=== PATIENT | male | born 1940 | race Caucasian/White ===

== ENCOUNTER → 2016-08-20 | Outpatient (CLI) | payer MEDICARE, OTHER ==
[2016-08-20 09:32] LABS: Chloride 104 mmol/L (98-107); Cholesterol 104 mg/dL (<200); Glucose 127 mg/dL (74-99); Total Protein 6.9 g/dL (6.3-8.2); Triglycerides 54 mg/dL (<150)
[2016-08-20 09:33] LABS: ALT 39 U/L (21-72); AST 25 U/L (17-59); Alkaline Phosphatase 50 U/L (38-126); Anion Gap 12 mmol/L; Blood Urea Nitrogen 18 mg/dL (9-20); Calcium 9.7 mg/dL (8.4-10.2); Carbon Dioxide 28 mmol/L (22-30); HDL Cholesterol 43 mg/dL (40-60); Non-African American GFR(MDRD) >60 (>60 ml/min/1.73 sqM); Potassium 5.1 mmol/L (3.5-5.1); Sodium 144 mmol/L (137-145); Total Bilirubin 0.9 mg/dL (0.2-1.3)
== END | disposition home or self-care (01) ==
LOC: LABWHC1 08:23
PROVIDERS: ATTEND Internal Medicine Interventional Cardiology
DX: E78.2 Mixed hyperlipidemia (principal)
CPT/HCPCS: 36415; 80053; 80061

== ENCOUNTER → 2017-02-07 | Outpatient (CLI) | payer MEDICARE, OTHER ==
[2017-02-07 10:04] LABS: ALT 34 U/L (21-72); AST 20 U/L (17-59); Alkaline Phosphatase 46 U/L (38-126); Anion Gap 8 mmol/L; Blood Urea Nitrogen 18 mg/dL (9-20); Calcium 9.2 mg/dL (8.4-10.2); Carbon Dioxide 26 mmol/L (22-30); Chloride 108 mmol/L (98-107); Cholesterol 113 mg/dL (<200); Glucose 109 mg/dL (74-99); HDL Cholesterol 45 mg/dL (40-60); Non-African American GFR(MDRD) >60 (>60 ml/min/1.73 sqM); Potassium 4.3 mmol/L (3.5-5.1); Sodium 142 mmol/L (137-145); Total Bilirubin 0.7 mg/dL (0.2-1.3); Total Protein 6.1 g/dL (6.3-8.2); Triglycerides 53 mg/dL (<150)
== END | disposition home or self-care (01) ==
LOC: LABWHC1 09:03
PROVIDERS: ATTEND Internal Medicine Interventional Cardiology
DX: E78.2 Mixed hyperlipidemia (principal)
CPT/HCPCS: 36415; 80053; 80061

== ENCOUNTER 2018-04-10 14:00 | Inpatient (IN) | payer MEDICARE, OTHER ==
--- NOTE | 2018-04-10 15:02 | ED ---
Neuro HPI - General Chief Complaint: Neuro Symptoms/Deficit Stated Complaint: Numbness lt side Time Seen by Provider: 04/10/18 14:40 Source: patient, family, RN notes reviewed Mode of arrival: ambulatory Limitations: no limitations - History of Present Illness Is the patient presenting with stroke symptoms?: No Initial Comments: This is a 78-year-old male who states he was carrying kitchen cabinets when his left hand surgery come weak and numb. He states. Shortly thereafter his left leg was weak and had difficulty walking. This whole episode lasted approximately 10 minutes and then totally resolved. He did have a slight headache no nausea vomiting fevers chills sweats no blurry vision or other symptoms. He is dominant right-handed. He has no prior history of strokes no palpitations to complain of no trauma. No neck pain. - Related Data Home Medications: Home Medications Medication Instructions Recorded Confirmed Aspirin EC [Ecotrin] 325 mg PO DAILY 04/16/14 04/10/18 Celecoxib [CeleBREX] 200 mg PO BID 04/16/14 04/10/18 Niacin [Niaspan] 1,000 mg PO BID 04/16/14 04/10/18 Simvastatin [Zocor] 40 mg PO HS 04/16/14 04/10/18 Tamsulosin [Flomax] 0.4 mg PO DAILY 04/16/14 04/10/18 metFORMIN HCL [Glucophage] 500 mg PO BID 04/16/14 04/10/18 Lisinopril [Zestril] 5 mg PO DAILY 04/10/18 04/10/18 Allergies/Adverse Reactions: Allergies Allergy/AdvReac Type Severity Reaction Status Date / Time walnuts Allergy Anaphylaxis Uncoded 04/10/18 14:16 Review of Systems ROS Statement: Those systems with pertinent positive or pertinent negative responses have been documented in the HPI. ROS Other: All systems not noted in ROS Statement are negative. General Exam - General Exam Comments Initial Comments: This is a well-developed well-nourished awake alert oriented 3 male Limitations: no limitations General appearance: alert, in no apparent distress Head exam: Present: atraumatic, normocephalic, normal inspection Eye exam: Present: normal appearance, PERRL, EOMI. Absent: scleral icterus, conjunctival injection, periorbital swelling ENT exam: Present: normal exam, mucous membranes moist Neck exam: Present: normal inspection. Absent: tenderness, meningismus, lymphadenopathy Respiratory exam: Present: normal lung sounds bilaterally. Absent: respiratory distress, wheezes, rales, rhonchi, stridor Cardiovascular Exam: Present: regular rate, normal rhythm, normal heart sounds. Absent: systolic murmur, diastolic murmur, rubs, gallop, clicks GI/Abdominal exam: Present: soft, normal bowel sounds. Absent: distended, tenderness, guarding, rebound, rigid Extremities exam: Present: normal inspection, full ROM, normal capillary refill. Absent: tenderness, pedal edema, joint swelling, calf tenderness Back exam: Present: normal inspection Neurological exam: Present: alert, oriented X3, CN II-XII intact Psychiatric exam: Present: normal affect, normal mood Skin exam: Present: warm, dry, intact, normal color. Absent: rash Stroke MDM - Lab Data Result diagrams: 04/10/18 14:58 04/10/18 14:58 Lab Results 04/10/18 04/10/18 04/10/18 Range/Units 14:58 14:58 14:58 WBC 8.5 (3.8-10.6) k/uL RBC 5.46 (4.30-5.90) m/uL Hgb 16.4 (13.0-17.5) gm/dL Hct 49.0 (39.0-53.0) % MCV 89.7 (80.0-100.0) fL MCH 30.1 (25.0-35.0) pg MCHC 33.5 (31.0-37.0) g/dL RDW 13.2 (11.5-15.5) % Plt Count 187 (150-450) k/uL Neutrophils % 74 % Lymphocytes % 16 % Monocytes % 7 % Eosinophils % 2 % Basophils % 0 % Neutrophils # 6.2 (1.3-7.7) k/uL Lymphocytes # 1.3 (1.0-4.8) k/uL Monocytes # 0.6 (0-1.0) k/uL Eosinophils # 0.2 (0-0.7) k/uL Basophils # 0.0 (0-0.2) k/uL PT (9.0-12.0) sec INR (<1.2) APTT (22.0-30.0) sec Sodium 139 (137-145) mmol/L Potassium 4.5 (3.5-5.1) mmol/L Chloride 105 (98-107) mmol/L Carbon Dioxide 27 (22-30) mmol/L Anion Gap 7 mmol/L BUN 19 (9-20) mg/dL Creatinine 0.99 (0.66-1.25) mg/dL Est GFR (CKD-EPI)AfAm 84 (>60 ml/min/1.73 sqM) Est GFR (CKD-EPI)NonAf 73 (>60 ml/min/1.73 sqM) Glucose 116 H (74-99) mg/dL Calcium 10.0 (8.4-10.2) mg/dL Total Bilirubin 0.9 (0.2-1.3) mg/dL AST 24 (17-59) U/L ALT 30 (21-72) U/L Alkaline Phosphatase 49 (38-126) U/L Total Creatine Kinase 139 (55-170) U/L CK-MB (CK-2) 2.2 (0.0-2.4) ng/mL CK-MB (CK-2) Rel Index 1.6 Troponin I <0.012 (0.000-0.034) ng/mL Total Protein 6.5 (6.3-8.2) g/dL Albumin 3.8 (3.5-5.0) g/dL 04/10/18 Range/Units 14:58 WBC (3.8-10.6) k/uL RBC (4.30-5.90) m/uL Hgb (13.0-17.5) gm/dL Hct (39.0-53.0) % MCV (80.0-100.0) fL MCH (25.0-35.0) pg MCHC (31.0-37.0) g/dL RDW (11.5-15.5) % Plt Count (150-450) k/uL Neutrophils % % Lymphocytes % % Monocytes % % Eosinophils % % Basophils % % Neutrophils # (1.3-7.7) k/uL Lymphocytes # (1.0-4.8) k/uL Monocytes # (0-1.0) k/uL Eosinophils # (0-0.7) k/uL Basophils # (0-0.2) k/uL PT 9.7 (9.0-12.0) sec INR 1.0 (<1.2) APTT 19.1 L (22.0-30.0) sec Sodium (137-145) mmol/L Potassium (3.5-5.1) mmol/L Chloride (98-107) mmol/L Carbon Dioxide (22-30) mmol/L Anion Gap mmol/L BUN (9-20) mg/dL Creatinine (0.66-1.25) mg/dL Est GFR (CKD-EPI)AfAm (>60 ml/min/1.73 sqM) Est GFR (CKD-EPI)NonAf (>60 ml/min/1.73 sqM) Glucose (74-99) mg/dL Calcium (8.4-10.2) mg/dL Total Bilirubin (0.2-1.3) mg/dL AST (17-59) U/L ALT (21-72) U/L Alkaline Phosphatase (38-126) U/L Total Creatine Kinase (55-170) U/L CK-MB (CK-2) (0.0-2.4) ng/mL CK-MB (CK-2) Rel Index Troponin I (0.000-0.034) ng/mL Total Protein (6.3-8.2) g/dL Albumin (3.5-5.0) g/dL - NIH Stroke Scale 1a. Level of Consciousness: (0) alert 1b. LOC Questions: (0) answers correctly 1c. LOC Commands: (0) performs tasks correctly 2. Best Gaze: (0) normal 3. Visual: (0) no visual loss 4. Facial Palsy: (0) normal symmetrical movement 5a. Motor Arm Left: (0) no drift 5b. Motor Arm Right: (0) no drift 6a. Motor Leg Left: (0) no drift 6b. Motor Leg Right: (0) no drift 7. Limb Ataxia: (0) absent 8. Sensory: (0) normal 9. Best Language: (0) no aphasia 10. Dysarthria: (0) normal 11. Extinction/Inattention: (0) no abnormality - Thrombolytic Inclusion/Exclusion Thrombolytic Contraindications: Rapidly Improving s/s - Medical Decision Making CT initially shows no acute findings. CTA was pending. Patient will be admitted at [facility] discuss case with Dr. Blanc. Neurology will be consulted - EKG Data -: EKG Interpreted by Me (Sinus rhythm rate is 74 RI interval 184 QRS duration 156 DT says QTC 460/46) Past Medical History Past Medical History: Diabetes Mellitus, Eye Disorder, GERD/Reflux, Hyperlipidemia, Hypertension, Myocardial Infarction (LA), Osteoarthritis (OA), Prostate Disorder Additional Past Medical History / Comment(s): HX DIVERTICULITIS, BOWEL OBSTRUCTION Last Myocardial Infarction Date:: 1999 History of Any Multi-Drug Resistant Organisms: None Reported Past Surgical History: Heart Catheterization With Stent, Orthopedic Surgery Additional Past Surgical History / Comment(s): HEART STENTS X 3, ORIF LT ANKLE- HARDWARE LATER REMOVED Past Anesthesia/Blood Transfusion Reactions: No Reported Reaction Date of Last Stent Placement:: 1999 Past Psychological History: No Psychological Hx Reported Smoking Status: Former smoker Past Alcohol Use History: Occasional - Past Family History Father Family Medical History: Cancer Mother Family Medical History: Deep Vein Thrombosis (DVT) Course Vital Signs 04/10/18 04/10/18 04/10/18 14:12 15:00 15:30 Temperature 98.1 F 98.1 F 98.0 F Pulse Rate 89 75 78 Respiratory 18 16 18 Rate Blood Pressure 154/84 124/78 125/78 O2 Sat by Pulse 100 98 98 Oximetry 04/10/18 04/10/18 04/10/18 16:00 16:30 17:00 Temperature 98.0 F 98.0 F Pulse Rate 80 72 75 Respiratory 16 16 16 Rate Blood Pressure 130/78 126/73 115/70 O2 Sat by Pulse 98 98 99 Oximetry - Reevaluation(s) Reevaluation #1: 04/10/18 15:28 I did discuss the initial CAT scan with radiologist who did call me. Is some evidence of abnormality in the MCA distribution. CTA is recommended. This is ordered Reevaluation #2: 04/10/18 17:38 No further symptoms the patient has returned to his normal self he states Disposition Clinical Impression: Transient cerebral ischemia Disposition: ADMITTED IP TO THIS HOSP Condition: Stable Referrals: Reinaldo Garcia MD [Primary Care Provider] - 1-2 days
[2018-04-10 15:24] LABS: Basophils % (A) 0 %; Eosinophils # (A) 0.2 k/uL (0-0.7); Eosinophils % (A) 2 %; HGB 16.4 gm/dL (13.0-17.5); Lymphocytes # (A) 1.3 k/uL (1.0-4.8); Lymphocytes % (A) 16 %; MCH 30.1 pg (25.0-35.0); MCHC 33.5 g/dL (31.0-37.0); MCV 89.7 fL (80.0-100.0); Mean Platelet Volume 7.3; Monocytes # (A) 0.6 k/uL (0-1.0); Monocytes % (A) 7 %; Neutrophils # (A) 6.2 k/uL (1.3-7.7); Neutrophils % (A) 74 %; Platelet Count 187 k/uL (150-450); RBC 5.46 m/uL (4.30-5.90); RDW 13.2 % (11.5-15.5); WBC 8.5 k/uL (3.8-10.6)
--- NOTE | 2018-04-10 15:25 | CT ---
EXAMINATION TYPE: CT brain wo con for TPA DATE OF EXAM: 04/10/2018 COMPARISON: None HISTORY: numbness on left side CT DLP: 1186 mGycm Automated exposure control for dose reduction was used. FINDINGS: Intracranial atherosclerotic changes are seen. Calcification is seen within the sulcus the right vu etal lobe. This likely is vascular. Intracranial atherosclerotic changes noted. No midline shift or mass effect. Mild to moderate generalized degenerative change. Question a small a akhil of hyperdensity involving the distal branch of the right MCA. Could not exclude an acute thrombus . IMPRESSION: 1. No definite acute hemorrhage or mass effect. Is a tiny hyperdensity in the distribution of the dis helen branch of the right MCA. Although, this is too small to characterize and could represent a calcif ication a small acute thrombus could not BE excluded.
--- NOTE | 2018-04-10 15:33 | XR ---
EXAMINATION TYPE: XR chest 2V DATE OF EXAM: 04/10/2018 COMPARISON: NONE HISTORY: Numbness in left hand with chest pain. TECHNIQUE: Frontal and lateral views of the chest are obtained. FINDINGS: There is chronic parenchymal change without suspicious focal air space opacity, pleural ef fusion, or pneumothorax seen. The cardiac silhouette size is upper limits of normal normal limits. T here is levoconvex scoliosis centered in the upper thoracic spine with multilevel moderate to severe anterior and lateral spurring. IMPRESSION: Chronic changes without acute cardiopulmonary process.
[2018-04-10 15:36] LABS: Albumin 3.8 g/dL (3.5-5.0); Potassium 4.5 mmol/L (3.5-5.1); Total Bilirubin 0.9 mg/dL (0.2-1.3); Total Protein 6.5 g/dL (6.3-8.2)
[2018-04-10 15:43] LABS: Creatine Kinase 139 U/L (55-170)
[2018-04-10 15:44] LABS: Prothrombin Time 9.7 sec (9.0-12.0)
[2018-04-10 15:48] LABS: Partial Thromboplastin Time 19.1 sec (22.0-30.0)
[2018-04-10 15:57] LABS: Creatine Kinase MB 2.2 ng/mL (0.0-2.4); Troponin I <0.012 ng/mL (0.000-0.034)
--- NOTE | 2018-04-10 17:24 | CT ---
EXAMINATION TYPE: CT angio head neck DATE OF EXAM: 04/10/2018 HISTORY: Numbness to left side hand COMPARISON: None CT DLP: 279.6 mGycm. Automated Exposure Control for Dose Reduction was Utilized. TECHNIQUE: CTA scan of the neck is performed with IV Contrast, patient injected with 65 mL of Isovue 370, axial images are obtained, coronal and sagittal reformatted images are reviewed. Three-D recons tructed images are created on an independent workstation and reviewed. FINDINGS: Thoracic aorta is atheromatous. There is normal branching pattern of the great vessels on t he aortic arch. There is bilateral arterial flow in the vertebral arteries which are fairly symmetric . There is arterial flow in the common internal and external carotid arteries bilaterally. There is s ignificant plaque at the origin of the right internal carotid artery and lumen narrowing probably mor e than 75%. There is significant plaque formation at the origin also left internal carotid artery and lumen narrowing more than 50%. There is no evidence of carotid or vertebral artery dissection. There is arterial flow in the vertebrobasilar artery system. There is arterial flow in the anterior m iddle and posterior cerebral arteries. I see no evidence of intracranial aneurysm or neovascularity. There is no mass effect. I see no evidence of intracranial arterial stenosis. There is normal contras t opacification of the venous sinuses. IMPRESSION: Atherosclerotic vascular disease. There is more than 75% stenosis of the right internal carotid arter y and more than 50% stenosis left internal carotid artery.
[2018-04-10] MEDS ORDERED: ASPIRIN 325 MG TAB PO STA (17:41)
[2018-04-10] MEDS: SODIUM CHLORIDE 0.9% 1,000 ML IV SCH (18:25)
[2018-04-10] MEDS ORDERED: NALOXONE 0.4 MG/ML 1 ML VIAL IV PRN (19:32)
[2018-04-10] MEDS: FAMOTIDINE 20 MG TAB PO SCH (20:22)
[2018-04-10] MEDS: NIACIN TR 500 MG CAPSULE.ER PO SCH (20:22)
[2018-04-10] MEDS: ATORVASTATIN 80 MG TAB PO SCH (20:39)
--- NOTE | 2018-04-10 20:47 | P.HPIM ---
History of Present Illness H&P Date: 04/10/18 Chief Complaint: left sided weakness 78-year-old male with history of diabetes mellitus, CAD status post stents, hypertension. Patient was admitted times status of his health today he was doing a lot of work at home, he is retired. And as he was finishing his work he was attempting to pecan picker a ramp's he was able to pick the one on the right side but the one on the left side he failed to get up when his easily helped him and pick it up he walked inside the house and noticed that his left side is weak and shaky with some numbness as he was trying to feel his left upper extremity and it was completely numb. Otherwise he didn't identify any numb areas around his face. He denies any associated facial droop or slurred speech or any changes in his vision or hearing however when he attempted to go to the bathroom he noticed left lower extremity weakness in his leg gave out that's when he decided to come to the hospital for further evaluation. Reports that his symptoms improved after 10 minutes. And completely resolved after 1 hour. He has never experienced anything similar in the past. In the emergency department CAT scan of the head suggested small hyperdensity area and the branch of the right MCA however CT angiogram of the head and neck did not show any flow limitations in the anterior middle or posterior cerebral arteries. However it did identify significant stenosis of the right internal carotid artery of over 75%. Chest x-ray was unremarkable and EKG showed PVCs with right bundle branch block. Patient otherwise denies any chest pain or trouble breathing denies any fevers or chills denies any changes in his bowel habits or urinary habits denies any abdominal pain nausea or vomiting denies any palpitations dizziness or lightheadedness. Patient however admitted that since January he stopped taking his cholesterol pills. Review of Systems Pertinent positives as noted in HPI. All other systems were reviewed and are negative Past Medical History Past Medical History: Diabetes Mellitus, Eye Disorder, GERD/Reflux, Hyperlipidemia, Hypertension, Myocardial Infarction (MA), Osteoarthritis (OA), Prostate Disorder Additional Past Medical History / Comment(s): HX DIVERTICULITIS, BOWEL OBSTRUCTION Last Myocardial Infarction Date:: 1999 History of Any Multi-Drug Resistant Organisms: None Reported Past Surgical History: Heart Catheterization With Stent, Orthopedic Surgery Additional Past Surgical History / Comment(s): HEART STENTS X 3, ORIF LT ANKLE- HARDWARE LATER REMOVED Past Anesthesia/Blood Transfusion Reactions: No Reported Reaction Date of Last Stent Placement:: 1999 Past Psychological History: No Psychological Hx Reported Smoking Status: Former smoker Past Alcohol Use History: Occasional Past Drug Use History: None Reported - Past Family History Father Family Medical History: Cancer Mother Family Medical History: Deep Vein Thrombosis (DVT) Medications and Allergies Home Medications Medication Instructions Recorded Confirmed Type Aspirin EC [Ecotrin] 325 mg PO DAILY 04/16/14 04/10/18 History Celecoxib [CeleBREX] 200 mg PO BID 04/16/14 04/10/18 History Niacin [Niaspan] 1,000 mg PO BID 04/16/14 04/10/18 History Simvastatin [Zocor] 40 mg PO HS 04/16/14 04/10/18 History Tamsulosin [Flomax] 0.4 mg PO DAILY 04/16/14 04/10/18 History metFORMIN HCL [Glucophage] 500 mg PO BID 04/16/14 04/10/18 History Lisinopril [Zestril] 5 mg PO DAILY 04/10/18 04/10/18 History Allergies Allergy/AdvReac Type Severity Reaction Status Date / Time walnuts Allergy Anaphylaxis Uncoded 04/10/18 14:16 Physical Exam Vitals: Vital Signs Temp Pulse Resp BP Pulse Ox 04/10/18 18:30 98.1 F 74 16 128/80 98 04/10/18 18:00 98.1 F 78 18 122/78 98 04/10/18 17:30 98.0 F 80 16 120/72 98 04/10/18 17:00 75 16 115/70 99 04/10/18 16:30 98.0 F 72 16 126/73 98 04/10/18 16:00 98.0 F 80 16 130/78 98 04/10/18 15:30 98.0 F 78 18 125/78 98 04/10/18 15:00 98.1 F 75 16 124/78 98 04/10/18 14:12 98.1 F 89 18 154/84 100 Intake and Output 04/10/18 04/10/18 04/10/18 06:59 14:59 22:59 Other: Weight 103.328 kg 103.328 kg Constitutional: No acute distress, conversant, pleasant, well developed Eyes: Anicteric sclerae, moist conjunctiva, no lid-lag Pupils equal round reactive to light ENMT: NC/AT Oropharynx clear, no erythema, or exudates Neck: Supple, FROM, no masses, or JVD No carotid bruits No thyromegaly Lungs: Clear to auscultation Clear to percussion Normal respiratory effort, no accessory muscle use Cardiovascular: Heart regular in rate and rhythm, grade III systolic murmur, max intensity at aortic area, non radiating , no gallops, or rubs No peripheral edema Abdominal: Soft Nontender, no guarding, rebound or rigidity Abdomen moving with respiration Normoactive bowel sounds No hepatomegaly, No splenomegaly No palpable mass No abdominal wall hernia noted Skin: Normal temperature, tone, texture, turgor No induration No subcutaneous nodules No rash, lesions No ulcers Extremities: No digital cyanosis No clubbing Pedal pulses intact and symmetrical Radial pulses intact and symmetrical No calf tenderness Psychiatric: Alert and oriented to person, place and time Appropriate affect fair judgment Neuro Muscles Strength 5/5 in all 4 extremities Sensation to light touch grossly present throughout Cranial nerves II-XII grossly intact No focal sensory deficits finger nose exam intact, gait unremarkable Lymphatics: no palpable cervical or supraclavicular , or inguinal lymph nodes Results CBC & Chem 7: 04/10/18 14:58 04/10/18 14:58 Labs: Abnormal Lab Results - Last 24 Hours (Table) 04/10/18 04/10/18 Range/Units 14:58 14:58 APTT 19.1 L (22.0-30.0) sec Glucose 116 H (74-99) mg/dL Assessment and Plan Assessment: 78 year old male with history of CAD, DM , HTN, admitted under inpatient with anticipated length of stay >48 hours, due to TIA, also found to have stenosis of right internal carotid artery , patient is diabetic and hypertensive with histroy of CAD s/p stents. his symptoms has resolved completely now. patient admitted for full workup of TIA, vascular surgery consult for internal carotid stenosis , ABCD score put him at moderate risk for full blown stroke. Plan: TIA , with moderate risk factors for full blown stroke in 1 week significant stenosis of right internal carotid artery ASA statin high intensity dose neuro checks PT/OT neurology evaluation check echocardiogram B12, TSH vascular surgery consult systolic murmur , suspicious for aortic stenosis , asymptomatic check 2D echo Diabetes mellitus type II, controlled check A1c insulin sliding scale Hypertension , controlled continue lisinopril history of CAD s/p stents continue aspirin and statin continue blood pressure meds BPH resume flomax DVT PPx mechanical due to TIA avoid pharmacologic DVT PPX Surrogate decision-maker: patient CODE STATUS:full code Discussed with: Patient, ER, RN Anticipated discharge: 48-[address]: home A total of 60 minutes was spent on the care of this complex patient more than 50 % of the time was spent in counseling and care coordination.
[2018-04-10] MEDS ORDERED: metFORMIN 500 MG TAB PO SCH (21:00)
[2018-04-10] MEDS ORDERED: ATORVASTATIN 20 MG TAB PO SCH (21:00)
[2018-04-10] MEDS ORDERED: ATORVASTATIN 40 MG TAB PO SCH (21:00)
[2018-04-10 21:04] LABS: Glucose,Whole Blood 173 mg/dL (75-99)
[2018-04-10] MEDS: INSULIN ASPART 100 UNIT/ML 1 ML 10 ML VIAL SQ SCH (21:09)
[2018-04-11 05:57] LABS: Glucose,Whole Blood 113 mg/dL (75-99)
[2018-04-11] MEDS: INSULIN ASPART 100 UNIT/ML 1 ML 10 ML VIAL SQ SCH ×4 (06:15→21:19)
[2018-04-11 06:25] LABS: Basophils % (A) 1 %; Eosinophils # (A) 0.3 k/uL (0-0.7); Eosinophils % (A) 5 %; HCT 44.6 % (39.0-53.0); HGB 14.7 gm/dL (13.0-17.5); Lymphocytes # (A) 1.9 k/uL (1.0-4.8); Lymphocytes % (A) 30 %; Monocytes # (A) 0.5 k/uL (0-1.0); Monocytes % (A) 8 %; Neutrophils # (A) 3.5 k/uL (1.3-7.7); Neutrophils % (A) 54 %; Platelet Count 165 k/uL (150-450); RDW 13.3 % (11.5-15.5); WBC 6.5 k/uL (3.8-10.6)
[2018-04-11 06:33] LABS: Total Bilirubin 0.8 mg/dL (0.2-1.3); Total Protein 5.3 g/dL (6.3-8.2)
[2018-04-11 06:46] LABS: Potassium 4.5 mmol/L (3.5-5.1)
[2018-04-11] MEDS: FAMOTIDINE 20 MG TAB PO SCH ×2 (09:11→20:32)
[2018-04-11] MEDS: LISINOPRIL 5 MG TAB PO SCH (09:11)
[2018-04-11] MEDS: MELOXICAM 7.5 MG TAB PO SCH (09:11)
[2018-04-11] MEDS: TAMSULOSIN 0.4 MG CAP.ER.24H PO SCH (09:11)
[2018-04-11] MEDS: ASPIRIN 325 MG TAB PO SCH (09:12)
[2018-04-11] MEDS: NIACIN TR 500 MG CAPSULE.ER PO SCH ×2 (09:12→20:32)
--- NOTE | 2018-04-11 11:25 | ECHOF ---
Referral Reason:TIA MEASUREMENTS -------- HEIGHT: 188.0 cm WEIGHT: 100.7 kg BP: 97/58 RVIDd: 3.0 cm (< 3.3) IVSd: 1.3 cm (0.6 - 1.1) LVIDd: 3.9 cm (3.9 - 5.3) LVPWd: 1.1 cm (0.6 - 1.1) IVSs: 1.8 cm LVIDs: 2.7 cm LVPWs: 1.7 cm LA Diam: 3.3 cm (2.7 - 3.8) LAESV Index (A-L): 35.97 ml/m Ao Diam: 3.9 cm (2.0 - 3.7) AV Cusp: 1.4 cm (1.5 - 2.6) MV EXCURSION: 8.503 mm (> 18.000) MV EF SLOPE: 22 mm/s (70 - 150) EPSS: 1.4 cm MV E Ramiro: 1.02 m/s MV DecT: 285 ms MV A Ramiro: 0.97 m/s MV E/A Ratio: 1.05 AV maxP.04 mmHg AV meanP.63 mmHg AR PHT: 613 ms FINDINGS -------- Sinus rhythm with extra systolic beats. This was a technically adequate study. The left ventricular size is normal. There is mild concentric left ventricular hypertrophy. Overa ll left ventricular systolic function is normal with, an EF between 55 - 60 %. Basal inferior LV wa ll motion is hypokinetic. Basal inferoseptal LV wall motion is hypokinetic. The right ventricle is normal in size. LA is moderately dilated 34-39 ml/m2 The right atrium is normal in size. There is moderate to severe aortic valve sclerosis. There is mild aortic regurgitation. There is moderate aortic stenosis present. Peak/mean gradient across the Aortic Valve is 43.04mmHg / 25.63mm Hg. The mitral valve leaflets are mildly thickened. Mild mitral annular calcification present. Mild m itral regurgitation is present. The tricuspid valve appears structurally normal. Trace/mild (physiologic) pulmonic regurgitation. The aortic root is dilated measuring 3.9cm. Normal inferior vena cava with normal inspiratory collapse consistent with estimated right atrial pre ssure of 5 mmHg. There is no pericardial effusion. CONCLUSIONS -------- 1. Sinus rhythm with extra systolic beats. 2. This was a technically adequate study. 3. The left ventricular size is normal. 4. There is mild concentric left ventricular hypertrophy. 5. Overall left ventricular systolic function is normal with, an EF between 55 - 60 %. 6. Basal inferior LV wall motion is hypokinetic. 7. Basal inferoseptal LV wall motion is hypokinetic. 8. The right ventricle is normal in size. 9. LA is moderately dilated 34-39 ml/m2 10. The right atrium is normal in size. 11. There is moderate to severe aortic valve sclerosis. 12. There is mild aortic regurgitation. 13. There is moderate aortic stenosis present. 14. Peak/mean gradient across the Aortic Valve is 43.04mmHg / 25.63mmHg. 15. The mitral valve leaflets are mildly thickened. 16. Mild mitral annular calcification present. 17. Mild mitral regurgitation is present. 18. The tricuspid valve appears structurally normal. 19. Trace/mild (physiologic) pulmonic regurgitation. 20. The aortic root is dilated measuring 3.9cm. 21. Normal inferior vena cava with normal inspiratory collapse consistent with estimated right atrial pressure of 5 mmHg. 22. There is no pericardial effusion. [facility] JUSTICE: Rani Hale RDCS
[2018-04-11 11:29] LABS: Glucose,Whole Blood 105 mg/dL (75-99)
--- NOTE | 2018-04-11 13:37 | CONS ---
CONSULTATION This is a 78-year-old gentleman who came to [facility] with history of when he was working at home and he had weakness in the left arm and left leg with recovery in 10 minutes. No history of amaurosis fugax. No history of seizure disorder. There is no evidence of any facial droop and no evidence of any weakness on the right lower extremity. This is the first time it happened to him. The patient has a history of diabetes mellitus, coronary artery stent, history of hypertension controlled with medication. The patient had a stroke workup. He had a CT of the head without contrast, which showed possible MCA thrombosis. CT of the carotid shows middle cerebral is patent and the right side is 75% stenosis. PHYSICAL EXAMINATION: Patient was seen in his room. His vital signs are stable. Alert and oriented to time and place. Neck is supple. No bruit appreciated. Chest is clear to auscultation. First and second sounds normal. ABDOMEN: Soft, nontender. VASCULAR EXAMINATION: Brachial, radial, femoral pulses are present. NEURO SYSTEM: Patient is well oriented to time and place. Normal motor function upper and lower extremity. PLAN: The patient is on consult for neurology. I recommend to have antiplatelet therapy and we will have a cardiac clearance. Most likely this gentleman will need a right carotid endarterectomy. We will discuss with Internal Medicine and Neurology and follow with you. MMODL / IJN: [id number] /
--- NOTE | 2018-04-11 14:23 | P.PN ---
Subjective Progress Note Date: 04/11/18 The patient is a 78-year-old male with a past medical history of diabetes, CAD, and hypertension who presented to the ED with complaints of sudden onset left arm and left leg weakness and numbness. The patient noted that his symptoms started while he was trying to lift cabinets in the house for remodeling. The symptoms resolved completely within one hour. CT head in the ED showed a tiny hyperdensity in the distribution of the distal branch of the right MCA. Subsequent CTA of head and neck showed more than 75% stenosis of the right ICA and more than 50% stenosis of the left ICA. The patient was admitted to the inpatient unit for suspected TIA with vascular surgery and neurology consults. Patient was seen and examined with daughter, , and granddaughter at bedside. The patient was in good spirits and noted that all of his symptoms prior to admission have resolved. At time of examination, he denied any weakness, numbness, tingling, double vision, facial weakness, headaches, fever, chills, cough, chest pain, shortness of breath, nausea, vomiting, diarrhea, or recent travel. Objective - Vital Signs Vital signs: Vital Signs Temp 97.8 F 04/11/18 08:20 Pulse 83 04/11/18 11:35 Resp 16 04/11/18 11:35 BP 148/88 04/11/18 11:35 Pulse Ox 94 L 04/11/18 11:35 Intake & Output 04/10/18 04/11/18 04/11/18 18:59 06:59 18:59 Weight 103.328 kg 101.1 kg Other: Voiding Method Toilet Toilet # Voids 1 - Exam General: Non-toxic, in no acute distress HEENT: NC/AT, anicteric sclerae, moist conjunctiva, no lid-lag, PERRLA, oropharynx clear, no erythema, exudates Cardiovascular: S1/S2 wnl, systolic murmur appreciated, no rubs or gallops Lungs: Clear to auscultation, normal respiratory effort, no accessory muscle use Abdominal: Soft, nontender, non-distended, no guarding, rebound, or rigidity, normoactive bowel sounds Skin: Warm, dry Extremities: No edema or contractures Psychiatric: Alert and oriented to person, place and time, appropriate affect, Intact judgment Neuro: CN II-XII grossly intact, strength 5/5 throughout, finger no test within normal limits, sensation grossly intact throughout - Labs CBC & Chem 7: 04/11/18 05:22 04/11/18 05:22 Labs: Abnormal Lab Results - Last 24 Hours (Table) 04/10/18 04/10/18 04/10/18 Range/Units 14:58 14:58 21:02 APTT 19.1 L (22.0-30.0) sec Glucose 116 H (74-99) mg/dL POC Glucose (mg/dL) 173 H (75-99) mg/dL Total Protein (6.3-8.2) g/dL Albumin (3.5-5.0) g/dL LDL Cholesterol, Calc (0-99) mg/dL HDL Cholesterol (40-60) mg/dL 04/11/18 04/11/18 04/11/18 Range/Units 05:22 05:56 11:27 APTT (22.0-30.0) sec Glucose 109 H (74-99) mg/dL POC Glucose (mg/dL) 113 H 105 H (75-99) mg/dL Total Protein 5.3 L (6.3-8.2) g/dL Albumin 3.0 L (3.5-5.0) g/dL LDL Cholesterol, Calc 107 H (0-99) mg/dL HDL Cholesterol 27 L (40-60) mg/dL Assessment and Plan Plan: TIA, 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 -Neurology and vascular surgery consulted -Continue with aspirin 325 mg daily and Lipitor 80 mg qd -Echocardiogram reviewed -Continue with neuro checks, PT/OT -Follow up B12 and folate levels Systolic murmur, asymptomatic -Echocardiogram shows moderate aortic stenosis -Patient will need outpatient follow-up Type 2 diabetes mellitus -A1C 6.0 -Insulin sliding scale HTN -C/w Lisinopril 5 mg qd DVT//GI prophylaxis -IPCDs -No indication for GI prophylaxis Discussed with: Patient, family Anticipated discharge date: 04/12/[address]: Home A total of 40 minutes was spent on the care of this complex patient more than 50 % of the time was spent in counseling and care coordination.
[2018-04-11 16:38] LABS: Glucose,Whole Blood 121 mg/dL (75-99)
--- NOTE | 2018-04-11 20:14 | P.CNNES ---
History of Present Illness Consult date: 04/11/18 Requesting physician: Linda Blanc Reason for Consult: TIA History of Present Illness: Patient is a pleasant 78-year-old male who is being evaluated by the neurology service on 04/11/2018 per the request of Dr. Blanc for TIA. Patient has history of diabetes mellitus, CAD status post cardiac stents, hypertension and hyperlipidemia. Patient states he was putting up new kitchen cabinets and noticed when he went to lift up a box his left hand could not emergency medcl emt. He states he went in the house and sat down. When he went to stand up his left leg gave out and he fell to the floor. Patient states this episode lasted approximately 10 minutes. Patient denies any facial numbness, dysarthria, dysphagia, or confusion. Patient states he had return of symptoms in the emergency room. He denies any further symptoms since being admitted to his room. Computed tomography scan of the head showed no acute hemorrhage or mass effect. CT of the brain did show tiny hyperdensity in the distribution of the right MCA. CTA was done which showed more than 75% stenosis of the right internal carotid artery and more than 50% stenosis of the left internal carotid artery. Vascular surgery was consulted and a right carotid endarterectomy is planned for Saturday. Patient was on aspirin 325 mg by mouth daily in the home setting. Patient was also on Zocor 40 mg daily at bedtime. Vital signs on admission show temperature 98.1, pulse 89, respiratory rate 18, blood pressure 154/84, and oxygen saturation 100% on room air. Labs were essentially unremarkable except for elevated LDL of 107 and low HDL of 27. At the time of my evaluation , patient's resting comfortably in bed and appears to be in no acute distress. Family is at the bedside. Review of Systems REVIEW OF SYSTEMS: Otherwise unremarkable and noncontributory. Past Medical History Past Medical History: Diabetes Mellitus, Eye Disorder, GERD/Reflux, Hyperlipidemia, Hypertension, Myocardial Infarction ([place]), Osteoarthritis (OA), Prostate Disorder Additional Past Medical History / Comment(s): HX DIVERTICULITIS, BOWEL OBSTRUCTION Last Myocardial Infarction Date:: 1999 History of Any Multi-Drug Resistant Organisms: None Reported Past Surgical History: Heart Catheterization With Stent, Orthopedic Surgery Additional Past Surgical History / Comment(s): HEART STENTS X 3, ORIF LT ANKLE- HARDWARE LATER REMOVED Past Anesthesia/Blood Transfusion Reactions: No Reported Reaction Date of Last Stent Placement:: 1999 Past Psychological History: No Psychological Hx Reported Smoking Status: Former smoker Past Alcohol Use History: Occasional Past Drug Use History: None Reported - Past Family History Father Family Medical History: Cancer Mother Family Medical History: Deep Vein Thrombosis (DVT) Medications and Allergies Home Medications Medication Instructions Recorded Confirmed Type Aspirin EC [Ecotrin] 325 mg PO DAILY 04/16/14 04/10/18 History Celecoxib [CeleBREX] 200 mg PO BID 04/16/14 04/10/18 History Niacin [Niaspan] 1,000 mg PO BID 04/16/14 04/10/18 History Simvastatin [Zocor] 40 mg PO HS 04/16/14 04/10/18 History Tamsulosin [Flomax] 0.4 mg PO DAILY 04/16/14 04/10/18 History metFORMIN HCL [Glucophage] 500 mg PO BID 04/16/14 04/10/18 History Lisinopril [Zestril] 5 mg PO DAILY 04/10/18 04/10/18 History Allergies Allergy/AdvReac Type Severity Reaction Status Date / Time walnuts Allergy Anaphylaxis Uncoded 04/10/18 14:16 Physical Examination - Vital Signs Vital Signs: Vital Signs Temp Pulse Resp BP Pulse Ox 04/11/18 15:50 98.3 F 82 16 114/65 97 04/11/18 11:35 83 16 148/88 94 L 04/11/18 08:20 97.8 F 74 16 128/76 97 04/11/18 04:00 98.0 F 76 18 97/53 95 04/10/18 23:17 75 18 04/10/18 23:16 98.6 F 75 18 120/69 96 Intake and Output 04/11/18 04/11/18 04/11/18 06:59 14:59 22:59 Intake Total 180 240 Output Total 400 Balance -220 240 Intake: Oral 180 240 Output: Urine 400 Other: Voiding Method Toilet Toilet Toilet # Voids 1 2 Weight 101.1 kg PHYSICAL EXAM: GENERAL APPEARANCE: Patient is a well-developed, male who appears to be in no acute distress. HEENT: Normocephalic, atraumatic, no facial asymmetry is seen. Neck is supple with no masses felt. CARDIOVASCULAR: Regular rate and rhythm. ABDOMEN: Nontender, nondistended. EXTREMITIES: Show no edema or clubbing. NEUROLOGICAL EXAM: Patient is awake, alert, and oriented 3. Speech and language are normal. Strength is full in all 4 extremities. Sensory exam to light touch is normal in all 4 extremities. No facial asymmetry is seen on cranial nerve testing. No pronator drift noted. No tremors or seizure-like activity noted. Results - Laboratory Findings CBC and BMP: 04/11/18 05:22 04/11/18 05:22 Abnormal Lab Findings: Abnormal Labs 04/10/18 04/10/18 04/10/18 14:58 14:58 21:02 APTT 19.1 L Glucose 116 H POC Glucose (mg/dL) 173 H Total Protein Albumin LDL Cholesterol, Calc HDL Cholesterol 04/11/18 04/11/18 04/11/18 05:22 05:56 11:27 APTT Glucose 109 H POC Glucose (mg/dL) 113 H 105 H Total Protein 5.3 L Albumin 3.0 L LDL Cholesterol, Calc 107 H HDL Cholesterol 27 L 04/11/18 16:31 APTT Glucose POC Glucose (mg/dL) 121 H Total Protein Albumin LDL Cholesterol, Calc HDL Cholesterol Assessment and Plan Plan: Impression: 1. Transient ischemic attack 2. Carotid stenosis 3. Hypertension 4. Hyperlipidemia 5. CAD/history of stents 6. Diabetes mellitus Recommendation: It does appear patient suffered a transient ischemic attack with a transient episode of left sided weakness. Symptoms have since resolved. CT of the brain did not show any acute findings. CTA showed greater than 75% stenosis of the right internal carotid artery. Patient is to have carotid endarterectomy done on Saturday. Patient will have cardiac clearance prior. Patient was on aspirin in the home setting. I recommend changing this to Plavix 75 mg by mouth daily. I recommend continuing statin therapy. I recommend blood pressure control as his blood pressure can be elevated. I will order an EEG and a serum homocystine level. Continue neurological checks. I will continue to follow with you. Further recommendations to follow. Thank you for allowing me to participate in the care of your patient. Feel free to call with any questions or concerns. I performed an examination of the patient and discussed the management with the OFFICE TECHNOLOGIST. I have reviewed the OFFICE TECHNOLOGIST notes and agree with the findings and plan of care.
[2018-04-11] MEDS: ATORVASTATIN 80 MG TAB PO SCH (20:32)
[2018-04-11 21:15] LABS: Glucose,Whole Blood 96 mg/dL (75-99)
[2018-04-11] MEDS: SODIUM CHLORIDE 0.9% 1,000 ML IV SCH (21:19)
[2018-04-12 06:23] LABS: Glucose,Whole Blood 109 mg/dL (75-99)
[2018-04-12] MEDS: INSULIN ASPART 100 UNIT/ML 1 ML 10 ML VIAL SQ SCH ×4 (06:23→21:12)
--- NOTE | 2018-04-12 11:17 | PN ---
PROGRESS NOTE This is a 78-year-old gentleman who has been admitted with history of TIA affecting left side with complete recovery. The patient had a CT scan of the brain showed no infarction and CTA showed 75% on the right side. The patient also has moderate aortic stenosis. The patient has post coronary artery stent. PHYSICAL EXAMINATION: On examination, his vital signs are stable. Neck is supple. NEURO: Stable. Discussed with Cardiology. We will do MRA to see if there is any infarction and also they think it could be due to moderate aortic stenosis. If all agrees, we will proceed with surgery. The patient will be seen by Dr. Wiley who is his skills auditor. We will follow with you with antiplatelet therapy. MMODL / IJN: [id number] /
--- NOTE | 2018-04-12 11:23 | P.CRDCN ---
History of Present Illness Consult date: 04/12/18 Reason for Consult (text): Cardiac clearance Chief complaint: TIA History of present illness: This is a 78-year-old male patient who presented to the emergency department with left arm and leg weakness. The patient is very active and was doing some work putting up his kitchen cabinets when he suddenly had weakness of his left hand and dropped one of the boxes. He was able to walk at that point and he went inside and sat down for a moment. When he tried to stand his left leg was weak and he fell to the ground. He did not have any injury. No difficulty with speech. This is the first episode the patient has had like this. He has a known cardiac history including hypertension, hyperlipidemia, CAD status post PCI and stent 3 in 1999 and diabetes mellitus. The patient follows at Dr. Wiley on a regular basis and was last seen about 4 months ago. He underwent nuclear medicine stress testing in March 2017 that showed a fixed defect but no stress-induced cardiac ischemia. He has not experienced any chest discomfort recently. Has not undergone cardiac catheterization since 1999. Patient is very physically active does not describe any chest discomfort or shortness breath with exertion. EKG shows a sinus mechanism with PVCs. Slight T-wave inversion in lead 3 and V1. Recent echocardiogram showed normal LV function with mild concentric hypertrophy, EF is 55-60%. Carotid Doppler showed right internal carotid artery stenosis of 75%, left side 50%. He has been evaluated by neurology and vascular surgery and cardiology has been consultative for cardiac clearance. Patient's symptoms have completely resolved. He seen sitting up in bed in no acute distress. He is hemodynamically stable. Review of Systems All systems: negative Constitutional: Reports as per HPI Past Medical History Past Medical History: Diabetes Mellitus, Eye Disorder, GERD/Reflux, Hyperlipidemia, Hypertension, Myocardial Infarction ([place]), Osteoarthritis (OA), Prostate Disorder Additional Past Medical History / Comment(s): HX DIVERTICULITIS, BOWEL OBSTRUCTION Last Myocardial Infarction Date:: 1999 History of Any Multi-Drug Resistant Organisms: None Reported Past Surgical History: Heart Catheterization With Stent, Orthopedic Surgery Additional Past Surgical History / Comment(s): HEART STENTS X 3, ORIF LT ANKLE- HARDWARE LATER REMOVED Past Anesthesia/Blood Transfusion Reactions: No Reported Reaction Date of Last Stent Placement:: 1999 Past Psychological History: No Psychological Hx Reported Smoking Status: Former smoker Past Alcohol Use History: Occasional Past Drug Use History: None Reported - Past Family History Father Family Medical History: Cancer Mother Family Medical History: Deep Vein Thrombosis (DVT) Medications and Allergies Home Medications Medication Instructions Recorded Confirmed Type Aspirin EC [Ecotrin] 325 mg PO DAILY 04/16/14 04/10/18 History Celecoxib [CeleBREX] 200 mg PO BID 04/16/14 04/10/18 History Niacin [Niaspan] 1,000 mg PO BID 04/16/14 04/10/18 History Simvastatin [Zocor] 40 mg PO HS 04/16/14 04/10/18 History Tamsulosin [Flomax] 0.4 mg PO DAILY 04/16/14 04/10/18 History metFORMIN HCL [Glucophage] 500 mg PO BID 04/16/14 04/10/18 History Lisinopril [Zestril] 5 mg PO DAILY 04/10/18 04/10/18 History Allergies Allergy/AdvReac Type Severity Reaction Status Date / Time walnuts Allergy Anaphylaxis Uncoded 04/10/18 14:16 Physical Exam Vitals: Vital Signs Temp Pulse Resp BP Pulse Ox 04/12/18 04:00 97.9 F 76 16 90/58 95 04/11/18 23:56 75 16 04/11/18 23:55 75 16 120/69 95 04/11/18 20:00 97.0 F L 80 18 121/65 97 04/11/18 15:50 98.3 F 82 16 114/65 97 04/11/18 11:35 83 16 148/88 94 L Intake and Output 04/11/18 04/12/18 04/12/18 22:59 06:59 14:59 Intake Total 240 240 Balance 240 240 Intake: Oral 240 240 Other: Voiding Method Toilet Toilet # Voids 1 1 # Bowel Movements 1 Weight 99.9 kg - Constitutional General appearance: average body habitus - EENT Eyes: normal appearance ENT: hearing grossly normal - Neck Carotids: left: bruit present - Respiratory Respiratory: bilateral: CTA - Cardiovascular Rhythm: regular Heart sounds: normal: S1, S2 Abnormal Heart Sounds: systolic murmur systolic murmur (1) Type: holo (Holosystolic murmur heard throughout.) leg Peripheral Edema: bilateral: None dorsalis pedis Peripheral Pulses: bilateral: Normal - Gastrointestinal General gastrointestinal: normal bowel sounds - Musculoskeletal Musculoskeletal: strength equal bilaterally - Psychiatric Psychiatric: A&O x's 3 Results 04/11/18 05:22 04/11/18 05:22 Current Medications Generic Name Dose Route Start Last Admin Trade Name Freq PRN Reason Stop Dose Admin Atorvastatin Calcium 80 mg 04/10/18 21:00 04/11/18 20:32 Lipitor PO 80 mg HS CASEY Administration Clopidogrel Bisulfate 75 mg 04/12/18 09:00 Plavix PO DAILY CASEY Cyanocobalamin 1,000 mcg 04/12/18 12:00 Vitamin B-12 PO DAILY@1200 CASEY Famotidine 20 mg 04/10/18 21:00 04/11/18 20:32 Pepcid PO 20 mg BID CASEY Administration Sodium Chloride 1,000 mls @ 20 mls/hr 04/10/18 17:45 04/11/18 21:19 Saline 0.9% IV Not Given .Q24H [facility] Insulin Aspart 0 unit 04/10/18 21:00 04/12/18 06:23 Novolog SQ Not Given ACHS [facility] Protocol Lisinopril 5 mg 04/11/18 09:00 04/11/18 09:11 Zestril PO 5 mg DAILY CASEY Administration Meloxicam 15 mg 04/11/18 09:00 04/11/18 09:11 Mobic PO 15 mg DAILY CASEY Administration Naloxone HCl 0.2 mg 04/10/18 19:32 Narcan IV Q2M PRN Opioid Reversal Niacin 1,000 mg 04/10/18 21:00 04/11/18 20:32 Niacin Tr PO 1,000 mg BID CASEY Administration Tamsulosin HCl 0.4 mg 04/11/18 09:00 04/11/18 09:11 Flomax PO 0.4 mg DAILY CASEY Administration Intake and Output 04/11/18 04/12/18 04/12/18 22:59 06:59 14:59 Intake Total 240 240 Balance 240 240 Intake: Oral 240 240 Other: Voiding Method Toilet Toilet # Voids 1 1 # Bowel Movements 1 Weight 99.9 kg 04/11/18 05:22 04/11/18 05:22 Assessment and Plan Assessment: TIA with evidence of bilateral carotid stenosis Moderate to severe aortic stenosis CAD status post PCI with stent in , stress test 2016 negative for stress-induced ischemia Hypertension Hyperlipidemia Diabetes mellitus Plan: Echocardiogram shows mild concentric left ventricular hypertrophy, normal systolic function with ejection fraction of 55-60%. Moderate to severe aortic valve sclerosis, mild AR, moderate left ear peak gradient is 43 mmHg, mean gradient 25 mmHg. The case was discussed with Dr. Resendiz who is recommending MRI of the brain and this has been ordered urgently. The patient's symptoms of TIA have completely resolved. Patient may benefit from LAKESHA to further evaluate the degree of his aortic stenosis. Continue to monitor on telemetry. Neurology is following as well. We will continue to follow him closely and make further changes as necessary. Thank you very kindly for this consultation. SERVICE TECHNICIAN note has been reviewed, I agree with a documented findings and plan of care. Patient was seen and examined.
[2018-04-12 12:57] LABS: Glucose,Whole Blood 101 mg/dL (75-99)
[2018-04-12] MEDS: FAMOTIDINE 20 MG TAB PO SCH ×2 (13:04→20:07)
[2018-04-12] MEDS: ASPIRIN 325 MG TAB PO SCH (13:04)
--- NOTE | 2018-04-12 13:04 | MR ---
EXAMINATION TYPE: MR brain wo con DATE OF EXAM: 04/12/2018 12:48 PM. COMPARISON: NONE. HISTORY: TIA Technique: Multiplanar, multiecho imaging of the brain was obtained without intravenous contrast. FINDINGS: There are generalized changes of sulcal prominence and ventriculomegaly, compatible with a trophic change. Midline structures are unremarkable. There is a normal craniocervical junction. There is a 2.8 x 1.7 cm area of restricted diffusion in the posterior right parietal region. This lik ion represents a subacute infarct. There are normal vascular flow voids. The orbits are unremarkable. There is mild mucoperiosteal thickening involving the frontal and ethmoidal sinuses. There is no evidence of a CP angle mass lesion. There is abnormal FLAIR signal in the area of restric chang diffusion there is no mass effect, midline shift or intracranial blood. IMPRESSION: 1. EVIDENCE OF A SUBACUTE INFARCT IN THE POSTERIOR RIGHT PARIETAL REGION. 2. DEGENERATIVE CHANGE. 3. CHRONIC SINUS MUCOSAL DISEASE.
[2018-04-12] MEDS: MELOXICAM 7.5 MG TAB PO SCH (13:05)
[2018-04-12] MEDS: LISINOPRIL 5 MG TAB PO SCH (13:05)
[2018-04-12] MEDS: NIACIN TR 500 MG CAPSULE.ER PO SCH ×2 (13:06→20:07)
[2018-04-12] MEDS: TAMSULOSIN 0.4 MG CAP.ER.24H PO SCH (13:06)
[2018-04-12] MEDS: CLOPIDOGREL 75 MG TAB PO SCH (13:17)
[2018-04-12] MEDS: CYANOCOBALAMIN 500 MCG TAB PO SCH (13:17)
[2018-04-12 16:48] LABS: Glucose,Whole Blood 138 mg/dL (75-99)
--- NOTE | 2018-04-12 17:13 | P.PN ---
Subjective Progress Note Date: 04/12/18 Patient is a pleasant 78-year-old male who is being followed by the neurology service for CVA. Patient had episode of left-sided weakness at home and came to [facility] for further evaluation. Patient had a CT of the brain which showed no acute hemorrhage or mass effect. CT of the brain did show tiny hyperdensity in the distribution of the right MCA. MRI showed subacute infarct in the posterior right parietal region. CTA showed more than 75% stenosis in the right internal carotid artery and more than 50% stenosis in the left internal carotid artery. Vascular is been consulted and carotid endarterectomy is planned for Saturday. Cardiology was consulted for clearance. Cardiology is continuing to do testing and may plan a LAKESHA to evaluate aortic stenosis. At the time of my evaluation, patient is resting comfortably in bed and appears to be in no acute distress. Symptoms had subsided and have not returned. Family is at the bedside. Objective - Vital Signs Vital signs: Vital Signs Temp 97.4 F L 04/12/18 08:00 Pulse 81 04/12/18 16:17 Resp 17 04/12/18 16:17 BP 133/70 04/12/18 16:17 Pulse Ox 96 04/12/18 16:17 Intake & Output 04/11/18 04/12/18 04/12/18 18:59 06:59 18:59 Intake Total 420 1262 Output Total 400 Balance 20 1262 Weight 99.9 kg Intake: Oral 420 1262 Output: Urine 400 Other: Voiding Method Toilet Toilet Toilet # Voids 2 1 2 # Bowel Movements 1 - Exam PHYSICAL EXAM: GENERAL APPEARANCE: Patient is a well-developed, male who appears to be in no acute distress. HEENT: Normocephalic, atraumatic, no facial asymmetry is seen. Neck is supple with no masses felt. CARDIOVASCULAR: Regular rate and rhythm. ABDOMEN: Nontender, nondistended. EXTREMITIES: Show no edema or clubbing. NEUROLOGICAL EXAM: Patient is awake, alert, and oriented 3. Speech and language are normal. Strength is full in all 4 extremities. Sensory exam to light touch is normal in all 4 extremities. No facial asymmetry seen on cranial nerve testing. No tremors or seizure-like activity noted. - Labs CBC & Chem 7: 04/11/18 05:22 04/11/18 05:22 Labs: Abnormal Lab Results - Last 24 Hours (Table) 04/12/18 04/12/18 04/12/18 Range/Units 06:19 12:55 16:10 POC Glucose (mg/dL) 109 H 101 H 138 H (75-99) mg/dL Assessment and Plan Plan: Impression: 1. CVA 2. Carotid stenosis 3. Hypertension 4. Hyperlipidemia 5. CAD/history of stents 6. Diabetes mellitus 7. Aortic stenosis Recommendation: It does appear patient suffered a cerebrovascular accident in the posterior right parietal region with episode of left sided weakness. Symptoms have since resolved. CT of the brain did not show any acute findings. CTA showed greater than 75% stenosis of the right internal carotid artery. Patient is to have carotid endarterectomy done on Saturday. Patient currently undergoing cardiac clearance. Continue Plavix 75 mg by mouth daily. I recommend continuing statin therapy. EEG was done and results are pending. Serum homocystine level is normal. Continue neurological checks. I will continue to follow with you. Further recommendations to follow. I performed an examination of the patient and discussed the management with the PROFESSOR OF LANGUAGES. I have reviewed the PROFESSOR OF LANGUAGES notes and agree with the findings and plan of care.
--- NOTE | 2018-04-12 18:08 | P.PN ---
Subjective Progress Note Date: 04/12/18 The patient is a 78-year-old male with a past medical history of diabetes, CAD, and hypertension who presented to the ED with complaints of sudden onset left arm and left leg weakness and numbness. The patient noted that his symptoms started while he was trying to lift cabinets in the house for remodeling. The symptoms resolved completely within one hour. CT head in the ED showed a tiny hyperdensity in the distribution of the distal branch of the right MCA. Subsequent CTA of head and neck showed more than 75% stenosis of the right ICA and more than 50% stenosis of the left ICA. The patient was admitted to the inpatient unit for suspected TIA with vascular surgery and neurology consults. Patient was seen and examined with daughter, , and granddaughter at bedside. The patient is doing well and is free of active complaints. His symptoms had resolved and have not recurred. He is denying weakness, numbness, blurred vision, dizziness, fever, chills, cough, nausea, vomiting, or diarrhea. Objective - Vital Signs Vital signs: Vital Signs Temp 97.4 F L 04/12/18 08:00 Pulse 81 04/12/18 16:17 Resp 17 04/12/18 16:17 BP 133/70 04/12/18 16:17 Pulse Ox 96 04/12/18 16:17 Intake & Output 04/11/18 04/12/18 04/12/18 18:59 06:59 18:59 Intake Total 420 1262 Output Total 400 Balance 20 1262 Weight 99.9 kg Intake: Oral 420 1262 Output: Urine 400 Other: Voiding Method Toilet Toilet Toilet # Voids 2 1 2 # Bowel Movements 1 - Exam General: Non-toxic, in no acute distress HEENT: NC/AT, anicteric sclerae, moist conjunctiva, no lid-lag, PERRLA, oropharynx clear, no erythema, exudates Cardiovascular: S1/S2 wnl, systolic murmur appreciated, no rubs or gallops Lungs: Clear to auscultation, normal respiratory effort, no accessory muscle use Abdominal: Soft, nontender, non-distended, no guarding, rebound, or rigidity, normoactive bowel sounds Skin: Warm, dry Extremities: No edema or contractures Psychiatric: Alert and oriented to person, place and time, appropriate affect, Intact judgment Neuro: CN II-XII grossly intact, strength 5/5 throughout, finger no test within normal limits, sensation grossly intact throughout - Labs CBC & Chem 7: 04/11/18 05:22 04/11/18 05:22 Labs: Abnormal Lab Results - Last 24 Hours (Table) 04/12/18 04/12/18 04/12/18 Range/Units 06:19 12:55 16:10 POC Glucose (mg/dL) 109 H 101 H 138 H (75-99) mg/dL Assessment and Plan Plan: Subacute CVA, 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 -Neurology and vascular surgery consulted, recs appreciated -Aspirin switched to Plavix 75 mg and Lipitor 80 mg qd -Echocardiogram and MRI reviewed: Evidence of a subacute infarct in the posterior right parietal region -Continue with neuro checks, PT/OT -Follow up B12 and folate levels Systolic murmur, asymptomatic -Echocardiogram shows moderate aortic stenosis -Cardiology consulted, recs appreciated Type 2 diabetes mellitus -A1C 6.0 -Insulin sliding scale HTN -C/w Lisinopril 5 mg qd DVT//GI prophylaxis -IPCDs -No indication for GI prophylaxis Discussed with: Patient, family Anticipated discharge date: 04/15/[address]: Home A total of 40 minutes was spent on the care of this complex patient more than 50 % of the time was spent in counseling and care coordination.
[2018-04-12] MEDS: ATORVASTATIN 80 MG TAB PO SCH (20:07)
[2018-04-12 20:27] LABS: Glucose,Whole Blood 118 mg/dL (75-99)
[2018-04-12] MEDS: SODIUM CHLORIDE 0.9% 1,000 ML IV SCH (21:42)
[2018-04-13 06:16] LABS: Glucose,Whole Blood 137 mg/dL (75-99)
[2018-04-13] MEDS: INSULIN ASPART 100 UNIT/ML 1 ML 10 ML VIAL SQ SCH ×4 (06:21→20:51)
[2018-04-13] MEDS: CLOPIDOGREL 75 MG TAB PO SCH (09:03)
[2018-04-13] MEDS: TAMSULOSIN 0.4 MG CAP.ER.24H PO SCH (09:04)
[2018-04-13] MEDS: LISINOPRIL 5 MG TAB PO SCH (09:04)
[2018-04-13] MEDS: NIACIN TR 500 MG CAPSULE.ER PO SCH ×2 (09:04→20:29)
[2018-04-13] MEDS: CYANOCOBALAMIN 500 MCG TAB PO SCH (09:04)
[2018-04-13] MEDS: FAMOTIDINE 20 MG TAB PO SCH ×2 (09:05→20:29)
[2018-04-13 11:22] LABS: Glucose,Whole Blood 100 mg/dL (75-99)
--- NOTE | 2018-04-13 11:51 | P.PN ---
Subjective Progress Note Date: 04/13/18 This is a 78-year-old male patient who presented to the emergency department with left arm and leg weakness. The patient is very active and was doing some work putting up his kitchen cabinets when he suddenly had weakness of his left hand and dropped one of the boxes. He was able to walk at that point and he went inside and sat down for a moment. When he tried to stand his left leg was weak and he fell to the ground. He did not have any injury. No difficulty with speech. This is the first episode the patient has had like this. He has a known cardiac history including hypertension, hyperlipidemia, CAD status post PCI and stent 3 in 1999 and diabetes mellitus. The patient follows at Dr. Wiley on a regular basis and was last seen about 4 months ago. He underwent nuclear medicine stress testing in March 2017 that showed a fixed defect but no stress-induced cardiac ischemia. He has not experienced any chest discomfort recently. Has not undergone cardiac catheterization since 1999. Patient is very physically active does not describe any chest discomfort or shortness breath with exertion. EKG shows a sinus mechanism with PVCs. Slight T-wave inversion in lead 3 and V1. Recent echocardiogram showed normal LV function with mild concentric hypertrophy, EF is 55-60%. Carotid Doppler showed right internal carotid artery stenosis of 75%, left side 50%. He has been evaluated by neurology and vascular surgery and cardiology has been consultative for cardiac clearance. Patient's symptoms have completely resolved. He seen sitting up in bed in no acute distress. He is hemodynamically stable. 04/13/2018. The patient is doing well. No further episodes of TIA. MRI of the brain does show evidence of stroke. This was discussed with the patient and it is recommended that he undergo carotid endarterectomy. He is hemodynamically stable. Denies any chest discomfort, shortness of breath or palpitations. Remains in a normal sinus mechanism without arrhythmia on the monitor. Objective - Vital Signs Vital signs: Vital Signs Temp 97.5 F L 04/13/18 08:45 Pulse 93 04/13/18 08:45 Resp 17 04/13/18 08:45 BP 108/53 04/13/18 08:45 Pulse Ox 98 04/13/18 08:45 Intake & Output 04/12/18 04/13/18 04/13/18 18:59 06:59 18:59 Intake Total 1502 900 250 Balance 1502 900 250 Weight 101.6 kg Intake: IV 10 Invasive Line 1 10 Oral 1502 900 240 Other: Voiding Method Toilet Toilet # Voids 2 1 - Exam GENERAL EXAM: Patient is alert and oriented and doesn't appear to be in any acute distress. Patient is obese HEENT: Normocephalic. Normal reaction of pupils, equal size, normal range of extraocular motion. No erythema or exudates in the throat. NECK: No masses, no nuchal rigidity. CHEST: No chest wall deformity. LUNGS: Diminished air exchange HEART: S1 and S2 normal. A 3/6 murmur of aortic stenosis. ABDOMEN: No hepatosplenomegaly, normal bowel sounds, no guarding or rigidity. SKIN: No rashes CENTRAL NERVOUS SYSTEM: No focal deficits. EXTREMITIES: No cyanosis. 1-2+ edema. - Labs CBC & Chem 7: 04/11/18 05:22 04/11/18 05:22 Labs: Abnormal Lab Results - Last 24 Hours (Table) 04/12/18 04/12/18 04/12/18 Range/Units 12:55 16:10 20:24 POC Glucose (mg/dL) 101 H 138 H 118 H (75-99) mg/dL 04/13/18 04/13/18 Range/Units 06:15 11:13 POC Glucose (mg/dL) 137 H 100 H (75-99) mg/dL Assessment and Plan Assessment: TIA with evidence of bilateral carotid stenosis Moderate to severe aortic stenosis CAD status post PCI with stent in , stress test 2016 negative for stress-induced ischemia Hypertension Hyperlipidemia Diabetes mellitus Plan: MRI of the brain shows evidence of subacute infarct in the posterior right parietal region. Echocardiogram is pending. From a cardiac standpoint, the patient is moderate risk for surgery but there is no absolute contraindication and I would recommend proceeding with carotid endarterectomy. We will continue to follow him closely.
--- NOTE | 2018-04-13 14:22 | P.PN ---
Subjective Progress Note Date: 04/13/18 The patient is a 78-year-old male with a past medical history of diabetes, CAD, and hypertension who presented to the ED with complaints of sudden onset left arm and left leg weakness and numbness. The patient noted that his symptoms started while he was trying to lift cabinets in the house for remodeling. The symptoms resolved completely within one hour. CT head in the ED showed a tiny hyperdensity in the distribution of the distal branch of the right MCA. Subsequent CTA of head and neck showed more than 75% stenosis of the right ICA and more than 50% stenosis of the left ICA. The patient was admitted to the inpatient unit for suspected TIA with vascular surgery and neurology consults. The patient was scheduled for R carotid endarterectomy. Patient was seen and examined with daughter, , and granddaughter at bedside. The patient was in good spirits and denying any active complaints. He denied any episodes of numbness, weakness, tingling, dizziness, blurred vision, or facial drooping. He further denied fever, chills, cough, abd pain, nausea, or vomiting. Objective - Vital Signs Vital signs: Vital Signs Temp 97.0 F L 04/13/18 12:00 Pulse 78 04/13/18 12:00 Resp 17 04/13/18 12:00 BP 118/76 04/13/18 12:00 Pulse Ox 96 04/13/18 12:00 Intake & Output 04/12/18 04/13/18 04/13/18 18:59 06:59 18:59 Intake Total 1502 900 520 Balance 1502 900 520 Weight 101.6 kg Intake: IV 20 Invasive Line 1 20 Oral 1502 900 500 Other: Voiding Method Toilet Toilet Toilet # Voids 2 1 - Exam General: Non-toxic, in no acute distress HEENT: NC/AT, anicteric sclerae, moist conjunctiva, no lid-lag, PERRLA, oropharynx clear, no erythema, exudates Cardiovascular: S1/S2 wnl, systolic murmur appreciated, no rubs or gallops Lungs: Clear to auscultation, normal respiratory effort, no accessory muscle use Abdominal: Soft, nontender, non-distended, no guarding, rebound, or rigidity, normoactive bowel sounds Skin: Warm, dry Extremities: No edema or contractures Psychiatric: Alert and oriented to person, place and time, appropriate affect, Intact judgment Neuro: CN II-XII grossly intact, strength 5/5 throughout, finger no test within normal limits, sensation grossly intact throughout - Labs CBC & Chem 7: 04/11/18 05:22 04/11/18 05:22 Labs: Abnormal Lab Results - Last 24 Hours (Table) 04/12/18 04/12/18 04/13/18 Range/Units 16:10 20:24 06:15 POC Glucose (mg/dL) 138 H 118 H 137 H (75-99) mg/dL 04/13/18 Range/Units 11:13 POC Glucose (mg/dL) 100 H (75-99) mg/dL Assessment and Plan Plan: Subacute CVA, 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 -Neurology and vascular surgery consulted, recs appreciated -Aspirin switched to Plavix 75 mg and Lipitor 80 mg qd -Echocardiogram and MRI reviewed: Evidence of a subacute infarct in the posterior right parietal region -Continue with neuro checks, PT/OT -Follow up B12 and folate levels -Scheduled for R carotid endarterectomy for 04/15/18 Systolic murmur, asymptomatic -Echocardiogram shows moderate aortic stenosis -Cardiology consulted, recs appreciated Type 2 diabetes mellitus -A1C 6.0 -Insulin sliding scale HTN -C/w Lisinopril 5 mg qd DVT//GI prophylaxis -IPCDs -No indication for GI prophylaxis Discussed with: Patient, family Anticipated discharge date: 04/16/[address]: Home A total of 40 minutes was spent on the care of this complex patient more than 50 % of the time was spent in counseling and care coordination.
--- NOTE | 2018-04-13 16:33 | P.PN ---
Subjective Progress Note Date: 04/13/18 Patient is a pleasant 78-year-old male who is being followed by the neurology service for CVA. Patient had episode of left-sided weakness at home and came to [facility] for further evaluation. Patient had a CT of the brain which showed no acute hemorrhage or mass effect. CT of the brain did show tiny hyperdensity in the distribution of the right MCA. MRI showed subacute infarct in the posterior right parietal region. CTA showed more than 75% stenosis in the right internal carotid artery and more than 50% stenosis in the left internal carotid artery. Vascular is been consulted and carotid endarterectomy is planned for Saturday. Cardiology was consulted for clearance. Cardiology is continuing to do testing and may plan a LAKESHA to evaluate aortic stenosis. At the time of my evaluation, patient is resting comfortably in bed and appears to be in no acute distress. Symptoms had subsided and have not returned. Family is at the bedside. 04/13/2018 . Patient is a pleasant 78-year-old male who is being followed by the neurology service for CVA. Patient was found to have right internal carotid stenosis greater than 75%. Patient is scheduled to have carotid endarterectomy done on Saturday. Patient was seen today with family at the bedside. Patient has no new neurological complaints. Patient's been up walking in the halls without difficulty. Patient's been eating without difficulty swallowing. Patient denies return of left sided symptoms. At the time of my evaluation, patient is resting comfortably in bed and is visiting with family. Objective - Vital Signs Vital signs: Vital Signs Temp 97.0 F L 04/13/18 12:00 Pulse 78 04/13/18 12:00 Resp 17 04/13/18 12:00 BP 118/76 04/13/18 12:00 Pulse Ox 96 04/13/18 12:00 Intake & Output 04/12/18 04/13/18 04/13/18 18:59 06:59 18:59 Intake Total 2624 075 9077 Balance 3701 478 1091 Weight 101.6 kg Intake: IV 20 Invasive Line 1 20 Oral 9081 655 6629 Other: Voiding Method Toilet Toilet Toilet # Voids 2 1 - Exam PHYSICAL EXAM: GENERAL APPEARANCE: Patient is a well-developed, male who appears to be in no acute distress. HEENT: Normocephalic, atraumatic, no facial asymmetry is seen. Neck is supple with no masses felt. CARDIOVASCULAR: Regular rate and rhythm. ABDOMEN: Nontender, nondistended. EXTREMITIES: Show no edema or clubbing. NEUROLOGICAL EXAM: Patient is awake, alert, and oriented 3. Speech and language are normal. Strength is full in all 4 extremities. Sensory exam to light touch is normal in all 4 extremities. No facial asymmetry seen on cranial nerve testing. No tremors or seizure-like activity noted. - Labs CBC & Chem 7: 04/11/18 05:22 04/11/18 05:22 Labs: Abnormal Lab Results - Last 24 Hours (Table) 04/12/18 04/12/18 04/13/18 Range/Units 16:10 20:24 06:15 POC Glucose (mg/dL) 138 H 118 H 137 H (75-99) mg/dL 04/13/18 Range/Units 11:13 POC Glucose (mg/dL) 100 H (75-99) mg/dL Assessment and Plan Plan: Impression: 1. CVA 2. Carotid stenosis 3. Hypertension 4. Hyperlipidemia 5. CAD/history of stents 6. Diabetes mellitus 7. Aortic stenosis Recommendation: It does appear patient suffered a cerebrovascular accident in the posterior right parietal region with episode of left sided weakness. Symptoms have since resolved. CT of the brain did not show any acute findings. CTA showed greater than 75% stenosis of the right internal carotid artery. Patient is to have carotid endarterectomy done on Saturday. Cardiology is following. Continue Plavix 75 mg by mouth daily. Continue statin therapy. EEG was done and results are pending. Serum homocystine level is normal. Continue neurological checks. I will continue to follow with you on an as- needed basis. Feel free to call with any questions or concerns. I performed an examination of the patient and discussed the management with the VISITOR SERVICES TECHNICIAN. I have reviewed the VISITOR SERVICES TECHNICIAN notes and agree with the findings and plan of care.
[2018-04-13 16:39] LABS: Glucose,Whole Blood 130 mg/dL (75-99)
[2018-04-13] MEDS: ATORVASTATIN 80 MG TAB PO SCH (20:29)
[2018-04-13] MEDS: MELOXICAM 7.5 MG TAB PO SCH (20:30)
[2018-04-13 20:36] LABS: Glucose,Whole Blood 116 mg/dL (75-99)
[2018-04-14 06:03] LABS: Glucose,Whole Blood 108 mg/dL (75-99)
[2018-04-14] MEDS: INSULIN ASPART 100 UNIT/ML 1 ML 10 ML VIAL SQ SCH ×4 (06:36→21:22)
[2018-04-14] MEDS: LISINOPRIL 5 MG TAB PO SCH (08:33)
[2018-04-14] MEDS: FAMOTIDINE 20 MG TAB PO SCH ×2 (08:33→19:49)
[2018-04-14] MEDS: CYANOCOBALAMIN 500 MCG TAB PO SCH (08:33)
[2018-04-14] MEDS: CLOPIDOGREL 75 MG TAB PO SCH (08:34)
[2018-04-14] MEDS: NIACIN TR 500 MG CAPSULE.ER PO SCH ×2 (08:34→21:22)
[2018-04-14] MEDS: TAMSULOSIN 0.4 MG CAP.ER.24H PO SCH (08:34)
--- NOTE | 2018-04-14 09:28 | PN ---
PROGRESS NOTE This is a 78-year-old gentleman who came in with history of TIA affecting left arm and leg weakness with complete recovery. The patient had a stroke workup, right carotid shows 75% stenosis, left side 50% stenosis. MR showed a 2.8 x 1.7 cm subacute infarct involving the posterior right parietal lobe. Patient has history of aortic stenosis. Patient evaluated by Cardiology and hemodynamically stable and cleared for surgery. PHYSICAL EXAMINATION: On examination, his vital signs stable. No motor deficit noted. The patient has some ulnar nerve decompression done in the past. Left arm has some numbness on the 5th finger. The patient was seen by Cardiology, hemodynamically stable. PLAN: Right carotid endarterectomy. Risks and complications of bleeding, infection, stroke, nerve injury has been discussed. MMODL / IJN: [id number] /
[2018-04-14 11:59] LABS: Glucose,Whole Blood 97 mg/dL (75-99)
--- NOTE | 2018-04-14 12:12 | P.PN ---
Subjective Progress Note Date: 04/14/18 This is a 78-year-old male patient who presented to the emergency department with left arm and leg weakness. The patient is very active and was doing some work putting up his kitchen cabinets when he suddenly had weakness of his left hand and dropped one of the boxes. He was able to walk at that point and he went inside and sat down for a moment. When he tried to stand his left leg was weak and he fell to the ground. He did not have any injury. No difficulty with speech. This is the first episode the patient has had like this. He has a known cardiac history including hypertension, hyperlipidemia, CAD status post PCI and stent 3 in 1999 and diabetes mellitus. The patient follows at Dr. Wiley on a regular basis and was last seen about 4 months ago. He underwent nuclear medicine stress testing in March 2017 that showed a fixed defect but no stress-induced cardiac ischemia. He has not experienced any chest discomfort recently. Has not undergone cardiac catheterization since 1999. Patient is very physically active does not describe any chest discomfort or shortness breath with exertion. EKG shows a sinus mechanism with PVCs. Slight T-wave inversion in lead 3 and V1. Recent echocardiogram showed normal LV function with mild concentric hypertrophy, EF is 55-60%. Carotid Doppler showed right internal carotid artery stenosis of 75%, left side 50%. He has been evaluated by neurology and vascular surgery and cardiology has been consultative for cardiac clearance. Patient's symptoms have completely resolved. He seen sitting up in bed in no acute distress. He is hemodynamically stable. 04/14/2018 Patient seen and examined this morning, overall doing well. No further arm weakness. MRI did reveal evidence of a stroke. Patient is scheduled to undergo carotid endarterectomy tomorrow by Dr. Elder. Patient was seen today in rounds by Dr. Vazquez, approved to undergo surgery understanding there is a moderate risk. He is currently on Lipitor 80 which he will receive. Objective - Vital Signs Vital signs: Vital Signs Temp 97.7 F 04/14/18 08:00 Pulse 86 04/14/18 08:00 Resp 16 04/14/18 08:00 BP 122/79 04/14/18 08:00 Pulse Ox 97 04/14/18 08:00 Intake & Output 04/13/18 04/14/18 04/14/18 18:59 06:59 18:59 Intake Total 1410 10 490 Balance 1410 10 490 Weight 100.4 kg Intake: IV 30 10 10 Invasive Line 1 30 10 10 Oral 1380 480 Other: Voiding Method Toilet Toilet Toilet # Voids 1 - Exam GENERAL EXAM: Patient is alert and oriented and doesn't appear to be in any acute distress. Patient is obese HEENT: Normocephalic. Normal reaction of pupils, equal size, normal range of extraocular motion. No erythema or exudates in the throat. NECK: No masses, no nuchal rigidity. CHEST: No chest wall deformity. LUNGS: Diminished air exchange HEART: S1 and S2 normal. A 3/6 murmur of aortic stenosis. ABDOMEN: No hepatosplenomegaly, normal bowel sounds, no guarding or rigidity. SKIN: No rashes CENTRAL NERVOUS SYSTEM: No focal deficits. EXTREMITIES: No cyanosis. 1-2+ edema. - Labs CBC & Chem 7: 04/11/18 05:22 04/11/18 05:22 Labs: Abnormal Lab Results - Last 24 Hours (Table) 04/13/18 04/13/18 04/14/18 Range/Units 16:35 20:35 05:57 POC Glucose (mg/dL) 130 H 116 H 108 H (75-99) mg/dL Assessment and Plan Plan: Assessment and plan #1 TIA with evidence of bilateral carotid stenosis, scheduled for carotid endarterectomy tomorrow #2 moderate to severe aortic stenosis #3 coronary artery disease with prior PCI, most recent stress test was performed in March 2017 which was negative for any stress-induced ischemia #4 hypertension #5 hyperlipidemia #6 Diabetes Plan From cardiology's perspective, patient can undergo carotid endarterectomy understanding he has a moderate risk. He is currently on Lipitor 80 which she will receive daily and prior to his surgery. We will continue to follow DNP note has been reviewed, I agree with a documented findings and plan of care. Patient was seen and examined.
[2018-04-14 17:36] LABS: Glucose,Whole Blood 119 mg/dL (75-99)
--- NOTE | 2018-04-14 18:16 | EEG ---
ELECTROENCEPHALOGRAM REPORT DATE OF SERVICE: 04/12/2018 REASON FOR TESTING: Transient ischemic attack and altered mental status. DESCRIPTION OF THE PROCEDURE: This EEG was performed using a 21-channel digital electroencephalograph, following international 10-20 system. DESCRIPTION OF THE RECORDING: From the beginning of the tracing, and with the patient's eyes closed, the background rhythm was mostly consisting of 9 Hz alpha frequency in the posterior occipital leads. No obvious asymmetry is seen. Photic stimulation was performed with a minimal driving response seen. No pathological waves were elicited. Hyperventilation was not performed. Occasional movement and muscle artifacts are seen. The patient remains awake throughout the tracing. No epileptiform discharges were seen. His EKG lead showed a regular rate and rhythm. INTERPRETATION: This awake EEG can be considered within normal limits. There was no asymmetry seen. No epileptiform discharges were noticed. The absence of epileptiform discharges does not rule out the diagnosis of epilepsy; therefore clinical correlation is recommended. RONALDO / MACHELLEN: [id number] /
[2018-04-14] MEDS: MELOXICAM 7.5 MG TAB PO SCH (19:48)
[2018-04-14] MEDS: ATORVASTATIN 80 MG TAB PO SCH (19:48)
[2018-04-14 20:52] LABS: Glucose,Whole Blood 158 mg/dL (75-99)
[2018-04-15] MEDS: INSULIN ASPART 100 UNIT/ML 1 ML 10 ML VIAL SQ SCH ×4 (05:58→21:29)
[2018-04-15 06:16] LABS: Glucose,Whole Blood 131 mg/dL (75-99)
[2018-04-15] MEDS: CLOPIDOGREL 75 MG TAB PO SCH ×2 (06:30→18:56)
[2018-04-15] MEDS: ENOXAPARIN 40 MG/0.4 ML SYRINGE SQ SCH (06:30)
[2018-04-15] MEDS: MELOXICAM 7.5 MG TAB PO SCH (06:32)
[2018-04-15] MEDS: LISINOPRIL 5 MG TAB PO SCH (06:32)
[2018-04-15] MEDS: TAMSULOSIN 0.4 MG CAP.ER.24H PO SCH (06:32)
[2018-04-15] MEDS: FAMOTIDINE 20 MG TAB PO SCH ×2 (06:33→21:28)
--- NOTE | 2018-04-15 09:07 | PN ---
PROGRESS NOTE DATE OF SERVICE: 04/14/2018. PRESENT COMPLAINT: TIA. INTERVAL HISTORY: This patient presented with right-sided weakness, which is resolved. CTA showed more than 75% stenosis right internal carotid artery. The patient is pending endarterectomy. The patient's MRI of the brain shows this subacute infarct in the posterior right parietal region. The patient is otherwise comfortable, tolerating his diet. REVIEW OF SYSTEMS: Done for constitutional, cardiovascular, GI, pulmonary; relevant findings as above. CURRENT MEDICATIONS: Reviewed, include Lipitor, Plavix, Zestril. EXAMINATION: Temperature 98.1, pulse 87, respirations 16, blood pressure 130/79, pulse ox 98 percent room air. GENERAL: Sitting up, comfortable, having his lunch. EYES: Pupils equal. Conjunctivae normal. HEENT: External appearance of nose and ears normal. Oral cavity normal. NECK: JVD not raised. Mass not palpable. Normal respiratory effort. LUNGS: Clear. CARDIOVASCULAR: 1st and 2nd heart sounds. No edema. ABDOMEN: Soft, nontender. Liver and spleen not palpable. PSYCHIATRY: Alert, oriented x3. Mood and affect normal. INVESTIGATIONS: Potassium 4.5. BUN and creatinine normal. LDL is 107. ASSESSMENT: 1. Acute stroke in the right parietal area, likely ischemic in a right-handed patient. 2. Significant stenosis the right internal carotid artery. 3. Hyperlipidemia. 4. Diabetes mellitus type 2, on oral hypoglycemics. 5. Gastroesophageal reflux disease. 6. Essential hypertension. 7. Coronary artery disease, prior history of stent. 8. Benign prostatic hypertrophy. 9. Primary osteoarthritis. PLAN: Continue medication and treatment plan. Care was discussed with the patient and the at the bedside. Awaiting surgery. MMODL / IJN: [id number] /
[2018-04-15] MEDS: NIACIN TR 500 MG CAPSULE.ER PO SCH ×2 (09:15→21:28)
[2018-04-15 09:39] LABS: Basophils % (A) 1 %; Eosinophils # (A) 0.2 k/uL (0-0.7); Eosinophils % (A) 3 %; HCT 51.7 % (39.0-53.0); HGB 16.8 gm/dL (13.0-17.5); Lymphocytes # (A) 1.6 k/uL (1.0-4.8); Lymphocytes % (A) 22 %; MCH 29.8 pg (25.0-35.0); MCHC 32.6 g/dL (31.0-37.0); MCV 91.7 fL (80.0-100.0); Mean Platelet Volume 7.6; Monocytes # (A) 0.6 k/uL (0-1.0); Monocytes % (A) 8 %; Neutrophils # (A) 4.9 k/uL (1.3-7.7); Neutrophils % (A) 65 %; Platelet Count 184 k/uL (150-450); RBC 5.64 m/uL (4.30-5.90); RDW 13.4 % (11.5-15.5); WBC 7.6 k/uL (3.8-10.6)
[2018-04-15 09:50] LABS: Calcium 9.1 mg/dL (8.4-10.2); Potassium 4.6 mmol/L (3.5-5.1)
[2018-04-15 11:56] LABS: Glucose,Whole Blood 120 mg/dL (75-99)
[2018-04-15] MEDS ORDERED: NITROGLYCERIN-D5W PMX 50 MG in DEXTROSE/WATER 1 250ML.BAG IV SCH (12:15)
[2018-04-15] MEDS ORDERED: PHENYLEPHRINE 40 MG in SODIUM CHLORIDE 0.9% 250 ML IV SCH (12:15)
[2018-04-15] MEDS ORDERED: IV FLUID CONTINUATION 1,000 ML IV ONE (12:23)
[2018-04-15] MEDS ORDERED: ONDANSETRON 4 MG/2 ML VIAL IVP ONE (12:42)
[2018-04-15] MEDS ORDERED: SODIUM CHLORIDE 0.9% 50 ML with ceFAZolin 2,000 MG IV ONE ×2 (13:16)
[2018-04-15] MEDS ORDERED: LIDOCAINE 1% INJ 10MG/ML (20 ML MDV) SQ ONE ×2 (14:00)
[2018-04-15] MEDS ORDERED: THROMBIN (BOVINE) 5,000 UNIT VIAL MISCELLANE ONE ×2 (14:42)
[2018-04-15] MEDS ORDERED: GELATIN SPONGE,ABSORB (LARGE) 1 EACH SPONGE MISCELLANE ONE (14:43)
[2018-04-15] MEDS ORDERED: LACTATED RINGERS 1,000 ML IV ONE (14:59)
[2018-04-15 16:14] LABS: Glucose,Whole Blood 148 mg/dL (75-99)
[2018-04-15 17:09] LABS: Glucose,Whole Blood 169 mg/dL (75-99)
[2018-04-15] MEDS: CYANOCOBALAMIN 500 MCG TAB PO SCH (17:21)
[2018-04-15] MEDS: LACTATED RINGERS 1,000 ML IV SCH (18:49)
[2018-04-15] MEDS: ASPIRIN 325 MG TAB PO SCH (18:56)
--- NOTE | 2018-04-15 20:23 | PN ---
PROGRESS NOTE DATE OF SERVICE: April 15, 2018. PRESENTING COMPLAINT: Right endarterectomy. INTERVAL HISTORY: This is a patient who presented with acute stroke with resolution of symptoms. The patient is status post right carotid endarterectomy on clear liquids in the ICU. Sinus rhythm. Some discomfort in the throat, otherwise comfortable. REVIEW OF SYSTEMS: Done for constitutional, cardiovascular, GI, pulmonary and relevant findings as above. CURRENT MEDICATIONS: Reviewed. PHYSICAL EXAMINATION: VITAL SIGNS: Afebrile. Pulse 85, respirations 18, blood pressure 92/57, pulse ox 95 percent. GENERAL APPEARANCE: Sitting up. Comfortable. EYES: Pupils equal. Conjunctivae normal. HEENT external appearance of nose and ears normal. Oral cavity normal. NECK: Dressing on the right side of neck. JVD unable to assess. Mass not palpable. RESPIRATORY: Effort normal. LUNGS are clear. CARDIOVASCULAR: 1st and 2nd sounds normal. No edema. ABDOMEN: Soft, nontender. Liver and spleen not palpable. PSYCHIATRY: Alert and oriented x3. Mood and affect normal. INVESTIGATIONS: White count 7.6, hemoglobin 16.8, potassium 4.6. Accu-Cheks are noted. ASSESSMENT: 1. Acute stroke in the right parietal area likely ischemic in a right-handed patient with complete resolution of symptoms. 2. Right internal carotid artery stenosis, followed by endarterectomy, postop day 1. 3. Hyperlipidemia. 4. Diabetes mellitus type 2 on oral hypoglycemics. 5. Gastroesophageal reflux disease. 6. Essential hypertension. 7. Coronary artery disease, prior history of stent. 8. Benign prostatic hypertrophy. 9. Primary osteoarthritis. PLAN: Continue current medication and treatment plan. Diet to be advanced as per Dr. Resendiz. Care was discussed with the patient. MMODL / IJN: [id number] /
[2018-04-15] MEDS: ceFAZolin IN SWFI 2 GM/20 ML SYRINGE IVP SCH (21:28)
[2018-04-15] MEDS: ATORVASTATIN 80 MG TAB PO SCH (21:29)
[2018-04-15 21:36] LABS: Glucose,Whole Blood 189 mg/dL (75-99)
--- NOTE | 2018-04-15 23:23 | OP ---
OPERATIVE REPORT This is a 78-year-old gentleman who came with a history of TIA affecting the left side, with recovery. CTA showed right side 75% stenosis. Diagnosis is symptomatic right carotid arteries 75% stenosis. OPERATION: Under general anesthesia, right carotid endarterectomy with patch angioplasty. SURGEON: Dr. Rasheed Resendiz. STAFF NURSE MIDWIFE: Keny Hughes. DESCRIPTION OF PROCEDURE: The patient was brought to the operating room. Right side of the neck and chest was prepped and draped in sterile manner. Incision was made to the sternocleidomastoid, deepened through skin, fat and platysma. Bleeding points were electrocoagulated. Dissection was carried out along the jugular vein until we found the facial vein, which was divided and tied with 3-0 silk. After that, common carotid was dissected and vessel loop was placed around it. External and superior thyroid were dissected and vessel loop was placed around it. In the internal carotid, we dissected. Vessel loop was placed around it. Hypoglossal and vagus nerves were identified and protected. Six thousand units systemic heparin was given. Common external and internal was clamped. Arteriotomy incision common external and internal carotid artery and a shunt was placed which was secured by the clamps. After that, endarterectomy of the common external and internal carotids was performed. No plaque was noted. Distal plaque was tagged with 6-0 Prolene. Pericardial patch was used to do the patch angioplasty using 6-0 Prolene running suture. Small opening was left and shunt was removed and patch angioplasty completed and flushed in the usual manner. Hemostasis was well controlled. Platysma was closed with Vicryl and skin was closed subcuticularly. Dressing applied. Patient tolerated the procedure well. Patient was extubated. Patient was moving both his upper and lower extremities well. Patient was transferred to Intensive Care Unit in satisfactory condition. MMODL / IJN: [id number] /
[2018-04-16] MEDS: ceFAZolin IN SWFI 2 GM/20 ML SYRINGE IVP SCH ×2 (05:07→14:09)
[2018-04-16] MEDS: LACTATED RINGERS 1,000 ML IV SCH (05:08)
[2018-04-16 05:43] LABS: Basophils % (A) 0 %; Eosinophils % (A) 0 %; HCT 44.1 % (39.0-53.0); HGB 14.1 gm/dL (13.0-17.5); Lymphocytes # (A) 0.9 k/uL (1.0-4.8); Lymphocytes % (A) 5 %; MCH 29.7 pg (25.0-35.0); MCHC 31.9 g/dL (31.0-37.0); MCV 93.1 fL (80.0-100.0); Mean Platelet Volume 7.8; Monocytes # (A) 0.9 k/uL (0-1.0); Monocytes % (A) 5 %; Neutrophils # (A) 16.2 k/uL (1.3-7.7); Neutrophils % (A) 89 %; Platelet Count 176 k/uL (150-450); RBC 4.74 m/uL (4.30-5.90); RDW 13.3 % (11.5-15.5); WBC 18.2 k/uL (3.8-10.6)
[2018-04-16 05:56] LABS: Calcium 8.4 mg/dL (8.4-10.2); Magnesium 1.7 mg/dL (1.6-2.3); Potassium 4.5 mmol/L (3.5-5.1)
--- NOTE | 2018-04-16 07:28 | P.CNPUL ---
History of Present Illness Consult date: 04/16/18 Reason for consult: other Chief complaint: Status post right carotid endarterectomy History of present illness: Pulmonary consult dated 04/16/2018 This is a 78-year-old male who presented to the emergency department on April 10. He apparently was carrying some kitchen cabinets at which point his left hand became very weak and numb. Shortly thereafter his left leg was weak and had difficulty walking. Episode lasted about 10 minutes. And then it seemed to totally resolved. He did have a slight headache. No nausea vomiting. No fever chills sweats or chest pain. Apparently, the patient was ultimately found to have significant stenosis of the right carotid artery and underwent carotid endarterectomy on the right side on April 15. He was admitted to the ICU for closer monitoring. Currently, the patient is doing relatively well. He's been sleeping. Comfortable. The patient is not receiving any supplemental oxygen. He is on IV Gunner-Synephrine at 5 mics per minute. He is getting lactated Ringer's at 100 mL an hour. The surgery was done by Dr. Resendiz. He apparently has a history of hypertension, diabetes mellitus, hyperlipidemia, and BPH. His home medications included fosinopril metformin Zocor Flomax niacin Celebrex and Ecotrin. He also has a history of myocardial infarction in the past. He has had a heart catheterization with stent placement. Review of Systems A 14 point review of system is otherwise negative. The symptoms that brought him into the emergency room and subsequently resolved. He really has no complaints at this time. Mild discomfort at the surgical site. Past Medical History Past Medical History: Diabetes Mellitus, Eye Disorder, GERD/Reflux, Hyperlipidemia, Hypertension, Myocardial Infarction (RI), Osteoarthritis (OA), Prostate Disorder Additional Past Medical History / Comment(s): HX DIVERTICULITIS, BOWEL OBSTRUCTION Last Myocardial Infarction Date:: 1999 History of Any Multi-Drug Resistant Organisms: None Reported Past Surgical History: Heart Catheterization With Stent, Orthopedic Surgery Additional Past Surgical History / Comment(s): HEART STENTS X 3, ORIF LT ANKLE- HARDWARE LATER REMOVED Past Anesthesia/Blood Transfusion Reactions: No Reported Reaction Date of Last Stent Placement:: 1999 Past Psychological History: No Psychological Hx Reported Smoking Status: Former smoker Past Alcohol Use History: Occasional Past Drug Use History: None Reported - Past Family History Father Family Medical History: Cancer Mother Family Medical History: Deep Vein Thrombosis (DVT) Medications and Allergies Home Medications Medication Instructions Recorded Confirmed Type Aspirin EC [Ecotrin] 325 mg PO DAILY 04/16/14 04/10/18 History Celecoxib [CeleBREX] 200 mg PO BID 04/16/14 04/10/18 History Niacin [Niaspan] 1,000 mg PO BID 04/16/14 04/10/18 History Simvastatin [Zocor] 40 mg PO HS 04/16/14 04/10/18 History Tamsulosin [Flomax] 0.4 mg PO DAILY 04/16/14 04/10/18 History metFORMIN HCL [Glucophage] 500 mg PO BID 04/16/14 04/10/18 History Lisinopril [Zestril] 5 mg PO DAILY 04/10/18 04/10/18 History Allergies Allergy/AdvReac Type Severity Reaction Status Date / Time walnuts Allergy Anaphylaxis Uncoded 04/10/18 14:16 Physical Exam Osteopathic Statement: *. No significant issues noted on an osteopathic structural exam other than those noted in the History and Physical/Consult. Vitals: Vital Signs Temp Pulse Pulse Pulse Resp BP BP 04/16/18 06:00 76 21 101/61 04/16/18 05:00 84 18 130/72 04/16/18 04:00 97.7 F 97 55 H 101/78 04/16/18 03:00 84 14 115/64 04/16/18 02:00 79 13 119/68 04/16/18 01:00 88 13 100/62 04/16/18 00:00 97.8 F 78 6 L 103/78 04/15/18 23:16 78 9 L 106/63 04/15/18 23:00 77 15 106/63 04/15/18 22:00 76 17 122/63 04/15/18 21:00 78 17 112/61 04/15/18 20:00 97.7 F 89 18 04/15/18 19:00 85 24 92/57 04/15/18 18:50 85 13 92/57 04/15/18 18:40 86 14 92/57 04/15/18 18:30 84 11 L 92/57 04/15/18 18:20 87 20 92/57 04/15/18 18:10 77 15 92/57 09/25/18 18:00 70 9 L 92/57 04/15/18 17:50 82 18 92/57 04/15/18 17:40 76 11 L 92/57 04/15/18 17:30 78 6 L 92/57 04/15/18 17:22 76 9 L 04/15/18 17:20 93 12 92/57 04/15/18 17:10 98.1 F 82 9 L 92/57 04/15/18 17:04 83 04/15/18 16:45 76 16 101/56 04/15/18 16:30 82 16 96/53 04/15/18 16:15 91 16 98/60 04/15/18 15:59 97.1 F L 88 18 117/58 04/15/18 12:33 97.8 F 77 16 93/58 04/15/18 11:50 87 16 04/15/18 11:46 98.8 F 87 16 96/58 04/15/18 10:22 98.2 F 80 17 108/63 04/15/18 08:00 98.2 F 80 18 108/63 BP Pulse Ox 04/16/18 06:00 97 04/16/18 05:00 95 04/16/18 04:00 92 L 04/16/18 03:00 96 04/16/18 02:00 96 04/16/18 01:00 92 L 04/16/18 00:00 96 04/15/18 23:16 91 L 04/15/18 23:00 95 04/15/18 22:00 95 04/15/18 21:00 95 04/15/18 20:00 94 L 04/15/18 19:00 95 04/15/18 18:50 95 04/15/18 18:40 95 04/15/18 18:30 91 L 04/15/18 18:20 93 L 04/15/18 18:10 94 L 04/15/18 18:00 94 L 04/15/18 17:50 93 L 04/15/18 17:40 94 L 04/15/18 17:30 94 L 04/15/18 17:22 04/15/18 17:20 97 04/15/18 17:10 96 04/15/18 17:04 04/15/18 16:45 100/49 95 09/25/18 16:30 98/46 96 04/15/18 16:15 108/51 97 04/15/18 15:59 98 04/15/18 12:33 96 04/15/18 11:50 04/15/18 11:46 94 L 04/15/18 10:22 95 04/15/18 08:00 95 Intake and Output 04/15/18 04/16/18 04/16/18 22:59 06:59 14:59 Intake Total 700 800 Output Total 720 406 Balance -20 394 Intake: IV 400 800 LR 300 800 Intake, IV Titration 300 Amount Lactated Ringers 1,000 ml 200 @ 0 mls/hr IV .STK-[facility] ONE Rx#:[id number] Lactated Ringers 1,000 ml 100 @ 100 mls/hr IV .Q10H [facility] Rx#:[id number] Output: Urine 570 406 Estimated Blood Loss 150 Other: Voiding Method Indwelling Catheter Indwelling Catheter Weight 104 kg ABP, PAP, CO, CI - Last 8 Hours Arterial Blood Pressure 134/66 Arterial Blood Pressure 131/63 Arterial Blood Pressure 123/60 Arterial Blood Pressure 134/55 Arterial Blood Pressure 130/53 Arterial Blood Pressure 114/44 Arterial Blood Pressure 105/47 No acute distress, oriented 3. HEENT examination is grossly unremarkable. Mucous membranes are moist. No oral lesions. Neck supple. Full range of motion. No adenopathy thyromegaly or neck vein distention. Dressing noted on the right neck area. Cardiovascular examination reveals regular rhythm rate. S1-S2 normal. No S3 or S4. No discernible murmur noted. Heart sounds are distant. Lungs reveal clear breath sounds. Her sounds are equal bilaterally. No adventitious lung sounds including wheezes rhonchi or crackles. Abdomen soft bowel sounds are heard. No masses or tenderness. Extremities are intact. No cyanosis clubbing or edema. Skin is without rash or lesion. Neurologic examination is brief but nonfocal. Results - Laboratory Findings CBC and BMP: 04/16/18 05:30 04/16/18 05:30 PT/INR, D-dimer PT 9.7 sec (9.0-12.0) 04/10/18 14:58 INR 1.0 (<1.2) 04/10/18 14:58 Abnormal lab findings: Abnormal Labs 04/10/18 04/10/18 04/10/18 14:58 14:58 21:02 WBC Neutrophils # Lymphocytes # APTT 19.1 L Glucose 116 H POC Glucose (mg/dL) 173 H Total Protein Albumin LDL Cholesterol, Calc HDL Cholesterol 04/11/18 04/11/18 04/11/18 05:22 05:56 11:27 WBC Neutrophils # Lymphocytes # APTT Glucose 109 H POC Glucose (mg/dL) 113 H 105 H Total Protein 5.3 L Albumin 3.0 L LDL Cholesterol, Calc 107 H HDL Cholesterol 27 L 04/11/18 04/12/18 04/12/18 16:31 06:19 12:55 WBC Neutrophils # Lymphocytes # APTT Glucose POC Glucose (mg/dL) 121 H 109 H 101 H Total Protein Albumin LDL Cholesterol, Calc HDL Cholesterol 04/12/18 04/12/18 04/13/18 16:10 20:24 06:15 WBC Neutrophils # Lymphocytes # APTT Glucose POC Glucose (mg/dL) 138 H 118 H 137 H Total Protein Albumin LDL Cholesterol, Calc HDL Cholesterol 04/13/18 04/13/18 04/13/18 11:13 16:35 20:35 WBC Neutrophils # Lymphocytes # APTT Glucose POC Glucose (mg/dL) 100 H 130 H 116 H Total Protein Albumin LDL Cholesterol, Calc HDL Cholesterol 04/14/18 04/14/18 04/14/18 05:57 17:34 20:40 WBC Neutrophils # Lymphocytes # APTT Glucose POC Glucose (mg/dL) 108 H 119 H 158 H Total Protein Albumin LDL Cholesterol, Calc HDL Cholesterol 04/15/18 04/15/18 04/15/18 06:13 09:16 11:52 WBC Neutrophils # Lymphocytes # APTT Glucose 128 H POC Glucose (mg/dL) 131 H 120 H Total Protein Albumin LDL Cholesterol, Calc HDL Cholesterol 04/15/18 04/15/18 04/15/18 16:08 17:05 21:22 WBC Neutrophils # Lymphocytes # APTT Glucose POC Glucose (mg/dL) 148 H 169 H 189 H Total Protein Albumin LDL Cholesterol, Calc HDL Cholesterol 04/16/18 04/16/18 05:30 05:30 WBC 18.2 H Neutrophils # 16.2 H Lymphocytes # 0.9 L APTT Glucose 173 H POC Glucose (mg/dL) Total Protein Albumin LDL Cholesterol, Calc HDL Cholesterol - Diagnostic Findings Chest x-ray: report reviewed (Labs, x-rays and medications are reviewed), image reviewed Assessment and Plan Assessment: Assessment Postop day #1, status post right carotid endarterectomy Status post CVA, right posterior parietal region History of hypertension Verito history of myocardial infarction with previous catheterization and stent placement Diabetes mellitus by history. History of hyperlipidemia History of BPH History of diverticular disease Plan: Plan dated 04/16/2018 The patient remains on Gunner-Synephrine at 5 mcg/m. Labs x-rays and medications will be reviewed. White count 18.2 hemoglobin 14.1 hematocrit 45.1 and platelet count normal. Electrolytes are completely normal. Brain MRI shows a subacute infarct in the posterior right parietal region. There are some degenerative changes and chronic sinus mucosal disease. We will continue to follow. Prognosis is guarded. Additional recommendations and suggestions are forthcoming. Time with Patient: Greater than 30
[2018-04-16 07:30] LABS: Glucose,Whole Blood 161 mg/dL (75-99)
[2018-04-16] MEDS: INSULIN ASPART 100 UNIT/ML 1 ML 10 ML VIAL SQ SCH ×4 (07:56→21:11)
[2018-04-16] MEDS: MAGNESIUM SULFATE-D5W PMX 1 GM in DEXTROSE/WATER 1 100ML.BAG IVPB SCH ×2 (07:58→09:25)
[2018-04-16] MEDS: TAMSULOSIN 0.4 MG CAP.ER.24H PO SCH (08:01)
[2018-04-16] MEDS: ASPIRIN 325 MG TAB PO SCH (08:01)
[2018-04-16] MEDS: ENOXAPARIN 40 MG/0.4 ML SYRINGE SQ SCH (08:01)
[2018-04-16] MEDS: FAMOTIDINE 20 MG TAB PO SCH ×2 (08:01→21:11)
[2018-04-16] MEDS: LISINOPRIL 5 MG TAB PO SCH (08:02)
[2018-04-16] MEDS: NIACIN TR 500 MG CAPSULE.ER PO SCH ×2 (08:05→21:58)
[2018-04-16] MEDS: MELOXICAM 7.5 MG TAB PO SCH (08:05)
[2018-04-16] MEDS ORDERED: CLOPIDOGREL 75 MG TAB PO SCH (09:00)
[2018-04-16 09:09] VITALS: BMI 29.4
--- NOTE | 2018-04-16 09:45 | PN ---
PROGRESS NOTE Patient had a right carotid endarterectomy for symptomatic carotid stenosis. Postop day #1. Blood pressure is stable, tolerating diet well. 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 PLAN: The patient DC the [place] catheter and arterial line and patient can go [place]. MMODL / IJN: [id number] /
--- NOTE | 2018-04-16 10:13 | P.PN ---
Subjective Patient is sitting up in a chair. No chest discomfort dizziness lightheadedness alert and oriented. Has some weakness and numbness in the left side of the body. Able to squeeze my finger but definitely noticed strength is reduced Pulse rate in the 70s and 80s, normal respirations, blood pressure 113/66 milligrams of mercury Breath sounds are reduced bilaterally but there are no rhonchi no crackles Abdomen is soft Ejection systolic murmur of aortic stenosis audible over the precordium Impression Carotid atherosclerosis with significant stenosis status post carotid endarterectomy Known aortic stenosis Continue current medications including antihypertensive therapy antiplatelet therapy and statins Follow-up with primary regulator tester upon discharge Please call us when necessary as needed Objective - Vital Signs Vital signs: Vital Signs Temp 97.7 F 04/16/18 04:00 Pulse 89 04/16/18 09:00 Resp 23 04/16/18 09:00 BP 113/66 04/16/18 09:00 Pulse Ox 97 04/16/18 09:00 Intake & Output 04/15/18 04/16/18 04/16/18 18:59 06:59 18:59 Intake Total 1470 1200 540 Output Total 965 561 150 Balance 505 639 390 Weight 104 kg 104 kg Intake: IV 1270 1100 100 Invasive Line 2 20 LR 1100 100 Intake, IV Titration 200 100 200 Amount Lactated Ringers 1,000 ml 200 @ 0 mls/hr IV .[facility]K-[facility] ONE Rx#:[id number] Lactated Ringers 1,000 ml 100 @ 100 mls/hr IV .Q10H [facility] Rx#:[id number] Magnesium Sulfate-D5w Pmx 200 1 gm In Dextrose/Water 1 100ml.bag @ 100 mls/hr IVPB Q1H [facility] Rx#: [id number] Oral 240 Output: Urine 815 561 150 Estimated Blood Loss 150 Other: Voiding Method Indwelling Catheter Indwelling Catheter ABP, PAP, CO, CI - Last Documented Arterial Blood Pressure 129/52 - Labs CBC & Chem 7: 04/16/18 05:30 04/16/18 05:30 Labs: Abnormal Lab Results - Last 24 Hours (Table) 04/15/18 04/15/18 04/15/18 Range/Units 11:52 16:08 17:05 WBC (3.8-10.6) k/uL Neutrophils # (1.3-7.7) k/uL Lymphocytes # (1.0-4.8) k/uL Glucose (74-99) mg/dL POC Glucose (mg/dL) 120 H 148 H 169 H (75-99) mg/dL 04/15/18 04/16/18 04/16/18 Range/Units 21:22 05:30 05:30 WBC 18.2 H (3.8-10.6) k/uL Neutrophils # 16.2 H (1.3-7.7) k/uL Lymphocytes # 0.9 L (1.0-4.8) k/uL Glucose 173 H (74-99) mg/dL POC Glucose (mg/dL) 189 H (75-99) mg/dL 04/16/18 Range/Units 07:29 WBC (3.8-10.6) k/uL Neutrophils # (1.3-7.7) k/uL Lymphocytes # (1.0-4.8) k/uL Glucose (74-99) mg/dL POC Glucose (mg/dL) 161 H (75-99) mg/dL
[2018-04-16 12:41] LABS: Glucose,Whole Blood 160 mg/dL (75-99)
[2018-04-16] MEDS: CYANOCOBALAMIN 500 MCG TAB PO SCH (12:43)
[2018-04-16] MEDS: BENZOCAINE/MENTHOL LOZENG 1 EACH LOZENGE MUCOUS MEM PRN (12:44)
[2018-04-16 17:08] LABS: Glucose,Whole Blood 141 mg/dL (75-99)
[2018-04-16 20:44] LABS: Glucose,Whole Blood 145 mg/dL (75-99)
[2018-04-16] MEDS: ATORVASTATIN 80 MG TAB PO SCH (21:11)
--- NOTE | 2018-04-16 23:00 | PN ---
PROGRESS NOTE DATE OF SERVICE: 04/16/2018 PRESENTING COMPLAINT: Right carotid endarterectomy. INTERVAL HISTORY: Patient is status post acute stroke with near-resolution of symptoms. The patient has some mild discoordination in the left arm; otherwise doing well. Tolerated his diet. Has been out of bed. Just feels a bit tired. REVIEW OF SYSTEMS: Done for constitutional, cardiovascular, GI, pulmonary; relevant findings as above. CURRENT MEDICATIONS: Reviewed. They include aspirin, Lipitor, Plavix. PHYSICAL EXAMINATION: Temperature 98.1, pulse 84, respiration 16, blood pressure 107/60, pulse 95% on room air. GENERAL APPEARANCE: Sitting up on a chair, comfortable. EYES: Pupils equal. Conjunctivae normal. HEENT: External appearance of nose and ears normal. Oral cavity normal. NECK: Dressing over the right side of the neck. Mass not palpable. RESPIRATORY: Effort normal. Lungs are clear. CARDIOVASCULAR: First and second sounds normal. No edema. ABDOMEN: Soft, non-tender. Liver and spleen not palpable. PSYCHIATRY: Alert and oriented x3. Mood and affect normal. INVESTIGATIONS: White count 18.2, hemoglobin 14.1, potassium 4.5. Accu-Cheks are noted. ASSESSMENT: 1. Acute stroke in the right parietal area, likely ischemic in nature, in a right- handed patient with mild coordination deficit in the left arm, though the high lift driver is good. 2. Right internal carotid stenosis followed by carotid endarterectomy, postoperative day 2. 3. Hyperlipidemia. 4. Diabetes mellitus, type 2, on oral hypoglycemic. 5. Gastroesophageal reflux disease. 6. Essential hypertension. 7. Coronary artery disease with prior history of stent. 8. Benign prostatic hypertrophy. 9. Primary osteoarthritis. PLAN: At this point, we will cut back on patient's aspirin to 81 mg. Discontinue patient's Mobic, as patient is also already on Plavix. Patient is off all drips. Hopefully he can be discharged tomorrow. MMODL / IJN: [id number] /
[2018-04-17 05:05] LABS: Basophils % (A) 0 %; Eosinophils # (A) 0.1 k/uL (0-0.7); Eosinophils % (A) 0 %; HCT 43.5 % (39.0-53.0); HGB 13.6 gm/dL (13.0-17.5); Lymphocytes # (A) 1.1 k/uL (1.0-4.8); Lymphocytes % (A) 9 %; MCH 29.4 pg (25.0-35.0); MCHC 31.3 g/dL (31.0-37.0); MCV 93.9 fL (80.0-100.0); Mean Platelet Volume 7.4; Monocytes # (A) 0.9 k/uL (0-1.0); Monocytes % (A) 7 %; Neutrophils # (A) 9.8 k/uL (1.3-7.7); Neutrophils % (A) 81 %; Platelet Count 148 k/uL (150-450); RBC 4.63 m/uL (4.30-5.90); RDW 13.6 % (11.5-15.5); WBC 12.1 k/uL (3.8-10.6)
[2018-04-17 05:11] LABS: Calcium 8.9 mg/dL (8.4-10.2); Phosphorus 2.6 mg/dL (2.5-4.5); Potassium 4.4 mmol/L (3.5-5.1)
[2018-04-17 06:53] LABS: Glucose,Whole Blood 133 mg/dL (75-99)
[2018-04-17] MEDS: INSULIN ASPART 100 UNIT/ML 1 ML 10 ML VIAL SQ SCH ×2 (07:33→12:27)
--- NOTE | 2018-04-17 07:40 | P.PN ---
Subjective Progress Note Date: 04/17/18 Principal diagnosis: Status post right carotid endarterectomy Progress note dated 04/17/2018 78-year-old male, postop day #2, status post right carotid endarterectomy. The patient is also status post CVA involving the right posterior parietal region. He has a history of benign essential hypertension previous history of myocardial infarction with stent placement diabetes mellitus and hyperlipidemia. He also has a history of BPH and diverticular disease. Currently, the patient's on room air. He's not receiving any IV fluids. Yesterday, he was on Gunner-Synephrine. Currently doing well. The plan today is to possibly discharge this patient home although he has not been seen by the primary service cardiology or the surgeon as yet. The patient denies any issues currently. No known neurologic issues to speak of. He denies chest pain or chest discomfort. Denies any shortness of breath difficulty breathing coughing wheezing nausea vomiting diarrhea fever chills, etc. All in all, the patient is doing relatively well. He does have some mild tenderness and pain at the surgical site on the right side of the neck. That neck area is bandaged. Objective - Vital Signs Vital signs: Vital Signs Temp 98.8 F 04/17/18 04:00 Pulse 80 04/17/18 04:00 Resp 17 04/17/18 04:00 BP 116/67 04/17/18 04:00 Pulse Ox 98 04/16/18 16:00 Intake & Output 04/16/18 04/17/18 04/17/18 18:59 06:59 18:59 Intake Total 1105 0 Output Total 750 1000 Balance 355 -1000 Weight 104 kg 95.5 kg Intake: IV 400 0 LR 400 0 Intake, IV Titration 200 Amount Magnesium Sulfate-D5w Pmx 200 1 gm In Dextrose/Water 1 100ml.bag @ 100 mls/hr IVPB Q1H [facility] Rx#: [id number] Oral 505 Output: Drainage 50 Right Neck 50 Urine 700 1000 Other: Voiding Method Urinal Urinal # Voids 2 2 ABP, PAP, CO, CI - Last Documented Arterial Blood Pressure 129/52 - Exam No acute distress, oriented 3. Not on supplemental oxygen. Sitting at the side of the bed. HEENT examination is grossly unremarkable. Mucous membranes are moist. No oral lesions. Neck supple. Full range of motion. No adenopathy thyromegaly or neck vein distention. The right neck is covered in a bandage. Cardiovascular examination reveals regular rhythm rate. S1-S2 normal. No S3 or S4. No discernible murmur noted. Heart sounds are distant. Lungs reveal clear breath sounds. Her sounds are equal bilaterally. No adventitious lung sounds including wheezes rhonchi or crackles. Abdomen soft bowel sounds are heard. No masses or tenderness. Extremities are intact. No cyanosis clubbing or edema. Skin is without rash or lesion. Neurologic examination is brief but nonfocal. The patient moves all 4 extremities well. No sensory abnormalities. Reflexes are intact. Gait is normal. Cranial nerves are normal. - Labs CBC & Chem 7: 04/17/18 04:40 04/17/18 04:40 Labs: Abnormal Lab Results - Last 24 Hours (Table) 04/16/18 04/16/18 04/16/18 Range/Units 12:40 17:06 20:42 WBC (3.8-10.6) k/uL Plt Count (150-450) k/uL Neutrophils # (1.3-7.7) k/uL Glucose (74-99) mg/dL POC Glucose (mg/dL) 160 H 141 H 145 H (75-99) mg/dL 04/17/18 04/17/18 04/17/18 Range/Units 04:40 04:40 06:51 WBC 12.1 H (3.8-10.6) k/uL Plt Count 148 L (150-450) k/uL Neutrophils # 9.8 H (1.3-7.7) k/uL Glucose 135 H (74-99) mg/dL POC Glucose (mg/dL) 133 H (75-99) mg/dL Assessment and Plan Assessment: Assessment Postop day #2, status post right carotid endarterectomy Status post CVA, right posterior parietal region, with complete resolution of left-sided neurologic symptoms History of hypertension Verito history of myocardial infarction with previous catheterization and stent placement Diabetes mellitus by history. History of hyperlipidemia History of BPH History of diverticular disease Plan: Plan dated 04/16/2018 The patient remains on Gunner-Synephrine at 5 mcg/m. Labs x-rays and medications will be reviewed. White count 18.2 hemoglobin 14.1 hematocrit 45.1 and platelet count normal. Electrolytes are completely normal. Brain MRI shows a subacute infarct in the posterior right parietal region. There are some degenerative changes and chronic sinus mucosal disease. We will continue to follow. Prognosis is guarded. Additional recommendations and suggestions are forthcoming. Plan dated 04/17/2018 White count is 12.1 and hemoglobin 13.6 hematocrit 43.5 and platelet count 148, 000. Sodium potassium chloride CO2 all normal. BUN and creatinine are normal. Calcium phosphorus and magnesium are all normal. The patient remains is on a few medications including Flomax niacin Narcan Mobic Zestril insulin Pepcid Lovenox vitamin B12 Plavix Cepacol lozenges Lipitor and aspirin. Awaiting the primary service cardiology and vascular surgery for their input. Possible discharge home in the next 24-48 hrs. No additional recommendations are made. We'll continue to follow. Critical care time is 31 minutes Time with Patient: Greater than 30
[2018-04-17 09:29] VITALS: BP 140/72; RESP 18; TEMP 97.9
[2018-04-17] MEDS: BENZOCAINE/MENTHOL LOZENG 1 EACH LOZENGE MUCOUS MEM PRN (09:30)
[2018-04-17] MEDS: NIACIN TR 500 MG CAPSULE.ER PO SCH (09:32)
[2018-04-17] MEDS: ASPIRIN 325 MG TAB PO SCH (09:33)
[2018-04-17] MEDS: MELOXICAM 7.5 MG TAB PO SCH (09:34)
[2018-04-17] MEDS: CLOPIDOGREL 75 MG TAB PO SCH (09:36)
[2018-04-17] MEDS: LISINOPRIL 5 MG TAB PO SCH (09:36)
[2018-04-17] MEDS: TAMSULOSIN 0.4 MG CAP.ER.24H PO SCH (09:37)
[2018-04-17] MEDS: FAMOTIDINE 20 MG TAB PO SCH (09:38)
[2018-04-17 12:00] LABS: Glucose,Whole Blood 110 mg/dL (75-99)
[2018-04-17] MEDS: ENOXAPARIN 40 MG/0.4 ML SYRINGE SQ SCH (12:25)
[2018-04-17] MEDS: CYANOCOBALAMIN 500 MCG TAB PO SCH (12:26)
[2018-04-17 14:34] VITALS: PULSE 100
--- NOTE | 2018-04-17 17:03 | PN ---
PROGRESS NOTE PREOP DIAGNOSES: 1. Symptomatic high-grade stenosis of the right carotid, status post right carotid endarterectomy with patch angioplasty. 2. Aortic stenosis post coronary artery stent. This patient came with symptomatic right carotid artery a stenosis affecting left side with complete recovery. The patient went for right carotid endarterectomy with patch angioplasty. Postop uneventful. The patient neuro stable. Moving upper and lower extremities well. Incision in neck is healing good. PLAN: Patient going home and follow up in office next week. MMODL / IJN: [id number] /
== END 2018-04-17 16:17 | disposition home or self-care (01) | DRG 38 ==
LOC: EC 14:00 → 6SEL 17:43 → 6ICU 04-15 13:01
PROVIDERS: ADMIT Hospitalist; ATTEND Hospitalist
PROC: 03CM0ZZ Extirpation of Matter from Right External Carotid Artery, Open Approach (ICD-10-PCS; 2018-04-15)
PROC: 03CK0ZZ Extirpation of Matter from Right Internal Carotid Artery, Open Approach (ICD-10-PCS; 2018-04-15)
PROC: 03UH07Z Supplement Right Common Carotid Artery with Autologous Tissue Substitute, Open Approach (ICD-10-PCS; 2018-04-15)
PROC: 03UK07Z Supplement Right Internal Carotid Artery with Autologous Tissue Substitute, Open Approach (ICD-10-PCS; 2018-04-15)
PROC: 03U Upper Arteries, Supplement (ICD-10-PCS; 2018-04-15)
PROC: 03CH0ZZ Extirpation of Matter from Right Common Carotid Artery, Open Approach (ICD-10-PCS; principal; 2018-04-15 08:40)
DX: I65.23 Occlusion and stenosis of bilateral carotid arteries (principal); I69.854 Hemiplegia and hemiparesis following other cerebrovascular disease affecting left non-dominant side; E11.9 Type 2 diabetes mellitus without complications; E78.5 Hyperlipidemia, unspecified; I10 Essential (primary) hypertension; I25.10 Atherosclerotic heart disease of native coronary artery without angina pectoris; I25.2 Old myocardial infarction; I35.0 Nonrheumatic aortic (valve) stenosis; I45.10 Unspecified right bundle-branch block; K21.9 Gastro-esophageal reflux disease without esophagitis; M19.91 Primary osteoarthritis, unspecified site; N40.0 Benign prostatic hyperplasia without lower urinary tract symptoms; W18.30XA Fall on same level, unspecified, initial encounter; Z79.82 Long term (current) use of aspirin; Z79.899 Other long term (current) drug therapy; Z87.891 Personal history of nicotine dependence; Z95.5 Presence of coronary angioplasty implant and graft
CPT/HCPCS: 36415; 70450; 70496; 70498; 70551; 71046; 80048; 80053; 80061; 82550; 82553; 82607; 83036; 83090; 83735; 84100; 84443; 84484; 85025; 85610; 85730; 88304; 88311; 93005; 93306; 95819; 99285

== ENCOUNTER → 2018-05-23 | Outpatient (CLI) | payer MEDICARE, OTHER ==
--- NOTE | 2018-05-23 17:10 | US ---
EXAMINATION TYPE: US liver DATE OF EXAM: 05/23/2018 COMPARISON: NONE CLINICAL HISTORY: R74.8 ABN Levels Of Other Serum Enzymes. Elevated LFT's, nausea EXAM MEASUREMENTS: Liver Length: 14.3 cm Gallbladder Wall: 0.29 cm , normal less than 0.3 cm. CBD: 0.3 cm Right Kidney: 10.5 x 6.0 x 6.2 cm Pancreas: Obscured by bowel gas Liver: Appeared wnl Gallbladder: Non-mobile stone within neck/ GB appeared distended, wall thickness upper limits of nor mal Evidence for sonographic Richardson's sign: No CBD: wnl Right Kidney: Cyst lower pole= 1.6 x 1.5 x 1.7 cm IMPRESSION: 1. Cholelithiasis. Gallbladder grimm of the upper limits of normal. Correlate for developing acute ch olecystitis. 2. Simple right renal cyst
== END | disposition home or self-care (01) ==
LOC: RADUSWWP 06:58
PROVIDERS: ATTEND Family Medicine
DX: K80.20 Calculus of gallbladder without cholecystitis without obstruction (principal); N28.1 Cyst of kidney, acquired; R74.8 Abnormal levels of other serum enzymes
CPT/HCPCS: 76705

== ENCOUNTER 2018-06-10 08:39 | Observation (INO) | payer MEDICARE, OTHER ==
[2018-06-10] MEDS ORDERED: ONDANSETRON 4 MG/2 ML VIAL IVP STA (09:02)
[2018-06-10] MEDS ORDERED: SODIUM CHLORIDE 0.9% 500 ML 500 ML IV ONE (09:03)
--- NOTE | 2018-06-10 09:05 | ED ---
General Adult HPI - General Chief complaint: Weakness Stated complaint: low blood pressure Time Seen by Provider: 06/10/18 08:40 Source: patient, RN notes reviewed Mode of arrival: wheelchair Limitations: no limitations - History of Present Illness Initial comments: This is a 78-year-old male who presents emergency Department complaining of generalized weakness and hypotension and nausea with dry heaving. Patient states he had surgery on his carotid artery on April 15 and it was since then he's had difficulty swallowing and eating he's had the dry heaves. Patient states he is becoming weaker and weaker to the point where he is feeling unsteady on his feet. Patient was in the doctor's office this morning his blood pressure was low so they sent him to the emergency department. Patient denies any fever chills. Patient states he does occasionally feel short of breath. Patient states he feels like he needs to take a deep breath it always there. Patient denies any chest pain or palpitations. Patient denies any abdominal pain patient denies any diarrhea. Patient denies any recent injury or trauma. Patient denies any headache. Patient denies numbness or focal weakness. Patient denies dysuria hematuria urinary frequency. - Related Data Home Medications Medication Instructions Recorded Confirmed Niacin [Niaspan] 1,000 mg PO BID 04/16/14 06/10/18 Tamsulosin [Flomax] 0.4 mg PO DAILY 04/16/14 06/10/18 metFORMIN HCL [Glucophage] 500 mg PO BID 04/16/14 06/10/18 Lisinopril [Zestril] 5 mg PO DAILY 04/10/18 06/10/18 Furosemide [Lasix] 40 mg PO DAILY 06/10/18 06/10/18 Potassium Chloride [Klor-Con 20] 1 tab PO DAILY 06/10/18 06/10/18 Previous Rx's Medication Instructions Recorded Atorvastatin [Lipitor] 80 mg PO HS #30 tab 04/17/18 Celecoxib [CeleBREX] 100 mg PO BID #0 04/17/18 Famotidine [Pepcid] 20 mg PO BID #60 tab 04/17/18 Clopidogrel Bisulfate [Plavix] 75 mg PO DAILY #30 tab 04/18/18 Allergies Allergy/AdvReac Type Severity Reaction Status Date / Time walnuts Allergy Anaphylaxis Uncoded 06/10/18 08:49 Review of Systems ROS Statement: Those systems with pertinent positive or pertinent negative responses have been documented in the HPI. ROS Other: All systems not noted in ROS Statement are negative. Past Medical History Past Medical History: CVA/TIA, Diabetes Mellitus, Eye Disorder, GERD/Reflux, Hyperlipidemia, Hypertension, Myocardial Infarction (CA), Osteoarthritis (OA), Prostate Disorder Additional Past Medical History / Comment(s): HX DIVERTICULITIS, BOWEL OBSTRUCTION Last Myocardial Infarction Date:: 1999 History of Any Multi-Drug Resistant Organisms: None Reported Past Surgical History: Heart Catheterization With Stent, Orthopedic Surgery Additional Past Surgical History / Comment(s): HEART STENTS X 3, ORIF LT ANKLE- HARDWARE LATER REMOVED carotid endarectomy Past Anesthesia/Blood Transfusion Reactions: No Reported Reaction Date of Last Stent Placement:: 1999 Past Psychological History: No Psychological Hx Reported Smoking Status: Former smoker Past Alcohol Use History: Occasional Past Drug Use History: None Reported - Past Family History Father Family Medical History: Cancer Mother Family Medical History: Deep Vein Thrombosis (DVT) General Exam - General Exam Comments Initial Comments: GENERAL: Patient is well-developed and well-nourished. Patient is nontoxic and well- hydrated and is in mild distress. ENT: Neck is soft and supple. No significant lymphadenopathy is noted. Oropharynx is clear. Moist mucous membranes. Neck has full range of motion without eliciting any pain. EYES: The sclera were anicteric and conjunctiva were pink and moist. Extraocular movements were intact and pupils were equal round and reactive to light. Eyelids were unremarkable. PULMONARY: Unlabored respirations. Good breath sounds bilaterally. No audible rales rhonchi or wheezing was noted. CARDIOVASCULAR: Patient is a regular rate and rhythm no murmurs are heard ABDOMEN: Soft and nontender with normal bowel sounds. No palpable organomegaly was noted. There is no palpable pulsatile mass. SKIN: Skin is clear with no lesions or rashes and otherwise unremarkable. NEUROLOGIC: Patient is alert and oriented x3. Cranial nerves II through XII are grossly intact. Motor and sensory are also intact. Normal speech, volume and content. Symmetrical smile. MUSCULOSKELETAL: Normal extremities with adequate strength and full range of motion. 1+ edema LYMPHATICS: No significant lymphadenopathy is noted PSYCHIATRIC: Normal psychiatric evaluation. Limitations: no limitations Course Vital Signs 06/10/18 08:42 Temperature 98.5 F Pulse Rate 90 Respiratory 18 Rate Blood Pressure 112/68 O2 Sat by Pulse 98 Oximetry Medical Decision Making - Medical Decision Making EKG shows normal sinus rhythm at 82 bpm [place] interval 256 dresses 156 QT intervals 414 QTC is 483 per patient's right bundle branch block. Patient's EKG shows no ST segment elevation or depression or T wave abnormalities are noted. Patient's lab work came back with some mildly elevated liver enzymes but other than that lab work appeared to be essentially normal. CT of the neck showed no acute abnormality. I spoke with Dr. Keane agreed to admit the patient admitted the patient and consulted Dr. Resendiz. I wrote admitting orders. - Lab Data Result diagrams: 06/10/18 09:17 06/10/18 09:17 Lab Results 06/10/18 06/10/18 06/10/18 Range/Units 09:17 09:17 09:17 WBC 6.0 (3.8-10.6) k/uL RBC 4.77 (4.30-5.90) m/uL Hgb 14.2 (13.0-17.5) gm/dL Hct 42.8 (39.0-53.0) % MCV 89.6 (80.0-100.0) fL MCH 29.8 (25.0-35.0) pg MCHC 33.2 (31.0-37.0) g/dL RDW 14.1 (11.5-15.5) % Plt Count 125 L (150-450) k/uL Neutrophils % 58 % Neutrophils % (Manual) 61 % Lymphocytes % 25 % Lymphocytes % (Manual) 28 % Monocytes % 10 % Monocytes % (Manual) 9 % Eosinophils % 2 % Eosinophils % (Manual) 1 % Basophils % 0 % Myelocytes % 1 % Neutrophils # 3.5 (1.3-7.7) k/uL Neutrophils # (Manual) 3.66 (1.3-7.7) k/uL Lymphocytes # 1.5 (1.0-4.8) k/uL Lymphocytes # (Manual) 1.68 (1.0-4.8) k/uL Monocytes # 0.6 (0-1.0) k/uL Monocytes # (Manual) 0.54 (0-1.0) k/uL Eosinophils # 0.1 (0-0.7) k/uL Eosinophils # (Manual) 0.06 (0-0.7) k/uL Basophils # 0.0 (0-0.2) k/uL Myelocytes # (Manual) 0.06 H (0) k/uL Nucleated RBCs 0 (0-0) /100 WBC Manual Slide Review Performed Poikilocytosis (manual Present Crenated Cell Present PT (9.0-12.0) sec INR (<1.2) APTT (22.0-30.0) sec Sodium 135 L (137-145) mmol/L Potassium 3.9 (3.5-5.1) mmol/L Chloride 99 (98-107) mmol/L Carbon Dioxide 27 (22-30) mmol/L Anion Gap 9 mmol/L BUN 19 (9-20) mg/dL Creatinine 1.27 H (0.66-1.25) mg/dL Est GFR (CKD-EPI)AfAm 62 (>60 ml/min/1.73 sqM) Est GFR (CKD-EPI)NonAf 54 (>60 ml/min/1.73 sqM) Glucose 160 H (74-99) mg/dL Plasma Lactic Acid Otoniel (0.7-2.0) mmol/L Calcium 8.5 (8.4-10.2) mg/dL Magnesium 1.6 (1.6-2.3) mg/dL Total Bilirubin 2.2 H (0.2-1.3) mg/dL AST 128 H (17-59) U/L ALT 126 H (21-72) U/L Alkaline Phosphatase 144 H (38-126) U/L Total Creatine Kinase 360 H (55-170) U/L CK-MB (CK-2) 2.6 H (0.0-2.4) ng/mL CK-MB (CK-2) Rel Index 0.7 Troponin I <0.012 (0.000-0.034) ng/mL Total Protein 5.2 L (6.3-8.2) g/dL Albumin 2.7 L (3.5-5.0) g/dL Urine Color Urine Appearance (Clear) Urine pH (5.0-8.0) Ur Specific [place] (1.001-1.035) Urine Protein (Negative) Urine Glucose (UA) (Negative) Urine Ketones (Negative) Urine Blood (Negative) Urine Nitrite (Negative) Urine Bilirubin (Negative) Urine Urobilinogen (<2.0) mg/dL Ur Leukocyte Esterase (Negative) Urine RBC (0-5) /hpf Urine WBC (0-5) /hpf Ur Squamous Epith Cells (0-4) /hpf Urine Mucus (None) /hpf 06/10/18 06/10/18 06/10/18 Range/Units 09:17 09:17 09:22 WBC (3.8-10.6) k/uL RBC (4.30-5.90) m/uL Hgb (13.0-17.5) gm/dL Hct (39.0-53.0) % MCV (80.0-100.0) fL MCH (25.0-35.0) pg MCHC (31.0-37.0) g/dL RDW (11.5-15.5) % Plt Count (150-450) k/uL Neutrophils % % Neutrophils % (Manual) % Lymphocytes % % Lymphocytes % (Manual) % Monocytes % % Monocytes % (Manual) % Eosinophils % % Eosinophils % (Manual) % Basophils % % Myelocytes % % Neutrophils # (1.3-7.7) k/uL Neutrophils # (Manual) (1.3-7.7) k/uL Lymphocytes # (1.0-4.8) k/uL Lymphocytes # (Manual) (1.0-4.8) k/uL Monocytes # (0-1.0) k/uL Monocytes # (Manual) (0-1.0) k/uL Eosinophils # (0-0.7) k/uL Eosinophils # (Manual) (0-0.7) k/uL Basophils # (0-0.2) k/uL Myelocytes # (Manual) (0) k/uL Nucleated RBCs (0-0) /100 WBC Manual Slide Review Poikilocytosis (manual Crenated Cell PT 15.5 H (9.0-12.0) sec INR 1.7 H (<1.2) APTT 22.6 (22.0-30.0) sec Sodium (137-145) mmol/L Potassium (3.5-5.1) mmol/L Chloride (98-107) mmol/L Carbon Dioxide (22-30) mmol/L Anion Gap mmol/L BUN (9-20) mg/dL Creatinine (0.66-1.25) mg/dL Est GFR (CKD-EPI)AfAm (>60 ml/min/1.73 sqM) Est GFR (CKD-EPI)NonAf (>60 ml/min/1.73 sqM) Glucose (74-99) mg/dL Plasma Lactic Acid Otoniel 1.3 (0.7-2.0) mmol/L Calcium (8.4-10.2) mg/dL Magnesium (1.6-2.3) mg/dL Total Bilirubin (0.2-1.3) mg/dL AST (17-59) U/L ALT (21-72) U/L Alkaline Phosphatase (38-126) U/L Total Creatine Kinase (55-170) U/L CK-MB (CK-2) (0.0-2.4) ng/mL CK-MB (CK-2) Rel Index Troponin I (0.000-0.034) ng/mL Total Protein (6.3-8.2) g/dL Albumin (3.5-5.0) g/dL Urine Color Yellow Urine Appearance Cloudy (Clear) Urine pH 6.5 (5.0-8.0) Ur Specific [place] 1.019 (1.001-1.035) Urine Protein 1+ H (Negative) Urine Glucose (UA) Trace H (Negative) Urine Ketones Trace H (Negative) Urine Blood Moderate H (Negative) Urine Nitrite Negative (Negative) Urine Bilirubin Negative (Negative) Urine Urobilinogen >12.0 (<2.0) mg/dL Ur Leukocyte Esterase Negative (Negative) Urine RBC <1 (0-5) /hpf Urine WBC 4 (0-5) /hpf Ur Squamous Epith Cells 1 (0-4) /hpf Urine Mucus Occasional H (None) /hpf Disposition Clinical Impression: Generalized weakness, Elevated liver enzymes, Chronic nausea Disposition: ADMITTED IP TO THIS HOSP Referrals: Reinaldo Garcia MD [Primary Care Provider] - 1-2 days Time of Disposition: 10:44
[2018-06-10 09:41] LABS: Albumin 2.7 g/dL (3.5-5.0); Calcium 8.5 mg/dL (8.4-10.2); INR 1.7 (<1.2); Magnesium 1.6 mg/dL (1.6-2.3); Partial Thromboplastin Time 22.6 sec (22.0-30.0); Potassium 3.9 mmol/L (3.5-5.1); Prothrombin Time 15.5 sec (9.0-12.0); Total Bilirubin 2.2 mg/dL (0.2-1.3); Total Protein 5.2 g/dL (6.3-8.2)
[2018-06-10 09:48] LABS: Creatine Kinase 360 U/L (55-170)
--- NOTE | 2018-06-10 09:49 | XR ---
EXAMINATION TYPE: XR chest 2V DATE OF EXAM: 06/10/2018 COMPARISON: 04/10/2018 HISTORY: Weakness TECHNIQUE: Frontal and lateral views of the chest are obtained. FINDINGS: There is no focal air space opacity, pleural effusion, or pneumothorax seen. There is desc ending thoracic aortic tortuosity. The cardiac silhouette size is within normal limits. The osseous structures are intact. There is pulmonary hyperinflation and flattening of the diaphragms on the lat eral view suggesting underlying COPD. Mild to moderate multilevel degenerative changes of the thoraci c spine are seen. IMPRESSION: No acute cardiopulmonary process.
[2018-06-10 09:50] LABS: Appearance,Urine Cloudy (Clear); Bilirubin,Urine Negative (Negative); Blood,Urine Moderate (Negative); Color,Urine Yellow; Glucose,Urine (UA) Trace (Negative); Ketones,Urine Trace (Negative); Leukocyte Esterase,Urine Negative (Negative); Mucus,Urine Occasional /hpf; Nitrite,Urine Negative (Negative); PH, Urine 6.5 (5.0-8.0); Protein,Urine 1+ (Negative); RBC,Urine <1 /hpf (0-5); Specific Gravity,Urine 1.019 (1.001-1.035); Squamous Epithelial Cell,Urine 1 /hpf (0-4); Urobilinogen,Urine >12.0 mg/dL (<2.0); WBC,Urine 4 /hpf (0-5)
[2018-06-10 10:02] LABS: Creatine Kinase MB 2.6 ng/mL (0.0-2.4); Troponin I <0.012 ng/mL (0.000-0.034)
[2018-06-10 10:10] LABS: Myelocytes % 1 %; Neutrophils % (M) 61 %; Nucleated Red Blood Cells 0 /100 WBC (0-0); Total Cells Counted 100
[2018-06-10 10:11] LABS: Basophils % (A) 0 %; Eosinophils # (A) 0.1 k/uL (0-0.7); Eosinophils # (M) 0.06 k/uL (0-0.7); Eosinophils % (A) 2 %; HCT 42.8 % (39.0-53.0); HGB 14.2 gm/dL (13.0-17.5); Lymphocytes # (A) 1.5 k/uL (1.0-4.8); Lymphocytes # (M) 1.68 k/uL (1.0-4.8); Lymphocytes % (A) 25 %; MCH 29.8 pg (25.0-35.0); MCHC 33.2 g/dL (31.0-37.0); MCV 89.6 fL (80.0-100.0); Mean Platelet Volume 7.2; Monocytes # (A) 0.6 k/uL (0-1.0); Monocytes # (M) 0.54 k/uL (0-1.0); Monocytes % (A) 10 %; Myelocytes # (M) 0.06 k/uL (0); Neutrophils # (A) 3.5 k/uL (1.3-7.7); Neutrophils # (M) 3.66 k/uL (1.3-7.7); Neutrophils % (A) 58 %; Platelet Count 125 k/uL (150-450); RBC 4.77 m/uL (4.30-5.90); RDW 14.1 % (11.5-15.5)
[2018-06-10 10:12] LABS: Poikilocytosis (M) Present
[2018-06-10 10:13] LABS: Crenated RBC Present
--- NOTE | 2018-06-10 10:19 | CT ---
EXAMINATION TYPE: CT soft tissue neck w con DATE OF EXAM: 06/10/2018 HISTORY: Recent carotid surgery with new onset weakness, cough, and hypotension. COMPARISON: CTA neck April 10, 2018 CT DLP: 284.6 mGycm. Automated Exposure Control for Dose Reduction was Utilized. TECHNIQUE: CT scan of the neck is performed with IV Contrast, patient injected with 80 mL of Isovue 300, axial images are obtained, coronal and sagittal reformatted images are reviewed. FINDINGS: Airway: No gross abnormality seen. Parotid/submandibular glands: No gross abnormality seen. Carotid/Vascular Structures: There is marked interval improvement in calcified plaque at right carot id bulb extending into proximal internal carotid artery after surgery. There is patency without signi ficant stenosis on current exam at this level. Left side shows persistent moderate to severe mixed pl aque causing stenosis approaching but likely just under 50% in the proximal internal carotid artery w ithout significant interval change. Vertebral arteries remain codominant and patent to basilar juncti on. Moderate supraclinoid plaque bilateral distal internal carotid arteries is redemonstrated. Modera te calcified plaque of aorta extending into 3 great vessels is redemonstrated Osseous Structures: There is redemonstration of multilevel spondylolisthesis with moderate to severe spurring and disc space narrowing throughout the cervical spine. There is grade 1 anterolisthesis of C4 on C5 and C7 on T1 redemonstrated. Underlying levoconvex scoliosis centered in the upper thoracic spine is again seen. Multilevel uncovertebral facet degenerative changes are redemonstrated in the ce rvical spine. Other: No suspicious greater than 1 cm neck adenopathy. IMPRESSION: Successful interval treatment of right internal carotid artery significant stenosis just past bulb. No new suspicious fluid collection identified. No new suspicious finding seen to account f or patient's symptoms.
[2018-06-10] MEDS ORDERED: SODIUM CHLORIDE 0.9% 1,000 ML IV ONE (10:48)
[2018-06-10] MEDS ORDERED: ONDANSETRON 4 MG/2 ML VIAL IVP PRN (11:10)
[2018-06-10 15:47] VITALS: BMI 27.4
--- NOTE | 2018-06-10 16:25 | CONS ---
CONSULTATION This is a 78-year-old gentleman who came to the emergency department with a history of weakness, hypertension, nausea and dry heaves. Patient is known to me. We did a right carotid endarterectomy for critical stenosis on April 15 and the patient was sent home without any complications. No history of TIA or amaurosis fugax. The patient has no history of difficulty in swallowing. He went to his family doctor. His blood pressure was low and patient was sent to the emergency room. The patient had carotid study, including CT of the neck, and this showed marked interval improvement in calcified plaque at the right carotid bulb post carotid surgery. There is patency without significant stenosis on the current exam at this level. Left side shows about 50% stenosis. There is no fluid collection. No evidence of any mass effect. Patient did have some spondylolisthesis with moderate to severe spurring and disc space narrowing throughout the cervical spine. MEDICAL HISTORY: 1. History of diabetes mellitus. 2. Reflux. 3. Hyperlipidemia. 4. Hypertension. 5. Myocardial infarction. 6. Osteoarthritis. 7. Prostate disorder. PHYSICAL EXAMINATION: Neck is soft and supple. No bruit appreciated. Good air entry in both lungs. ABDOMEN: Soft. Brachial, radial and femoral pulses are present. CENTRAL NERVOUS SYSTEM: Oriented to time and place. Normal motor function. EKG shows normal sinus rhythm. Lab work came back normal, with some elevated liver enzymes. CT scan report noted. At this point, there is no evidence of any symptom of carotid stenosis or evidence of any TIA or carotid-related symptoms. We will have a GI consult and then he may have an ENT consult to see if there is any issue with his esophagus or vocal cords. Will follow with you. MMODL / IJN: [id number] /
[2018-06-10 17:12] LABS: Glucose,Whole Blood 181 mg/dL (75-99)
[2018-06-10] MEDS: INSULIN ASPART 100 UNIT/ML 1 ML 10 ML VIAL SQ SCH ×2 (17:58→22:42)
[2018-06-10 20:57] LABS: Glucose,Whole Blood 158 mg/dL (75-99)
[2018-06-10] MEDS ORDERED: ATORVASTATIN 80 MG TAB PO SCH (22:30)
--- NOTE | 2018-06-10 23:10 | HP ---
HISTORY AND PHYSICAL DATE OF ADMISSION AND SERVICE: 06/10/2018 PRESENTING COMPLAINT: Difficulty swallowing, weak, tired. HISTORY OF PRESENTING COMPLAINT: This is a very pleasant 78-year-old patient of Dr. Garcia. The patient was here in the end of April. The patient says at that time he had a stroke in the right parietal area and underwent right carotid endarterectomy by Dr. Resendiz. The patient has had multiple symptoms since then. The patient says oftentimes he may feel a lump in the throat and sometimes food gets stuck; he has to drink water and food goes down. Sometimes he gets bouts of coughing and something a little bit of thick phlegm comes out. He has been feeling weak and tired. All these symptoms put together have brought him to the hospital. The patient did see Dr. Resendiz in the office and also saw his family doctor, Dr. Garcia. There may be some slight weight loss; otherwise appetite is fair. The patient's chronic stable medical conditions include hyperlipidemia, diabetes, GERD, hypertension, coronary artery disease, BPH, primary osteoarthritis and aortic stenosis. REVIEW OF SYSTEMS: CONSTITUTIONAL: Tired. Decreased appetite. Some weight loss. HEENT: None. RESPIRATORY: None. CARDIOVASCULAR: None. GASTROINTESTINAL: As above. GENITOURINARY: None. MUSCULOSKELETAL: Some pain in the joints. DERMATOLOGICAL: None. HEMATOLOGICAL: None. LYMPHATICS: None. PSYCHIATRY: None. NEUROLOGICAL: None. PAST MEDICAL HISTORY: 1. Diabetes. 2. GERD. 3. Hyperlipidemia. 4. Hypertension. 5. Myocardial infarction. 6. Prostate disorder. 7. Osteoarthritis. 8. Stroke. PAST SURGICAL HISTORY: 1. Cardiac cath with stent. 2. ORIF left ankle. 3. Right carotid endarterectomy. SOCIAL HISTORY: . Did smoke in the past. Alcohol occasionally. FAMILY HISTORY: Cancer, type unknown. HOME MEDICATIONS: 1. Glucophage 500 mg b.i.d. 2. Flomax 0.4 mg a day. 3. Potassium 20 mEq a day. 4. Niacin 1000 mg b.i.d. 5. Zestril 5 mg p.o. daily. 6. Lasix 40 mg p.o. daily. 7. Pepcid 20 mg b.i.d. 8. Plavix 75 mg p.o. daily. 9. Celebrex 100 mg b.i.d. 10.Lipitor 80 mg at bedtime. ALLERGIES: WALNUTS. PHYSICAL EXAMINATION: Temperature 98.5, pulse 90, respiration 18, blood pressure 112/68, pulse ox 98% on room air. GENERAL APPEARANCE: Average build. Lying in bed, awake, a bit tired-appearing. EYES: Pupils equal. Conjunctivae normal. HEENT: External appearance of nose and ears normal. Oral cavity with dry mucous membrane. NECK: JVD not raised. Mass not palpable. RESPIRATORY: Effort normal. Lungs are clear. CARDIOVASCULAR: First and second sounds normal. No edema. ABDOMEN: Soft, non-tender. Liver and spleen not palpable. LYMPHATIC: No lymph node palpable in neck or axillae. PSYCHIATRY: Alert and oriented x3. Mood and affect normal. NEUROLOGICAL: Pupils equal. Cranial nerves grossly intact. Power and sensation grossly intact. INVESTIGATIONS: White count 6, hemoglobin 14.2, potassium 3.9, BUN 19, creatinine 1.27. Patient's creatinine was 0.96 on 04/17/2018. ASSESSMENT: 1. Acute dysphagia with sometimes food getting stuck and having bouts of coughing. This has happened following surgery. Either there could be a nerve involvement causing change in the pharyngeal phase of swallowing, or it could be that because patient is dry and gets better with drinking water, it could be from a dry esophagus in the setting of renal failure. He will need at least a barium swallow to start off with and then further investigation will be done. 2. Acute renal failure, likely prerenal, from patient being on diuretics. Last EF was normal. 3. Mild protein-calorie malnutrition. Albumin is 2.7. Patient has lost some weight. 4. Hyperlipidemia. 5. Diabetes mellitus, type 2, on oral hypoglycemic. 6. Gastroesophageal reflux disease. 7. Essential hypertension. 8. Coronary artery disease with prior history of stent. 9. Benign prostatic hypertrophy. 10.Primary osteoarthritis. 11.Moderate to severe aortic stenosis, non-rheumatic. PLAN: Patient is started on IV fluids. Stop the Lasix. Repeat electrolytes in the morning. Other home medications are resumed. Accu-Cheks will be followed. Will do a barium swallow and proceed from there. Care was discussed with the patient. Questions were answered. MMODL / IJN: [id number] /
[2018-06-10] MEDS: ENOXAPARIN 40 MG/0.4 ML SYRINGE SQ SCH (23:15)
[2018-06-10] MEDS: PANTOPRAZOLE 40 MG TABLET PO SCH (23:16)
[2018-06-10] MEDS: LACTATED RINGERS 1,000 ML IV SCH (23:50)
[2018-06-11 04:03] LABS: Hemoglobin A1C 7.5 % (4.0-6.0)
[2018-06-11 07:26] LABS: Glucose,Whole Blood 140 mg/dL (75-99)
[2018-06-11] MEDS: INSULIN ASPART 100 UNIT/ML 1 ML 10 ML VIAL SQ SCH ×2 (08:01→11:45)
[2018-06-11] MEDS: LACTATED RINGERS 1,000 ML IV SCH (08:02)
--- NOTE | 2018-06-11 08:26 | P.CONS ---
History of Present Illness - Reason for Consult Consult date: 06/11/18 Dysphagia Requesting physician: Reggie Keane - Chief Complaint Dysphagia weakness - History of Present Illness 78-year-old gentleman with a past medical history recent right carotid endarterectomy March 2018 presents with dysphagia as well as fatigue weakness. Patient states since surgery he has had difficulty swallowing solid foods intermittently. He is able to swallow liquids without difficulty. Denies odynophagia. He developed a sensation of food being stuck in the upper esophageal region globus type feeling. Denies hematemesis hematochezia melena. No significant weight loss. No history of this issue. No history of EGD. No new medications. Pills do not get stuck when swallowing. Vital signs reviewed no episodes of hypotension. Denies choking gagging or coughing. Last night he was able to eat meats and mashed potatoes without difficulty. CT neck no new suspicious finding to account for his symptoms. White count 6. Hemoglobin 14.2. Platelet 125. INR 1.7. BUN 19. Creatinine 1.2. Total bilirubin 2.2. AST 120. ALT 126. AP 144. Total creatinine kinase 360. Home medications include but not limited to Plavix, Lipitor. Liver enzymes within normal limits March 2018. INR was 1.0 in March 2018. No history of alcoholism or known liver disorders. Denies abdominal pain. No fevers. He was experiencing some abdominal pain earlier this month and had an outpatient liver ultrasound on May 23 findings were cholelithiasis correlate for developing acute cholecystitis. CBD 0.3 cm. Review of Systems Constitutional: Denies fever, chills, sweats, weight gain, or loss. Admitted with fatigue weakness HEENT: Negative for migraines, blurred vision or loss, earaches, drainage, tinnitus, oral mucosal lesions, dysphagia, or odynophagia. Cardiac: Negative for chest pain, arrhythmias, or palpitation. Respiratory: Negative for shortness of breath, hemoptysis, cough, or sputum production. Gastrointestinal: See HPI for pertinent findings. Genitourinary: Negative for hematuria, urgency, frequency, polyuria, dysuria, or penile discharge. Musculoskeletal: Negative for muscle aches, swelling, arthritis, and arthralgias. Neurologic: Negative for stroke or TIA. Endocrine: Negative for thyroid problems. Skin: Negative for rash or itching. Psychiatric: Negative history for depression and anxiety Past Medical History Past Medical History: CVA/TIA, Diabetes Mellitus, Eye Disorder, GERD/Reflux, Hyperlipidemia, Hypertension, Myocardial Infarction ([place]), Osteoarthritis (OA), Prostate Disorder Additional Past Medical History / Comment(s): HX DIVERTICULITIS, BOWEL OBSTRUCTION Last Myocardial Infarction Date:: 1999 History of Any Multi-Drug Resistant Organisms: None Reported Past Surgical History: Heart Catheterization With Stent, Orthopedic Surgery Additional Past Surgical History / Comment(s): HEART STENTS X 3, ORIF LT ANKLE- HARDWARE LATER REMOVED rt carotid endarectomy 04/08 Past Anesthesia/Blood Transfusion Reactions: No Reported Reaction Date of Last Stent Placement:: 1999 Past Psychological History: No Psychological Hx Reported Smoking Status: Former smoker Past Alcohol Use History: Occasional Past Drug Use History: None Reported - Past Family History Father Family Medical History: Cancer Mother Family Medical History: Deep Vein Thrombosis (DVT) Medications and Allergies Home Medications Medication Instructions Recorded Confirmed Type Niacin [Niaspan] 1,000 mg PO BID 04/16/14 06/10/18 History Tamsulosin [Flomax] 0.4 mg PO DAILY 04/16/14 06/10/18 History metFORMIN HCL [Glucophage] 500 mg PO BID 04/16/14 06/10/18 History Lisinopril [Zestril] 5 mg PO DAILY 04/10/18 06/10/18 History Atorvastatin [Lipitor] 80 mg PO HS #30 tab 04/17/18 06/10/18 Rx Celecoxib [CeleBREX] 100 mg PO BID #0 04/17/18 06/10/18 Rx Famotidine [Pepcid] 20 mg PO BID #60 tab 04/17/18 06/10/18 Rx Clopidogrel Bisulfate [Plavix] 75 mg PO DAILY #30 tab 04/18/18 06/10/18 Rx Furosemide [Lasix] 40 mg PO DAILY 06/10/18 06/10/18 History Potassium Chloride [Klor-Con 20] 1 tab PO DAILY 06/10/18 06/10/18 History Allergies Allergy/AdvReac Type Severity Reaction Status Date / Time walnuts Allergy Anaphylaxis Uncoded 06/10/18 08:49 Physical Exam Vitals: Vital Signs Temp Pulse Pulse Resp BP BP BP 06/11/18 05:51 97.6 F 89 20 111/52 06/11/18 00:00 93 06/10/18 23:00 99.1 F 93 14 117/65 06/10/18 14:47 97.2 F L 95 18 102/59 06/10/18 13:59 97.6 F 91 18 120/70 06/10/18 10:44 82 18 97/61 06/10/18 08:42 98.5 F 90 18 112/68 Pulse Ox 06/11/18 05:51 96 06/11/18 00:00 06/10/18 23:00 95 06/10/18 14:47 96 06/10/18 13:59 98 06/10/18 10:44 95 06/10/18 08:42 98 Intake and Output 06/10/18 06/11/18 06/11/18 22:59 06:59 14:59 Other: # Voids 2 3 # Bowel Movements 0 0 Weight 97.069 kg General appearance: The patient is alert, oriented, in no acute distress. HET: Head is normocephalic and atraumatic. Pupils are equal and reactive. Oropharynx is clear without lesions. Neck: Supple without lymphadenopathy. Trachea midline. Heart: S1 S2. Regular rate and rhythm. Lungs: No crackles or wheezes are heard. Abdomen: Soft, nontender, nondistended with bowel sounds. No peritoneal signs. No palpable organomegaly or masses. Extremities: Normal skin color and turgor. No cyanosis, rash, ulceration, clubbing, or edema. Radial and pedal pulses are 2/4 bilaterally. Neurological: No focal deficits. Strength and sensation are grossly intact. Results CBC & Chem 7: 06/10/18 09:17 06/10/18 09:17 Labs: Abnormal Lab Results - Last 24 Hours (Table) 06/10/18 06/10/18 06/10/18 Range/Units 09:17 09:17 09:17 Plt Count 125 L (150-450) k/uL Myelocytes # (Manual) 0.06 H (0) k/uL PT (9.0-12.0) sec INR (<1.2) Sodium 135 L (137-145) mmol/L Creatinine 1.27 H (0.66-1.25) mg/dL Glucose 160 H (74-99) mg/dL POC Glucose (mg/dL) (75-99) mg/dL Hemoglobin A1c (4.0-6.0) % Total Bilirubin 2.2 H (0.2-1.3) mg/dL AST 128 H (17-59) U/L ALT 126 H (21-72) U/L Alkaline Phosphatase 144 H (38-126) U/L Total Creatine Kinase 360 H (55-170) U/L CK-MB (CK-2) 2.6 H (0.0-2.4) ng/mL Total Protein 5.2 L (6.3-8.2) g/dL Albumin 2.7 L (3.5-5.0) g/dL Urine Protein (Negative) Urine Glucose (UA) (Negative) Urine Ketones (Negative) Urine Blood (Negative) Urine Mucus (None) /hpf 06/10/18 06/10/18 06/10/18 Range/Units 09:17 09:17 09:22 Plt Count (150-450) k/uL Myelocytes # (Manual) (0) k/uL PT 15.5 H (9.0-12.0) sec INR 1.7 H (<1.2) Sodium (137-145) mmol/L Creatinine (0.66-1.25) mg/dL Glucose (74-99) mg/dL POC Glucose (mg/dL) (75-99) mg/dL Hemoglobin A1c 7.5 H (4.0-6.0) % Total Bilirubin (0.2-1.3) mg/dL AST (17-59) U/L ALT (21-72) U/L Alkaline Phosphatase (38-126) U/L Total Creatine Kinase (55-170) U/L CK-MB (CK-2) (0.0-2.4) ng/mL Total Protein (6.3-8.2) g/dL Albumin (3.5-5.0) g/dL Urine Protein 1+ H (Negative) Urine Glucose (UA) Trace H (Negative) Urine Ketones Trace H (Negative) Urine Blood Moderate H (Negative) Urine Mucus Occasional H (None) /hpf 06/10/18 06/10/18 06/11/18 Range/Units 17:08 20:56 07:25 Plt Count (150-450) k/uL Myelocytes # (Manual) (0) k/uL PT (9.0-12.0) sec INR (<1.2) Sodium (137-145) mmol/L Creatinine (0.66-1.25) mg/dL Glucose (74-99) mg/dL POC Glucose (mg/dL) 181 H 158 H 140 H (75-99) mg/dL Hemoglobin A1c (4.0-6.0) % Total Bilirubin (0.2-1.3) mg/dL AST (17-59) U/L ALT (21-72) U/L Alkaline Phosphatase (38-126) U/L Total Creatine Kinase (55-170) U/L CK-MB (CK-2) (0.0-2.4) ng/mL Total Protein (6.3-8.2) g/dL Albumin (3.5-5.0) g/dL Urine Protein (Negative) Urine Glucose (UA) (Negative) Urine Ketones (Negative) Urine Blood (Negative) Urine Mucus (None) /hpf Comments: CT neck report reviewed by Dr. Sargent Assessment and Plan (1) Dysphagia Narrative/Plan: 70-year-old gentleman admitted with acute dysphagia 2 months after undergoing right carotid endarterectomy as well as elevated liver enzymes without abdominal pain fever or chills. Etiology of dysphagia possible esophageal possible presbyesophagus possible Zenker's diverticulum underlying neoplasm could not be excluded. Current Visit: Yes Status: Acute Code(s): R13.10 - DYSPHAGIA, UNSPECIFIED SNOMED Code(s): 64893297 (2) Elevated liver enzymes Narrative/Plan: Multifactorial. New onset of elevated liver enzymes cholelithiasis elevated total creatinine kinase coagulopathy and thrombocytopenia with no history of alcoholism or known hepatobiliary diseases. Possible cholecystitis possible choledocholithiasis possible mild rhabdomyolysis causing elevated liver enzymes. Current Visit: Yes Status: Acute Code(s): R74.8 - ABNORMAL LEVELS OF OTHER SERUM ENZYMES SNOMED Code(s): 506057253 (3) Coagulopathy Current Visit: Yes Status: Acute Code(s): D68.9 - COAGULATION DEFECT, UNSPECIFIED SNOMED Code(s): 96590482 (4) Thrombocytopenia Current Visit: Yes Status: Acute Code(s): D69.6 - THROMBOCYTOPENIA, UNSPECIFIED SNOMED Code(s): 229010227 (5) Elevated creatine kinase Current Visit: Yes Status: Acute Code(s): R74.8 - ABNORMAL LEVELS OF OTHER SERUM ENZYMES SNOMED Code(s): 934396876 (6) Cholelithiasis Current Visit: Yes Status: Acute Code(s): K80.20 - CALCULUS OF GALLBLADDER W /O CHOLECYSTITIS W/O OBSTRUCTION SNOMED Code(s): 553649251 Plan: 1. Esophagram. Possible EGD based on esophagram study. 2. Repeat Ultrasound abdomen evaluate CBD if unremarkable and LFTs do not improve consideration for MRCP. Recommend general surgical consult. Hepatitis screen. Daily CK, CMP CBC PT/INR. Thank you for this kind referral and the opportunity to participate in the care of your patient. This consultation was discussed with Dr. Sargent. The impression and plan of care have been directed as dictated.
[2018-06-11] MEDS ORDERED: metFORMIN 500 MG TAB PO SCH (09:00)
[2018-06-11] MEDS ORDERED: CLOPIDOGREL 75 MG TAB PO SCH (09:00)
[2018-06-11] MEDS ORDERED: NIACIN 1000 MG PO SCH (09:00)
[2018-06-11] MEDS ORDERED: MELOXICAM 7.5 MG TAB PO SCH (09:00)
[2018-06-11] MEDS ORDERED: TAMSULOSIN 0.4 MG CAP.ER.24H PO SCH (09:00)
[2018-06-11] MEDS ORDERED: POTASSIUM CHLORIDE ER 20 MEQ TAB.ER PO SCH (09:00)
[2018-06-11] MEDS ORDERED: FAMOTIDINE 20 MG TAB PO SCH (09:00)
[2018-06-11] MEDS ORDERED: LISINOPRIL 5 MG TAB PO SCH (09:00)
--- NOTE | 2018-06-11 09:04 | FL ---
EXAMINATION TYPE: FL barium swallow DATE OF EXAM: 06/11/2018 COMPARISON: NONE HISTORY: Dysphagia food getting stuck TECHNIQUE: Double air-contrast technique FINDINGS: Esophagus dilates to normal caliber has normal contour gastroesophageal junction. The crico pharyngeus muscle is noted to be persistent during swallowing. This is best visualized images 27-29 f luoroscopy. A few tertiary contractions were evident during the examination compatible some mild presbyesophagus. There is complete stripping of the esophageal bolus the horizontal drinking position. There is some hesitancy draining the entire esophagus during the exam. Fluoroscopy time 59 seconds Number of images: 32 IMPRESSION: 1. Mild presbyesophagus. 2. Persistence of the cricopharyngeus muscle during the examination which may account for the patient 's symptoms.
[2018-06-11] MEDS: PANTOPRAZOLE 40 MG TABLET PO SCH (09:39)
[2018-06-11 11:02] LABS: Albumin 2.4 g/dL (3.5-5.0); Calcium 8.2 mg/dL (8.4-10.2); Potassium 4.2 mmol/L (3.5-5.1); Total Bilirubin 1.8 mg/dL (0.2-1.3); Total Protein 4.8 g/dL (6.3-8.2)
[2018-06-11 11:35] LABS: Glucose,Whole Blood 169 mg/dL (75-99)
[2018-06-11] MEDS: ENOXAPARIN 40 MG/0.4 ML SYRINGE SQ SCH (12:47)
--- NOTE | 2018-06-11 14:29 | P.GSCN ---
History of Present Illness Consult date: 06/11/18 History of present illness: Seen and evaluated. He is currently on Plavix. Surgery contraindicated for 7- 10 days from current Plavix. Repeat ultrasound pending. Patient eager to go home. Patient is clear from a surgical standpoint pending results of ultrasound. Low-fat diet advised. Past Medical History Past Medical History: CVA/TIA, Diabetes Mellitus, Eye Disorder, GERD/Reflux, Hyperlipidemia, Hypertension, Myocardial Infarction ([place]), Osteoarthritis (OA), Prostate Disorder Additional Past Medical History / Comment(s): HX DIVERTICULITIS, BOWEL OBSTRUCTION Last Myocardial Infarction Date:: 1999 History of Any Multi-Drug Resistant Organisms: None Reported Past Surgical History: Heart Catheterization With Stent, Orthopedic Surgery Additional Past Surgical History / Comment(s): HEART STENTS X 3, ORIF LT ANKLE- HARDWARE LATER REMOVED rt carotid endarectomy 04/08 Past Anesthesia/Blood Transfusion Reactions: No Reported Reaction Date of Last Stent Placement:: 1999 Past Psychological History: No Psychological Hx Reported Smoking Status: Former smoker Past Alcohol Use History: Occasional Past Drug Use History: None Reported - Past Family History Father Family Medical History: Cancer Mother Family Medical History: Deep Vein Thrombosis (DVT) Medications and Allergies Home Medications Medication Instructions Recorded Confirmed Type Niacin [Niaspan] 1,000 mg PO BID 04/16/14 06/10/18 History Tamsulosin [Flomax] 0.4 mg PO DAILY 04/16/14 06/10/18 History metFORMIN HCL [Glucophage] 500 mg PO BID 04/16/14 06/10/18 History Lisinopril [Zestril] 5 mg PO DAILY 04/10/18 06/10/18 History Atorvastatin [Lipitor] 80 mg PO HS #30 tab 04/17/18 06/10/18 Rx Celecoxib [CeleBREX] 100 mg PO BID #0 04/17/18 06/10/18 Rx Famotidine [Pepcid] 20 mg PO BID #60 tab 04/17/18 06/10/18 Rx Clopidogrel Bisulfate [Plavix] 75 mg PO DAILY #30 tab 04/18/18 06/10/18 Rx Furosemide [Lasix] 40 mg PO DAILY 06/10/18 06/10/18 History Potassium Chloride [Klor-Con 20] 1 tab PO DAILY 06/10/18 06/10/18 History Allergies Allergy/AdvReac Type Severity Reaction Status Date / Time walnuts Allergy Anaphylaxis Uncoded 06/10/18 08:49 Surgical - Exam Vital Signs Temp Pulse Resp BP Pulse Ox 98.5 F 90 18 112/68 98 06/10/18 08:42 06/10/18 08:42 06/10/18 08:42 06/10/18 08:42 06/10/18 08:42 Results - Labs 06/10/18 09:17 06/11/18 09:36 Abnormal Lab Results - Last 24 Hours (Table) 06/10/18 06/10/18 06/10/18 Range/Units 09:17 17:08 20:56 Carbon Dioxide (22-30) mmol/L Glucose (74-99) mg/dL POC Glucose (mg/dL) 181 H 158 H (75-99) mg/dL Hemoglobin A1c 7.5 H (4.0-6.0) % Calcium (8.4-10.2) mg/dL Total Bilirubin (0.2-1.3) mg/dL AST (17-59) U/L ALT (21-72) U/L Alkaline Phosphatase (38-126) U/L Total Protein (6.3-8.2) g/dL Albumin (3.5-5.0) g/dL 06/11/18 06/11/18 06/11/18 Range/Units 07:25 09:36 11:34 Carbon Dioxide 32 H (22-30) mmol/L Glucose 152 H (74-99) mg/dL POC Glucose (mg/dL) 140 H 169 H (75-99) mg/dL Hemoglobin A1c (4.0-6.0) % Calcium 8.2 L (8.4-10.2) mg/dL Total Bilirubin 1.8 H (0.2-1.3) mg/dL AST 141 H (17-59) U/L ALT 130 H (21-72) U/L Alkaline Phosphatase 137 H (38-126) U/L Total Protein 4.8 L (6.3-8.2) g/dL Albumin 2.4 L (3.5-5.0) g/dL Diabetes panel 06/10/18 06/11/18 Range/Units 09:17 09:36 Sodium 137 (137-145) mmol/L Potassium 4.2 (3.5-5.1) mmol/L Chloride 102 (98-107) mmol/L Carbon Dioxide 32 H (22-30) mmol/L BUN 20 (9-20) mg/dL Creatinine 1.13 (0.66-1.25) mg/dL Glucose 152 H (74-99) mg/dL Hemoglobin A1c 7.5 H (4.0-6.0) % Calcium 8.2 L (8.4-10.2) mg/dL AST 141 H (17-59) U/L ALT 130 H (21-72) U/L Alkaline Phosphatase 137 H (38-126) U/L Total Protein 4.8 L (6.3-8.2) g/dL Albumin 2.4 L (3.5-5.0) g/dL Calcium panel 06/11/18 Range/Units 09:36 Calcium 8.2 L (8.4-10.2) mg/dL Albumin 2.4 L (3.5-5.0) g/dL Pituitary panel 06/11/18 Range/Units 09:36 Sodium 137 (137-145) mmol/L Potassium 4.2 (3.5-5.1) mmol/L Chloride 102 (98-107) mmol/L Carbon Dioxide 32 H (22-30) mmol/L BUN 20 (9-20) mg/dL Creatinine 1.13 (0.66-1.25) mg/dL Glucose 152 H (74-99) mg/dL Calcium 8.2 L (8.4-10.2) mg/dL Adrenal panel 06/11/18 Range/Units 09:36 Sodium 137 (137-145) mmol/L Potassium 4.2 (3.5-5.1) mmol/L Chloride 102 (98-107) mmol/L Carbon Dioxide 32 H (22-30) mmol/L BUN 20 (9-20) mg/dL Creatinine 1.13 (0.66-1.25) mg/dL Glucose 152 H (74-99) mg/dL Calcium 8.2 L (8.4-10.2) mg/dL Total Bilirubin 1.8 H (0.2-1.3) mg/dL AST 141 H (17-59) U/L ALT 130 H (21-72) U/L Alkaline Phosphatase 137 H (38-126) U/L Total Protein 4.8 L (6.3-8.2) g/dL Albumin 2.4 L (3.5-5.0) g/dL
[2018-06-11 14:49] VITALS: BP 105/62; PULSE 72; RESP 18; TEMP 98.8
--- NOTE | 2018-06-11 15:35 | US ---
EXAMINATION TYPE: US abdomen limited DATE OF EXAM: 06/11/2018 COMPARISON: US 05/23/2018 CLINICAL HISTORY: elevated liver enzymes. Elevated liver enzymes, history of cholelithiasis EXAM MEASUREMENTS: Liver Length: 16.1 cm Gallbladder Wall: 0.2 cm CBD: 0.4 cm Right Kidney: 9.9 x 5.5 x 4.7 cm There is no ascites. Pancreas: obscured by overlying midline bowel gas Liver: There is a coarse echotexture. The liver is poorly penetrated by the ultrasound being. Gallbladder: borderline hydropic, mobile 1.2cm stone noted in the dependent portion of the gallbladd er, gallstones in the neck of the gallbladder are no longer evident Evidence for sonographic Richardson's sign: no CBD: wnl Right Kidney: visualized portions wnl, inferior pole obscured by overlying bowel gas IMPRESSION: There may be underlying hepatocellular disease, hepatic steatosis. Exam is limited. Sindhu lithiasis and additional findings above.
[2018-06-12 04:15] LABS: Hepatitis A Antibody IgM Non-Reactive (Non-Reactive); Hepatitis B Core IgM Non-Reactive (Non-Reactive)
--- NOTE | 2018-06-12 07:39 | DS ---
DISCHARGE SUMMARY DATE OF ADMISSION: 06/10/2018 DATE OF DISCHARGE: 06/11/2018 FINAL DIAGNOSES: 1. Acute renal failure prerenal from being on diuretics. 2. Mild protein-calorie malnutrition from decreased oral intake. 3. Acute dysphagia, probably from dry mouth and some element of presbyesophagus. 4. Hyperlipidemia. 5. Diabetes mellitus type 2 on oral hypoglycemics. 6. Gastroesophageal reflux disease. 7. Essential hypertension. 8. Coronary artery disease with prior history of stent. 9. Benign prostatic hypertrophy. 10.Primary osteoarthritis. 11.Moderate to severe aortic stenosis, nonrheumatic. HOSPITAL COURSE: This patient presented with some trouble swallowing, found to be in acute renal failure. Creatinine was 1.27 coming down with hydration. The patient's Lasix was discontinued. Last EF was preserved and that may be contributing to some of her symptoms. Did have a barium swallow that showed some element of prominent cricopharyngeal muscle and some presbyesophagus. The patient was seen by Dr. Sargent from Gastroenterology. The patient also had gallstones on recent ultrasound that may or may not be contributing to symptoms with hydration and stopping Lasix. The patient's symptoms greatly did improve in the hospital. If gallbladder is taken outpatient, the patient's Plavix will need to be held. Will let Dr. Fierro make that final determination. PHYSICAL EXAMINATION: Temperature 98.8, pulse 72, respiratory 18, blood pressure 105/62, pulse ox 96% on room air. Lungs fair entry. Cardiovascular: 1st and 2nd sounds normal. LABS: BUN 20, creatinine 1.13, bilirubin 1.8, AST 141, ALT 132, albumin 2.4. CONSULTATIONS: Dr. Fierro from General surgery, Dr. Sargent from Gastroenterology, Dr. Resendiz from vascular surgery. Additionally, patient did have a soft tissue neck CT scan unremarkable. DISCHARGE MEDICATIONS: 1. Niaspan 1000 mg p.o. b.i.d. 2. Flomax 0.4 mg p.o. daily. 3. Glucophage 500 mg b.i.d. 4. Zestril 5 mg p.o. daily. 5. Lipitor 80 mg q.h.s. 6. Celebrex 100 mg b.i.d. 7. Pepcid 20 mg b.i.d. 8. Plavix 75 mg p.o. daily. 9. Lasix discontinued. 10.Potassium discontinued. FOLLOW UP: Dr. Fierro on 06/24/2018, follow up with Dr. Garcia in [place] in 1 week. Follow up with Dr. Sargent in [address] Garcia. MMODL / IJN: [id number] /
== END 2018-06-11 17:26 | disposition home or self-care (01) ==
LOC: EC 08:39 → 4MS4W 11:10
PROVIDERS: ADMIT Hospitalist; ATTEND Hospitalist
DX: N17.9 Acute kidney failure, unspecified (principal); E44.1 Mild protein-calorie malnutrition; R13.10 Dysphagia, unspecified; R74.8 Abnormal levels of other serum enzymes; K22.8 Other specified diseases of esophagus; K80.20 Calculus of gallbladder without cholecystitis without obstruction; E78.5 Hyperlipidemia, unspecified; E11.9 Type 2 diabetes mellitus without complications; K21.9 Gastro-esophageal reflux disease without esophagitis; I10 Essential (primary) hypertension; I25.10 Atherosclerotic heart disease of native coronary artery without angina pectoris; N40.0 Benign prostatic hyperplasia without lower urinary tract symptoms; M19.91 Primary osteoarthritis, unspecified site; I35.0 Nonrheumatic aortic (valve) stenosis; M19.90 Unspecified osteoarthritis, unspecified site; H57.9 Unspecified disorder of eye and adnexa; K57.90 Diverticulosis of intestine, part unspecified, without perforation or abscess without bleeding; M43.12 Spondylolisthesis, cervical region; R05 Cough; D69.6 Thrombocytopenia, unspecified; Z79.84 Long term (current) use of oral hypoglycemic drugs; Z79.899 Other long term (current) drug therapy; Z79.02 Long term (current) use of antithrombotics/antiplatelets; Z91.018 Allergy to other foods; Z86.73 Personal history of transient ischemic attack (TIA), and cerebral infarction without residual deficits; I25.2 Old myocardial infarction; Z95.5 Presence of coronary angioplasty implant and graft; Z98.890 Other specified postprocedural states; Z87.891 Personal history of nicotine dependence; Z83.2 Family history of diseases of the blood and blood-forming organs and certain disorders involving the immune mechanism; Z80.9 Family history of malignant neoplasm, unspecified
CPT/HCPCS: 96361 ×3; 96372 ×2; 96374; 99285; 36415; 93005; 80053 ×2; 80074; 82550 ×2; 82553; 83605; 83735; 84484; 85025; 85610; 85730; 81001; 83036; 74220; 71046; 76705; 70491; G0378 ×2; J2405; J1650 ×2; Q9967

== ENCOUNTER 2018-08-04 14:04 | Inpatient (IN) | payer MEDICARE, OTHER ==
[2018-08-04 17:19] LABS: Anisocytosis Slight; HCT 39.9 % (39.0-53.0); HGB 13.5 gm/dL (13.0-17.5); MCH 31.6 pg (25.0-35.0); MCHC 33.8 g/dL (31.0-37.0); MCV 93.4 fL (80.0-100.0); Mean Platelet Volume 8.4; Platelet Count 153 k/uL (150-450); RBC 4.27 m/uL (4.30-5.90); RDW 16.1 % (11.5-15.5); WBC 7.8 k/uL (3.8-10.6)
[2018-08-04 18:05] LABS: Albumin 2.4 g/dL (3.5-5.0); Calcium 8.6 mg/dL (8.4-10.2); Potassium 4.2 mmol/L (3.5-5.1); Total Bilirubin 3.4 mg/dL (0.2-1.3)
[2018-08-04 18:33] LABS: Crenated RBC Present; Eosinophils # (M) 0.16 k/uL (0-0.7); Lymphocytes # (M) 1.33 k/uL (1.0-4.8); Monocytes # (M) 0.47 k/uL (0-1.0); Neutrophils # (M) 5.85 k/uL (1.3-7.7); Neutrophils % (M) 75 %; Nucleated Red Blood Cells 0 /100 WBC (0-0); Total Cells Counted 100
--- NOTE | 2018-08-04 19:23 | ECHOF ---
Referral Reason:chf MEASUREMENTS -------- HEIGHT: 188.0 cm WEIGHT: 95.3 kg BP: 105/56 RVIDd: 2.0 cm (< 3.3) IVSd: 1.1 cm (0.6 - 1.1) LVIDd: 2.9 cm (3.9 - 5.3) LVPWd: 1.1 cm (0.6 - 1.1) IVSs: 1.1 cm LVIDs: 1.9 cm LVPWs: 1.1 cm FINDINGS -------- Undetermined rhythm. This was a technically difficult study with suboptimal views. Limited Study for assessment of left ventricular function. The left ventricular size is normal. There is mild concentric left ventricular hypertrophy. Overa ll left ventricular systolic function is low-normal with, an EF between 50 - 55 %. Basal lateral LV wall motion is hypokinetic. Basal inferior LV wall motion is hypokinetic. Basal inferoseptal L V wall motion is hypokinetic. CONCLUSIONS -------- 1. Undetermined rhythm. 2. This was a technically difficult study with suboptimal views. 3. Limited Study for assessment of left ventricular function. 4. The left ventricular size is normal. 5. There is mild concentric left ventricular hypertrophy. 6. Overall left ventricular systolic function is low-normal with, an EF between 50 - 55 %. 7. Basal lateral LV wall motion is hypokinetic. 8. Basal inferior LV wall motion is hypokinetic. 9. Basal inferoseptal LV wall motion is hypokinetic. PROPERTY MAINTENANCE SUPERVISOR: Bruce Broussard RDCS
[2018-08-04 20:31] LABS: Appearance,Urine Clear (Clear); Bilirubin,Urine 1+ (Negative); Blood,Urine Large (Negative); Color,Urine Yellow; Glucose,Urine (UA) 1+ (Negative); Ketones,Urine Negative (Negative); Leukocyte Esterase,Urine Negative (Negative); Mucus,Urine Rare /hpf; Nitrite,Urine Negative (Negative); Protein,Urine 1+ (Negative); RBC,Urine 1 /hpf (0-5); Specific Gravity,Urine 1.017 (1.001-1.035); Squamous Epithelial Cell,Urine <1 /hpf (0-4); Urobilinogen,Urine >12.0 mg/dL (<2.0); WBC,Urine 7 /hpf (0-5)
[2018-08-04] MEDS: metFORMIN 500 MG TAB PO SCH (20:50)
[2018-08-04] MEDS: NIACIN TR 500 MG CAPSULE.ER PO SCH (20:51)
[2018-08-04] MEDS: FUROSEMIDE 10 MG/ML 2 ML VIAL IV SCH (20:52)
[2018-08-04] MEDS ORDERED: ATORVASTATIN 80 MG TAB PO SCH (21:00)
[2018-08-05 08:48] LABS: Albumin 2.2 g/dL (3.5-5.0); Calcium 8.2 mg/dL (8.4-10.2); Potassium 4.2 mmol/L (3.5-5.1); Total Bilirubin 3.2 mg/dL (0.2-1.3); Total Protein 4.5 g/dL (6.3-8.2)
[2018-08-05 08:52] LABS: Anisocytosis Slight; HCT 38.8 % (39.0-53.0); HGB 12.8 gm/dL (13.0-17.5); MCH 31.1 pg (25.0-35.0); MCHC 33.1 g/dL (31.0-37.0); MCV 93.9 fL (80.0-100.0); Mean Platelet Volume 7.1; Platelet Count 139 k/uL (150-450); RBC 4.13 m/uL (4.30-5.90); RDW 16.4 % (11.5-15.5); WBC 6.8 k/uL (3.8-10.6)
[2018-08-05] MEDS: NIACIN TR 500 MG CAPSULE.ER PO SCH ×2 (08:54→20:43)
[2018-08-05] MEDS: CLOPIDOGREL 75 MG TAB PO SCH (08:55)
[2018-08-05] MEDS: TAMSULOSIN 0.4 MG CAP.ER.24H PO SCH (08:55)
[2018-08-05] MEDS: LISINOPRIL 5 MG TAB PO SCH (08:55)
[2018-08-05] MEDS: metFORMIN 500 MG TAB PO SCH ×2 (08:55→20:43)
[2018-08-05] MEDS: MELOXICAM 7.5 MG TAB PO SCH (08:57)
[2018-08-05] MEDS: FUROSEMIDE 10 MG/ML 2 ML VIAL IV SCH ×2 (08:57→20:43)
[2018-08-05 10:22] LABS: Eosinophils # (M) 0.14 k/uL (0-0.7); Monocytes # (M) 0.68 k/uL (0-1.0); Neutrophils # (M) 4.49 k/uL (1.3-7.7); Neutrophils % (M) 66 %; Nucleated Red Blood Cells 0 /100 WBC (0-0); Total Cells Counted 100
[2018-08-05 10:27] LABS: Poikilocytosis (M) Present; RBC Fragments Present
--- NOTE | 2018-08-05 11:02 | CT ---
EXAMINATION TYPE: CT angio chest DATE OF EXAM: 08/05/2018 COMPARISON: NONE HISTORY: Elevated D-dimer CT DLP: 417.3 mGycm. Automated Exposure Control for Dose Reduction was Utilized. CONTRAST: CTA scan of the thorax is performed with IV Contrast, patient injected with 100 mL of Isovue 370, pul monary embolism protocol. MIP Images are created on CT scanner and reviewed. FINDINGS: LUNGS: There is subpleural reticulation and dependent subsegmental atelectasis as well as trace bilat eral pleural effusions. Mild centrilobular emphysematous changes are seen. Minimal interstitial promi nence likely relates to interstitial edema as there is mild cardiomegaly. Otherwise the lungs are sidra ssly clear, there is no concerning parenchymal mass or nodule identified. There is no pleural effus ion or pneumothorax seen. The tracheobronchial tree is patent. MEDIASTINUM: There is satisfactory enhancement of the pulmonary artery and its branches, there is no CT evidence for pulmonary embolism. Severe three-vessel coronary calcifications are seen. Cardiomegal y is present. Trace pericardial effusion is noted. There are no greater than 1 cm hilar or mediastina l lymph nodes. Ascending thoracic aorta is nonenlarged measuring 3.4 cm. Main pulmonary artery is non enlarged. OTHER: Nodular contour the liver suggesting hepatocellular disease. There is also a small degree of p artially visualized abdominal ascites surrounding the liver and spleen with diffuse mesenteric conges tion. There is engorgement of the portal vein and prominent size of the spleen. Findings suggest port al venous hypertension. Angiographic phase of the abdomen limits evaluation of the solid viscera. Mod erate multilevel degenerative changes of the thoracic and lower cervical spine are seen. IMPRESSION: 1. No evidence of pulmonary embolism. 2. Mild interstitial pulmonary edema, trace pleural effusions and cardiomegaly favor underlying decom pensated congestive heart failure. Severe three-vessel coronary artery calcifications are also seen, marker of coronary artery disease. Additionally trace pericardial effusion is noted. 3. Findings suggesting hepatocellular disease with partially visualized at least small volume abdomin al ascites, mesenteric congestion, as well as findings suggesting portal venous hypertension.
[2018-08-05 11:12] VITALS: BMI 27.1
--- NOTE | 2018-08-05 11:36 | US ---
EXAMINATION TYPE: US gallbladder DATE OF EXAM: 08/05/2018 COMPARISON: CTA chest earlier today. CLINICAL HISTORY: Cholecystitis. Abdomen pain, cholecystectomy May 2018 EXAM MEASUREMENTS: Liver Length: 16.6 cm Gallbladder Wall: surgically absent CBD: 0.4 cm Right Kidney: 10.5 x 5.4 x 4.6 cm Difficult and limited study due to patient body habitus Pancreas: obscured by overlying midline bowel gas Liver: course echotexture, slightly nodular contour Gallbladder: surgically absent Evidence for sonographic Richardson's sign: no CBD: visualized portions wnl, limited by overlying bowel gas Right Kidney: visualized portions wnl, inferior pole limited by overlying bowel gas Exam noted suboptimal due to patient's large body habitus. Pancreas is suboptimally seen on images sa terrance, visualized portions appear within normal limits on same day CT. Visualized liver is heterogeneou sly hyperechoic in echotexture with some surrounding ascites. Evaluation for focal masses is suboptim al due to the heterogeneity. Gallbladder is noted surgically absent. IMPRESSION: Suspect underlying cirrhosis with heterogeneous slightly small size liver that has nodula r peripheral contour and surrounding ascites. Correlate clinically and with lab values. No suspicious intrahepatic or extrahepatic ductal dilatation is noted.
--- NOTE | 2018-08-05 11:37 | P.GSCN ---
<Samia Lee - Last Filed: 08/05/18 14:56> History of Present Illness Consult date: 08/05/18 Reason for Consult: elevated LFTs Requesting physician: Blair Stewart History of present illness: CHIEF COMPLAINT: Elevated LFTs HISTORY OF PRESENT ILLNESS: 78-year-old male who was directly admitted yesterday from Dr. Stewart's office secondary to hypotension and generalized weakness. General surgery was consulted for elevated liver function tests. Patient was seen and examined at the bedside. Patient states that since March he has noticed increased swelling to his bilateral lower extremities and weakness. The patient reports he underwent a right carotid endarterectomy and has had issues with dysphagia since that time. The patient underwent a laparoscopic cholecystectomy with Dr. Fierro in May 2018. 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 He currently denies abdominal pain. Denies nausea or vomiting. He does report decreased appetite secondary to dysphagia. Patient's white count on admission is 7.8. He has been afebrile. Total bilirubin 3.4. Repeat 3.2. AST 309. Repeat 292. ALT 181. Repeat 170. Alkaline phosphatase 376. Repeat 306. PAST MEDICAL HISTORY: See list. PAST SURGICAL HISTORY: See list. MEDICATIONS: See list. ALLERGIES: See list. SOCIAL HISTORY: No illicit drug use. REVIEW OF ORGAN SYSTEMS: CONSTITUTIONAL: Denies fever or chills. HEENT: No troubles with vision or hearing. Reports dysphagia. ENDOCRINE: No reports of thyroid disorders. Reports history of diabetes CARDIOVASCULAR: Denies chest pain or pressure. RESPIRATORY: No shortness of breath or pneumonia. GASTROINTESTINAL: No reports of recent blood in stools. NEURO: Denies seizure activity. Reports history of stroke. PSYCH: No depression or suicidal ideation HEMATOLOGIC: No easy bruising or bleeding LYMPHATIC: The patient denies any lumps and bumps around the neck. GENITOURINARY: Denies any blood in urine or increased urinary frequency. MUSCULOSKELETAL: Denies back pain, stiffness or joint arthritis. SKIN: Denies rash or cellulitis. PHYSICAL EXAM: VITAL SIGNS: Currently stable. GENERAL: Well-developed in no acute distress. HEENT: No sclera icterus. Extraocular movements grossly intact. Moist buccal mucosa. Head is atraumatic, normocephalic. Hears conversational speech. No nasal drainage. NECK: Supple without lymphadenopathy. CHEST: Non-labored respirations and equal bilateral excursions. CARDIOVASCULAR: Regular rate with regular rhythm. Palpable 2+ radial pulses. ABDOMEN: Soft. Nondistended. No peritonitis. No abdominal tenderness. MUSCULOSKELETAL: No clubbing, cyanosis or edema. NEUROLOGIC: No focal or lateralizing signs. Cranial nerves II through XII grossly intact. PSYCH: Alert and oriented x 3. SKIN: Well perfused. Good skin turgor. LABS: Reviewed ASSESSMENT: 1. Transaminitis 2. Hyperbilirubinemia 3. History of laparoscopic cholecystectomy, May 2018 4. History of dysphagia 5. 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 History of right carotid endarterectomy, 2017 7. Diabetes mellitus, type II 8. GERD 9. Coronary artery disease with previous stent placement 10. Nicotine dependence, in remission PLAN: No surgical intervention at this time. US of abdomen has been requested by Dr. Lemus. Will consult GI for further evaluation of elevated LFTs. Pureed diet due to dysphagia. Will change consult to Dr. Fierro per family request. Nurse practitioner note has been reviewed by physician. Signing provider agrees with the documented findings, assessment, and plan of care. Past Medical History Past Medical History: CVA/TIA, Diabetes Mellitus, GERD/Reflux, Hyperlipidemia, Hypertension, Myocardial Infarction ([place]), Osteoarthritis (OA), Prostate Disorder , Vascular Disorder Additional Past Medical History / Comment(s): 06/10/18 in with acute renal failure-pre renal d/t diuretic, mild protein calorie malnourished, moderate- severe aortic stenosis,gallstones,dysphagia Ba swallow showed some prominent cricopharyngeal muscle and some presbyesophagus. 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/dysphagia, NIDDM type II, neuropathy bilateral hands fingers, arthritis in multiple joints, BPH, bowel obstruction tx conservatively , lower leg edema.gastritis, hiatal hernia, murmur Last Myocardial Infarction Date:: 2000 History of Any Multi-Drug Resistant Organisms: None Reported Past Surgical History: Adenoidectomy, Cholecystectomy, Heart Catheterization With Stent, Orthopedic Surgery, Tonsillectomy Additional Past Surgical History / Comment(s): HEART STENTS X 3, ORIF LT ANKLE- HARDWARE LATER REMOVED, L foot fracture with surgery, L elbow carpal release, rt carotid endarectomy 04/08, bilateral cataract removed/lens implants, colonoscopy.egd w/ bx Past Anesthesia/Blood Transfusion Reactions: No Reported Reaction Date of Last Stent Placement:: 1999 Smoking Status: Former smoker - Past Family History Father Family Medical History: Cancer Additional Family Medical History / Comment(s): Father had bone cancer. Mother Family Medical History: Coronary Artery Disease (CAD), CVA/TIA, Deep Vein Thrombosis (DVT) Additional Family Medical History / Comment(s): Mother had a CVA. Medications and Allergies Home Medications Medication Instructions Recorded Confirmed Type Niacin [Niaspan] 1,000 mg PO BID 04/16/14 08/04/18 History Tamsulosin [Flomax] 0.4 mg PO DAILY 04/16/14 08/04/18 History metFORMIN HCL [Glucophage] 500 mg PO BID 04/16/14 08/04/18 History Lisinopril [Zestril] 5 mg PO DAILY 04/10/18 08/04/18 History Atorvastatin [Lipitor] 80 mg PO HS #30 tab 04/17/18 08/04/18 Rx Clopidogrel Bisulfate [Plavix] 75 mg PO DIRECTED 06/17/18 08/04/18 History Celecoxib [CeleBREX] 100 mg PO BID 08/04/18 08/04/18 History Allergies Allergy/AdvReac Type Severity Reaction Status Date / Time walnut Allergy Anaphylaxis Verified 08/04/18 15:11 Surgical - Exam Vital Signs Temp Pulse Resp BP Pulse Ox 98.3 F 110 H 18 105/56 98 08/04/18 15:05 08/04/18 15:05 08/04/18 15:05 08/04/18 15:05 08/04/18 15:05 Results - Labs 08/05/18 07:49 08/05/18 07:49 Abnormal Lab Results - Last 24 Hours (Table) 08/04/18 08/04/18 08/04/18 Range/Units 17:05 17:05 17:05 RBC 4.27 L (4.30-5.90) m/uL Hgb (13.0-17.5) gm/dL Hct (39.0-53.0) % RDW 16.1 H (11.5-15.5) % Plt Count (150-450) k/uL D-Dimer 0.75 H (<0.60) mg/L FEU Sodium 135 L (137-145) mmol/L Carbon Dioxide 32 H (22-30) mmol/L Glucose 145 H (74-99) mg/dL Calcium (8.4-10.2) mg/dL Total Bilirubin 3.4 H (0.2-1.3) mg/dL AST 309 H (17-59) U/L ALT 181 H (21-72) U/L Alkaline Phosphatase 376 H (38-126) U/L Troponin I (0.000-0.034) ng/mL Total Protein 5.0 L (6.3-8.2) g/dL Albumin 2.4 L (3.5-5.0) g/dL Urine Protein (Negative) Urine Glucose (UA) (Negative) Urine Blood (Negative) Urine Bilirubin (Negative) Urine WBC (0-5) /hpf Urine Mucus (None) /hpf 08/04/18 08/04/18 08/05/18 Range/Units 20:09 23:05 07:49 RBC 4.13 L (4.30-5.90) m/uL Hgb 12.8 L (13.0-17.5) gm/dL Hct 38.8 L (39.0-53.0) % RDW 16.4 H (11.5-15.5) % Plt Count 139 L (150-450) k/uL D-Dimer (<0.60) mg/L FEU Sodium (137-145) mmol/L Carbon Dioxide (22-30) mmol/L Glucose (74-99) mg/dL Calcium (8.4-10.2) mg/dL Total Bilirubin (0.2-1.3) mg/dL AST (17-59) U/L ALT (21-72) U/L Alkaline Phosphatase (38-126) U/L Troponin I 0.035 H* (0.000-0.034) ng/mL Total Protein (6.3-8.2) g/dL Albumin (3.5-5.0) g/dL Urine Protein 1+ H (Negative) Urine Glucose (UA) 1+ H (Negative) Urine Blood Large H (Negative) Urine Bilirubin 1+ H (Negative) Urine WBC 7 H (0-5) /hpf Urine Mucus Rare H (None) /hpf 08/05/18 08/05/18 Range/Units 07:49 07:49 RBC (4.30-5.90) m/uL Hgb (13.0-17.5) gm/dL Hct (39.0-53.0) % RDW (11.5-15.5) % Plt Count (150-450) k/uL D-Dimer (<0.60) mg/L FEU Sodium (137-145) mmol/L Carbon Dioxide 33 H (22-30) mmol/L Glucose 118 H (74-99) mg/dL Calcium 8.2 L (8.4-10.2) mg/dL Total Bilirubin 3.2 H (0.2-1.3) mg/dL AST 292 H (17-59) U/L ALT 170 H (21-72) U/L Alkaline Phosphatase 306 H (38-126) U/L Troponin I 0.038 H* (0.000-0.034) ng/mL Total Protein 4.5 L (6.3-8.2) g/dL Albumin 2.2 L (3.5-5.0) g/dL Urine Protein (Negative) Urine Glucose (UA) (Negative) Urine Blood (Negative) Urine Bilirubin (Negative) Urine WBC (0-5) /hpf Urine Mucus (None) /hpf Diabetes panel 08/04/18 08/05/18 Range/Units 17:05 07:49 Sodium 135 L 137 (137-145) mmol/L Potassium 4.2 4.2 (3.5-5.1) mmol/L Chloride 100 102 (98-107) mmol/L Carbon Dioxide 32 H 33 H (22-30) mmol/L BUN 19 19 (9-20) mg/dL Creatinine 1.09 1.04 (0.66-1.25) mg/dL Glucose 145 H 118 H (74-99) mg/dL Calcium 8.6 8.2 L (8.4-10.2) mg/dL AST 309 H 292 H (17-59) U/L ALT 181 H 170 H (21-72) U/L Alkaline Phosphatase 376 H 306 H (38-126) U/L Total Protein 5.0 L 4.5 L (6.3-8.2) g/dL Albumin 2.4 L 2.2 L (3.5-5.0) g/dL Calcium panel 08/04/18 08/05/18 Range/Units 17:05 07:49 Calcium 8.6 8.2 L (8.4-10.2) mg/dL Albumin 2.4 L 2.2 L (3.5-5.0) g/dL Pituitary panel 08/04/18 08/05/18 Range/Units 17:05 07:49 Sodium 135 L 137 (137-145) mmol/L Potassium 4.2 4.2 (3.5-5.1) mmol/L Chloride 100 102 (98-107) mmol/L Carbon Dioxide 32 H 33 H (22-30) mmol/L BUN 19 19 (9-20) mg/dL Creatinine 1.09 1.04 (0.66-1.25) mg/dL Glucose 145 H 118 H (74-99) mg/dL Calcium 8.6 8.2 L (8.4-10.2) mg/dL Adrenal panel 08/04/18 08/05/18 Range/Units 17:05 07:49 Sodium 135 L 137 (137-145) mmol/L Potassium 4.2 4.2 (3.5-5.1) mmol/L Chloride 100 102 (98-107) mmol/L Carbon Dioxide 32 H 33 H (22-30) mmol/L BUN 19 19 (9-20) mg/dL Creatinine 1.09 1.04 (0.66-1.25) mg/dL Glucose 145 H 118 H (74-99) mg/dL Calcium 8.6 8.2 L (8.4-10.2) mg/dL Total Bilirubin 3.4 H 3.2 H (0.2-1.3) mg/dL AST 309 H 292 H (17-59) U/L ALT 181 H 170 H (21-72) U/L Alkaline Phosphatase 376 H 306 H (38-126) U/L Total Protein 5.0 L 4.5 L (6.3-8.2) g/dL Albumin 2.4 L 2.2 L (3.5-5.0) g/dL <Miranda Fierro N - Last Filed: 08/05/18 22:25> Surgical - Exam Vital Signs Temp Pulse Resp BP Pulse Ox 98.3 F 110 H 18 105/56 98 08/04/18 15:05 08/04/18 15:05 08/04/18 15:05 08/04/18 15:05 08/04/18 15:05 Results - Labs 08/05/18 07:49 08/05/18 07:49 Abnormal Lab Results - Last 24 Hours (Table) 08/04/18 08/05/18 08/05/18 Range/Units 23:05 07:49 07:49 RBC 4.13 L (4.30-5.90) m/uL Hgb 12.8 L (13.0-17.5) gm/dL Hct 38.8 L (39.0-53.0) % RDW 16.4 H (11.5-15.5) % Plt Count 139 L (150-450) k/uL Carbon Dioxide 33 H (22-30) mmol/L Glucose 118 H (74-99) mg/dL Calcium 8.2 L (8.4-10.2) mg/dL Total Bilirubin 3.2 H (0.2-1.3) mg/dL Conjugated Bilirubin (0.0-0.3) mg/dL Delta Bilirubin (0.0-0.2) mg/dL AST 292 H (17-59) U/L ALT 170 H (21-72) U/L Alkaline Phosphatase 306 H (38-126) U/L Troponin I 0.035 H* (0.000-0.034) ng/mL Total Protein 4.5 L (6.3-8.2) g/dL Albumin 2.2 L (3.5-5.0) g/dL 08/05/18 08/05/18 Range/Units 07:49 07:49 RBC (4.30-5.90) m/uL Hgb (13.0-17.5) gm/dL Hct (39.0-53.0) % RDW (11.5-15.5) % Plt Count (150-450) k/uL Carbon Dioxide (22-30) mmol/L Glucose (74-99) mg/dL Calcium (8.4-10.2) mg/dL Total Bilirubin 3.1 H (0.2-1.3) mg/dL Conjugated Bilirubin 0.8 H (0.0-0.3) mg/dL Delta Bilirubin 1.6 H (0.0-0.2) mg/dL AST (17-59) U/L ALT (21-72) U/L Alkaline Phosphatase (38-126) U/L Troponin I 0.038 H* (0.000-0.034) ng/mL Total Protein (6.3-8.2) g/dL Albumin (3.5-5.0) g/dL Diabetes panel 08/05/18 Range/Units 07:49 Sodium 137 (137-145) mmol/L Potassium 4.2 (3.5-5.1) mmol/L Chloride 102 (98-107) mmol/L Carbon Dioxide 33 H (22-30) mmol/L BUN 19 (9-20) mg/dL Creatinine 1.04 (0.66-1.25) mg/dL Glucose 118 H (74-99) mg/dL Calcium 8.2 L (8.4-10.2) mg/dL AST 292 H (17-59) U/L ALT 170 H (21-72) U/L Alkaline Phosphatase 306 H (38-126) U/L Total Protein 4.5 L (6.3-8.2) g/dL Albumin 2.2 L (3.5-5.0) g/dL Calcium panel 08/05/18 Range/Units 07:49 Calcium 8.2 L (8.4-10.2) mg/dL Albumin 2.2 L (3.5-5.0) g/dL Pituitary panel 08/05/18 Range/Units 07:49 Sodium 137 (137-145) mmol/L Potassium 4.2 (3.5-5.1) mmol/L Chloride 102 (98-107) mmol/L Carbon Dioxide 33 H (22-30) mmol/L BUN 19 (9-20) mg/dL Creatinine 1.04 (0.66-1.25) mg/dL Glucose 118 H (74-99) mg/dL Calcium 8.2 L (8.4-10.2) mg/dL Adrenal panel 08/05/18 08/05/18 Range/Units 07:49 07:49 Sodium 137 (137-145) mmol/L Potassium 4.2 (3.5-5.1) mmol/L Chloride 102 (98-107) mmol/L Carbon Dioxide 33 H (22-30) mmol/L BUN 19 (9-20) mg/dL Creatinine 1.04 (0.66-1.25) mg/dL Glucose 118 H (74-99) mg/dL Calcium 8.2 L (8.4-10.2) mg/dL Total Bilirubin 3.2 H 3.1 H (0.2-1.3) mg/dL AST 292 H (17-59) U/L ALT 170 H (21-72) U/L Alkaline Phosphatase 306 H (38-126) U/L Total Protein 4.5 L (6.3-8.2) g/dL Albumin 2.2 L (3.5-5.0) g/dL Assessment and Plan Plan: Patient seen and evaluated. Agree with GI assessment for possible ERCP pending MRCP results. Patient had uneventful cholecystectomy 2+ months ago. Patient primarily complains of dysphagia that responded well to EGD with dilation. Management of LFTs per GI. May benefit from repeat upper endoscopy with rigid dilation pending clinical course.
--- NOTE | 2018-08-05 11:44 | P.CONS ---
History of Present Illness - Reason for Consult Consult date: 08/05/18 elevated liver enzymes Requesting physician: Blair Stewart - Chief Complaint dysphagia - History of Present Illness 78-year-old gentleman with a past medical history recent right carotid endarterectomy March 2018, laparoscopic cholecystectomy gallstones May 2018 presents with dysphagia nausea vomiting as well as fatigue weakness. Patient states since his carotid surgery he has had difficulty swallowing solid foods intermittently. Now he is unable to swallow liquids or solids without a sensation of something being stuck in the upper esophageal region. Denies odynophagia. Denies hematemesis hematochezia melena. No significant weight loss. Barium swallow May 2018 reported mild presbyesophagus. Persistence of cricopharyngeal muscle during the examination which may account for the patient's symptoms. He underwent laparoscopic cholecystectomy on June [address] Fierro pathology indicated gallstones. He also underwent EGD evaluation 06/19/[address] Fierro with rigid dilation. Patient denies abdominal pain. Liver enzymes within normal limits March 2018. Preoperative cholecystectomy LFTs total bilirubin 1.9. AST 97. ALT 141. AP 168. Current LFTs total bilirubin 3.2. AST 292. ALT 170. AP 306. Troponin 0.03. CT chest reported no evidence of PE. Trace pleural effusions favoring decompensated CHF. Hepatocellular disease suggested partially visualized small- volume abdominal ascites mesenteric congestion as well as suggestive of portal venous hypertension.. Ultrasound abdomen suboptimal CBD 0.4 cm. Suspect underlying cirrhosis with heterogeneous slightly small size liver has nodular peripheral contour and surrounding ascites. No suspicious intra-or extrahepatic duct dilatation is noted. Home medications include Plavix no other anti-platelet or anticoagulant medications. Review of Systems Constitutional: Denies fever, chills, sweats, weight gain, or loss. HEENT: Negative for migraines, blurred vision or loss, earaches, drainage, tinnitus, oral mucosal lesions, dysphagia, or odynophagia. Cardiac: Negative for chest pain, arrhythmias, or palpitation. Respiratory: Negative for shortness of breath, hemoptysis, cough, or sputum production. Gastrointestinal: See HPI for pertinent findings. Genitourinary: Negative for hematuria, urgency, frequency, polyuria, dysuria, or penile discharge. Musculoskeletal: Negative for muscle aches, swelling, arthritis, and arthralgias. Neurologic: Negative for stroke or TIA. Endocrine: Negative for thyroid problems. Skin: Negative for rash or itching. Psychiatric: Negative history for depression and anxiety Past Medical History Past Medical History: CVA/TIA, Diabetes Mellitus, GERD/Reflux, Hyperlipidemia, Hypertension, Myocardial Infarction ([place]), Osteoarthritis (OA), Prostate Disorder , Vascular Disorder Additional Past Medical History / Comment(s): 06/10/18 in with acute renal failure-pre renal d/t diuretic, mild protein calorie malnourished, moderate- severe aortic stenosis,gallstones,dysphagia Ba swallow showed some prominent cricopharyngeal muscle and some presbyesophagus. 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/dysphagia, NIDDM type II, neuropathy bilateral hands fingers, arthritis in multiple joints, BPH, bowel obstruction tx conservatively , lower leg edema.gastritis, hiatal hernia, murmur Last Myocardial Infarction Date:: 2000 History of Any Multi-Drug Resistant Organisms: None Reported Past Surgical History: Adenoidectomy, Cholecystectomy, Heart Catheterization With Stent, Orthopedic Surgery, Tonsillectomy Additional Past Surgical History / Comment(s): HEART STENTS X 3, ORIF LT ANKLE- HARDWARE LATER REMOVED, L foot fracture with surgery, L elbow carpal release, rt carotid endarectomy 04/08, bilateral cataract removed/lens implants, colonoscopy.egd w/ bx Past Anesthesia/Blood Transfusion Reactions: No Reported Reaction Date of Last Stent Placement:: 1999 Smoking Status: Former smoker - Past Family History Father Family Medical History: Cancer Additional Family Medical History / Comment(s): Father had bone cancer. Mother Family Medical History: Coronary Artery Disease (CAD), CVA/TIA, Deep Vein Thrombosis (DVT) Additional Family Medical History / Comment(s): Mother had a CVA. Medications and Allergies Home Medications Medication Instructions Recorded Confirmed Type Niacin [Niaspan] 1,000 mg PO BID 04/16/14 08/04/18 History Tamsulosin [Flomax] 0.4 mg PO DAILY 04/16/14 08/04/18 History metFORMIN HCL [Glucophage] 500 mg PO BID 04/16/14 08/04/18 History Lisinopril [Zestril] 5 mg PO DAILY 04/10/18 08/04/18 History Atorvastatin [Lipitor] 80 mg PO HS #30 tab 04/17/18 08/04/18 Rx Clopidogrel Bisulfate [Plavix] 75 mg PO DIRECTED 06/17/18 08/04/18 History Celecoxib [CeleBREX] 100 mg PO BID 08/04/18 08/04/18 History Allergies Allergy/AdvReac Type Severity Reaction Status Date / Time walnut Allergy Anaphylaxis Verified 08/04/18 15:11 Physical Exam Vitals: Vital Signs Temp Pulse Pulse Resp BP Pulse Ox 08/05/18 05:00 97.9 F 65 18 91/52 94 L 08/04/18 23:41 90 18 08/04/18 21:00 98.1 F 94 18 113/65 96 08/04/18 15:57 110 H 16 08/04/18 15:05 98.3 F 110 H 18 105/56 98 Intake and Output 08/04/18 08/05/18 08/05/18 22:59 06:59 14:59 Intake Total 240 Output Total 350 Balance 240 -350 Intake: Oral 240 Output: Urine 350 Other: Voiding Method Toilet Urinal Urinal # Voids 1 Weight 95.68 kg 95.68 kg General appearance: The patient is alert, oriented, in no acute distress. HET: Head is normocephalic and atraumatic. Pupils are equal and reactive. Sclerae icterus. Oropharynx is clear without lesions. Neck: Supple without lymphadenopathy. Trachea midline. Heart: S1 S2. Regular rate and rhythm. Lungs: No crackles or wheezes are heard. Abdomen: Soft, nontender, nondistended with bowel sounds. No peritoneal signs. No palpable organomegaly or masses. Extremities: Normal skin color and turgor. No cyanosis, rash, ulceration, clubbing, or edema. Radial and pedal pulses are 2/4 bilaterally. Neurological: No focal deficits. Strength and sensation are grossly intact. Results CBC & Chem 7: 08/05/18 07:49 08/05/18 07:49 Labs: Abnormal Lab Results - Last 24 Hours (Table) 08/04/18 08/04/18 08/04/18 Range/Units 17:05 17:05 17:05 RBC 4.27 L (4.30-5.90) m/uL Hgb (13.0-17.5) gm/dL Hct (39.0-53.0) % RDW 16.1 H (11.5-15.5) % Plt Count (150-450) k/uL D-Dimer 0.75 H (<0.60) mg/L FEU Sodium 135 L (137-145) mmol/L Carbon Dioxide 32 H (22-30) mmol/L Glucose 145 H (74-99) mg/dL Calcium (8.4-10.2) mg/dL Total Bilirubin 3.4 H (0.2-1.3) mg/dL AST 309 H (17-59) U/L ALT 181 H (21-72) U/L Alkaline Phosphatase 376 H (38-126) U/L Troponin I (0.000-0.034) ng/mL Total Protein 5.0 L (6.3-8.2) g/dL Albumin 2.4 L (3.5-5.0) g/dL Urine Protein (Negative) Urine Glucose (UA) (Negative) Urine Blood (Negative) Urine Bilirubin (Negative) Urine WBC (0-5) /hpf Urine Mucus (None) /hpf 08/04/18 08/04/18 08/05/18 Range/Units 20:09 23:05 07:49 RBC 4.13 L (4.30-5.90) m/uL Hgb 12.8 L (13.0-17.5) gm/dL Hct 38.8 L (39.0-53.0) % RDW 16.4 H (11.5-15.5) % Plt Count 139 L (150-450) k/uL D-Dimer (<0.60) mg/L FEU Sodium (137-145) mmol/L Carbon Dioxide (22-30) mmol/L Glucose (74-99) mg/dL Calcium (8.4-10.2) mg/dL Total Bilirubin (0.2-1.3) mg/dL AST (17-59) U/L ALT (21-72) U/L Alkaline Phosphatase (38-126) U/L Troponin I 0.035 H* (0.000-0.034) ng/mL Total Protein (6.3-8.2) g/dL Albumin (3.5-5.0) g/dL Urine Protein 1+ H (Negative) Urine Glucose (UA) 1+ H (Negative) Urine Blood Large H (Negative) Urine Bilirubin 1+ H (Negative) Urine WBC 7 H (0-5) /hpf Urine Mucus Rare H (None) /hpf 08/05/18 08/05/18 Range/Units 07:49 07:49 RBC (4.30-5.90) m/uL Hgb (13.0-17.5) gm/dL Hct (39.0-53.0) % RDW (11.5-15.5) % Plt Count (150-450) k/uL D-Dimer (<0.60) mg/L FEU Sodium (137-145) mmol/L Carbon Dioxide 33 H (22-30) mmol/L Glucose 118 H (74-99) mg/dL Calcium 8.2 L (8.4-10.2) mg/dL Total Bilirubin 3.2 H (0.2-1.3) mg/dL AST 292 H (17-59) U/L ALT 170 H (21-72) U/L Alkaline Phosphatase 306 H (38-126) U/L Troponin I 0.038 H* (0.000-0.034) ng/mL Total Protein 4.5 L (6.3-8.2) g/dL Albumin 2.2 L (3.5-5.0) g/dL Urine Protein (Negative) Urine Glucose (UA) (Negative) Urine Blood (Negative) Urine Bilirubin (Negative) Urine WBC (0-5) /hpf Urine Mucus (None) /hpf CT scan - chest: report reviewed (Dr. Sargent) US - abdomen: report reviewed (Dr. Sargent) Assessment and Plan Assessment: Impression: 1. 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 An underlying chronic liver disease, possible choledocholithiasis possible biliary stricture disease cannot be excluded. Ultrasound imaging reported CBD 0.4 cm but suboptimal with features of cirrhosis. Recent laparoscopic cholecystectomy May 2018 for symptomatic gallstones. 2. Dysphagia status post recent EGD with dilation. Barium swallow May 2018 mild presbyesophagus persistence of the cricopharyngeal muscle during examination which may account for patient's symptoms. 3. History of diabetes mellitus. 4. History of hyperlipidemia. 5. History of hypertension. 6. History of GERD. 7. History of aortic stenosis. 8. History of carotid endarterectomy. Plan: 1. MRCP advised. Bilirubin fractions. Daily CMP CBC PT/INR. Full serologic serology for chronic liver disease requested. We'll defer to surgical service for dysphagia evaluation with recent EGD dilation. Thank you for this kind referral and the opportunity to participate in the care of your patient. This consultation was discussed with Dr. Sargent. The impression and plan of care have been directed as dictated.
--- NOTE | 2018-08-05 12:40 | P.CRDCN ---
History of Present Illness History of present illness: This is a pleasant 78-year-old male past medical history significant for coronary artery disease s/p angioplasty 2000 of the RCA, right carotid endatectomy 03/[address] Resendiz, hypertension, dyslipidemia, CVA, diabetes mellitus and aortic stenosis. He follows in the office with Dr. Wiley. We have been asked to see him in consultation for elevated troponin and lower extremity swelling. He was here in the hospital in May 2018 and underwent cholecystecomy and esophageal dilitation per Dr. Fierro. He states since that time he has been unable to swallow solid foods well, has had a poor appetite, ongoing nausea and vomiting and has been increasingly weak. He saw his PCP and states he was given new medications that he is unsure what they were. He felt he was on too many medications so he changed PCP's to Dr. Stewart. He was at his office yesterday for an initial evaluation and was sent to the hospital for further evaluation. He is seen and examined sitting up at the edge of the bed attempting to eat breakfast. He describes difficulty in swallowing even after chewing for several minutes. He has significant lower extremity swelling bilaterally as well. He denies chest pain, shortness of breath, dizziness, nausea, vomiting or diaphoresis. Current cardiac medications include plavix 75 mg daily s/p carotid endartectomy and CVA, atorvastatin 80 mg daily and lisinopril 5 mg daily. Limited echo obtained on this admission reveals preserved LV systolic function with EF 50-55% with basal inferior, basal inferoseptal hypokinesia. Laboratory data reviewed, WBC 6.8, hgb 12.8, plt 139, d-dimer 0.75, sodum 137, potassium 4.2, creatinine 1.04, total billirubin 3.2, AST 292, ALT 170, alkaline phosphate 306, troponin 0.023, 0.035 and 0.038. NT proBNP 278. Catheterization from 2000 reveals left main no obstructive disease, LAD proximal 40-50% lesion, circumflex 20-30% proximal lesion with large OM with proximal 60% stenosis. At the time of my exam: CONSTITUTIONAL: Denies fever. Denies chills. EYES: Denies blurred vision. Denies vision changes. Denies eye pain. EARS, NOSE, MOUTH & THROAT: Denies headache. Denies sore throat. Denies ear pain. CARDIOVASCULAR: Denies chest pain. Denies shortness of breath. Denies orthopnea. Denies PND. Denies palpitations. RESPIRATORY: Denies cough. GASTROINTESTINAL: Denies abdominal pain. Denies diarrhea. Denies constipation. Denies nausea. Denies vomiting. MUSCULOSKELETAL: Denies myalgias. INTEGUMENTARY: Denies pruitis. Denies rash. NEUROLOGIC: Denies numbness. Denies tingling. Denies weakness. PSYCHIATRIC: Denies anxiety. Denies depression. ENDOCRINE: Denies fatigue. Denies weight change. Denies polydipsia. Denies polyurina. GENITOURINARY: Denies burning, hematuria or urgency with micturation. HEMATOLOGIC: Denies history of anemia. Denies bleeding. Blood pressure 91/52 heart rate 65 afebrile maintaining oxygen saturation on room air GENERAL: This is a 78-year-old male in no apparent distress at the time of my examination. HEENT: Head is atraumatic, normocephalic. Pupils are equal, round. Sclerae anicteric. Conjunctivae are clear. Mucous membranes of the mouth are moist. Neck is supple. There is no jugular venous distention. No carotid bruit is heard. LUNGS: Clear to auscultation no wheezes, rales or rhonchi. No chest wall tenderness is noted on palpation or with deep breathing. HEART: Regular rate and rhythm with systolic ejection murmur at the base, no rubs or gallops. S1 and S2 heard. ABDOMEN: Soft, nontender. Bowel sounds are heard. No organomegaly noted. EXTREMITIES: 2+ pitting edema bilaterally and no calf tenderness noted. VASCULAR: Radial and dorsalis pedis pulses palpated, no evidence of clubbing. NEUROLOGIC: Patient is awake, alert and oriented x3. ASSESSMENT Generalized weakness Mild flattened elevation of troponin, no evidence of myocardial injury Dysphagia Ongoing nausea, vomiting and poor appetite Elevated liver enzymes Hypoalbuminemia Hypertension Dyslipidemia Recent CVA s/p carotid endartectomy maintained on plavix Aortic stenosis Diabetes mellitus History of coronary artery disease PLAN Discontinue atorvastatin. Mild flat troponin elevation not indicative of a myocardial injury. Lower extremity swelling secondary to hypoalbuminema and vascular insufficiency , no clinical evidence of heart failure. Ongoing medical management per primary care team. Thank you kindly for this consultation. Nurse Practitioner note has been reviewed, I agree with a documented findings and plan of care. Patient was seen and examined. Past Medical History Past Medical History: CVA/TIA, Diabetes Mellitus, GERD/Reflux, Hyperlipidemia, Hypertension, Myocardial Infarction ([place]), Osteoarthritis (OA), Prostate Disorder , Vascular Disorder Additional Past Medical History / Comment(s): 06/10/18 in with acute renal failure-pre renal d/t diuretic, mild protein calorie malnourished, moderate- severe aortic stenosis,gallstones,dysphagia Ba swallow showed some prominent cricopharyngeal muscle and some presbyesophagus. 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/dysphagia, NIDDM type II, neuropathy bilateral hands fingers, arthritis in multiple joints, BPH, bowel obstruction tx conservatively , lower leg edema.gastritis, hiatal hernia, murmur Last Myocardial Infarction Date:: 2000 History of Any Multi-Drug Resistant Organisms: None Reported Past Surgical History: Adenoidectomy, Cholecystectomy, Heart Catheterization With Stent, Orthopedic Surgery, Tonsillectomy Additional Past Surgical History / Comment(s): HEART STENTS X 3, ORIF LT ANKLE- HARDWARE LATER REMOVED, L foot fracture with surgery, L elbow carpal release, rt carotid endarectomy 04/08, bilateral cataract removed/lens implants, colonoscopy.egd w/ bx Past Anesthesia/Blood Transfusion Reactions: No Reported Reaction Date of Last Stent Placement:: 1999 Smoking Status: Former smoker - Past Family History Father Family Medical History: Cancer Additional Family Medical History / Comment(s): Father had bone cancer. Mother Family Medical History: Coronary Artery Disease (CAD), CVA/TIA, Deep Vein Thrombosis (DVT) Additional Family Medical History / Comment(s): Mother had a CVA. Medications and Allergies Home Medications Medication Instructions Recorded Confirmed Type Niacin [Niaspan] 1,000 mg PO BID 04/16/14 08/04/18 History Tamsulosin [Flomax] 0.4 mg PO DAILY 04/16/14 08/04/18 History metFORMIN HCL [Glucophage] 500 mg PO BID 04/16/14 08/04/18 History Lisinopril [Zestril] 5 mg PO DAILY 04/10/18 08/04/18 History Atorvastatin [Lipitor] 80 mg PO HS #30 tab 04/17/18 08/04/18 Rx Clopidogrel Bisulfate [Plavix] 75 mg PO DIRECTED 06/17/18 08/04/18 History Celecoxib [CeleBREX] 100 mg PO BID 08/04/18 08/04/18 History Allergies Allergy/AdvReac Type Severity Reaction Status Date / Time walnut Allergy Anaphylaxis Verified 08/04/18 15:11 Physical Exam Vitals: Vital Signs Temp Pulse Pulse Resp BP Pulse Ox 08/05/18 05:00 97.9 F 65 18 91/52 94 L 08/04/18 23:41 90 18 08/04/18 21:00 98.1 F 94 18 113/65 96 08/04/18 15:57 110 H 16 08/04/18 15:05 98.3 F 110 H 18 105/56 98 Intake and Output 08/04/18 08/05/18 08/05/18 22:59 06:59 14:59 Intake Total 240 Output Total 350 Balance 240 -350 Intake: Oral 240 Output: Urine 350 Other: Voiding Method Toilet Urinal # Voids 1 Weight 95.68 kg Results 08/05/18 07:49 08/05/18 07:49 Cardiac Enzymes 08/04/18 08/04/18 08/04/18 Range/Units 17:05 17:05 23:05 AST 309 H (17-59) U/L Troponin I 0.023 0.035 H* (0.000-0.034) ng/mL 08/05/18 Range/Units 07:49 AST 292 H (17-59) U/L Troponin I (0.000-0.034) ng/mL CBC 08/04/18 Range/Units 17:05 WBC 7.8 (3.8-10.6) k/uL RBC 4.27 L (4.30-5.90) m/uL Hgb 13.5 (13.0-17.5) gm/dL Hct 39.9 (39.0-53.0) % Plt Count 153 (150-450) k/uL Comprehensive Metabolic Panel 08/04/18 08/05/18 Range/Units 17:05 07:49 Sodium 135 L 137 (137-145) mmol/L Potassium 4.2 4.2 (3.5-5.1) mmol/L Chloride 100 102 (98-107) mmol/L Carbon Dioxide 32 H 33 H (22-30) mmol/L BUN 19 19 (9-20) mg/dL Creatinine 1.09 1.04 (0.66-1.25) mg/dL Glucose 145 H 118 H (74-99) mg/dL Calcium 8.6 8.2 L (8.4-10.2) mg/dL AST 309 H 292 H (17-59) U/L ALT 181 H 170 H (21-72) U/L Alkaline Phosphatase 376 H 306 H (38-126) U/L Total Protein 5.0 L 4.5 L (6.3-8.2) g/dL Albumin 2.4 L 2.2 L (3.5-5.0) g/dL Current Medications Generic Name Dose Route Start Last Admin Trade Name Freq PRN Reason Stop Dose Admin Atorvastatin Calcium 80 mg 08/04/18 21:00 08/04/18 20:50 Lipitor PO 80 mg HS CASEY Administration Clopidogrel Bisulfate 75 mg 08/05/18 09:00 Plavix PO DAILY CASEY Furosemide 10 mg 08/04/18 21:00 08/04/18 20:52 Lasix IV 10 mg Q12HR CASEY Administration Lisinopril 5 mg 08/05/18 09:00 Zestril PO DAILY CASEY Meloxicam 7.5 mg 08/05/18 09:00 Mobic PO DAILY [facility] Metformin HCl 500 mg 08/04/18 21:00 08/04/18 20:50 Glucophage PO 500 mg BID CASEY Administration Niacin 1,000 mg 08/04/18 21:00 08/04/18 20:51 Niacin Tr PO 1,000 mg BID CASEY Administration Tamsulosin HCl 0.4 mg 08/05/18 09:00 Flomax PO DAILY CASEY Intake and Output 08/04/18 08/05/18 08/05/18 22:59 06:59 14:59 Intake Total 240 Output Total 350 Balance 240 -350 Intake: Oral 240 Output: Urine 350 Other: Voiding Method Toilet Urinal # Voids 1 Weight 95.68 kg 08/04/18 17:05 08/05/18 07:49
[2018-08-05 13:05] LABS: Bilirubin, Conjugated 0.8 mg/dL (0.0-0.3); Bilirubin, Delta 1.6 mg/dL (0.0-0.2); Bilirubin,Unconjugated 0.7 mg/dL (0.0-1.1); Total Bilirubin 3.1 mg/dL (0.2-1.3)
--- NOTE | 2018-08-05 16:50 | HP ---
HISTORY AND PHYSICAL CHIEF COMPLAINT: 78-year-old white male with significant coronary artery disease status post angioplasty, RCA, carotid endarterectomy in March 2018, prior CVA, diabetes mellitus, aortic stenosis, hypertension, dyslipidemia, came to the hospital. He has had elevated troponin. He has been short of breath. He was found to have elevated liver enzymes for which he is being worked up by GI and surgical consultations. He is unable to swallow ever since carotid endarterectomy. He is not sure why. He wants that evaluated also. Cardiology has been consulted. Elevated D-dimer was done which showed negative for PE. Possible alcoholic liver disease. Gastroenterology and surgery evaluating. REVIEW OF SYMPTOMS: 14-point review of systems negative except for mentioned in HPI. MEDS: Please see list. PHYSICAL EXAMINATION: Blood pressure is 90s over 50s. He has had hypotension at home, unable to take any of his blood pressure medications and yet he has severe swelling in his legs for which he needs Lasix. His heart rate is 60 to 65. He is in no acute distress except dizzy with ambulation due to hypotension. HEENT is normocephalic. Pupils equal, round, reactive. Lungs are clear. Heart regular rate and rhythm. Abdomen is soft. 2+ pedal edema. Psych: He is alert, orient x3. ASSESSMENT: 1. Generalized weakness. 2. Hypotension. 3. Elevated troponins. 4. Elevated liver enzymes. 5. Hypoalbuminemia. 6. Dyslipidemia. 7. Recent cerebrovascular accident status post carotid endarterectomy. 8. Diabetes mellitus. PLAN: Cardiology stopped his cholesterol pills. He has had lower extremity swelling secondary to hypoalbuminemia and vascular insufficiency. No heart failure. Cardiology cleared him for discharge. He has moderate to severe aortic stenosis, gallstones. He will need gallstones workup, liver enzyme workup. MRCP, hypotension will have to be managed accordingly. Await cardiology recommendations for hypotension. Please see further orders. MMODL / IJN: [id number] /
--- NOTE | 2018-08-05 20:19 | MR ---
EXAMINATION TYPE: MR MRCP without contrast DATE OF EXAM: 08/05/2018 COMPARISON: 08/05/2018 ultrasound examination HISTORY: 1. Elevated liver enzymes r/o choledocholithiasis. 2. Pain, with cholecystectomy May 2018. TECHNIQUE: Departmental multiplanar, multisequence MRI departmental protocol. Axial fat-suppressed an d non fat-suppressed T1-weighted and T2-weighted imaging was obtained. Coronal non fat-suppressed T1 -weighted and T2-weighted imaging was obtained. FINDINGS: PERITONEAL CAVITY: Moderately prominent volume of fluid circumferential to the liver and, to a lesser extent, the spleen. LIVER AND SPLEEN: The volume of the liver is shrunken and there is caudate lobe enlargement. There is no splenomegaly. BILIARY TREE / pancreas: The gallbladder is surgically absent. The intrahepatic and extra hepatic greg iary tree is unremarkable. Pancreas and pancreatic ductal anatomy unremarkable. KIDNEYS, ADRENALS: Unremarkable. LYMPH NODE STATIONS: No abdominal mass or adenopathy. SKELETAL STRUCTURES: Unremarkable. IMPRESSION: Changes which can correlate with a clinical diagnosis of ccirrhosis.
[2018-08-06 08:48] LABS: Anisocytosis Slight; Basophils % (A) 0 %; Eosinophils # (A) 0.1 k/uL (0-0.7); Eosinophils % (A) 1 %; HCT 36.7 % (39.0-53.0); HGB 12.5 gm/dL (13.0-17.5); INR 1.5 (<1.2); Lymphocytes # (A) 1.4 k/uL (1.0-4.8); Lymphocytes % (A) 18 %; Mean Platelet Volume 7.6; Monocytes # (A) 1.5 k/uL (0-1.0); Monocytes % (A) 19 %; Neutrophils # (A) 4.4 k/uL (1.3-7.7); Neutrophils % (A) 57 %; Platelet Count 128 k/uL (150-450); Prothrombin Time 14.7 sec (9.0-12.0); RDW 16.1 % (11.5-15.5); WBC 7.6 k/uL (3.8-10.6)
[2018-08-06] MEDS: TAMSULOSIN 0.4 MG CAP.ER.24H PO SCH (09:01)
[2018-08-06] MEDS: CLOPIDOGREL 75 MG TAB PO SCH (09:01)
[2018-08-06] MEDS: LISINOPRIL 5 MG TAB PO SCH (09:01)
[2018-08-06] MEDS: FUROSEMIDE 10 MG/ML 2 ML VIAL IV SCH ×2 (09:01→21:58)
[2018-08-06] MEDS: metFORMIN 500 MG TAB PO SCH ×2 (09:01→21:58)
[2018-08-06] MEDS: NIACIN TR 500 MG CAPSULE.ER PO SCH ×2 (09:02→21:58)
[2018-08-06] MEDS: MELOXICAM 7.5 MG TAB PO SCH (09:02)
[2018-08-06 09:10] LABS: Crenated RBC Present; Poikilocytosis (M) Present; RBC Fragments Present
[2018-08-06 09:14] LABS: Albumin 2.1 g/dL (3.5-5.0); Bilirubin, Conjugated 0.4 mg/dL (0.0-0.3); Bilirubin, Delta 1.6 mg/dL (0.0-0.2); Bilirubin,Unconjugated 0.7 mg/dL (0.0-1.1); Calcium 8.1 mg/dL (8.4-10.2); Potassium 3.8 mmol/L (3.5-5.1); Total Bilirubin 2.7 mg/dL (0.2-1.3); Total Protein 4.3 g/dL (6.3-8.2)
--- NOTE | 2018-08-06 11:40 | ECHOF ---
Referral Reason:aortic stenosis, assess PA pressure MEASUREMENTS -------- HEIGHT: 188.0 cm WEIGHT: 95.3 kg BP: 110/59 RVIDd: 2.7 cm (< 3.3) IVSd: 1.0 cm (0.6 - 1.1) LVIDd: 4.3 cm (3.9 - 5.3) LVPWd: 1.0 cm (0.6 - 1.1) IVSs: 1.2 cm LVIDs: 2.4 cm LVPWs: 1.2 cm LAESV Index (A-L): 16.58 ml/m Ao Diam: 2.9 cm (2.0 - 3.7) AV Cusp: 1.6 cm (1.5 - 2.6) LA Diam: 3.5 cm (2.7 - 3.8) MV E Ramiro: 0.80 m/s MV DecT: 316 ms MV A Ramiro: 1.28 m/s MV E/A Ratio: 0.62 AV maxP.39 mmHg AV meanP.84 mmHg RAP: 5.00 mmHg RVSP: 10.20 mmHg FINDINGS -------- Sinus rhythm. This was a technically difficult study with suboptimal views. The left ventricular size is normal. Left ventricular wall thickness is normal. Overall left vent ricular systolic function is low-normal with, an EF between 50 - 55 %. Basal inferior LV wall motio n is hypokinetic. Basal inferoseptal LV wall motion is hypokinetic. The right ventricle is normal in size and function. Normal LA size by volume 22+/-6 ml/m2. The right atrium is normal in size. 3 ml of Lumason was utilized for enhancement of images. There is mild to moderate aortic valve sclerosis. Trace to mild aortic regurgitation. There is mi ld to moderate aortic stenosis present. Peak/mean gradient across the Aortic Valve is 24.39mmHg / 16 .84mmHg. The mitral valve leaflets are mild to moderately thickened. Mild mitral annular calcification pres ent. There is trace to mild mitral regurgitation. Trace tricuspid regurgitation present. Right ventricular systolic pressure is normal at < 35 mmHg. There is no evidence of pulmonary hypertension. The pulmonic valve was not well visualized. The aortic root size is normal. IVC Not well visulized. There is no pericardial effusion. CONCLUSIONS -------- 1. Sinus rhythm. 2. This was a technically difficult study with suboptimal views. 3. The left ventricular size is normal. 4. Left ventricular wall thickness is normal. 5. Overall left ventricular systolic function is low-normal with, an EF between 50 - 55 %. 6. Basal inferior LV wall motion is hypokinetic. 7. Basal inferoseptal LV wall motion is hypokinetic. 8. Normal LA size by volume 22+/-6 ml/m2. 9. 3 ml of Lumason was utilized for enhancement of images. 10. There is mild to moderate aortic valve sclerosis. 11. Trace to mild aortic regurgitation. 12. There is mild to moderate aortic stenosis present. 13. Peak/mean gradient across the Aortic Valve is 24.39mmHg / 16.84mmHg. 14. The mitral valve leaflets are mild to moderately thickened. 15. Mild mitral annular calcification present. 16. There is trace to mild mitral regurgitation. 17. Trace tricuspid regurgitation present. 18. Right ventricular systolic pressure is normal at < 35 mmHg. 19. There is no evidence of pulmonary hypertension. 20. The pulmonic valve was not well visualized. 21. The aortic root size is normal. 22. IVC Not well visulized. 23. There is no pericardial effusion. [employer] FIELD SERVICE TECHNICIAN: Bruce Broussard RDCS
--- NOTE | 2018-08-06 13:04 | P.PN ---
Subjective Progress Note Date: 08/06/18 Principal diagnosis: Elevated liver enzymes cirrhosis MRCP reported findings consistent with cirrhosis. Intrahepatic and hepatic biliary tree is unremarkable. Pancreas unremarkable. Serologic workup for chronic liver disease requested yesterday. Today white count 7.6. Hemoglobin 12.5. Platelet 128. INR 1.5. Total bilirubin 2.7. AST 281. ALT 160. AP 305. Conjugated 0.4-0.8. Unconjugated 0.7. Objective - Vital Signs Vital signs: Vital Signs Temp 98.4 F 08/06/18 12:28 Pulse 106 H 08/06/18 12:28 Resp 17 08/06/18 12:28 BP 126/74 08/06/18 12:28 Pulse Ox 97 08/06/18 12:28 Intake & Output 08/05/18 08/06/18 08/06/18 18:59 06:59 18:59 Intake Total 960 Balance 960 Weight 95.68 kg Intake: Oral 960 Other: Voiding Method Urinal Urinal Urinal # Voids 2 2 - Exam General appearance: The patient is alert, oriented, in no acute distress. HET: Head is normocephalic and atraumatic. Pupils are equal and reactive. Oropharynx is clear without lesions. Neck: Supple without lymphadenopathy. Trachea midline. Heart: S1 S2. Regular rate and rhythm. Lungs: No crackles or wheezes are heard. Abdomen: Soft, nontender, nondistended with bowel sounds. No peritoneal signs. No palpable organomegaly or masses. Extremities: Normal skin color and turgor. No cyanosis, rash, ulceration, clubbing, or edema. Radial and pedal pulses are 2/4 bilaterally. Neurological: No focal deficits. Strength and sensation are grossly intact. - Labs CBC & Chem 7: 08/06/18 07:57 08/06/18 07:57 Labs: Abnormal Lab Results - Last 24 Hours (Table) 08/05/18 08/06/18 08/06/18 Range/Units 07:49 07:57 07:57 RBC 3.90 L (4.30-5.90) m/uL Hgb 12.5 L (13.0-17.5) gm/dL Hct 36.7 L (39.0-53.0) % RDW 16.1 H (11.5-15.5) % Plt Count 128 L (150-450) k/uL Monocytes # 1.5 H (0-1.0) k/uL PT 14.7 H (9.0-12.0) sec INR 1.5 H (<1.2) Sodium (137-145) mmol/L Carbon Dioxide (22-30) mmol/L Glucose (74-99) mg/dL Calcium (8.4-10.2) mg/dL Total Bilirubin 3.1 H (0.2-1.3) mg/dL Conjugated Bilirubin 0.8 H (0.0-0.3) mg/dL Delta Bilirubin 1.6 H (0.0-0.2) mg/dL AST (17-59) U/L ALT (21-72) U/L Alkaline Phosphatase (38-126) U/L Total Protein (6.3-8.2) g/dL Albumin (3.5-5.0) g/dL 08/06/18 Range/Units 07:57 RBC (4.30-5.90) m/uL Hgb (13.0-17.5) gm/dL Hct (39.0-53.0) % RDW (11.5-15.5) % Plt Count (150-450) k/uL Monocytes # (0-1.0) k/uL PT (9.0-12.0) sec INR (<1.2) Sodium 136 L (137-145) mmol/L Carbon Dioxide 31 H (22-30) mmol/L Glucose 140 H (74-99) mg/dL Calcium 8.1 L (8.4-10.2) mg/dL Total Bilirubin 2.7 H (0.2-1.3) mg/dL Conjugated Bilirubin 0.4 H (0.0-0.3) mg/dL Delta Bilirubin 1.6 H (0.0-0.2) mg/dL AST 281 H (17-59) U/L ALT 168 H (21-72) U/L Alkaline Phosphatase 305 H (38-126) U/L Total Protein 4.3 L (6.3-8.2) g/dL Albumin 2.1 L (3.5-5.0) g/dL Assessment and Plan Assessment: Impression: 1. 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 An underlying chronic liver disease, MRCP ruled out choledocholithiasis biliary stricture disease. Ultrasound imaging reported CBD 0.4 cm but suboptimal with features of cirrhosis. Recent laparoscopic cholecystectomy May 2018 for symptomatic gallstones. 2. Dysphagia status post recent EGD with dilation. Barium swallow May 2018 mild presbyesophagus persistence of the cricopharyngeal muscle during examination which may account for patient's symptoms. General surgery consulted. 3. History of diabetes mellitus. 4. History of hyperlipidemia. 5. History of hypertension. 6. History of GERD. 7. History of aortic stenosis. 8. History of carotid endarterectomy. Plan: 1. MRCP results communicated with family and patient. ERCP not planned at this time. Serologic chronic liver disease workup in process. Daily CMP CBC PT/INR. We'll defer to surgical service for dysphagia evaluation with recent EGD dilation. Return to GI office in 2-3 weeks after discharge. Assessment and plan a care discussed with Dr. Sargent
--- NOTE | 2018-08-06 13:56 | P.PN ---
<Samia Lee - Last Filed: 08/06/18 13:42> Subjective Progress Note Date: 08/06/18 CHIEF COMPLAINT: Elevated LFTs HISTORY OF PRESENT ILLNESS: 78-year-old male who was directly admitted from Dr. Stewart's office secondary to hypotension and generalized weakness. General surgery was consulted for elevated liver function tests. Patient states that since March he has noticed increased swelling to his bilateral lower extremities and weakness. The patient reports he underwent a right carotid endarterectomy and has had issues with dysphagia since that time. The patient underwent a laparoscopic cholecystectomy with Dr. Fierro in May 2018. 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 Patient underwent MRCP which revealed findings consistent with cirrhosis. GI is following. Patient continues to complain of dysphagia. Patient states when he had his EGD with dilation by Dr. Fierro his dysphagia improved but only for a week. PHYSICAL EXAM: VITAL SIGNS: Currently stable. GENERAL: Well-developed in no acute distress. HEENT: No sclera icterus. Extraocular movements grossly intact. Moist buccal mucosa. Head is atraumatic, normocephalic. Hears conversational speech. No nasal drainage. NECK: Supple without lymphadenopathy. CHEST: Non-labored respirations and equal bilateral excursions. CARDIOVASCULAR: Regular rate with regular rhythm. Palpable 2+ radial pulses. ABDOMEN: Soft. Nondistended. No peritonitis. MUSCULOSKELETAL: No clubbing, cyanosis or edema. NEUROLOGIC: No focal or lateralizing signs. Cranial nerves II through XII grossly intact. PSYCH: Alert and oriented x 3. SKIN: Well perfused. Good skin turgor. LABS: Reviewed ASSESSMENT: 1. Transaminitis 2. Hyperbilirubinemia 3. History of laparoscopic cholecystectomy, May 2018 4. History of dysphagia 5. 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 History of right carotid endarterectomy, 2017 7. Diabetes mellitus, type II 8. GERD 9. Coronary artery disease with previous stent placement 10. Nicotine dependence, in remission PLAN: Continue pureed diet. Dr. Fierro to evaluate patient this afternoon. Further recommendations pending. Nurse practitioner note has been reviewed by physician. Signing provider agrees with the documented findings, assessment, and plan of care. Objective - Vital Signs Vital signs: Vital Signs Temp 98.4 F 08/06/18 12:28 Pulse 106 H 08/06/18 12:28 Resp 17 08/06/18 12:28 BP 126/74 08/06/18 12:28 Pulse Ox 97 08/06/18 12:28 Intake & Output 08/05/18 08/06/18 08/06/18 18:59 06:59 18:59 Intake Total 960 Balance 960 Weight 95.68 kg Intake: Oral 960 Other: Voiding Method Urinal Urinal Urinal # Voids 2 2 - Labs CBC & Chem 7: 08/06/18 07:57 08/06/18 07:57 Labs: Abnormal Lab Results - Last 24 Hours (Table) 08/06/18 08/06/18 08/06/18 Range/Units 07:57 07:57 07:57 RBC 3.90 L (4.30-5.90) m/uL Hgb 12.5 L (13.0-17.5) gm/dL Hct 36.7 L (39.0-53.0) % RDW 16.1 H (11.5-15.5) % Plt Count 128 L (150-450) k/uL Monocytes # 1.5 H (0-1.0) k/uL PT 14.7 H (9.0-12.0) sec INR 1.5 H (<1.2) Sodium 136 L (137-145) mmol/L Carbon Dioxide 31 H (22-30) mmol/L Glucose 140 H (74-99) mg/dL Calcium 8.1 L (8.4-10.2) mg/dL Total Bilirubin 2.7 H (0.2-1.3) mg/dL Conjugated Bilirubin 0.4 H (0.0-0.3) mg/dL Delta Bilirubin 1.6 H (0.0-0.2) mg/dL AST 281 H (17-59) U/L ALT 168 H (21-72) U/L Alkaline Phosphatase 305 H (38-126) U/L Total Protein 4.3 L (6.3-8.2) g/dL Albumin 2.1 L (3.5-5.0) g/dL Assessment and Plan (1) Hyperbilirubinemia Current Visit: Yes Status: Acute Code(s): E80.6 - OTHER DISORDERS OF BILIRUBIN METABOLISM SNOMED Code(s): 07557311 (2) Transaminitis Current Visit: Yes Status: Acute Code(s): R74.0 - NONSPEC ELEV OF LEVELS OF TRANSAMNS & LACTIC ACID DEHYDRGNSE SNOMED Code(s): 441611348 (3) GERD (gastroesophageal reflux disease) Current Visit: Yes Status: Acute Code(s): K21.9 - GASTRO-ESOPHAGEAL REFLUX DISEASE WITHOUT ESOPHAGITIS SNOMED Code(s): 137928013 (4) Dysphagia Current Visit: No Status: Acute Code(s): R13.10 - DYSPHAGIA, UNSPECIFIED SNOMED Code(s): 83154659 (5) Transient cerebral ischemia Current Visit: No Status: Acute Code(s): G45.9 - TRANSIENT CEREBRAL ISCHEMIC ATTACK, UNSPECIFIED SNOMED Code(s): 520847306 <Miranda Fierro N - Last Filed: 08/06/18 19:31> Objective - Vital Signs Vital signs: Vital Signs Temp 98.4 F 08/06/18 12:28 Pulse 106 H 08/06/18 12:28 Resp 17 08/06/18 12:28 BP 126/74 08/06/18 12:28 Pulse Ox 97 08/06/18 12:28 Intake & Output 08/06/18 08/06/18 08/07/18 06:59 18:59 06:59 Intake Total 960 Balance 960 Intake: Oral 960 Other: Voiding Method Urinal Urinal # Voids 2 3 - Labs CBC & Chem 7: 08/06/18 07:57 08/06/18 07:57 Labs: Abnormal Lab Results - Last 24 Hours (Table) 08/06/18 08/06/18 08/06/18 Range/Units 07:57 07:57 07:57 RBC 3.90 L (4.30-5.90) m/uL Hgb 12.5 L (13.0-17.5) gm/dL Hct 36.7 L (39.0-53.0) % RDW 16.1 H (11.5-15.5) % Plt Count 128 L (150-450) k/uL Monocytes # 1.5 H (0-1.0) k/uL PT (9.0-12.0) sec INR (<1.2) Sodium (137-145) mmol/L Carbon Dioxide (22-30) mmol/L Glucose (74-99) mg/dL Calcium (8.4-10.2) mg/dL Iron 42 L (65-175) ug/dL TIBC 183 L (228-460) ug/dL Ferritin 1115.2 H (22.0-322.0) ng/mL Total Bilirubin (0.2-1.3) mg/dL Conjugated Bilirubin (0.0-0.3) mg/dL Delta Bilirubin (0.0-0.2) mg/dL AST (17-59) U/L ALT (21-72) U/L Alkaline Phosphatase (38-126) U/L Total Protein (6.3-8.2) g/dL Total Protein (PEP) 4.1 L (6.2-8.2) g/dL Albumin (3.5-5.0) g/dL 08/06/18 08/06/18 Range/Units 07:57 07:57 RBC (4.30-5.90) m/uL Hgb (13.0-17.5) gm/dL Hct (39.0-53.0) % RDW (11.5-15.5) % Plt Count (150-450) k/uL Monocytes # (0-1.0) k/uL PT 14.7 H (9.0-12.0) sec INR 1.5 H (<1.2) Sodium 136 L (137-145) mmol/L Carbon Dioxide 31 H (22-30) mmol/L Glucose 140 H (74-99) mg/dL Calcium 8.1 L (8.4-10.2) mg/dL Iron (65-175) ug/dL TIBC (228-460) ug/dL Ferritin (22.0-322.0) ng/mL Total Bilirubin 2.7 H (0.2-1.3) mg/dL Conjugated Bilirubin 0.4 H (0.0-0.3) mg/dL Delta Bilirubin 1.6 H (0.0-0.2) mg/dL AST 281 H (17-59) U/L ALT 168 H (21-72) U/L Alkaline Phosphatase 305 H (38-126) U/L Total Protein 4.3 L (6.3-8.2) g/dL Total Protein (PEP) (6.2-8.2) g/dL Albumin 2.1 L (3.5-5.0) g/dL Assessment and Plan Plan: Patient reported having temporary relief from previous upper endoscopy with dilation. I personally spoke with the attending regarding his troubles with swallowing. His scar from his carotid endarterectomy overlaps with the throat and esophagus and may actually cause scarring and troubles with swallowing. Ideally, evaluation with ENT would be of benefit. Alternatively follow up with vascular surgeon who done his procedure would be of benefit. Otherwise, may benefit from outpatient manometry to further elucidate esophageal dysmotility. Temporary relief with upper endoscopy which dilation was also offered. Otherwise, he will need to change his diet to pured or grounded foods only. For strength, recommend high protein shakes as well. Patient will be preemptively scheduled for upper endoscopy with dilation. As for his elevated LFTs, non-surgical management.
[2018-08-06 17:52] LABS: Iron Saturation 22.95 (15.00-50.00); Protein, Total 4.1 g/dL (6.2-8.2)
[2018-08-06 18:48] LABS: Alpha Fetoprotein, Tumor Mkr <2.5 ng/mL (0.0-7.9)
--- NOTE | 2018-08-06 19:32 | P.PN ---
Progress Note - Text Progress Note Date: 08/06/18 Patient reported having temporary relief from previous upper endoscopy with dilation. I personally spoke with the attending regarding his troubles with swallowing. His scar from his carotid endarterectomy overlaps with the throat and esophagus and may actually cause scarring and troubles with swallowing. Ideally, evaluation with ENT would be of benefit. Alternatively follow up with vascular surgeon who done his procedure would be of benefit. Otherwise, may benefit from outpatient manometry to further elucidate esophageal dysmotility. Temporary relief with upper endoscopy which dilation was also offered. Otherwise, he will need to change his diet to pured or grounded foods only. For strength, recommend high protein shakes as well. Patient will be preemptively scheduled for upper endoscopy with dilation. As for his elevated LFTs, non-surgical management.
--- NOTE | 2018-08-07 00:10 | PN ---
PROGRESS NOTE SUBJECTIVE: 78-year-old white male was admitted to the hospital, he was found to have cirrhosis and cricothyroid obstruction of unclear etiology. May need to be treated down in [place] as vascular surgeon and ENT are unable to take care of him up here. Dr. Fierro saw him and switched his dietary to ground foods only, high-protein shakes. They will try dilation again. Cirrhosis is being worked up as cirrhotic patient per GI. Cardiovascular S1-S2. Lungs clear. GI soft. Hematology negative Homans. He looks weak, cachectic. PLAN: Upper endoscopy, cirrhosis workup, possible transfer to [facility] if not improved. MRI cholangiopancreatography negative. MMODL / IJN: [id number] /
[2018-08-07] MEDS: CLOPIDOGREL 75 MG TAB PO SCH (09:46)
[2018-08-07] MEDS: NIACIN TR 500 MG CAPSULE.ER PO SCH ×2 (09:46→21:30)
[2018-08-07] MEDS: metFORMIN 500 MG TAB PO SCH ×2 (09:46→21:30)
[2018-08-07] MEDS: MELOXICAM 7.5 MG TAB PO SCH (09:46)
[2018-08-07] MEDS: FUROSEMIDE 10 MG/ML 2 ML VIAL IV SCH ×2 (09:51→16:52)
[2018-08-07] MEDS: TAMSULOSIN 0.4 MG CAP.ER.24H PO SCH (09:51)
[2018-08-07] MEDS: LISINOPRIL 5 MG TAB PO SCH (09:51)
[2018-08-07 11:07] LABS: Ceruloplasmin 19.6 mg/dL (20.0-60.0)
[2018-08-07] MEDS ORDERED: PROPOFOL 10 MG/ML 20 ML VIAL IV ONE (12:13)
[2018-08-07] MEDS ORDERED: LIDOCAINE 1% INJ 10MG/ML (20 ML MDV) ONE (12:13)
[2018-08-07] MEDS ORDERED: MIDAZOLAM 2 MG/2 ML VIAL ONE (12:13)
[2018-08-07] MEDS ORDERED: ETOMIDATE 2 MG/ML 10 ML VIAL ONE (12:13)
[2018-08-07] MEDS ORDERED: LACTATED RINGERS 1,000 ML IV ONE (12:17)
--- NOTE | 2018-08-07 13:16 | P.PCN ---
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 SURGEON: Miranda Fierro MD ANESTHESIA: MAC. INDICATIONS: The patient is a 78-year-old male who presents with history of hypertensive upper esophageal sphincter including dysphagia Upper endoscopy was offered for further diagnostic evaluation and treatment. DESCRIPTION: The patient was brought into the endoscopy suite and laid in the left lateral decubitus position. After adequate IV sedation, a bite block was placed. An Olympus gastroscope was carefully passed along the posterior oropharynx. The stomach was entered. The scope was passed to the second portion of the duodenum which was unremarkable. Retroflexion of the scope confirmed Hill grade 4 lower esophageal valve without recurrent diaphragmatic hiatal hernia. A guidewire was placed through the scope into the stomach. The scope was removed. A 60-Mohawk rigid dilator was placed to 50 cm from the incisors. The dilator was left in place 2 minutes. The dilator and guidewire were removed. The scope was reentered along the proximal esophagus whereby the stricture had resolved of the upper esophagus. A 4 cm sliding diaphragmatic hernia was confirmed. The stomach was desufflated. The patient tolerated the procedure well. FINDINGS: Squamocolumnar junction 36 cm from the incisors. Diaphragmatic hiatus at 40 cm. Diaphragmatic hiatal hernia, 4 cm, sliding type Resolve duodenitis Hill grade 4 lower esophageal valve. LA grade A erosive esophagitis. Resolved duodenitis. Hypertensive upper esophageal sphincter. RECOMMENDATIONS: 1. Recommend warm beverages. 2. Diet as tolerated. 3. Will need repeat upper endoscopy with rigid dilation as needed 4. Recommend adjustment of diet to chopped dysphagia diet for any recurrence of dysphagia
--- NOTE | 2018-08-07 13:20 | P.HPADDEND ---
H&P Addendum H&P Addendum Date: 08/07/18 Patient seen and evaluated. Family agreed to proceed with upper endoscopy. Risks described. Patient took Plavix and will avoid any biopsies.
[2018-08-07 13:38] LABS: Liver/Kidney Microsome Antibod 1.5 UNITS (<=20)
[2018-08-07] MEDS ORDERED: SODIUM CHLORIDE 0.9% 250 ML IV ONE (15:30)
--- NOTE | 2018-08-07 16:18 | P.PN ---
Progress Note - Text Progress Note Date: 08/07/18 Patient reevaluated this afternoon. He is tolerating a soft diet. He was advised to drink warm beverages prior to eating to minimize risk for recurrent dysphagia. Chopped diet was described.
--- NOTE | 2018-08-08 00:05 | PN ---
PROGRESS NOTE SUBJECTIVE: This is a 78-year-old white male admitted with hypotension, severe dysphagia, status post cricothyroid stricture repair with dilation of the cricothyroid by Dr. Fierro today. Patient is eating better this afternoon. He had hypotension, for which midodrine has been ordered and Lasix has been discontinued. CARDIOVASCULAR: S1, S2. LUNGS: Rales at the bases. HEMATOLOGY: Negative Homans. LOWER EXTREMITIES: Two plus pedal edema. ASSESSMENT: 1. Hypotension. 2. Diastolic heart failure. 3. Hypoalbuminemia. 4. Orthostatic hypotension. Continue with midodrine. Discontinue Lasix. Possible switch to spironolactone due to third spacing in his extremities. Please see further orders. MMODL / IJN: [id number] /
[2018-08-08 04:47] VITALS: RESP 18; TEMP 97.9
--- NOTE | 2018-08-08 08:06 | PN ---
PROGRESS NOTE Mr. Barroso is a 78-year-old male with a known history of coronary disease, history of carotid disease, who presented with symptoms of progressive fatigue, peripheral edema as well as difficulty swallowing. He underwent cholecystectomy recently. He underwent yesterday upper endoscopy with dilatation of the esophagus. Post procedure he was hypotensive. He is feeling better at this time. He denies any chest pain. He denies any dizziness. He is lying supine. He continues to have significant peripheral edema, yet there is no evidence of congestive heart failure. He has low albumin and low protein on presentation. He has not been able to eat. He continues to be on Lasix 10 mg q.12 hours, meloxicam on a p.r.n. basis, metformin 500 mg twice a day, Flomax and Plavix 75 mg daily. PHYSICAL EXAMINATION: Blood pressure running in the high 90s with the heart in the 70s. LUNGS: Clear. HEART: Regular rate and rhythm. S1, S2. No S3 with systolic murmur. No diastolic murmur. No rub. ABDOMEN: Soft, nontender. Positive bowel sounds. No organomegaly. EXTREMITIES: +2 edema bilaterally. IMPRESSION: 1. Difficulty swallowing with esophageal stricture, status post dilatation yesterday. 2. Peripheral edema most likely probably worsened by the low protein and low albumin. 3. History of coronary artery disease with no evidence of active ischemic disease at this time. 4. History of carotid disease, status post carotid endarterectomy. RECOMMENDATION: Patient underwent an echocardiogram during this admission that showed a overall preserved systolic function with ejection fraction of 50% to 55% with mild aortic stenosis. At this time, I will stop his LUNA inhibitor. Continue the rest of his medical regimen. I will stop his Niaspan. We will follow his blood pressure. Follow his renal function and depending on his progress further recommendation will be made. MMODL / IJN: [id number] /
[2018-08-08] MEDS: TAMSULOSIN 0.4 MG CAP.ER.24H PO SCH (08:15)
[2018-08-08] MEDS: metFORMIN 500 MG TAB PO SCH ×2 (08:15→21:09)
[2018-08-08] MEDS: FUROSEMIDE 10 MG/ML 2 ML VIAL IV SCH (08:15)
[2018-08-08] MEDS: CLOPIDOGREL 75 MG TAB PO SCH (08:15)
[2018-08-08] MEDS: MELOXICAM 7.5 MG TAB PO SCH (08:18)
[2018-08-08 08:52] LABS: Albumin 2.5 g/dL (3.5-5.0); Calcium 8.4 mg/dL (8.4-10.2); Potassium 3.8 mmol/L (3.5-5.1); Total Bilirubin 2.9 mg/dL (0.2-1.3); Total Protein 5.1 g/dL (6.3-8.2)
[2018-08-08 08:54] LABS: INR 1.1 (<1.2); Prothrombin Time 11.3 sec (9.0-12.0)
[2018-08-08] MEDS ORDERED: LISINOPRIL 5 MG TAB PO SCH (09:00)
[2018-08-08 09:11] LABS: Anisocytosis Slight; HCT 41.8 % (39.0-53.0); HGB 13.2 gm/dL (13.0-17.5); MCH 30.3 pg (25.0-35.0); MCHC 31.6 g/dL (31.0-37.0); MCV 95.9 fL (80.0-100.0); Mean Platelet Volume 7.1; Platelet Count 116 k/uL (150-450); RBC 4.36 m/uL (4.30-5.90); RDW 16.1 % (11.5-15.5); WBC 8.3 k/uL (3.8-10.6)
--- NOTE | 2018-08-08 09:16 | P.PN ---
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 VANDANA negative. AMA 29. MRCP reported evidence of cirrhosis without biliary tree abnormalities. Status post EGD rigid dilator per general surgery yesterday for dysphagia. Reports his swallowing slightly improved today. Hepatic function panel pending. Afebrile. Denies abdominal pain. Objective - Vital Signs Vital signs: Vital Signs Temp 97.9 F 08/08/18 04:47 Pulse 74 08/08/18 04:47 Resp 18 08/08/18 04:47 BP 96/58 08/08/18 04:47 Pulse Ox 96 08/08/18 04:47 Intake & Output 08/07/18 08/08/18 08/08/18 18:59 06:59 18:59 Intake Total 400 840 Output Total 300 50 Balance 100 790 Weight 95.68 kg Intake: IV 150 Intake, IV Titration 250 Amount Sodium Chloride 0.9% 250 250 ml @ 999 mls/hr IV .Q16M ONE Rx#:[id number] Oral 840 Output: Urine 300 50 Other: Voiding Method Urinal Urinal # Voids 1 - Exam General appearance: The patient is alert, oriented, in no acute distress. HET: Head is normocephalic and atraumatic. Pupils are equal and reactive. Oropharynx is clear without lesions. Neck: Supple without lymphadenopathy. Trachea midline. Heart: S1 S2. Regular rate and rhythm. Lungs: No crackles or wheezes are heard. Abdomen: Soft, nontender, nondistended with bowel sounds. No peritoneal signs. No palpable organomegaly or masses. Extremities: Normal skin color and turgor. No cyanosis, rash, ulceration, clubbing, or edema. Radial and pedal pulses are 2/4 bilaterally. Neurological: No focal deficits. Strength and sensation are grossly intact. - Labs CBC & Chem 7: 08/08/18 08:18 08/08/18 08:18 Labs: Abnormal Lab Results - Last 24 Hours (Table) 08/06/18 08/06/18 08/08/18 Range/Units 07:57 07:57 08:18 RDW 16.1 H (11.5-15.5) % Plt Count 116 L (150-450) k/uL Sodium (137-145) mmol/L Glucose (74-99) mg/dL Total Bilirubin (0.2-1.3) mg/dL AST (17-59) U/L ALT (21-72) U/L Alkaline Phosphatase (38-126) U/L Total Protein (6.3-8.2) g/dL Albumin (3.5-5.0) g/dL Ceruloplasmin 19.6 L (20.0-60.0) mg/dL Anti-Mitochondrial Ab 29.4 H (<=20) UNITS Anti-Smooth Muscle Ab 25 H (<20) UNITS 08/08/18 Range/Units 08:18 RDW (11.5-15.5) % Plt Count (150-450) k/uL Sodium 135 L (137-145) mmol/L Glucose 132 H (74-99) mg/dL Total Bilirubin 2.9 H (0.2-1.3) mg/dL AST 345 H (17-59) U/L ALT 197 H (21-72) U/L Alkaline Phosphatase 415 H (38-126) U/L Total Protein 5.1 L (6.3-8.2) g/dL Albumin 2.5 L (3.5-5.0) g/dL Ceruloplasmin (20.0-60.0) mg/dL Anti-Mitochondrial Ab (<=20) UNITS Anti-Smooth Muscle Ab (<20) UNITS Assessment and Plan Assessment: Impression: 1. 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 An underlying chronic liver disease, MRCP ruled out choledocholithiasis biliary stricture disease. Ultrasound imaging reported CBD 0.4 cm but suboptimal with features of cirrhosis. Recent laparoscopic cholecystectomy May 2018 for symptomatic gallstones. 2. Dysphagia status post recent EGD with dilation. Barium swallow May 2018 mild presbyesophagus persistence of the cricopharyngeal muscle during examination which may account for patient's symptoms. General surgery consulted. 3. History of diabetes mellitus. 4. History of hyperlipidemia. 5. History of hypertension. 6. History of GERD. 7. History of aortic stenosis. 8. History of carotid endarterectomy. Plan: 1. Serologic chronic liver disease workup in process. Daily CMP CBC PT/INR. Return to GI office in 2-3 weeks after discharge. Assessment and plan a care discussed with Dr. Sargent
[2018-08-08 09:30] LABS: Albumin 2.13 g/dL (3.80-4.90)
[2018-08-08 10:03] LABS: Basophils # (M) 0.08 k/uL (0-0.2); Eosinophils # (M) 0.17 k/uL (0-0.7); Lymphocytes # (M) 2.08 k/uL (1.0-4.8); Monocytes # (M) 0.17 k/uL (0-1.0); Neutrophils # (M) 5.81 k/uL (1.3-7.7); Neutrophils % (M) 70 %; Nucleated Red Blood Cells 0 /100 WBC (0-0); Total Cells Counted 100
[2018-08-08 10:06] LABS: Crenated RBC Present; Poikilocytosis (M) Present
--- NOTE | 2018-08-08 11:25 | P.PN ---
<Samia Lee A - Last Filed: 08/08/18 11:32> Subjective Progress Note Date: 08/08/18 CHIEF COMPLAINT: Elevated LFTs HISTORY OF PRESENT ILLNESS: Patient examined at the bedside. Patient reports overall improvement in dysphagia. He did have some difficulty with the eggs this morning. Tolerated coffee, applesauce, and yogurt. PHYSICAL EXAM: VITAL SIGNS: Currently stable. GENERAL: Well-developed in no acute distress. HEENT: No sclera icterus. Extraocular movements grossly intact. Moist buccal mucosa. Head is atraumatic, normocephalic. Hears conversational speech. No nasal drainage. NECK: Supple without lymphadenopathy. CHEST: Non-labored respirations and equal bilateral excursions. CARDIOVASCULAR: Regular rate with regular rhythm. Palpable 2+ radial pulses. ABDOMEN: Soft. Nondistended. No peritonitis. MUSCULOSKELETAL: No clubbing, cyanosis or edema. NEUROLOGIC: No focal or lateralizing signs. Cranial nerves II through XII grossly intact. PSYCH: Alert and oriented x 3. SKIN: Well perfused. Good skin turgor. LABS: Reviewed ASSESSMENT: 1. Transaminitis 2. Hyperbilirubinemia 3. History of laparoscopic cholecystectomy, May 2018 4. History of dysphagia, s/p EGD with dilation 08/07/2018 5. 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 History of right carotid endarterectomy, 2018 7. Diabetes mellitus, type II 8. GERD 9. Coronary artery disease with previous stent placement 10. Nicotine dependence, in remission PLAN: Patient having difficulty with some consistences of food such as scrambled eggs this morning. Recommend diet similar to postop Darian fundoplication diet. Will consult dietitian to provide further education to patient. He remains stable from a surgical standpoint. Nurse practitioner note has been reviewed by physician. Signing provider agrees with the documented findings, assessment, and plan of care. Objective - Vital Signs Vital signs: Vital Signs Temp 97.9 F 08/08/18 04:47 Pulse 74 08/08/18 04:47 Resp 18 08/08/18 04:47 BP 96/58 08/08/18 04:47 Pulse Ox 96 08/08/18 04:47 Intake & Output 08/07/18 08/08/18 08/08/18 18:59 06:59 18:59 Intake Total 400 840 Output Total 300 50 Balance 100 790 Weight 95.68 kg Intake: IV 150 Intake, IV Titration 250 Amount Sodium Chloride 0.9% 250 250 ml @ 999 mls/hr IV .Q16M ONE Rx#:[id number] Oral 840 Output: Urine 300 50 Other: Voiding Method Urinal Urinal # Voids 1 - Labs CBC & Chem 7: 08/08/18 08:18 08/08/18 08:18 Labs: Abnormal Lab Results - Last 24 Hours (Table) 08/06/18 08/06/18 08/08/18 Range/Units 07:57 07:57 08:18 RDW 16.1 H (11.5-15.5) % Plt Count 116 L (150-450) k/uL Sodium (137-145) mmol/L Glucose (74-99) mg/dL Total Bilirubin (0.2-1.3) mg/dL AST (17-59) U/L ALT (21-72) U/L Alkaline Phosphatase (38-126) U/L Total Protein (6.3-8.2) g/dL Albumin (3.5-5.0) g/dL Albumin (PEP) 2.13 L (3.80-4.90) g/dL Ygahm-4-Mlctpryjc 0.41 L (0.60-1.00) g/dL Beta Globulins 0.52 L (0.60-1.30) g/dL Anti-Mitochondrial Ab 29.4 H (<=20) UNITS Anti-Smooth Muscle Ab 25 H (<20) UNITS 08/08/18 Range/Units 08:18 RDW (11.5-15.5) % Plt Count (150-450) k/uL Sodium 135 L (137-145) mmol/L Glucose 132 H (74-99) mg/dL Total Bilirubin 2.9 H (0.2-1.3) mg/dL AST 345 H (17-59) U/L ALT 197 H (21-72) U/L Alkaline Phosphatase 415 H (38-126) U/L Total Protein 5.1 L (6.3-8.2) g/dL Albumin 2.5 L (3.5-5.0) g/dL Albumin (PEP) (3.80-4.90) g/dL Zfyqp-8-Nljklunij (0.60-1.00) g/dL Beta Globulins (0.60-1.30) g/dL Anti-Mitochondrial Ab (<=20) UNITS Anti-Smooth Muscle Ab (<20) UNITS Assessment and Plan (1) Hyperbilirubinemia Current Visit: Yes Status: Acute Code(s): E80.6 - OTHER DISORDERS OF BILIRUBIN METABOLISM SNOMED Code(s): 62889785 (2) Transaminitis Current Visit: Yes Status: Acute Code(s): R74.0 - NONSPEC ELEV OF LEVELS OF TRANSAMNS & LACTIC ACID DEHYDRGNSE SNOMED Code(s): 606155845 (3) GERD (gastroesophageal reflux disease) Current Visit: Yes Status: Acute Code(s): K21.9 - GASTRO-ESOPHAGEAL REFLUX DISEASE WITHOUT ESOPHAGITIS SNOMED Code(s): 762745321 (4) Dysphagia Current Visit: No Status: Acute Code(s): R13.10 - DYSPHAGIA, UNSPECIFIED SNOMED Code(s): 36118810 (5) Transient cerebral ischemia Current Visit: No Status: Acute Code(s): G45.9 - TRANSIENT CEREBRAL ISCHEMIC ATTACK, UNSPECIFIED SNOMED Code(s): 029212186 <Miranda Fierro - Last Filed: 08/08/18 17:24> Objective - Vital Signs Vital signs: Vital Signs Temp 97.9 F 08/08/18 12:28 Pulse 84 08/08/18 12:28 Resp 18 08/08/18 12:28 BP 89/41 08/08/18 12:28 Pulse Ox 96 08/08/18 12:28 Intake & Output 08/07/18 08/08/18 08/08/18 18:59 06:59 18:59 Intake Total 400 840 Output Total 300 50 750 Balance 100 790 -750 Weight 95.68 kg 95.68 kg Intake: IV 150 Intake, IV Titration 250 Amount Sodium Chloride 0.9% 250 250 ml @ 999 mls/hr IV .Q16M ONE Rx#:[id number] Oral 840 Output: Urine 300 50 750 Other: Voiding Method Urinal Urinal Urinal # Voids 1 - Labs CBC & Chem 7: 08/08/18 08:18 08/08/18 08:18 Labs: Abnormal Lab Results - Last 24 Hours (Table) 08/06/18 08/08/18 08/08/18 Range/Units 07:57 08:18 08:18 RDW 16.1 H (11.5-15.5) % Plt Count 116 L (150-450) k/uL Sodium 135 L (137-145) mmol/L Glucose 132 H (74-99) mg/dL Total Bilirubin 2.9 H (0.2-1.3) mg/dL AST 345 H (17-59) U/L ALT 197 H (21-72) U/L Alkaline Phosphatase 415 H (38-126) U/L Total Protein 5.1 L (6.3-8.2) g/dL Albumin 2.5 L (3.5-5.0) g/dL Albumin (PEP) 2.13 L (3.80-4.90) g/dL Kmcws-0-Nzarrttue 0.41 L (0.60-1.00) g/dL Beta Globulins 0.52 L (0.60-1.30) g/dL Assessment and Plan Plan: Patient seen and evaluated. Primary care attending is now transferring patient to [facility] secondary to underlying uncontrolled hypotension. Patient reports tolerating diet otherwise.
[2018-08-08 12:40] VITALS: BP 89/41
[2018-08-08 18:11] VITALS: PULSE 73
--- NOTE | 2018-08-08 21:41 | PN ---
PROGRESS NOTE SUBJECTIVE: This is a 78-year-old white male status post esophageal stricture dilation one day ago. States his swallowing started to get worse again today. Feels weak, lethargic, hypotensive. I took him off his Lasix, took him off his arthritis medicine due to elevated liver enzymes. 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 He has dysphagia secondary to right carotid endarterectomy, which is when it started. He has diabetes mellitus, type 2, GERD, coronary artery disease with stent. I discussed case with [facility], who is going to accept him on transfer. Family agrees to go to work on causes of swallowing difficulty as well as cirrhosis of the liver, hypotension and third spacing of fluids. MMODL / IJN: [id number] /
== END 2018-08-08 21:45 | disposition short-term general hospital (02) | DRG 442 ==
LOC: 3NMEDONC 14:17 → 3SCARD 23:12 → 3NMEDONC 23:12
PROVIDERS: ADMIT Family Medicine; ATTEND Family Medicine
PROC: 0DB98ZX Excision of Duodenum, Via Natural or Artificial Opening Endoscopic, Diagnostic (ICD-10-PCS; 2018-08-07)
PROC: 0DB78ZX Excision of Stomach, Pylorus, Via Natural or Artificial Opening Endoscopic, Diagnostic (ICD-10-PCS; 2018-08-07)
PROC: 0D748ZZ Dilation of Esophagogastric Junction, Via Natural or Artificial Opening Endoscopic (ICD-10-PCS; principal; 2018-08-07 07:30)
DX: K75.4 Autoimmune hepatitis (principal); R18.8 Other ascites; E44.1 Mild protein-calorie malnutrition; K22.10 Ulcer of esophagus without bleeding; R64 Cachexia; I50.30 Unspecified diastolic (congestive) heart failure; K76.6 Portal hypertension; E11.40 Type 2 diabetes mellitus with diabetic neuropathy, unspecified; E88.09 Other disorders of plasma-protein metabolism, not elsewhere classified; I11.0 Hypertensive heart disease with heart failure; K22.2 Esophageal obstruction; K74.60 Unspecified cirrhosis of liver; I35.0 Nonrheumatic aortic (valve) stenosis; K22.8 Other specified diseases of esophagus; K22.4 Dyskinesia of esophagus; I95.1 Orthostatic hypotension; I25.10 Atherosclerotic heart disease of native coronary artery without angina pectoris; N40.0 Benign prostatic hyperplasia without lower urinary tract symptoms; E78.5 Hyperlipidemia, unspecified; K44.9 Diaphragmatic hernia without obstruction or gangrene; F17.201 Nicotine dependence, unspecified, in remission; I25.2 Old myocardial infarction; M19.90 Unspecified osteoarthritis, unspecified site; Z68.27 Body mass index [BMI] 27.0-27.9, adult; Z79.02 Long term (current) use of antithrombotics/antiplatelets; Z79.84 Long term (current) use of oral hypoglycemic drugs; Z79.1 Long term (current) use of non-steroidal anti-inflammatories (NSAID); Z79.899 Other long term (current) drug therapy; Z95.5 Presence of coronary angioplasty implant and graft; Z86.73 Personal history of transient ischemic attack (TIA), and cerebral infarction without residual deficits; Z86.79 Personal history of other diseases of the circulatory system; Z90.49 Acquired absence of other specified parts of digestive tract; Z98.42 Cataract extraction status, left eye; Z87.81 Personal history of (healed) traumatic fracture; Z87.19 Personal history of other diseases of the digestive system; Z98.41 Cataract extraction status, right eye; Z96.1 Presence of intraocular lens; Z91.018 Allergy to other foods; Z80.8 Family history of malignant neoplasm of other organs or systems; Z82.49 Family history of ischemic heart disease and other diseases of the circulatory system; Z82.3 Family history of stroke; Z83.2 Family history of diseases of the blood and blood-forming organs and certain disorders involving the immune mechanism
CPT/HCPCS: 43249; 71275; 74181; 76705; 80053; 81001; 82103; 82105; 82248; 82390; 82728; 83516; 83540; 83550; 83880; 84165; 84484; 85025; 85379; 85610; 86038; 86376; 93306; 93308

== ENCOUNTER → 2019-03-11 | Outpatient (CLI) | payer MEDICARE, OTHER ==
--- NOTE | 2019-03-11 14:56 | XR ---
EXAMINATION TYPE: XR foot complete LT DATE OF EXAM: 03/11/2019 COMPARISON: None HISTORY: Trauma backboard on foot one week prior TECHNIQUE: Three-view left foot FINDINGS: Plantar and Achilles tendon calcaneal heel spurs are present. Note is made of a spur from t he posterior fibula There is prominent soft tissue swelling over the dorsum of foot. No acute displaced fractures are elijah dent. IMPRESSION: 1. No acute osseous abnormality. 2. Prominent soft tissue swelling dorsum foot
--- NOTE | 2019-03-11 14:58 | XR ---
EXAMINATION TYPE: XR ankle complete LT DATE OF EXAM: 03/11/2019 COMPARISON: None HISTORY: Dropped board on foot TECHNIQUE: Three-view left ankle FINDINGS: Diffuse soft tissue swelling is present. The ankle mortise appears intact. Calcaneal heel s purs are present. IMPRESSION: 1. No acute osseous abnormality left ankle. 2. Mild soft tissue swelling diffusely
== END | disposition home or self-care (01) ==
LOC: RADXRMAIN 10:53
PROVIDERS: ATTEND Family Medicine
DX: M79.89 Other specified soft tissue disorders (principal)

== ENCOUNTER → 2019-08-21 | Outpatient (CLI) | payer MEDICARE, OTHER ==
[2019-08-21 17:18] LABS: Chol/HDL Ratio 2.88; LDL Cholesterol,Calculated 66.8 mg/dL (0.0-131.0); VLDL Calculation 12.2 mg/dL (5.00-40.00)
== END | disposition home or self-care (01) ==
LOC: LABWHC1 09:44
PROVIDERS: ATTEND Internal Medicine Interventional Cardiology
DX: E78.2 Mixed hyperlipidemia (principal)
CPT/HCPCS: 36415; 80061; 84450; 84460

== ENCOUNTER → 2019-09-08 | Day surgery (SDC) | payer MEDICARE, OTHER ==
[2019-09-03 15:34] VITALS: BMI 25.0
[~2019-09-08] MED LIST: ALPRAZolam 0.25 MG TAB PO PRN; ALPRAZolam 0.5 MG TAB PO PRN; ASPIRIN 325 MG TAB PO ONE; ATORVASTATIN 80 MG TAB PO ONE; ATORVASTATIN 80 MG TAB PO SCH; CLOPIDOGREL 75 MG TAB PO SCH; HEPARIN SODIUM 1,000 UN/ML (10ML VL) ONE; IOPAMIDOL-370 125ML BTL INJ ONE; LIDOCAINE 1% INJ 10MG/ML (20 ML MDV) ONE; LIDOCAINE 1% INJ 10MG/ML (20 ML MDV) SQ ONE; MIDAZOLAM 2 MG/2 ML VIAL IV ONE; NITROGLYCERIN SL TABS 0.4 MG TAB SUBLINGUAL PRN; RX INFO: IV CONTRAST WAS GIVEN 1 EACH MISC MISCELLANE PRN; SODIUM CHLORIDE 0.9% 1,000 ML IV ONE; SODIUM CHLORIDE 0.9% 1,000 ML IV SCH; SODIUM CHLORIDE 0.9% 1,000 ML in EMPTY BAG 1 BAG IV ONE; TAMSULOSIN 0.4 MG CAP.ER.24H PO SCH; VERAPAMIL 2.5 MG/ML 2 ML AMP ONE; VERAPAMIL SYRINGE (5 MG/10 ML) INTRAARTER ONE; fentaNYL (PF) 50 MCG/ML 2 ML AMP IV ONE; fentaNYL (PF) 50 MCG/ML 2 ML AMP ONE
[2019-09-08 06:26] LABS: Glucose,Whole Blood 115 mg/dL (75-99)
[2019-09-08 06:35] LABS: Basophils % (A) 1 %; Eosinophils # (A) 0.3 k/uL (0-0.7); Eosinophils % (A) 4 %; HCT 46.8 % (39.0-53.0); HGB 15.3 gm/dL (13.0-17.5); Lymphocytes # (A) 1.4 k/uL (1.0-4.8); Lymphocytes % (A) 20 %; MCH 29.3 pg (25.0-35.0); MCHC 32.6 g/dL (31.0-37.0); MCV 89.8 fL (80.0-100.0); Monocytes # (A) 0.5 k/uL (0-1.0); Monocytes % (A) 7 %; Neutrophils # (A) 4.7 k/uL (1.3-7.7); Neutrophils % (A) 66 %; Platelet Count 160 k/uL (150-450); RBC 5.21 m/uL (4.30-5.90); RDW 14.2 % (11.5-15.5); WBC 7.1 k/uL (3.8-10.6)
[2019-09-08 06:37] VITALS: TEMP 98.2
[2019-09-08 06:54] LABS: Calcium 9.5 mg/dL (8.4-10.2)
[2019-09-08] MEDS: BENZOCAINE SPRAY 1 CAN MUCOUS MEM ONE ×2 (07:17→07:25)
[2019-09-08 08:27] VITALS: RESP 12
--- NOTE | 2019-09-08 08:27 | ECHOT ---
TRANSESOPHAGEAL ECHOCARDIOGRAM INDICATION: Evaluation of aortic valve. PROCEDURE: After explaining the procedure to the patient, its risks and the complications, his blood pressure, heart rate, O2 saturation was monitored. The throat was sprayed with Cetacaine. He received 2 mg intravenous Versed, 50 mcg intravenous fentanyl. The probe was introduced in the esophagus without difficulties. Images were obtained from that. The probe was removed, there was no immediate complication. FINDINGS: Left atrial size is normal. Left ventricular size and systolic function normal. The aortic valve is a tricuspid valve with severe fibrocalcific changes with reduced opening. By planimetry, the valve area is around 1 cm2. The mitral valve revealed mild calcification. Tricuspid valve is normal. No pericardial effusion was noted. The descending thoracic aorta revealed mild atherosclerotic changes. Contrast bubble study revealed no evidence of shunting across the interatrial septum. Doppler pulse wave and color Doppler obtained and revealed moderate aortic with mild to moderate mitral and mild tricuspid regurgitation. There was a question of a patent foramen ovale, although not well visualized. By Doppler, the peak gradient across the aortic valve was 60 mmHg with a mean of 36 mmHg, consistent with severe aortic stenosis. CONCLUSION: 1. Normal left ventricular size and systolic function. 2. 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 3. Mitral anulus calcification with mild to moderate mitral regurgitation. 4. Mild tricuspid regurgitation. 5. Questionable patent foramen ovale with no evidence of [id number]-ef-awex shunting by contrast bubble study. 6. Mild atherosclerotic changes of the descending thoracic aorta. 7. No pericardial effusion. MMODL / IJN: [id number] /
[2019-09-08 08:34] LABS: O2 Sat Blood Gas 95.5 %
[2019-09-08 08:36] LABS: O2 Sat Blood Gas 75.9 %
[2019-09-08 08:38] LABS: O2 Sat Blood Gas 76.7 %
--- NOTE | 2019-09-08 09:24 | CC ---
CARDIAC CATHETERIZATION REPORT Mr. Barroso is a 79-year-old male with known history of hypertension, hyperlipidemia, diabetes mellitus, history of coronary artery disease, status post stenting of the right coronary artery in 2000, history of aortic stenosis who was found to have progression of his aortic stenosis. In view of that, recommendation was made regarding cardiac catheterization. The procedure as well as the risks and the complications were discussed with the patient who is in full understanding and agreement. PROCEDURE: Patient was brought to circus laborer in a fasting semi-sedated state after receiving fentanyl and Benadryl and after achieving moderate conscious sedated state. Using Xylocaine anesthesia in the Seldinger technique, a 6-Cameroonian sheath was introduced in the right radial artery. Subsequently, using a guidewire exchange technique, the intravenous sheath in the basilic vein was exchanged to a 6-Cameroonian sheath. Right heart catheterization was performed using [place]-Derrick catheter. Multiple samples and pressures were calculated. Following that selective right and left coronary angiography performed using a 5-Cameroonian 3.5 bend right and left Rayna catheter. Multiple views of the coronary artery including hemiaxial views were obtained. The right Rayna catheter was used to cross the aortic valve and pressures were calculated. Following that, catheter and sheath were removed. Hemostasis was obtained with deployment of a TR band. There was no immediate complication. Patient was returned to his room in stable condition. Of note, the patient received 4500 units of intravenous heparin as well as intra-arterial verapamil. FINDINGS: HEMODYNAMICS: Pulmonary saturation is 77%, right atrial saturation is a 76%, femoral artery saturation 96%. Cardiac output by Jacquelyn 6.6 L/minute. Pulmonary artery systolic pressure of 24 with a diastolic of 8 and a mean of 12 mmHg. Pulmonary capillary wedge pressure A-wave of 18, V-wave of 12 with a mean of 10 mmHg. Right ventricle systolic pressure of 24 with an end-diastolic of 3 mmHg. Right atrium A-wave of 6, V-wave of 7 with a mean of 4 mmHg. Left ventricular systolic pressure of 181 mmHg with an ascending aortic pressure of 140 mmHg with a peak gradient of 41 mmHg. Left ventricular end- diastolic pressure of 12 mmHg. The valve area by Hakki formula is 1.0 centimeter square. FLUOROSCOPY: There is severe calcification involving all the coronary arteries. LEFT MAIN: This is a large-sized vessel bifurcating left circumflex, left anterior descending artery. Left main coronary artery has no evidence of high-grade stenosis. LEFT ANTERIOR DESCENDING ARTERY: This is a large-sized vessel reaching toward the apex with a wraparound apex segment giving rise to a small sized diagonal branch proximally. At the takeoff of the diagonal branch, there is an 80% stenosis in the LAD in a calcified segment. LEFT CIRCUMFLEX: This is a nondominant vessel giving rise to 2 obtuse marginal branches. The first obtuse marginal is larger. The proximal segment of the obtuse marginal branch has a 90% stenosis. The proximal left circumflex has a 50% plaque. The circumflex after the takeoff of the first obtuse marginal branch has diffuse intimal disease up to 50% to 60%. RIGHT CORONARY ARTERY: This is a dominant vessel, heavily calcified. The stented segment in the distal right coronary artery is totally occluded. There is ipsilateral collaterals filling up the distal PDA and PLV that appears to be moderate in caliber. CONCLUSION: 1. Severe triple-vessel coronary artery disease. 2. Severe aortic stenosis. 3. Calcified coronary arteries. RECOMMENDATION: In view of finding anatomy, I recommend proceeding with evaluation for possible aortic valve replacement and coronary artery bypass grafting. Those findings and recommendation were discussed with the patient and his family and they are in full understanding and agreement. Duration of procedure is 26 minutes. MMODL / IJN: [id number] /
--- NOTE | 2019-09-08 09:24 | LTR ---
September 08, 2019 Re: Elliot Barroso Dear Dr. Stewart: I had the opportunity to perform cardiac catheterization and transesophageal echocardiogram on Mr. Barroso at [facility] on the 08 of September and a full copy of the procedure note will be forwarded to you. In brief, he was found to have a severe triple-vessel coronary artery disease with severe aortic stenosis and based on those findings, I recommend proceeding with evaluation for possible aortic valve replacement and coronary artery bypass grafting. Thank you again for allowing me the opportunity to participate in his care. Please feel free to call for any questions. Sincerely yours, MD MAGGY IbanezL / MACHELLEN: [id number] /
[2019-09-08 14:38] VITALS: BP 152/68; PULSE 63
== END | disposition home or self-care (01) ==
LOC: CATHCVL 05:56
PROVIDERS: ATTEND Internal Medicine Interventional Cardiology
DX: I08.3 Combined rheumatic disorders of mitral, aortic and tricuspid valves (principal); I70.0 Atherosclerosis of aorta; I25.10 Atherosclerotic heart disease of native coronary artery without angina pectoris; I25.84 Coronary atherosclerosis due to calcified coronary lesion; I25.82 Chronic total occlusion of coronary artery; I10 Essential (primary) hypertension; Z72.0 Tobacco use; E78.2 Mixed hyperlipidemia; E78.00 Pure hypercholesterolemia, unspecified; E11.51 Type 2 diabetes mellitus with diabetic peripheral angiopathy without gangrene; Z79.84 Long term (current) use of oral hypoglycemic drugs; Z79.02 Long term (current) use of antithrombotics/antiplatelets; Z79.82 Long term (current) use of aspirin; Z79.899 Other long term (current) drug therapy
CPT/HCPCS: 93312; 93320; 93325; 93460; 80048; 85018; 82810; 85025; C1769 ×2; C1751; C1894; J2250; J2001; J3010; J1644; Q9967

== ENCOUNTER → 2019-10-05 | Outpatient (CLI) | payer MEDICARE, OTHER | END | disposition home or self-care (01) | CPT/HCPCS: 36415; 80051; 82565; 84520; 85027 ==

== ENCOUNTER 2019-10-14 06:01 | Day surgery (SDC) | payer MEDICARE, OTHER ==
[~2019-10-14 06:01] MED LIST changes: -ASPIRIN 325 MG TAB PO ONE; +ASPIRIN 325 MG TAB PO STA; -ATORVASTATIN 80 MG TAB PO ONE; -ATORVASTATIN 80 MG TAB PO SCH; +ATORVASTATIN 80 MG TAB PO STA; -CLOPIDOGREL 75 MG TAB PO SCH; -HEPARIN SODIUM 1,000 UN/ML (10ML VL) ONE; -IOPAMIDOL-370 125ML BTL INJ ONE; -LIDOCAINE 1% INJ 10MG/ML (20 ML MDV) ONE; -LIDOCAINE 1% INJ 10MG/ML (20 ML MDV) SQ ONE; -MIDAZOLAM 2 MG/2 ML VIAL IV ONE; -RX INFO: IV CONTRAST WAS GIVEN 1 EACH MISC MISCELLANE PRN; -SODIUM CHLORIDE 0.9% 1,000 ML IV ONE; -SODIUM CHLORIDE 0.9% 1,000 ML IV SCH; -TAMSULOSIN 0.4 MG CAP.ER.24H PO SCH; -VERAPAMIL 2.5 MG/ML 2 ML AMP ONE; -VERAPAMIL SYRINGE (5 MG/10 ML) INTRAARTER ONE; -fentaNYL (PF) 50 MCG/ML 2 ML AMP IV ONE; -fentaNYL (PF) 50 MCG/ML 2 ML AMP ONE
[2019-10-14 06:33] LABS: Glucose,Whole Blood 115 mg/dL (75-99)
[2019-10-14] MEDS ORDERED: SODIUM CHLORIDE 0.9% 1,000 ML IV ONE (06:38)
[2019-10-14] MEDS ORDERED: LIDOCAINE 1% INJ 10MG/ML (20 ML MDV) ONE (07:36)
[2019-10-14] MEDS ORDERED: VERAPAMIL 2.5 MG/ML 2 ML AMP ONE (07:36)
[2019-10-14] MEDS ORDERED: fentaNYL (PF) 50 MCG/ML 2 ML AMP ONE (07:36)
[2019-10-14] MEDS ORDERED: LIDOCAINE 1% INJ 10MG/ML (20 ML MDV) SQ ONE (07:44)
[2019-10-14] MEDS ORDERED: fentaNYL (PF) 50 MCG/ML 2 ML AMP IV ONE (07:44)
[2019-10-14] MEDS ORDERED: VERAPAMIL SYRINGE (5 MG/10 ML) INTRAARTER ONE (07:49)
[2019-10-14] MEDS ORDERED: BIVALIRUDIN BOLUS 250 MG/50 ML IV ONE (07:53)
[2019-10-14] MEDS ORDERED: BIVALIRUDIN 250 MG in SODIUM CHLORIDE 0.9% 36.5 ML IV ONE (07:54)
[2019-10-14] MEDS ORDERED: NITROGLYCERIN 1000MCG/10ML SYRINGE INTRACORON ONE (07:54)
[2019-10-14] MEDS ORDERED: IOPAMIDOL-370 125ML BTL INJ ONE ×2 (08:11)
[2019-10-14] MEDS ORDERED: NITROGLYCERIN SL TABS 0.4 MG TAB SUBLINGUAL PRN (08:26)
[2019-10-14] MEDS ORDERED: RX INFO: IV CONTRAST WAS GIVEN 1 EACH MISC MISCELLANE PRN (08:26)
[2019-10-14] MEDS ORDERED: ATROPINE SULFATE 0.1 MG/ML 10ML SYRINGE IV PRN (08:26)
[2019-10-14] MEDS ORDERED: ZOLPIDEM 5 MG TAB PO PRN (08:26)
[2019-10-14] MEDS ORDERED: MAG HYDROX/AL HYDROX/SIMETH 30 ML CUP PO PRN (08:26)
[2019-10-14] MEDS ORDERED: SODIUM CHLORIDE 0.9% 1,000 ML IV SCH (08:30)
--- NOTE | 2019-10-14 08:42 | PTCA ---
PERCUTANEOUSTRANS CORORONARY ANGIOGRAPHY Mr. Barroso is a 79-year-old male with known history of hypertension, hyperlipidemia, diabetes mellitus, severe aortic stenosis and coronary artery disease who was evaluated for surgical aortic valve replacement and coronary bypass grafting and felt to be a high risk. In view of that, recommendation was made regarding angioplasty and subsequently TAVR. The recommendation as well risks and complications were discussed with the patient who is in full understanding and agreement. PROCEDURE: Patient was brought to the manager cath lab in a fasting semi-sedated state after receiving fentanyl and Benadryl and achieving moderate conscious sedated state. Using Xylocaine anesthesia in the Seldinger technique, a 6-Solomon Islander sheath was introduced in the right radial artery. Attempt to cannulate the left main using a 6-Sol[place] Islander FL3.5 guiding catheter were unsuccessful. That catheter was removed and a 6-Solomon Islander LBU 3.75 guiding catheter introduced in the system. After cannulating the left main, a 0.014 balanced medium weight J-wire was advanced across the lesion, positioned distally, then a 3.25 x 15 mm Xience Bing stent was deployed post dilated at 16 atmospheres. Following that, the balloon and the guidewire were withdrawn back in the guiding catheter. Images were obtained and repeated. Those images reveal stable successful stenting. At that point, the wire was introduced into the left circumflex first obtuse marginal branch and a 2.5 x 12 mm Xience Bing stent was advanced, positioned, post dilated at 16 atmospheres. After the last inflation, after appropriate wait, the balloon and the guidewire wire were withdrawn back in the guiding catheter. Images were obtained and repeated. Those images reveal stable successful stenting. At that point, the guiding catheter, the balloon and the guidewire were removed. The sheath was removed. Hemostasis was obtained with deployment of TR band. There was no immediate complication. Patient was returned to his room in stable condition. Of note, the patient received Angiomax per protocol. He had EKG changes with the inflation but no chest pain. RESULTS: 1. Successful stenting of the proximal left anterior descending artery with reduction of stenosis from 80% to 0%. 2. Successful stenting of the first obtuse marginal branch with reduction of stenosis from 80% to 0%. RECOMMENDATION: Patient will be continued on aspirin, Plavix, LUNA inhibitor, and statin. The importance of dual antiplatelet treatment were discussed with the patient and his family and they are in full understanding and agreement. The patient will be further evaluated down the road to undergo TAVR. Duration of procedure: 25 minutes. RONALDO / MACHELLEN: [id number] /
--- NOTE | 2019-10-14 08:48 | LTR ---
October 14, 2019 Re: Elliot Barroso Dear Dr. Stewart: I had the opportunity to perform coronary angioplasty and stenting on Mr. Barroso at [facility] on the 13 of October and a full copy of the procedure note will be forwarded to you. In brief, he underwent successful stenting of the LAD and the left circumflex. At this time, I would recommend to continue dual antiplatelet treatment and evaluate him for the need to undergo TAVR. I will keep you updated on his progress and thank you again for allowing me the opportunity to participate in his care. Please feel free to call for any questions. Sincerely yours, MD MAGGY IbanezL / MACHELLEN: [id number] /
[2019-10-14 11:07] VITALS: BMI 25.4
[2019-10-14 11:37] LABS: Glucose,Whole Blood 158 mg/dL (75-99)
[2019-10-14 16:41] LABS: Glucose,Whole Blood 98 mg/dL (75-99)
[2019-10-14] MEDS: METOPROLOL TARTRATE 25 MG TAB PO SCH (20:14)
[2019-10-14 20:34] LABS: Glucose,Whole Blood 132 mg/dL (75-99)
[2019-10-14] MEDS ORDERED: amLODIPine 5 MG TAB PO STA (23:53)
[2019-10-15 06:16] LABS: Glucose,Whole Blood 123 mg/dL (75-99)
[2019-10-15 06:50] LABS: African American GFR (CKD) >90 (>60 ml/min/1.73 sqM); Anion Gap 5 mmol/L; Blood Urea Nitrogen 17 mg/dL (9-20); Calcium 9.4 mg/dL (8.4-10.2); Carbon Dioxide 28 mmol/L (22-30); Chloride 105 mmol/L (98-107); Glucose 119 mg/dL (74-99); Non-African American GFR(CKD) 78 (>60 ml/min/1.73 sqM); Potassium 4.1 mmol/L (3.5-5.1); Sodium 138 mmol/L (137-145)
--- NOTE | 2019-10-15 08:07 | PN ---
PROGRESS NOTE Mr. Barroso is a 79-year-old male with known history of hypertension, hyperlipidemia, history of coronary artery disease as well as history of severe aortic stenosis who was found to have significant disease in the LAD and the first obtuse marginal branch with chronically occluded right coronary artery. He was evaluated for possible surgical aortic valve replacement and coronary bypass grafting and was felt to be a high risk. He was admitted yesterday and underwent stenting of the LAD and the obtuse marginal branch. He is doing well this morning. His breathing is stable. He denies any chest pain. No dizziness. No palpitation. No nausea. He continues to be on aspirin once a day, Lipitor 80 mg daily, Plavix 75 mg daily, metoprolol tartrate 25 mg twice a day, and Flomax 0.4 mg daily. PHYSICAL EXAMINATION: Blood pressure 138/60 with a heart rate in the 60s. LUNGS: Clear. HEART: Regular rate and rhythm, S1, S2. No S3 with systolic murmur, ejection type heard at the base, late peaking. No diastolic murmur, no rub. ABDOMEN: Soft, nontender. EXTREMITIES: No edema. Right radial pulse intact. EKG revealed no acute changes with sinus mechanism. LAB DATA: Potassium 4.1, BUN and creatinine 17 and 0.93. IMPRESSION: 1. Status post stenting of the LAD and the obtuse marginal branch. 2. Severe aortic stenosis. 3. Hypertension. 4. Hyperlipidemia. RECOMMENDATION: Patient will be discharged home today and followed in the office in one week. MMODL / IJN: [id number] /
[2019-10-15] MEDS ORDERED: CLOPIDOGREL 75 MG TAB PO SCH (09:00)
[2019-10-15] MEDS ORDERED: ASPIRIN 81 MG PO SCH (09:00)
[2019-10-15] MEDS ORDERED: TAMSULOSIN 0.4 MG CAP.ER.24H PO SCH (09:00)
[2019-10-15 09:09] VITALS: BP 145/75; PULSE 78; RESP 17; TEMP 97.7
[2019-10-15] MEDS: METOPROLOL TARTRATE 25 MG TAB PO SCH (10:20)
[2019-10-15] MEDS ORDERED: ATORVASTATIN 80 MG TAB PO SCH (21:00)
== END 2019-10-15 11:15 | disposition home or self-care (01) ==
LOC: CATHCVL 06:01 → 3SCARD 08:08 → CATHCVL 10-15 11:15
PROVIDERS: ATTEND Internal Medicine Interventional Cardiology
DX: I25.10 Atherosclerotic heart disease of native coronary artery without angina pectoris (principal); I25.82 Chronic total occlusion of coronary artery; I35.0 Nonrheumatic aortic (valve) stenosis; I10 Essential (primary) hypertension; E78.5 Hyperlipidemia, unspecified; E11.9 Type 2 diabetes mellitus without complications; Z79.82 Long term (current) use of aspirin; Z79.02 Long term (current) use of antithrombotics/antiplatelets; Z79.899 Other long term (current) drug therapy
CPT/HCPCS: 85347; 80048; C9600 ×2; C1769 ×2; C1887 ×2; C1874; C1894; J2001; J3010; J0583; Q9967

== ENCOUNTER → 2019-12-04 | Outpatient (CLI) | payer MEDICARE, OTHER ==
[2019-12-04 16:28] LABS: ALT 24 U/L (10-49); AST 26 U/L (14-35); African American GFR (CKD) 73.6 (60.0-200.0); Albumin/Globulin Ratio 2.26 (1.60-3.17); Alkaline Phosphatase 71 U/L (41-126); BUN/Creat Ratio 15.45 Ratio (12.00-20.00); Calcium 9.7 mg/dL (8.7-10.3); Carbon Dioxide 27.5 mmol/L (21.6-31.8); Chloride 106 mmol/L (96-109); Chol/HDL Ratio 2.76; Cholesterol 91 mg/dL (0-200); Globulin 1.9 g/dL (1.6-3.3); Glucose 124 mg/dL (70-110); Non-African American GFR(CKD) 63.5 (60.0-200.0); Potassium 4.1 mmol/L (3.5-5.5); Sodium 140 mmol/L (135-145); Total Protein 6.2 g/dL (6.2-8.2); Triglycerides <50.0 mg/dL (0.0-149.0)
== END | disposition home or self-care (01) ==
LOC: LABWHC1 09:12
PROVIDERS: ATTEND Internal Medicine Interventional Cardiology
DX: E78.2 Mixed hyperlipidemia (principal)
CPT/HCPCS: 36415; 80053; 80061

== ENCOUNTER → 2020-03-11 | Outpatient (CLI) | payer MEDICARE, OTHER ==
[2020-03-11 11:26] LABS: ALT 25 U/L (10-49); AST 25 U/L (14-35); African American GFR (CKD) 73.1 (60.0-200.0); Albumin/Globulin Ratio 2.05 (1.60-3.17); Alkaline Phosphatase 64 U/L (41-126); BUN/Creat Ratio 18.18 Ratio (12.00-20.00); Calcium 9.8 mg/dL (8.7-10.3); Carbon Dioxide 28.3 mmol/L (21.6-31.8); Chloride 105 mmol/L (96-109); Chol/HDL Ratio 2.83; Cholesterol 102 mg/dL (0-200); Globulin 2.1 g/dL (1.6-3.3); Glucose 120 mg/dL (70-110); Non-African American GFR(CKD) 63.1 (60.0-200.0); Potassium 4.8 mmol/L (3.5-5.5); Sodium 142 mmol/L (135-145); Total Bilirubin 0.9 mg/dL (0.2-1.2); Total Protein 6.4 g/dL (6.2-8.2); Triglycerides <50.0 mg/dL (0.0-149.0)
== END | disposition home or self-care (01) ==
LOC: LABWHC1 07:00
PROVIDERS: ATTEND Internal Medicine Interventional Cardiology
DX: E78.2 Mixed hyperlipidemia (principal)
CPT/HCPCS: 36415; 80053; 80061

== ENCOUNTER 2020-05-01 19:22 | Emergency (ER) | payer MEDICARE, OTHER ==
[2020-05-01 19:28] VITALS: BP 182/84; PULSE 80; RESP 18; TEMP 98.2
--- NOTE | 2020-05-01 20:31 | XR ---
EXAMINATION TYPE: XR Hip LT and AP Pelvis DATE OF EXAM: 05/01/2020 COMPARISON: NONE HISTORY: Left hip pain TECHNIQUE: 3 views FINDINGS: The pelvic ring is intact. Proximal femurs are intact. Sacroiliac joints appear intact. I s ee no fracture. IMPRESSION: No acute abnormality of the pelvis and left hip. No hip fracture.
--- NOTE | 2020-05-01 20:55 | ED ---
Lower Extremity Injury HPI - General Chief Complaint: Extremity Injury, Lower Stated Complaint: Fall Time Seen by Provider: 05/01/20 19:28 Source: patient Mode of arrival: wheelchair Limitations: no limitations - History of Present Illness Initial Comments: 80-year-old male presents to the emergency department this evening with complaints of left hip pain status post fall this afternoon. Patient states he developed a severe cramp in his left calf with pain that radiated up the left leg and into the hip which led to his fall. Patient denies head, neck or back injury, denies loss of consciousness. Patient states he was able to roll onto his stomach and crawl to the house nearby where his was able to assist him to standing. Patient has been ambulatory since the fall but continues to have persistent soreness. He denies any unilateral weakness, numbness, or tingling. Patient denies any recent rash, fever, chills, cough, shortness of breath, chest pain, abdominal pain, nausea, vomiting, diarrhea, constipation, back pain, numbness, tingling, dizziness, weakness, hematuria, dysuria, urinary urgency, urinary frequency, headache, visual changes, or any other complaints. - Related Data Home Medications Medication Instructions Recorded Confirmed Tamsulosin [Flomax] 0.4 mg PO DAILY 04/16/14 10/14/19 metFORMIN HCL [Glucophage] 500 mg PO BID 04/16/14 10/14/19 Clopidogrel Bisulfate [Plavix] 75 mg PO DAILY 06/17/18 10/14/19 Acetaminophen [Tylenol Arthritis] 650 - 1,300 mg PO DIRECTED PRN 09/03/19 10/14/19 Furosemide [Lasix] 20 mg PO DAILY 09/03/19 10/14/19 Aspirin [Adult Low Dose Aspirin EC] 81 mg PO DAILY 10/13/19 10/14/19 Metoprolol Tartrate [Lopressor] 25 mg PO BID 10/13/19 10/14/19 Previous Rx's Medication Instructions Recorded Atorvastatin [Lipitor] 80 mg PO HS #30 tab 04/17/18 Allergies Allergy/AdvReac Type Severity Reaction Status Date / Time walnut Allergy Anaphylaxis Verified 05/01/20 19:28 w/ raw walnuts Review of Systems ROS Statement: Those systems with pertinent positive or pertinent negative responses have been documented in the HPI. ROS Other: All systems not noted in ROS Statement are negative. Past Medical History Past Medical History: Coronary Artery Disease (CAD), CVA/TIA, Diabetes Mellitus, GERD/Reflux, Hearing Disorder / Deafness, Hyperlipidemia, Hypertension, Liver Disease, Myocardial Infarction (MA), Osteoarthritis (OA), Prostate Disorder Additional Past Medical History / Comment(s): 05/2018 acute renal failure-pre renal d/t diuretic. moderate-severe aortic stenosis, murmur, past hx dysphagia/prominent cricopharyngeal muscle/ presbyesophagus. 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 egd w/ bx. Past Anesthesia/Blood Transfusion Reactions: No Reported Reaction Date of Last Stent Placement:: 1999 Past Psychological History: No Psychological Hx Reported Smoking Status: Former smoker Past Alcohol Use History: Occasional Past Drug Use History: None Reported - Past Family History Father Family Medical History: Cancer Additional Family Medical History / Comment(s): Father had bone cancer. Mother Family Medical History: Coronary Artery Disease (CAD), CVA/TIA, Deep Vein Thrombosis (DVT) Additional Family Medical History / Comment(s): Mother had a CVA. General Exam Limitations: no limitations General appearance: alert, in no apparent distress, other (Well-developed, well- nourished male in no acute distress. Initial temperature 98.2F, pulse 80, respirations 18, blood pressure 182/84, pulse ox 98% on room air.) Neck exam: Present: normal inspection. Absent: tenderness, meningismus, lymphadenopathy Respiratory exam: Present: normal lung sounds bilaterally. Absent: respiratory distress, wheezes, rales, rhonchi, stridor Cardiovascular Exam: Present: regular rate, normal rhythm, normal heart sounds, other (Murmur present; patient aware and is being followed by cardiology). Absent: rubs, gallop, clicks GI/Abdominal exam: Present: soft, normal bowel sounds. Absent: distended, tenderness, guarding, rebound, rigid Back exam: Present: normal inspection. Absent: tenderness, muscle spasm Neurological exam: Present: alert, oriented X3, CN II-XII intact Psychiatric exam: Present: normal affect, normal mood Skin exam: Present: warm, dry, intact, normal color. Absent: rash Course Vital Signs 05/01/20 19:25 Temperature 98.2 F Pulse Rate 80 Respiratory 18 Rate Blood Pressure 182/84 O2 Sat by Pulse 98 Oximetry Medical Decision Making - Medical Decision Making 80-year-old male presents to the emergency department this evening with complaints of left hip pain status post fall today. States fall occurred as a result of a cramp that developed in his left calf and radiated up the left leg. No pain upon palpation of head, neck, and back. Denies loss of consciousness. X-ray of left hip and pelvis obtained; no acute findings. Able to ambulate without difficulty. Patient is to be discharged home and encouraged to follow- up with his primary care doctor for recheck within the next 1-2 days. Instructed to return to the emergency department with any loss of function to the left lower extremity, changes in lower extremity sensation, or loss of bowel or bladder control. Patient verbalizes understanding and agrees with this plan. - Radiology Data Radiology results: report reviewed, image reviewed X-ray of the left hip and pelvis were obtained. Pelvic ring, proximal femurs, and sacroiliac joints all appear intact. Impression per Dr. Barlow include no acute abnormality of the pelvis and left hip. No hip fracture. Disposition Clinical Impression: Left hip pain Disposition: HOME SELF-CARE Condition: Good Instructions (If sedation given, give patient instructions): Hip Pain (ED) Additional Instructions: Continue Tylenol for pain control. Follow-up through primary care physician for recheck in 1-2 days. Return to the emergency department immediately for any new, worsening, or concerning symptoms. Is patient prescribed a controlled substance at d/c from ED?: No Referrals: Blair Stewart MD [Primary Care Provider] - 1-2 days Time of Disposition: 20:55
== END 2020-05-01 21:11 | disposition home or self-care (01) ==
LOC: EC 19:22
DX: M25.552 Pain in left hip (principal); M79.662 Pain in left lower leg; E11.9 Type 2 diabetes mellitus without complications; I10 Essential (primary) hypertension; M19.90 Unspecified osteoarthritis, unspecified site; N40.0 Benign prostatic hyperplasia without lower urinary tract symptoms; I25.2 Old myocardial infarction; I25.10 Atherosclerotic heart disease of native coronary artery without angina pectoris; Z79.82 Long term (current) use of aspirin; Z79.84 Long term (current) use of oral hypoglycemic drugs; Z79.899 Other long term (current) drug therapy; Z87.891 Personal history of nicotine dependence; Z95.5 Presence of coronary angioplasty implant and graft; Z86.73 Personal history of transient ischemic attack (TIA), and cerebral infarction without residual deficits; Z98.42 Cataract extraction status, left eye; Z98.41 Cataract extraction status, right eye; Z96.1 Presence of intraocular lens; W18.30XA Fall on same level, unspecified, initial encounter; Z91.018 Allergy to other foods
CPT/HCPCS: 73502; 99283

== ENCOUNTER 2020-05-03 12:22 | Observation (INO) | payer MEDICARE, OTHER ==
[2020-05-03] MEDS ORDERED: ACETAMINOPHEN TAB 325 MG TAB PO PRN (15:01)
[2020-05-03] MEDS ORDERED: CYCLOBENZAPRINE 5 MG TAB PO STA (15:13)
--- NOTE | 2020-05-03 15:22 | US ---
EXAMINATION TYPE: US venous doppler duplex LE LT DATE OF EXAM: 05/03/2020 3:19 PM COMPARISON: NONE CLINICAL HISTORY: pain, r/o DVT. SIDE PERFORMED: Left TECHNIQUE: The lower extremity deep venous system is examined utilizing real time linear array sonog esdras with graded compression, doppler sonography and color-flow sonography. VESSELS IMAGED: External Iliac Vein (EIV) Common Femoral Vein Deep Femoral Vein Greater Saphenous Vein * Femoral Vein Popliteal Vein Small Saphenous Vein * Proximal Calf Veins (* superficial vessels) Left Leg: Negative for DVT IMPRESSION: No evidence for DVT at this time.
[2020-05-03] MEDS: HYDROcodone/APAP 5-325MG 1 EACH TAB PO PRN (15:33)
[2020-05-03] MEDS: SODIUM CHLORIDE 0.9% 1,000 ML IV SCH (15:37)
--- NOTE | 2020-05-03 16:46 | XR ---
EXAMINATION TYPE: XR knee complete LT DATE OF EXAM: 05/03/2020 COMPARISON: NONE HISTORY: Knee pain after a fall TECHNIQUE: 3 views FINDINGS: I see no fracture nor dislocation. There is no sign of joint effusion. Joint spaces are chelo rly normal. IMPRESSION: Negative left knee exam.
--- NOTE | 2020-05-03 16:48 | XR ---
EXAMINATION TYPE: XR lumbar spine 2 or 3V DATE OF EXAM: 05/03/2020 COMPARISON: NONE HISTORY: Pain after a fall TECHNIQUE: 3 views FINDINGS: There is multilevel lumbar spondylotic changes. There is disc space narrowing and spur form ation. There is no compression fracture. Posterior elements are intact. There is a very slight latera l subluxation of L3 to the right of L4. Sacroiliac joints are intact. IMPRESSION: Spondylotic changes. No fracture seen.
[2020-05-03] MEDS: metFORMIN 500 MG TAB PO SCH (17:09)
[2020-05-03] MEDS ORDERED: CYCLOBENZAPRINE 5 MG TAB PO ONE (17:15)
--- NOTE | 2020-05-03 19:56 | CT ---
EXAMINATION TYPE: CT lumbar spine wo con DATE OF EXAM: 05/03/2020 COMPARISON: None HISTORY: Leg pain and lumbar ddd. CT DLP: 1304.6 mGycm Automated exposure control for dose reduction was used. Images were obtained from the level of T12-S2 vertebra without contrast. Lumbar vertebra have normal alignment. There is narrowing of L3-4 disc space. There is slight narrowi ng of L1-2 and L2-3 disc spaces. There is spurring of the endplates. There is no lumbar compression f racture. There is osteopenia. There is mild multilevel lumbar hypertrophic facet arthropathy. There i s no lumbar paraspinal mass. There is L3 right-sided laminectomy defect. There is right side L4 anupama ectomy defect. Abdominal aorta is atheromatous. Sacroiliac joints appear intact. I see no focal bone destruction. There is posterior spurring of the endplates throughout the lumbar spine. There is devel opmentally adequate canal and no significant spinal stenosis. IMPRESSION: Multilevel spondylotic changes as above. Previous surgery. No fracture seen. No significant spinal st enosis.
[2020-05-03] MEDS: METOPROLOL TARTRATE 25 MG TAB PO SCH (20:14)
[2020-05-03] MEDS: HYDROmorphone 0.5 MG/0.5 ML SYRINGE IVP PRN (20:14)
[2020-05-03] MEDS ORDERED: ATORVASTATIN 80 MG TAB PO SCH (21:00)
[2020-05-04] MEDS: HYDROmorphone 0.5 MG/0.5 ML SYRINGE IVP PRN ×2 (00:57→10:37)
[2020-05-04] MEDS: SODIUM CHLORIDE 0.9% 1,000 ML IV SCH (01:00)
[2020-05-04 02:50] VITALS: RESP 16
[2020-05-04] MEDS: HYDROcodone/APAP 5-325MG 1 EACH TAB PO PRN (07:33)
[2020-05-04] MEDS: metFORMIN 500 MG TAB PO SCH (07:34)
[2020-05-04] MEDS: METOPROLOL TARTRATE 25 MG TAB PO SCH (07:34)
[2020-05-04] MEDS ORDERED: FUROSEMIDE 20 MG TAB PO SCH (09:00)
[2020-05-04] MEDS ORDERED: CLOPIDOGREL 75 MG TAB PO SCH (09:00)
[2020-05-04] MEDS ORDERED: ASPIRIN 81 MG PO SCH (09:00)
[2020-05-04] MEDS ORDERED: TAMSULOSIN 0.4 MG CAP.ER.24H PO SCH (09:00)
[2020-05-04] MEDS ORDERED: methocarbamoL 750 MG TAB PO PRN (10:52)
[2020-05-04] MEDS ORDERED: traMADol 50 MG TAB PO PRN (10:53)
--- NOTE | 2020-05-04 13:35 | P.CNOR ---
History of Present Illness - [facility] Consult date: 05/04/20 Consult reason: other History of present illness: Patient is an 80-year-old male who was a direct admit from his primary care doctor's office yesterday to [facility] due to significant cramping involving the left leg. I apparently the patient was adequately market last week when he was lifting something into his truck when his left leg cramped up causing significant pain and discomfort. Since that time he's had significant difficulties with ambulation and pain control. He was initially seen at [facility] last week, x-rays were taken of the hip which showed no acute abnormalities. After follow-up with his primary care doctor, the symptoms haven't gotten any better, he was notified to return to the hospital for further workup. X-rays were then done of the knee along with the lumbar spine. Orthopedic team was consult in for further evaluation. My attending and I both saw the patient on the observation unit this morning. He admits to a previous surgery of his lumbar spine this was back in the 90s. He's had no other surgery of the lumbar spine. He denies any previous surgery of the left lower extremity. Since being in the hospital the pain has improved with the pain medication he's been receiving. He has been utilizing a walker since being in the hospital. He has no significant lumbar pain at this time. Review of Systems Constitutional: Reports as per HPI Past Medical History Past Medical History: Coronary Artery Disease (CAD), CVA/TIA, Diabetes Mellitus, GERD/Reflux, Hearing Disorder / Deafness, Hyperlipidemia, Hypertension, Liver Disease, Myocardial Infarction (DC), Osteoarthritis (OA), Prostate Disorder Additional Past Medical History / Comment(s): 05/2018 acute renal failure-pre renal d/t diuretic. moderate-severe aortic stenosis, murmur, past hx dysphagia/prominent cricopharyngeal muscle/ presbyesophagus. 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 egd w/ bx. Past Anesthesia/Blood Transfusion Reactions: No Reported Reaction Date of Last Stent Placement:: 1999 Past Psychological History: No Psychological Hx Reported Additional Psychological History / Comment(s): Pt resides with his spouse. He uses cane at time when up "gets dizzy at times" He drives. He states he does not have a glucometer. Smoking Status: Unknown if ever smoked Past Alcohol Use History: Occasional Additional Past Alcohol Use History / Comment(s): Pt started smoking in 1958, quit in 1979, smoked 3 ppd Past Drug Use History: None Reported - Past Family History Father Family Medical History: Cancer Additional Family Medical History / Comment(s): Father had bone cancer. Mother Family Medical History: Coronary Artery Disease (CAD), CVA/TIA, Deep Vein Thrombosis (DVT) Additional Family Medical History / Comment(s): Mother had a CVA. Medications and Allergies Home Medications Medication Instructions Recorded Confirmed Type Tamsulosin [Flomax] 0.4 mg PO DAILY 04/16/14 05/03/20 History metFORMIN HCL [Glucophage] 500 mg PO BID 04/16/14 05/03/20 History Atorvastatin [Lipitor] 80 mg PO HS #30 tab 04/17/18 05/03/20 Rx Clopidogrel Bisulfate [Plavix] 75 mg PO DAILY 06/17/18 05/03/20 History Acetaminophen [Tylenol Arthritis] 650 - 1,300 mg PO Q4H PRN 09/03/19 05/03/20 History Furosemide [Lasix] 20 mg PO DAILY 09/03/19 05/03/20 History Aspirin [Adult Low Dose Aspirin EC] 81 mg PO DAILY 10/13/19 05/03/20 History Metoprolol Tartrate [Lopressor] 25 mg PO BID 10/13/19 05/03/20 History Methocarbamol [Robaxin-750] 750 mg PO TID PRN #30 tablet 05/04/20 Rx methylPREDNISolone Dose Pack 4 mg PO DIRECTED #21 package 05/04/20 Rx [Medrol Dose Pack] traMADol HCl [Ultram] 50 mg PO Q6H PRN #28 tab 05/04/20 Rx Allergies Allergy/AdvReac Type Severity Reaction Status Date / Time walnut Allergy Anaphylaxis Verified 05/03/20 14:30 w/ raw walnuts Physical Examination General orthopedic exam: Exam of the bilateral lower extremities demonstrates no obvious open lesions, sores, areas of soft tissue swelling or ecchymosis No significant malalignment of the lower extremities is appreciated Patient is able to flex with minimal difficulty at the hips and knees Plantar flexion, dorsiflexion, EHL, FHL are intact No strength deficits are appreciated of the bilateral lower extremities Distal neurovascular exam is intact Results - Diagnostic results Lumbar AP/lateral x-ray: report reviewed, image reviewed CT Scan - lumbar: report reviewed, image reviewed (X-ray images of the left knee and lumbar spine were reviewed, no acute fractures or dislocations appreciated. X-ray along with CT of the lumbar spine does demonstrate spondylolisthesis of L3-L4 with multiple levels of degenerative disc disease.) Assessment and Plan Assessment: L3-L4 spondylolisthesis History of previous lumbar spine surgery Other medical comorbidities Plan: Treatment options were discussed with the patient today at bedside. With the CT of the lumbar spine and physical exam findings we recommend an MRI of the lumbar spine for further evaluation. We will attempt to do this in the outpatient setting. For conservative management at this time, patient will be prescribed a Medrol Dosepak, Robaxin along with tramadol for pain. Recommend weightbearing as tolerated with a walker Recommend follow-up with Dr. [facility] the [facility] week Time with Patient: Less than 30
--- NOTE | 2020-05-04 15:47 | HP ---
HISTORY AND PHYSICAL This 80-year-old white male came in due to severe leg swelling and calf pain to rule out DVT of his left leg. Unable to ambulate after carrying a board and all of a sudden he could not move his legs. He called it like a severe spasm, but he is unable to walk and this has lasted for 2 days. Due to inability to walk, he was admitted to the hospital and and orthopedic consult was placed. They have been seeing him. PAST MEDICAL HISTORY: Acute renal failure, moderate to severe aortic stenosis, presbyesophagus, TIA, CVA, diabetes, type 2, carpal tunnel syndrome, bowel obstruction, hiatal hernia. SURGERIES: Catheterization with stent, orthopedic surgery, tonsillectomy, cholecystectomy, back surgery, appendectomy, adenoidectomy, heart stents x3, left ankle hardware, later removed, left elbow carpal release, right carotid endarterectomy, bilateral cataracts removed. FAMILY HISTORY: Father with cancer. MEDICATIONS: See list. ALLERGIES: WALNUTS. PHYSICAL EXAMINATION: Vital signs reviewed. CARDIOVASCULAR: S1, S2. LUNGS: Clear. GI: Soft. MUSCULOSKELETAL: He has left calf and lower thigh swelling, moderate in area. Unable to walk or put any pressure on his leg without a severe limp. Ultrasound was negative for DVT. ASSESSMENT: 1. Possible muscle injury, acute muscle injury versus rupture of ligament versus lumbar disc disease. 2. History of previous lumbar surgery. 3. History of aortic valve disease, heart disease. 4. Hypertension. He will be possibly discharged after being cleared by Orthopedic Surgery for discharge. MMODL / IJN: [id number] /
[2020-05-04 15:53] VITALS: BP 146/70; PULSE 81; TEMP 97.9
== END 2020-05-04 16:30 | disposition home or self-care (01) ==
LOC: 1SOBS 12:36
PROVIDERS: ADMIT Family Medicine; ATTEND Family Medicine
DX: M79.89 Other specified soft tissue disorders (principal); M79.662 Pain in left lower leg; R26.2 Difficulty in walking, not elsewhere classified; R25.2 Cramp and spasm; M43.16 Spondylolisthesis, lumbar region; M51.36 Other intervertebral disc degeneration, lumbar region; I35.0 Nonrheumatic aortic (valve) stenosis; I10 Essential (primary) hypertension; K22.8 Other specified diseases of esophagus; E11.9 Type 2 diabetes mellitus without complications; K44.9 Diaphragmatic hernia without obstruction or gangrene; I25.10 Atherosclerotic heart disease of native coronary artery without angina pectoris; K21.9 Gastro-esophageal reflux disease without esophagitis; H91.90 Unspecified hearing loss, unspecified ear; E78.5 Hyperlipidemia, unspecified; K76.9 Liver disease, unspecified; I25.2 Old myocardial infarction; M19.90 Unspecified osteoarthritis, unspecified site; N40.0 Benign prostatic hyperplasia without lower urinary tract symptoms; G56.03 Carpal tunnel syndrome, bilateral upper limbs; Z87.448 Personal history of other diseases of urinary system; Z86.73 Personal history of transient ischemic attack (TIA), and cerebral infarction without residual deficits; Z86.69 Personal history of other diseases of the nervous system and sense organs; Z87.19 Personal history of other diseases of the digestive system; Z95.5 Presence of coronary angioplasty implant and graft; Z98.890 Other specified postprocedural states; Z90.89 Acquired absence of other organs; Z90.49 Acquired absence of other specified parts of digestive tract; Z98.62 Peripheral vascular angioplasty status; Z98.41 Cataract extraction status, right eye; Z98.42 Cataract extraction status, left eye; Z91.018 Allergy to other foods; Z80.9 Family history of malignant neoplasm, unspecified; Z86.19 Personal history of other infectious and parasitic diseases; Z87.81 Personal history of (healed) traumatic fracture; Z96.1 Presence of intraocular lens; Z87.891 Personal history of nicotine dependence; Z79.899 Other long term (current) drug therapy; Z79.84 Long term (current) use of oral hypoglycemic drugs; Z79.02 Long term (current) use of antithrombotics/antiplatelets; Z79.82 Long term (current) use of aspirin; Z79.891 Long term (current) use of opiate analgesic; Z80.8 Family history of malignant neoplasm of other organs or systems; Z82.49 Family history of ischemic heart disease and other diseases of the circulatory system; Z82.3 Family history of stroke
CPT/HCPCS: 96361; 96374; 96376; 36410; 76937; 72100; 73562; 93971; 72131; G0378 ×2; G0379; J1170 ×2

== ENCOUNTER → 2020-08-08 | Outpatient (CLI) | payer MEDICARE, OTHER ==
[2020-08-08 15:41] LABS: African American GFR (CKD) 65.8 (60.0-200.0); Albumin 4.3 g/dL (3.80-4.90); Albumin/Globulin Ratio 2.26 (1.60-3.17); Anion Gap 5.9 mmol/L (4.00-12.00); BUN/Creat Ratio 13.33 Ratio (12.00-20.00); Calcium 9.7 mg/dL (8.7-10.3); Carbon Dioxide 29.1 mmol/L (21.6-31.8); Chol/HDL Ratio 2.86; Globulin 1.9 g/dL (1.6-3.3); LDL Cholesterol,Calculated 57.4 mg/dL (0.0-131.0); Non-African American GFR(CKD) 56.8 (60.0-200.0); Total Bilirubin 0.9 mg/dL (0.2-1.2); Total Protein 6.2 g/dL (6.2-8.2); VLDL Calculation 11.6 mg/dL (5.00-40.00)
== END | disposition home or self-care (01) ==
LOC: LABWHC1 08:57
PROVIDERS: ATTEND Nurse Practitioner Adult Health
DX: I10 Essential (primary) hypertension (principal); E78.2 Mixed hyperlipidemia
CPT/HCPCS: 36415; 80053; 80061

== ENCOUNTER → 2020-09-01 | Outpatient (CLI) | payer MEDICARE, OTHER ==
[2020-09-01 09:48] LABS: HCT 47.2 % (39.0-53.0); HGB 15.9 gm/dL (13.0-17.5); MCH 30.7 pg (25.0-35.0); MCHC 33.8 g/dL (31.0-37.0); MCV 90.8 fL (80.0-100.0); Mean Platelet Volume 7.6; Platelet Count 165 k/uL (150-450); RDW 13.8 % (11.5-15.5); WBC 8.1 k/uL (3.8-10.6)
[2020-09-01 09:52] LABS: Potassium 4.6 mmol/L (3.5-5.1)
== END | disposition home or self-care (01) ==
LOC: LABPAT 08:59
PROVIDERS: ATTEND Internal Medicine Interventional Cardiology
DX: Z01.818 Encounter for other preprocedural examination (principal); I25.10 Atherosclerotic heart disease of native coronary artery without angina pectoris
CPT/HCPCS: 36415; 80051; 82565; 84520; 85027

== ENCOUNTER 2020-09-08 06:05 | Day surgery (SDC) | payer MEDICARE, OTHER ==
[2020-09-05 14:53] VITALS: BMI 26.0
[2020-09-08] MEDS ORDERED: ATORVASTATIN 80 MG TAB PO STA (06:21)
[2020-09-08] MEDS ORDERED: SODIUM CHLORIDE 0.9% 1,000 ML in EMPTY BAG 1 BAG IV ONE (06:21)
[2020-09-08] MEDS ORDERED: ALPRAZolam 0.25 MG TAB PO PRN (06:21)
[2020-09-08] MEDS ORDERED: ASPIRIN 81 MG PO STA (06:21)
[2020-09-08] MEDS ORDERED: ALPRAZolam 0.5 MG TAB PO PRN (06:21)
[2020-09-08] MEDS ORDERED: NITROGLYCERIN SL TABS 0.4 MG TAB SUBLINGUAL PRN (06:21)
[2020-09-08] MEDS ORDERED: ASPIRIN 81 MG ONE (06:27)
[2020-09-08 06:52] VITALS: TEMP 98
[2020-09-08 06:52] LABS: Glucose,Whole Blood 120 mg/dL (75-99)
[2020-09-08] MEDS ORDERED: fentaNYL (PF) 50 MCG/ML 2 ML AMP ONE (07:08)
[2020-09-08] MEDS ORDERED: IV FLUID CONTINUATION 1,000 ML IV ONE (07:15)
[2020-09-08] MEDS ORDERED: MIDAZOLAM 2 MG/2 ML VIAL IV ONE (07:30)
[2020-09-08] MEDS ORDERED: BENZOCAINE SPRAY 1 CAN MUCOUS MEM ONE (07:30)
[2020-09-08] MEDS ORDERED: fentaNYL (PF) 50 MCG/ML 2 ML AMP IV ONE (07:30)
[2020-09-08] MEDS ORDERED: LIDOCAINE 1% INJ 10MG/ML (20 ML MDV) ONE (07:32)
[2020-09-08] MEDS ORDERED: VERAPAMIL 2.5 MG/ML 2 ML AMP ONE (07:32)
[2020-09-08] MEDS ORDERED: HEPARIN SODIUM 1,000 UN/ML (10ML VL) ONE (07:32)
[2020-09-08] MEDS ORDERED: LIDOCAINE 1% INJ 10MG/ML (20 ML MDV) SQ ONE (08:05)
[2020-09-08] MEDS ORDERED: VERAPAMIL SYRINGE (5 MG/10 ML) INTRAARTER ONE (08:08)
[2020-09-08] MEDS ORDERED: HEPARIN SODIUM 1,000 UN/ML (10ML VL) IV ONE (08:26)
--- NOTE | 2020-09-08 08:27 | ECHOT ---
TRANSESOPHAGEAL ECHOCARDIOGRAM INDICATION: Evaluation of aortic valve. PROCEDURE: After explaining the procedure to the patient, its risks and the complications, blood pressure, heart rate, O2 saturation were monitored. He received 2 mg intravenous Versed, 50 mcg intravenous fentanyl. The probe was introduced in the esophagus without difficulty. Images were obtained. Following that, the probe was removed. There was no immediate complication. FINDINGS: Left atrial size is mildly dilated. Left atrial appendage is normal. Left ventricular size and systolic function normal. The aortic valve is a tricuspid valve with fibrocalcific changes and reduced opening. By planimetry, the valve area is 0.8 centimeter square. Mitral anulus calcification was noted. Tricuspid valve is normal. Descending thoracic aorta appears to be normal. Contrast bubble study revealed no evidence of shunting across the interatrial septum. No pericardial effusion was noted. Doppler pulse wave and color Doppler obtained and revealed a mild mitral and tricuspid regurgitation. The peak gradient across the aortic valve was 87 mmHg with a mean of 43 mmHg. There was no shunting across the interatrial septum. CONCLUSION: 1. Mildly dilated left atrium and normal appearance of left atrial appendage. 2. Normal left ventricular size and systolic function. 3. Severe aortic stenosis with a mean gradient of 43 mmHg and mild aortic regurgitation. 4. Mild tricuspid regurgitation with mitral annulus calcification. 5. Normal appearance of the descending thoracic aorta. MMODL / IJN: [id number] /
[2020-09-08 08:38] LABS: O2 Sat Blood Gas 97.2 %
[2020-09-08] MEDS ORDERED: IOPAMIDOL-370 125ML BTL INJ ONE (08:38)
[2020-09-08 08:40] LABS: O2 Sat Blood Gas 71.5 %
[2020-09-08 08:42] LABS: O2 Sat Blood Gas 72.9 %
[2020-09-08] MEDS ORDERED: RX INFO: IV CONTRAST WAS GIVEN 1 EACH MISC MISCELLANE PRN (08:45)
[2020-09-08] MEDS ORDERED: SODIUM CHLORIDE 0.9% 1,000 ML IV SCH (08:45)
[2020-09-08] MEDS ORDERED: TAMSULOSIN 0.4 MG CAP.ER.24H PO SCH (09:00)
[2020-09-08] MEDS ORDERED: NON FORMULARY DRUG (Aspirin [Adult Low Dose Aspirin Ec] 81 MG Tablet.Dr) PO SCH (09:00)
[2020-09-08] MEDS ORDERED: CLOPIDOGREL 75 MG TAB PO SCH (09:00)
[2020-09-08] MEDS ORDERED: METOPROLOL TARTRATE 25 MG TAB PO SCH (09:00)
--- NOTE | 2020-09-08 10:18 | CC ---
CARDIAC CATHETERIZATION REPORT Mr. Barroso is an 80-year-old male with a known history of coronary artery disease, history of aortic valve disease who has been complaining of progressive symptoms of dyspnea on exertion. In view of that, recommendation was made regarding cardiac catheterization. The procedure as well as risks and the complications were discussed with the patient who is in full understanding and agreement. PROCEDURE: Patient was brought to cardiac cath technician in a fasting semi-sedated state after receiving fentanyl and Benadryl and achieving moderate conscious sedated state. Using Xylocaine anesthesia and Seldinger technique, a 6-Venezuelan sheath was introduced in the right radial artery. The intravenous catheter in the right basilic vein was exchanged to a 6- [place]an sheath. Following that, right heart catheterization was performed using Milmay- Derrick catheter. Multiple pressures and samples were obtained. Cardiac output by thermodilution was calculated. Following that, selective right and left coronary angiography was performed using 5-Venezuelan 3.5 bend right and left Rayna catheter. Multiple views of the coronary artery including hemiaxial views obtained, the right Rayna catheter was used to cross the aortic valve and left ventricular end-diastolic pressure was calculated. Following that catheter and sheath were removed. Hemostasis was obtained with deployment of TR band on the right radial artery and compression of the right basilic vein. Following that, the patient was returned to his room in stable condition. Of note, the patient received 5000 units of intravenous heparin as well as intra-arterial verapamil. There was no immediate complication. FINDINGS: Pulmonary artery saturation of 72%, right arterial saturation of 97%, right atrial saturation of 73%. The peak gradient across the aortic valve was 70 mmHg with a aortic valve area of 0.66 centimeter square. Left ventricular end-diastolic pressure was 10-14 mmHg. Pulmonary artery systolic pressure of 20 with an end-diastolic 4 and a mean of 10 mmHg. Pulmonary capillary wedge pressure, A-wave of 5, V-wave of 4 with a mean of 4 mmHg. Right ventricular systolic pressure of 18 with an end-diastolic of 2. Right atrium A-wave of 2, V-wave of 1 with a mean of 1 mmHg. FLUOROSCOPY: There was severe calcification involving the coronary arteries as well as the aortic valve. LEFT MAIN: This is a large size vessel, bifurcating into left circumflex, left anterior descending artery. Left main coronary artery has no evidence of high-grade stenosis. LEFT ANTERIOR DESCENDING ARTERY: This is a large-sized vessel reaching to the apex with a wraparound apex segment heavily calcified proximally. The stented segment and the proximal LAD is patent with no evidence of significant in-stent restenosis. There is intimal disease in a small to moderate diagonal branch. LEFT CIRCUMFLEX: This is a large nondominant vessel giving rise to 2 obtuse marginal branches. The ostium and proximal of the left circumflex has a 50% plaque. The stented segment in the first obtuse marginal branch is patent. The left circumflex beyond the first obtuse marginal branch is diffusely diseased with area of stenosis up to 50% to 60%. RIGHT CORONARY ARTERY: This vessel is totally occluded in mid segment at the stented segment with ipsilateral collaterals to the right PDA and PLV. LEFT VENTRICULOGRAM: Left ventriculogram was not performed. CONCLUSION: 1. Patent stent to the left anterior descending artery and to the left circumflex with chronic occluded right coronary artery. 2. Critical aortic stenosis. RECOMMENDATION: In view of finding anatomy, I recommend proceeding with evaluation for aortic valve replacement. The finding as well as recommendations were discussed with the patient and his family and they are in full understanding and agreement. Duration of sedation is 33 minutes. MMODL / IJN: [id number] /
--- NOTE | 2020-09-08 10:24 | LTR ---
September 08, 2020 Re: Elliot Barroso Dear Dr. Stewart: I had the opportunity to perform cardiac catheterization on Mr. Barroso at [facility] on the 08 of September and a full copy of the procedure note will be forwarded to you. In brief, he was found to have patent stent to the LAD and to the left circumflex with chronic occluded right coronary artery with severe critical aortic stenosis and based on those findings, I recommend proceeding with evaluation for transaortic valve replacement. I will keep you updated on his progress. Thank you again for allowing me the opportunity to participate in his care. Please feel free to call for any questions. Sincerely yours, Nicky Wiley MD [id number] / MACHELLEN: [id number] /
[2020-09-08 13:32] VITALS: RESP 16
[2020-09-08 13:35] VITALS: BP 145/71; PULSE 74
[2020-09-08] MEDS ORDERED: ATORVASTATIN 80 MG TAB PO SCH (21:00)
== END 2020-09-08 13:59 | disposition home or self-care (01) ==
LOC: CATHCVL 06:05
PROVIDERS: ATTEND Internal Medicine Interventional Cardiology
DX: I25.10 Atherosclerotic heart disease of native coronary artery without angina pectoris (principal); I25.84 Coronary atherosclerosis due to calcified coronary lesion; I70.0 Atherosclerosis of aorta; I10 Essential (primary) hypertension; E78.00 Pure hypercholesterolemia, unspecified; E11.51 Type 2 diabetes mellitus with diabetic peripheral angiopathy without gangrene; E78.2 Mixed hyperlipidemia; Z87.891 Personal history of nicotine dependence; Z95.5 Presence of coronary angioplasty implant and graft; Z98.42 Cataract extraction status, left eye; Z98.890 Other specified postprocedural states; Z90.89 Acquired absence of other organs; Z79.02 Long term (current) use of antithrombotics/antiplatelets; Z79.82 Long term (current) use of aspirin; Z79.899 Other long term (current) drug therapy; Z79.84 Long term (current) use of oral hypoglycemic drugs
CPT/HCPCS: 93312; 93320; 93325; 93460; 85018; 82810; C1769 ×2; C1751; C1894; J2250; J2001; J3010; J1644; Q9967; 93458

== ENCOUNTER → 2020-09-20 | Outpatient (CLI) | payer MEDICARE, OTHER ==
--- NOTE | 2020-09-22 13:55 | CT ---
EXAMINATION TYPE: CT TAVR Planning DATE OF EXAM: 09/20/2020 HISTORY: I35.1 Nonrheumatic aortic (valve) insufficiency, Stenosis. CT DLP: 1850.10mGycm Automated Exposure Control for Dose Reduction was Utilized. CONTRAST: CT scan of the abdomen and pelvis is performed with IV Contrast, patient injected with 125 mL of Isov ue 370. COMPARISON: CT chest dated 08/05/2018 TECHNIQUE: Helical imaging obtained through the chest during arterial phase dynamic administration of radiographic contrast intravenously, patient received 125 cc Isovue-370, automated exposure control for dose reduction, DLP 1850.10 mGy centimeters FINDINGS: See report from [employer] regarding preprocedural planning CHEST: Lower Neck and Thyroid: Unremarkable Lungs: There are some parenchymal bands present at the upper lobes, some mild interstitial changes an d pleural thickening in the lower lobes Central Airway: Patent Pleura: Mild posterior thickening at the costophrenic sulci Pulmonary Arteries: Nonenlarged Heart and Pericardium: Nonenlarged, no effusion calcified aortic valve leaflets are present Lymph Nodes: Shotty nodes are present Mediastinum & Esophagus: There may be minimal hiatal hernia ABDOMEN/PELVIS: Please note arterial phase of the imaging limits detailed evaluation of the solid abdominal organs. Liver: No evident Spleen: Enlarged Kidneys: Retroaortic left renal vein is present Adrenal Glands: No evident mass Pancreas: Unremarkable Gallbladder: Not seen Bowel and Mesentery: Diverticular change seen in the sigmoid colon. Lymph Nodes: No adenopathy Urinary Bladder: Thickened wall may be due to chronic outlet obstruction Pelvic Organs: Prostate is enlarged. Other: Degenerative disc changes are noted in the visualized spine, there is a spinal curvature. Other Lines/Tubes/Devices/Hardware: None IMPRESSION: Splenomegaly, coronary artery disease, findings consistent with patient's history, greenwood ry artery disease
== END | disposition home or self-care (01) ==
LOC: RADCTMAIN 09:36
PROVIDERS: ATTEND Thoracic Surgery (Cardiothoracic Vascular Surgery)
DX: R16.1 Splenomegaly, not elsewhere classified (principal); I25.10 Atherosclerotic heart disease of native coronary artery without angina pectoris
CPT/HCPCS: 71275; 74174; 82565; 84520

== ENCOUNTER → 2020-09-27 | Outpatient (CLI) | payer MEDICARE, OTHER | END | disposition home or self-care (01) | LOC: LABWHC1 09:54 | PROVIDERS: ATTEND Thoracic Surgery (Cardiothoracic Vascular Surgery) | DX: I35.1 Nonrheumatic aortic (valve) insufficiency (principal) | CPT/HCPCS: 36415; 93005; 94150 ==

== ENCOUNTER → 2020-10-21 | Outpatient (CLI) | payer MEDICARE, OTHER ==
[2020-10-21 10:16] LABS: Appearance,Urine Clear (Clear); Bilirubin,Urine Negative (Negative); Blood,Urine Negative (Negative); Color,Urine Yellow; Glucose,Urine (UA) Negative (Negative); Ketones,Urine Negative (Negative); Leukocyte Esterase,Urine Negative (Negative); Nitrite,Urine Negative (Negative); PH, Urine 6.5 (5.0-8.0); Protein,Urine Negative (Negative); Specific Gravity,Urine 1.022 (1.001-1.035)
[2020-10-21 14:36] LABS: Basophils # (A) 0.05 X 10*3/uL (0.00-0.10); Basophils % (A) 0.7 %; Eosinophils # (A) 0.41 X 10*3/uL (0.04-0.35); Eosinophils % (A) 5.8 %; HCT 45.7 % (39.6-50.0); HGB 14.7 g/dL (13.0-17.0); MCH 29.6 pg (27.0-32.0); MCHC 32.2 g/dL (32.0-37.0); Mean Platelet Volume 10.2 fL (9.5-12.2); Monocytes # (A) 0.74 X 10*3/uL (0.20-1.00); Monocytes % (A) 10.5 %; Neutrophils # (A) 4.65 X 10*3/uL (1.80-7.70); Neutrophils % (A) 65.7 %; Platelet Count 194 X 10*3/uL (140-440); RBC 4.97 X 10*6/uL (4.40-5.60); RDW 13.5 % (11.5-14.5); WBC 7.07 X 10*3/uL (4.50-10.00)
[2020-10-21 15:52] LABS: INR 0.94 (0.90-1.11); Partial Thromboplastin Time 26.7 sec (23.5-31.0); Prothrombin Time 10.3 sec (9.9-11.9)
[2020-10-21 17:58] LABS: African American GFR (CKD) 73.1 (60.0-200.0); Albumin 4.6 g/dL (3.80-4.90); Albumin/Globulin Ratio 2.42 (1.60-3.17); Anion Gap 8.2 mmol/L (4.00-12.00); BUN/Creat Ratio 12.73 Ratio (12.00-20.00); Bilirubin, Conjugated 0.4 mg/dL (0.20-0.40); Bilirubin,Unconjugated 0.5 mg/dL; Calcium 9.5 mg/dL (8.7-10.3); Carbon Dioxide 28.8 mmol/L (21.6-31.8); Chol/HDL Ratio 3.2; Globulin 1.9 g/dL (1.6-3.3); Magnesium 2.1 mg/dL (1.5-2.4); Non-African American GFR(CKD) 63.1 (60.0-200.0); Potassium 4.4 mmol/L (3.5-5.5); Total Bilirubin 0.9 mg/dL (0.3-1.2); Total Protein 6.5 g/dL (6.2-8.2)
[2020-10-21 20:06] LABS: Hemoglobin A1C 6.2 % (4.0-6.0)
== END | disposition home or self-care (01) ==
LOC: LABWHC1 08:52
PROVIDERS: ATTEND Surgery
DX: Z01.818 Encounter for other preprocedural examination (principal); E87.8 Other disorders of electrolyte and fluid balance, not elsewhere classified; E07.9 Disorder of thyroid, unspecified; E78.5 Hyperlipidemia, unspecified; N28.9 Disorder of kidney and ureter, unspecified; I35.0 Nonrheumatic aortic (valve) stenosis; E11.9 Type 2 diabetes mellitus without complications; R35.0 Frequency of micturition; R58 Hemorrhage, not elsewhere classified; Z79.899 Other long term (current) drug therapy
CPT/HCPCS: 36415; 80053; 80061; 81003; 82248; 83036; 83735; 83880; 84443; 85025; 85610; 85730; 87086

== ENCOUNTER → 2020-11-18 | Outpatient (CLI) | payer MEDICARE, OTHER ==
--- NOTE | 2020-11-18 11:22 | US ---
EXAMINATION TYPE: US venous doppler duplex LE LT DATE OF EXAM: 11/18/2020 10:55 AM COMPARISON: US CLINICAL HISTORY: I82.90 DVT LT LEG. SIDE PERFORMED: Left TECHNIQUE: The lower extremity deep venous system is examined utilizing real time linear array sonog esdras with graded compression, doppler sonography and color-flow sonography. VESSELS IMAGED: Common Femoral Vein Deep Femoral Vein Greater Saphenous Vein * Femoral Vein Popliteal Vein Small Saphenous Vein * Proximal Calf Veins (* superficial vessels) Left Leg: Negative for DVT IMPRESSION: No evidence for DVT at this time.
== END | disposition home or self-care (01) ==
LOC: RADUSWWP 10:52
PROVIDERS: ATTEND Podiatrist Foot & Ankle Surgery
DX: Z03.89 Encounter for observation for other suspected diseases and conditions ruled out (principal)

== ENCOUNTER → 2021-01-27 | Outpatient (CLI) | payer MEDICARE, OTHER ==
[2021-01-27 10:23] LABS: HGB 14.4 gm/dL (13.0-17.5); MCH 28.6 pg (25.0-35.0); MCHC 33.5 g/dL (31.0-37.0); MCV 85.3 fL (80.0-100.0); Mean Platelet Volume 7.6; Platelet Count 155 k/uL (150-450); RBC 5.04 m/uL (4.30-5.90); RDW 14.1 % (11.5-15.5); WBC 6.4 k/uL (3.8-10.6)
[2021-01-27 10:35] LABS: INR 0.9 (<1.2); Partial Thromboplastin Time 23.6 sec (22.0-30.0); Prothrombin Time 10.1 sec (9.0-12.0)
--- NOTE | 2021-01-27 10:36 | XR ---
EXAMINATION TYPE: XR chest 2V DATE OF EXAM: 01/27/2021 COMPARISON: 06/10/2019 HISTORY: Pre-PAVR TECHNIQUE: Frontal and lateral views of the chest are obtained. FINDINGS: Heart size is within normal limits. Atherosclerotic tortuous aorta. No focal consolidation , pneumothorax or pleural effusion. Biapical pleural/parenchymal thickening and/or scarring. Hyperaer ation lungs and flattening of the diaphragms suggestive of COPD. Degenerative changes of the thoracic spine. IMPRESSION: 1. COPD. 2. No acute pulmonary disease.
[2021-01-27 11:03] LABS: Albumin 3.8 g/dL (3.5-5.0); Calcium 9.8 mg/dL (8.4-10.2); Potassium 4.4 mmol/L (3.5-5.1); Total Bilirubin 0.4 mg/dL (0.2-1.3); Total Protein 6.2 g/dL (6.3-8.2)
== END | disposition home or self-care (01) ==
LOC: LABPAT 09:27
PROVIDERS: ATTEND Thoracic Surgery (Cardiothoracic Vascular Surgery)
DX: Z01.812 Encounter for preprocedural laboratory examination (principal); J44.9 Chronic obstructive pulmonary disease, unspecified; I35.0 Nonrheumatic aortic (valve) stenosis; I45.10 Unspecified right bundle-branch block; R94.31 Abnormal electrocardiogram [ECG] [EKG]
CPT/HCPCS: 36415; 71046; 80053; 85027; 85610; 85730; 93005

== ENCOUNTER 2021-02-01 05:54 | Inpatient (IN) | payer MEDICARE, OTHER ==
[~2021-02-01 05:54] MED LIST changes: -ALPRAZolam 0.25 MG TAB PO PRN; -ALPRAZolam 0.5 MG TAB PO PRN; +ASPIRIN 325 MG TAB PO ONE; -ASPIRIN 325 MG TAB PO STA; +ATORVASTATIN 10 MG TAB PO ONE; -ATORVASTATIN 80 MG TAB PO STA; +CARDIOPLEGIC SOLN (K+ 16 MEQ/L 1,000 ML with SODIUM BICARB (1 MEQ/ML) 20 ML, LIDOCAINE ... PERFUSION PRN; +CLEVIDIPINE BUTYRATE 25 MG in EMPTY BAG 1 BAG IV PRN; +CLOPIDOGREL 75 MG TAB PO ONE; +INSULIN REGULAR 100 UNIT in SODIUM CHLORIDE 0.9% 100 ML IV PRN; +METOPROLOL TARTRATE 25 MG TAB PO ONE; +MUPIROCIN 2% OINT 22 GM TUBE NASAL SCH; -NITROGLYCERIN SL TABS 0.4 MG TAB SUBLINGUAL PRN; +NITROGLYCERIN-D5W PMX 25 MG/250 ML BTL IV PRN; +PROTAMINE SULFATE 250 MG in EMPTY BAG 1 BAG IV PRN; -SODIUM CHLORIDE 0.9% 1,000 ML in EMPTY BAG 1 BAG IV ONE; +SODIUM CHLORIDE 0.9% 500 ML 500 ML INTRAARTER ONE; +SODIUM CHLORIDE 0.9% 500 ML 500 ML IV ONE; +TRANEXAMIC ACID 2,000 MG in SODIUM CHLORIDE 0.9% 80 ML IV PRN
[2021-02-01 06:30] LABS: Glucose,Whole Blood 122 mg/dL (75-99)
[2021-02-01 06:39] LABS: Basophils % (A) 1 %; Eosinophils # (A) 0.5 k/uL (0-0.7); Eosinophils % (A) 7 %; HCT 43.5 % (39.0-53.0); HGB 14.2 gm/dL (13.0-17.5); Lymphocytes # (A) 1.4 k/uL (1.0-4.8); Lymphocytes % (A) 19 %; MCH 27.9 pg (25.0-35.0); MCHC 32.7 g/dL (31.0-37.0); MCV 85.2 fL (80.0-100.0); Monocytes # (A) 0.5 k/uL (0-1.0); Monocytes % (A) 6 %; Neutrophils # (A) 4.8 k/uL (1.3-7.7); Neutrophils % (A) 65 %; Platelet Count 162 k/uL (150-450); RBC 5.11 m/uL (4.30-5.90); RDW 14.6 % (11.5-15.5); WBC 7.4 k/uL (3.8-10.6)
[2021-02-01] MEDS ORDERED: GLYCOPYRROLATE 0.2 MG/ML 2 ML VIAL ONE (07:46)
[2021-02-01] MEDS ORDERED: NITROGLYCERIN-D5W PMX 50 MG/250 ML BOTTLE IV ONE (07:46)
[2021-02-01] MEDS ORDERED: PROPOFOL 10 MG/ML 20 ML VIAL IV ONE (07:46)
[2021-02-01] MEDS ORDERED: NEOSTIGMINE 1 MG/ML 10 ML VIAL ONE (07:46)
[2021-02-01] MEDS ORDERED: fentaNYL (PF) 50 MCG/ML 2 ML AMP ONE (07:46)
[2021-02-01] MEDS ORDERED: MIDAZOLAM 2 MG/2 ML VIAL ONE (07:46)
[2021-02-01] MEDS ORDERED: ceFAZolin 1,000 MG VIAL ONE (07:46)
[2021-02-01] MEDS ORDERED: PROTAMINE SULFATE 10 MG/ML 5 ML VIAL IV ONE (07:46)
[2021-02-01] MEDS ORDERED: SUCCINYLCHOLINE CHLORIDE 100 MG/5 ML SYR IV ONE (07:46)
[2021-02-01] MEDS ORDERED: HEPARIN SODIUM,PORCINE 10,000 UNIT/ML 1 ML VIAL ONE (07:46)
[2021-02-01] MEDS ORDERED: SODIUM CHLORIDE 0.9% 100 ML BAG ONE (07:46)
[2021-02-01] MEDS ORDERED: LIDOCAINE 1% INJ 10MG/ML (20 ML MDV) ONE (07:46)
[2021-02-01] MEDS ORDERED: IOPAMIDOL-370 100ML BTL INJ ONE (09:19)
[2021-02-01] MEDS ORDERED: ONDANSETRON 4 MG/2 ML VIAL IVP PRN (09:56)
[2021-02-01] MEDS ORDERED: HYDROcodone/APAP 5-325MG 1 EACH TAB PO PRN (09:56)
[2021-02-01] MEDS ORDERED: IPRATROPIUM-ALBUTEROL 3 ML NEB INHALATION PRN (09:56)
[2021-02-01] MEDS ORDERED: ACETAMINOPHEN TAB 325 MG TAB PO PRN (09:56)
[2021-02-01] MEDS ORDERED: LACTATED RINGERS 1,000 ML IV SCH (09:56)
--- NOTE | 2021-02-01 09:57 | P.ANPRN ---
Procedure Note - Anesthesia - Invasive Line Left Arterial Line Date of Procedure: 02/01/21 Location of Patient: PreOp Preparation: Sterile Prep, Sterile Dressing Arterial Line Location: Radial Ultrasound Used: No Needle Guage: 20 Narrative: Informed consent obtained from the patient. Procedure was performed under complete aseptic precautions. The left wrist is slightly extended and placed on a roll of cloth. Radial artery palpated and appeared to have a intact collateral circulation. Front of the wrist was cleaned with ChloraPrep. It was draped and 2 mL of 1% lidocaine was infiltrated and ability into the front of the wrist. A 20-gauge two and half inch Arrow arterial catheter was inserted and a bright red blood/back was noticed. It was connected to the pressure monitoring line and the flashback was confirmed. The line was sutured into the skin. Tegaderm dressing was applied. Patient tolerated the procedure very well with no apparent complications. Right Central Line Time Out Performed: Yes Date of Procedure: 02/01/21 Location of Patient: PreOp Preparation: Sterile Prep, Sterile Dressing Ultrasound Used: Yes Purpose - Visualization and Identification of Vasculature: Yes Image Stored and Saved: Yes Narrative: Central line placement per sterile protocol utilized. Informed consent obtained. Central line placement per sterile protocol utilized. Right Internal jugular vein cannulated under aseptic precautions. 3cc 1% lidocaine infiltrated initially after cleaning with iodine based prep and draping. Ultrasound used to locate the vein and selginger technique used. Triple-lumen central line inserted and after the finding the needle with boat pilot needle/catheter. The line is dressed with biopatch and tegaderm. Patient tolerated the procedure well.
--- NOTE | 2021-02-01 10:00 | P.ANPRN ---
Procedure Note - Anesthesia - LAKESHA Intraop Pre Bypass LAKESHA Intraop - Anesthesia Indication: Guiding TAVR procedure Date of Procedure: 02/01/21 Pre-operative Diagnosis: Severe aortic valve stenosis Post-operative Diagnosis: Trans catheter aortic valve replacement Surgeon: Edil Humphries Left Ventricle: Ejection fraction 50% Ejection Fraction: Normal Regional Wall Motion Abnormalities: None Left Ventricle Hypertrophy: No R. Ventricle Function: Normal Aortic Valve: Aortic valve calcified. V max 4 m/s, peak gradient 64 mmHg and mean gradient of 37 mmHg. Aortic valve area 0.8 cm Anatomy: Trileaflet Aortic Stenosis: Severe Aortic Regurgitation: Mild Mitral Stenosis: None Mitral Regurgitation: Trace Tricuspid Stenosis: None Tricuspid Regurgitation: Trace Pulmonic Stenosis: None Pulmonic Regurgitation: None R. Atrial Dilation: No R. Atrial PFO: No L. Atrial Dilation: No Aorta: Grade 1-2 atheromatous plaques Aortic Dissection: No Aortic Calcification: Mild Plural Effusion: None - LAKESHA Intraop Post Bypass LAKESHA Intraop Post Bypass Procedure Performed: Transcatheter aortic valve replacement Ejection Fraction: Normal Regional Wall Motion Abnormalities: None R. Ventricle Function: Normal Aortic Valve: Prosthetic valve seen in aortic position. Appears to be seated well. There is a tiny paravalvular regurgitation at 1 o'clock position and short axis view probably at the level of the left coronary cusp. Mean gradient across the prostatic valve is 2 mmHg and peak gradient of 4mm of Hg. No apparent transvalvular regurgitation noted. Mitral Valve: Unchanged Tricuspid: Unchanged Pulmonic: Unchanged
--- NOTE | 2021-02-01 10:02 | P.OP ---
Date of Procedure: 02/01/21 Preoperative Diagnosis: Senile calcific aortic stenosis Postoperative Diagnosis: Same Procedure(s) Performed: Transcatheter aortic valve replacement with 29 mm core valve evolute pro plus via left transfemoral approach Implants: 29 mm core valve evolute pro plus Anesthesia: HECTORA Surgeon: Edil Humphries Engine Tester #1: Ronak Lieberman (Interventional cardiology) Engine Tester #2: Tj House Estimated Blood Loss (ml): 10 IV fluids (ml): 1,000 Urine output (ml): 200 Pathology: none sent Condition: stable Disposition: ICU Indications for Procedure: 80-year-old male with severe calcific aortic stenosis. He was seen in our valve clinic a couple of months ago at which time he had no symptoms. He has since developed shortness of breath. Elective Tavr was scheduled. Operative Findings: Final position of the valve was 3 on the right and 3 on the left. Excellent valve expansion was achieved with postdilatation. There was trivial paravalvular aortic insufficiency on final root injection. This was confirmed on LAKESHA. Completion angiography of the left iliofemoral system demonstrated no stenosis and no leak after Perclose of the 14-Bermudian sheath site. Description of Procedure: The patient was brought to the [facility] and placed supine on the table. Gen. anesthesia was induced. LAKESHA probe was placed. Anterior torso and bilateral groins were sterilely prepped and draped. After timeout the right subclavian vein was punctured with an 18-gauge needle and a guidewire threaded into the right atrium. Introducer and dilator were placed over the wire and through the introducer sheath Medtronic screw-in ventricular lead was manipulated into the apex of the right ventricle under fluoroscopic guidance. Pacing threshold was below 1 V. The lead was secured to the skin after removing the sheath with 2-0 silk sutures. I lateral femoral access was obtained by Dr. Lieberman using ultrasound and fluoroscopy. On the right along 6-Bermudian Bossman was placed up into the descending thoracic aorta. On the left 7-Bermudian sheath was placed and then a Perclose device was deployed. 8-Bermudian sheath was placed and the patient was systemically heparinized. A CTs were maintained greater than 250. A Lunderquist wire was placed on the left and the 8-Bermudian sheath was exchanged for a 14-Bermudian sheath. This proceeded without event. On the right a pigtail catheter was advanced into the noncoronary sinus of Valsalva and a root injection was performed. The valve was then crossed from the left side and a pigtail catheter positioned in the apex of the left ventricle. Transvalvular gradients were measured. Lunderquist wire was placed at the apex of the left ventricle. Predilatation of the aortic valve with a 22 Trew balloon was performed under rapid ventricular pacing. Following this the 14-Bermudian sheath was exchanged for the 29 core valve delivery system. The valve and then loaded on the back table. Germán delivery system was advanced over the Lunderquist wire and across the aortic valve. Was appropriately positioned and the valve was deployed under rapid ventricular pacing. Final deployment levels were 3 on the right and 3 on the left. The valve appeared underexpanded. Significant paravalvular leak noted on LAKESHA. It was decided to post-dilate with a 25 True balloon. Valve delivery system was removed under fluoroscopic guidance and the Lunderquist wire was left in the apex of the left ventricle. 14-B[place]udian sheath was replaced over the Lunderquist wire and through this the 25 True balloon was advanced across the core valve. Was positioned appropriately and dilatation performed under rapid ventricular pacing. Following this the balloon was removed and then the wire was pulled back. Echocardiography now demonstrated only a trivial paravalvular leak. The valve was well expanded and rectum nicely rounded. Heparin was not reversed with protamine. Valve delivery system was removed and good femoral hemostasis obtained on the left groin using the Perclose device. Femoral angiography demonstrated excellent result. Right femoral line was removed and hemostasis obtained with direct pressure. Patient was extubated and transferred to ICU in stable condition.
--- NOTE | 2021-02-01 10:19 | P.OP ---
Description of Procedure: Transcatheter Aortic Valve Replacement Operative report PROCEDURE PERFORMED: 1. Percutaneous Aortic Valve Implantation using a 29 mm Core-Valve Evolut-Pro Plus. 2. Transesophageal echocardiography (performed by anesthesia) 3. Ultrasound guided access and repair of left femoral artery access site by Perclose closure device. 4. Placement of temporary pacemaker wire. 5. Aortic root angiography 6. Pre balloon balloon aortic valuloplasty with a 22mm True balloon and post balloon aortic valvuloplasty with a 24mm True balloon INDICATIONS: 1. 80 year-old with a history of severe symptomatic aortic valve stenosis. 2. Additional history of coronary artery disease status post PCI, possible cirrhosis, hypertension, hyperlipidemia, diabetes mellitus 2 PERFORMING PHYSICIANS: 1. Ronak Lieberman DO Interventional Cardiology 2. Tj House MD Interventional Cardiology. 3. Edil Humphries MD, Cardiothoracic Surgeon. 4. Azalia Bello MD Proctoring Interventional cardiology SEDATION: General anesthesia provided by anesthesia, see separate note APPROACH: Left femoral artery via percutaneous PROCEDURE DESCRIPTION: The patient was discussed at valve clinic with multidisciplinary approach with cardiothoracic surgeon as well as traveling nurse and thought better treated with TAVR. Risks, benefits, and alternatives of the procedure had been explained to the patient who understood the risks and agreed to proceed. After consents were obtained, patient was brought to the transcatheter aortic valve implantation room in the cardiac laborer tin can and general anesthesia was provided by the anesthesiologist (see separate report). Once full body sterile prep was performed, right subclavian venous access was obtained and a temporary pacemaker was screwed in, performed by cardiothoracic surgery. Pacing threshholds were checked and deemed appropriate. Next the right femoral artery waw accessed using a modified Seldinger technique, ultrasound guidance and micropuncture technique. A 6 [place] Rabi sheath was placed in the right femoral artery. Next, a 6-Gibraltarian pigtail catheter was advanced into the aorta and positioned in the aortic root, aortic root angiography was performed to determine optimal deployment angle. The left femoral artery was accessed using modified Seldinger technique, micropuncture technique and under direct ultrasound guidance. A left femoral angiogram was done showing access in the common femoral artery and a 6Fr sheath was placed. Next preclose technique was performed using a Perclose. Next a 0.035 Lunderquist wire was placed in the Aorta via a pigtail catheter. Over that the arteriotomy was serially dilated and a 14 Fr [place] sheath was placed. Next a 6F- AL1 catheter was advanced over a wire to the aortic root. A straight wire was advanced through the catheter and used to cross the severely stenotic valve. The AL1 was then exchanged for a 6Fr pigtail catheter and pressure measurements were obtained. The 0.035 Lunderquist wire was then positioned in the apex. Next a 29 mm Corevalve Evolut-Pro Plus was advanced. The valve was then positioned across the aortic valve and confirmed with aortic root angiography. The valve was initially partially deployed however needed repositioning and therefore was recaptured. The valve was then deployed in proper position using slow deployment in conjuncture with aortic root angiography and LAKESHA. The delivery system was withdrawn back into the arch and an aortic root injection in conjunction with LAKESHA demonstrated a satisfactory result. There was und erexpansion of the TAVR valve and therefore post balloon aortic valvuloplasty was performed with a 24mm True balloon. LAKESHA demonstrated trivial para valvular leak. There was no evidence of any other significant abnormalities. The preclose Perclose was then deployed in the left femoral artery as well as an 8Fr Angioseal. The pigtail was then advanced to the level of the iliac bifurcation via the right femoral access. Femoral angiogram was performed that showed no contrast leak. The right femoral angiogram demonstrated an arteriotomy in the common femoral artery and this was repaired using a 6F angioseal device with complete hemostasis. The temporary venous pacemaker was sutured in place. The patient was then transported to the ICU in hemodynamically stable condition, requiring no pressor support. COMPLICATIONS: None CONCLUSION: 1. Implantaion of 29 Core-Valve Evolut-Pro Plus transcatheter aortic valve via left femoral approach under LAKESHA and fluoro guidance with trivial becka-valvular aortic regurgitation. 2. Placement of temporary pacemaker wire, 3. Aortic Root Aortogram. 4. Pre balloon balloon aortic valuloplasty with a 22mm True balloon and post balloon aortic valvuloplasty with a 24mm True balloon RECOMMENDATIONS: The patient will be monitored in the ICU for hemodynamic and electrical stability. Patient will be on aspirin and Plavix.
[2021-02-01 10:21] LABS: Glucose,Whole Blood 123 mg/dL (75-99)
--- NOTE | 2021-02-01 10:26 | XR ---
EXAMINATION TYPE: XR chest 1V portable DATE OF EXAM: 02/01/2021 COMPARISON: Chest x-ray 01/27/2021 HISTORY: Postop cardiac surgery TECHNIQUE: Single frontal view of the chest is obtained. FINDINGS: Patient is rotated. Cardiac mediastinal silhouette likely stable accounting for difference s in technique. There is no evident pneumothorax or pleural effusion. There are overlying leads. The aorta is dense. Interstitium is mildly increased. Patient is status post TAVR procedure. IMPRESSION: No acute abnormalities evident. Postop changes.
[2021-02-01 10:30] LABS: Basophils % (A) 0 %; Eosinophils # (A) 0.5 k/uL (0-0.7); Eosinophils % (A) 6 %; HGB 13.1 gm/dL (13.0-17.5); Lymphocytes # (A) 1.3 k/uL (1.0-4.8); Lymphocytes % (A) 16 %; MCHC 32.7 g/dL (31.0-37.0); MCV 85.6 fL (80.0-100.0); Mean Platelet Volume 9.1; Monocytes # (A) 0.4 k/uL (0-1.0); Monocytes % (A) 5 %; Neutrophils # (A) 5.9 k/uL (1.3-7.7); Neutrophils % (A) 73 %; Platelet Count 141 k/uL (150-450); RBC 4.67 m/uL (4.30-5.90); RDW 14.7 % (11.5-15.5); WBC 8.2 k/uL (3.8-10.6)
[2021-02-01 10:42] LABS: Ionized Calcium 4.8 mg/dL (4.5-5.3)
[2021-02-01 10:52] LABS: Partial Thromboplastin Time 24.6 sec (22.0-30.0)
[2021-02-01 10:54] LABS: Albumin 3.1 g/dL (3.5-5.0); Calcium 8.4 mg/dL (8.4-10.2); Magnesium 1.8 mg/dL (1.6-2.3); Potassium 3.8 mmol/L (3.5-5.1); Total Bilirubin 0.5 mg/dL (0.2-1.3); Total Protein 5.5 g/dL (6.3-8.2)
[2021-02-01] MEDS ORDERED: Magnesium Replacement Protocol 1 EACH MISC MISCELLANE PRN (11:22)
[2021-02-01] MEDS ORDERED: Potassium Replacement Protocol 1 EACH MISC MISCELLANE PRN (11:22)
[2021-02-01] MEDS: MAGNESIUM SULFATE-D5W PMX 1 GM in DEXTROSE/WATER 1 100ML.BAG IVPB SCH ×2 (11:32→12:35)
[2021-02-01 11:45] LABS: Glucose,Whole Blood 136 mg/dL (75-99)
[2021-02-01] MEDS: INSULIN ASPART (NovoLOG) 100 UNIT/ML VIAL SQ SCH ×3 (11:59→21:57)
[2021-02-01] MEDS ORDERED: POTASSIUM CHLORIDE ER 20 MEQ TAB.ER PO SCH (12:00)
[2021-02-01] MEDS: hydrALAZINE HCL 20 MG/ML 1 ML VIAL IVP PRN ×2 (12:33→15:56)
[2021-02-01 13:06] VITALS: BMI 26.8
--- NOTE | 2021-02-01 13:26 | P.CNPUL ---
History of Present Illness Consult date: 02/01/21 Requesting physician: Edil Humphries Reason for consult: other (Status post taVR patient admitted to ICU.) Chief complaint: Status post trans-catheter aortic valve replacement postoperative day #1 History of present illness: This is an 80-year-old white male with history of severe aortic stenosis, associated with severe symptoms of shortness of breath. Patient is also known to have history of coronary artery disease, previous PCI, history of hypertension, diabetes type 2, possible liver cirrhosis, patient was seen and discussed at the valve clinic with a multidisciplinary approach including cardiology and cardiothoracic surgery, and the patient was advised to undergo T aVR. Today the patient underwent percutaneous aortic valve implantation using a 29 mm corevalve evolut-pro plus. Patient had a transesophageal echocardiography during the procedure, he had ultrasound-guided access and repair of left femoral artery access, he had placement of temporary pacemaker wire, he had aortic valve angiography, postoperatively patient was admitted to the ICU, and I was asked to see him on consultation. Patient came back to the ICU extubated, on nasal cannula, in no distress, he is on 2 L nasal cannula with O2 sat showed 97%, basically asymptomatic Review of Systems Constitutional: Denies fever, chills, sweats, weight gain, or loss. HEENT: Negative. Cardiac: As noted in HPI. Respiratory: Chronic dyspnea on exertion. Gastrointestinal: Negative. Genitourinary: Negative . Musculoskeletal: Negative Neurologic: Negative for stroke or TIA. Endocrine: Negative Skin: Negative for rash or itching. Psychiatric: Negative history for depression and anxiety Past Medical History Past Medical History: Coronary Artery Disease (CAD), CVA/TIA, Diabetes Mellitus, GERD/Reflux, Hearing Disorder / Deafness, Hyperlipidemia, Hypertension, Liver Disease, Myocardial Infarction ([place]), Osteoarthritis (OA), Prostate Disorder Additional Past Medical History / Comment(s): 05/2018 acute renal failure-d/t diuretic. moderate-severe aortic stenosis, murmur, past hx dysphagia/prominent cricopharyngeal muscle/ presbyesophagus. 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 egd w/ bx. Past Anesthesia/Blood Transfusion Reactions: No Reported Reaction Date of Last Stent Placement:: 1999 Smoking Status: Former smoker - Past Family History Father Family Medical History: Cancer Additional Family Medical History / Comment(s): Father had bone cancer. Mother Family Medical History: Deep Vein Thrombosis (DVT) Additional Family Medical History / Comment(s): Mother had a CVA. Medications and Allergies Home Medications Medication Instructions Recorded Confirmed Type Tamsulosin [Flomax] 0.4 mg PO DAILY 04/16/14 02/01/21 History metFORMIN HCL [Glucophage] 500 mg PO BID 04/16/14 02/01/21 History Clopidogrel Bisulfate [Plavix] 75 mg PO DAILY 06/17/18 02/01/21 History Acetaminophen [Tylenol Arthritis] 650 - 1,300 mg PO Q4H PRN 09/03/19 02/01/21 History Furosemide [Lasix] 20 mg PO DAILY PRN 09/03/19 02/01/21 History Aspirin [Adult Low Dose Aspirin EC] 81 mg PO DAILY 10/13/19 02/01/21 History Metoprolol Tartrate [Lopressor] 25 mg PO BID 10/13/19 02/01/21 History Atorvastatin [Lipitor] 80 mg PO HS 09/05/20 02/01/21 History Magnesium 200 mg PO DAILY 01/26/21 02/01/21 History Allergies Allergy/AdvReac Type Severity Reaction Status Date / Time walnut Allergy Severe Anaphylaxis Verified 01/26/21 15:33 w/ raw walnuts Physical Exam Vitals: Vital Signs Temp Pulse Pulse Resp BP BP BP 02/01/21 12:00 69 8 L 135/78 02/01/21 11:50 70 10 L 135/78 02/01/21 11:40 61 8 L 141/76 02/01/21 11:30 56 L 8 L 133/74 02/01/21 11:20 60 8 L 133/74 02/01/21 11:10 60 8 L 148/75 02/01/21 11:00 59 L 11 L 131/70 02/01/21 10:50 59 L 11 L 131/70 02/01/21 10:40 59 L 10 L 110/59 02/01/21 10:30 62 10 L 149/73 02/01/21 10:20 53 L 12 02/01/21 10:10 62 15 149/73 02/01/21 10:00 97.6 F 67 14 02/01/21 09:58 67 11 L 02/01/21 06:36 99.2 F 70 18 182/86 165/79 BP BP Pulse Ox 02/01/21 12:00 95 02/01/21 11:50 97 02/01/21 11:40 98 02/01/21 11:30 98 02/01/21 11:20 96 02/01/21 11:10 98 02/01/21 11:00 99 02/01/21 10:50 97 02/01/21 10:40 97 02/01/21 10:30 97 02/01/21 10:20 97 02/01/21 10:10 97 02/01/21 10:00 97 02/01/21 09:58 02/01/21 06:36 158/75 135/78 98 Intake and Output 01/31/21 02/01/21 02/01/21 22:59 06:59 14:59 Intake Total 950 Balance 950 Intake: IV 900 Lactated Ringers 1,000 ml 100 @ 50 mls/hr IV .Q20H [facility] Rx#:[id number] Intake, IV Titration 50 Amount Lactated Ringers 1,000 ml 50 @ 50 mls/hr IV .Q20H [facility] Rx#:[id number] Other: Voiding Method Urinal Weight 94.7 kg 94.7 kg ABP, PAP, CO, CI - Last 8 Hours Arterial Blood Pressure 176/63 Arterial Blood Pressure 183/64 Arterial Blood Pressure 164/57 Arterial Blood Pressure 153/53 Arterial Blood Pressure 160/55 Arterial Blood Pressure 152/53 Arterial Blood Pressure 158/53 Arterial Blood Pressure 155/53 Arterial Blood Pressure 139/48 Arterial Blood Pressure 152/55 Arterial Blood Pressure 121/40 Arterial Blood Pressure 141/48 Arterial Blood Pressure 138/46 Physical Exam: Revealed 80-year-old white male in no distress. Head: Atraumatic, normocephalic. HEENT:[Neck is supple.] [No neck masses.] [No thyromegaly.] [No JVD.] Right subclavian pacemaker wire noted. Chest: Symmetrical chest expansion. [Clear throughout, no crackles, no rhonchi, no wheezes.] Cardiac Exam: [Normal S1 and S2, no S3 gallop, 2/6 systolic murmur thought the precordium. Abdomen: [Soft, nontender, no megaly, no rebound, no guarding, normal bowel sounds.] Extremities: [No clubbing, no edema, no cyanosis.] Pulses bilaterally. Neurological Exam: [No focal neurologic deficit.] Alert oriented 3 no gross focal deficits. Psychiatric: Normal mood affect and normal mental status examination. Results - Laboratory Findings CBC and BMP: 02/01/21 10:08 02/01/21 10:08 PT/INR, D-dimer PT 11.0 sec (9.0-12.0) 02/01/21 10:08 INR 1.0 (<1.2) 02/01/21 10:08 Abnormal lab findings: Abnormal Labs 01/27/21 02/01/21 02/01/21 09:35 06:27 10:08 Plt Count 141 L Chloride Glucose POC Glucose (mg/dL) 122 H Total Protein Albumin Crossmatch See Detail 02/01/21 02/01/21 02/01/21 10:08 10:13 11:44 Plt Count Chloride 108 H Glucose 123 H POC Glucose (mg/dL) 123 H 136 H Total Protein 5.5 L Albumin 3.1 L Crossmatch - Diagnostic Findings Chest x-ray: image reviewed (Postoperative chest x-ray was reviewed by me, mild prominence of the interstitium, otherwise unremarkable.) Assessment and Plan Assessment: Impression: Status post percutaneous aortic valve implantation postoperative day #0. Placement of temporary pacemaker wire postoperative day #0. History of aortic valve stenosis. History of coronary artery disease and previous stenting of LAD and circumflex Benign essential hypertension. Type 2 diabetes. Peripheral vessel occlusive disease. History of carotid artery endarterectomy. Ex-smoker. Chronic dyspnea on exertion. Secondary to severe aortic valve stenosis. Recommendation: Continue present supportive care measures. Continue to monitor in the ICU for the next 24 hours. Resume home meds and cardiac meds. GI and DVT prophylaxis. We'll continue to follow. Time with Patient: Greater than 30
[2021-02-01 17:06] LABS: Glucose,Whole Blood 136 mg/dL (75-99)
[2021-02-01 21:49] LABS: Glucose,Whole Blood 173 mg/dL (75-99)
[2021-02-01] MEDS: METOPROLOL TARTRATE 25 MG TAB PO SCH (21:56)
[2021-02-01] MEDS: ATORVASTATIN 80 MG TAB PO SCH (21:57)
[2021-02-02] MEDS: HEPARIN SODIUM,PORCINE/PF 5,000 UNIT/0.5 ML SYRINGE SQ SCH ×4 (00:35→23:04)
[2021-02-02 04:22] LABS: Basophils % (A) 0 %; Eosinophils # (A) 0.1 k/uL (0-0.7); Eosinophils % (A) 1 %; HCT 40.5 % (39.0-53.0); HGB 13.4 gm/dL (13.0-17.5); Lymphocytes # (A) 0.8 k/uL (1.0-4.8); Lymphocytes % (A) 8 %; MCH 28.2 pg (25.0-35.0); MCV 85.4 fL (80.0-100.0); Monocytes # (A) 0.9 k/uL (0-1.0); Monocytes % (A) 9 %; Neutrophils % (A) 80 %; Platelet Count 140 k/uL (150-450); RBC 4.74 m/uL (4.30-5.90); RDW 14.4 % (11.5-15.5); WBC 10.1 k/uL (3.8-10.6)
[2021-02-02 04:33] LABS: Ionized Calcium 4.9 mg/dL (4.5-5.3)
[2021-02-02 04:47] LABS: Albumin 3.3 g/dL (3.5-5.0); Calcium 8.9 mg/dL (8.4-10.2); Magnesium 2.2 mg/dL (1.6-2.3); Potassium 4.4 mmol/L (3.5-5.1); Total Bilirubin 0.7 mg/dL (0.2-1.3); Total Protein 5.8 g/dL (6.3-8.2)
[2021-02-02 07:01] LABS: Glucose,Whole Blood 130 mg/dL (75-99)
[2021-02-02] MEDS: INSULIN ASPART (NovoLOG) 100 UNIT/ML VIAL SQ SCH ×4 (07:23→22:24)
[2021-02-02] MEDS: ASPIRIN 81 MG PO SCH (07:55)
[2021-02-02] MEDS: PANTOPRAZOLE 40 MG TABLET PO SCH (07:55)
[2021-02-02] MEDS: CLOPIDOGREL 75 MG TAB PO SCH (07:55)
[2021-02-02] MEDS: TAMSULOSIN 0.4 MG CAP.ER.24H PO SCH (07:55)
[2021-02-02] MEDS: MAGNESIUM OXIDE 400 MG TAB PO SCH (07:55)
[2021-02-02] MEDS: METOPROLOL TARTRATE 25 MG TAB PO SCH ×2 (07:56→19:51)
--- NOTE | 2021-02-02 08:45 | P.PN ---
Subjective Progress Note Date: 02/02/21 Principal diagnosis: Severe symptomatic aortic valve stenosis. Past medical history significant for coronary artery disease status post PCI, hypertension, hyperlipidemia, diabetes mellitus type 2, peripheral vascular disease, history of CVA, status post right carotid endarterectomy, benign prostatic hypertrophy, possible cirrhosis, and remote history of nicotine dependence. POD #1 Transcatheter aortic valve replacement with 29 mm core valve absolute Pro plus via left transfemoral approach, ultrasound guided access and repair of left femoral artery access site by Perclose device, pre- balloon aortic valvuloplasty with a 22 mm true balloon, placement of temporary pacemaker wire, aortic root angiography and intraoperative transesophageal echocardiogram performed by danyell echavarria. The patient was seen and examined at his bedside in the intensive care unit today 02/02/2021. Currently he is sitting up to the bedside chair, is awake, alert and oriented 3 and is in no acute apparent distress. Denies any complaints of pain or shortness of breath at this time though has had some episodes of urinary retention throughout the night requiring straight catheterization. He has been restarted on his home dose of Flomax. He remains hemodynamically stable and is currently on no inotropic or pressor support. The right IJ triple-lumen central catheter insertion site site with scant serosanguineous drainage, pressure dressing in place. Bedside telemetry showing sinus tachycardia with right bundle branch block heart rate 105 BPM. Bilateral groin sites, clean, dry, intact and soft to touch. Laboratory results this morning show a WBC count 10.1 hemoglobin 13.4, platelets 140, BUN 12 and creatinine 0.98. Objective - Vital Signs Vital signs: Vital Signs Temp 97.5 F L 02/02/21 04:00 Pulse 83 02/02/21 07:00 Resp 18 02/02/21 07:00 BP 134/59 02/02/21 07:00 Pulse Ox 95 02/02/21 07:00 Intake & Output 02/01/21 02/02/21 02/02/21 18:59 06:59 18:59 Intake Total 1400 50 Output Total 750 800 0 Balance 650 -750 0 Weight 94.7 kg 93 kg Intake: IV 1050 0 Lactated Ringers 1,000 ml 250 0 @ 50 mls/hr IV .Q20H [facility] Rx#:[id number] Intake, IV Titration 350 50 Amount Lactated Ringers 1,000 ml 50 @ 50 mls/hr IV .Q20H [facility] Rx#:[id number] Magnesium Sulfate-D5w Pmx 200 1 gm In Dextrose/Water 1 100ml.bag @ 100 mls/hr IVPB Q1H [facility] Rx#: [id number] ceFAZolin 2 gm In Sodium 100 50 Chloride 0.9% 50 ml @ 100 mls/hr IVPB Q8HR [facility] Rx# :[id number] Output: Urine 750 800 0 Other: Voiding Method Urinal Urinal ABP, PAP, CO, CI - Last Documented Arterial Blood Pressure 166/53 - Exam CONSTITUTIONAL: Appears comfortable, cooperative, no acute distress. RESPIRATORY: Lungs sounds essentially clear throughout, diminished to his bilateral bases. Respirations are symmetrical and nonlabored. Currently on room air with oxygen saturation 96%. Able to achieve 3000 mL on incentive spirometry. Strong cough. CARDIOVASCULAR: S1, S2 present. Regular rhythm and tachycardic rate, bedside telemetry showing sinus tachycardia with right bundle branch block heart rate 105. Palpable peripheral pulses bilaterally. No edema present. No calf pain or tenderness noted. SCDs present to his bilateral lower extremities. GASTROINTESTINAL: Abdomen soft, nontender, nondistended. Active bowel sounds present 4 quadrants. Tolerating diet. GENITOURINARY: Urinary retention with 100 mL of urine voided in the last 8 hours and 600 mL mL output with straight cath in the last 8 hours. INTEGUMENTARY: Skin is warm and dry with evidence of good perfusion. Bilateral groins soft without redness. No redness or drainage present. Scant serosanguineous drainage from his right IJ triple lumen insertion site. NEUROLOGIC: Cranial nerves II through XII intact. No focal deficits. MUSKULOSKELETAL: Able to move all extremities, strength equal bilaterally, gait normal PSYCHIATRIC: Alert and oriented 3, appropriate affect, intact judgment. INVASIVE LINES AND TUBES: Temporary transvenous pacemaker wire present, right subclavicular. - Labs CBC & Chem 7: 02/02/21 03:41 02/02/21 03:41 Labs: Abnormal Lab Results - Last 24 Hours (Table) 01/27/21 02/01/21 02/01/21 Range/Units 09:35 10:08 10:08 Plt Count 141 L (150-450) k/uL Neutrophils # (1.3-7.7) k/uL Lymphocytes # (1.0-4.8) k/uL Chloride 108 H (98-107) mmol/L Glucose 123 H (74-99) mg/dL POC Glucose (mg/dL) (75-99) mg/dL Total Protein 5.5 L (6.3-8.2) g/dL Albumin 3.1 L (3.5-5.0) g/dL Crossmatch See Detail 02/01/21 02/01/21 02/01/21 Range/Units 10:13 11:44 17:03 Plt Count (150-450) k/uL Neutrophils # (1.3-7.7) k/uL Lymphocytes # (1.0-4.8) k/uL Chloride (98-107) mmol/L Glucose (74-99) mg/dL POC Glucose (mg/dL) 123 H 136 H 136 H (75-99) mg/dL Total Protein (6.3-8.2) g/dL Albumin (3.5-5.0) g/dL Crossmatch 02/01/21 02/02/21 02/02/21 Range/Units 21:48 03:41 03:41 Plt Count 140 L (150-450) k/uL Neutrophils # 8.0 H (1.3-7.7) k/uL Lymphocytes # 0.8 L (1.0-4.8) k/uL Chloride (98-107) mmol/L Glucose 129 H (74-99) mg/dL POC Glucose (mg/dL) 173 H (75-99) mg/dL Total Protein 5.8 L (6.3-8.2) g/dL Albumin 3.3 L (3.5-5.0) g/dL Crossmatch 02/02/21 Range/Units 06:59 Plt Count (150-450) k/uL Neutrophils # (1.3-7.7) k/uL Lymphocytes # (1.0-4.8) k/uL Chloride (98-107) mmol/L Glucose (74-99) mg/dL POC Glucose (mg/dL) 130 H (75-99) mg/dL Total Protein (6.3-8.2) g/dL Albumin (3.5-5.0) g/dL Crossmatch Assessment and Plan Assessment: 1. Severe symptomatic aortic valve stenosis 2. History of coronary artery disease with previous PCI 3. Hypertension 4. Hyperlipidemia 5. Diabetes mellitus type 2 6. History of CVA, status post right carotid endarterectomy 7. Benign prostatic hypertrophy 8 Possible cirrhosis 9. GERD 10. Remote history of nicotine dependence Plan: 1. Continue to maximize medical therapy with low-dose aspirin, statin, beta kelsea and Plavix. 2. Continue home dose Flomax for history of BPH and urinary retention. Consult urology due to his urinary retention. 3. Out of bed for all meals, increase activity as tolerated, ambulate as tolerated. 4. A 2-D echocardiogram will be obtained today to evaluate valve function and review presence of perivalvular leak. 5. Transvenous pacemaker wire will be removed today. 6. A follow-up appointment will be made with the wooden box maker and in the valve clinic for 1 month post TAVR, as well as in 1 week with cardiology for groin check. 7. Anticipate the patient will be discharged home within the next 24 hours. 8. More recommendations to follow based on patient's clinical course. Time with Patient: Greater than 30
[2021-02-02] MEDS ORDERED: METOPROLOL TARTRATE 25 MG TAB PO SCH (09:00)
[2021-02-02] MEDS ORDERED: MAGNESIUM HYDROXIDE 2,400 MG/10 ML CUP PO PRN (09:00)
[2021-02-02] MEDS ORDERED: bisacodyL 10 MG SUPP RECTAL PRN (09:00)
--- NOTE | 2021-02-02 09:26 | XR ---
EXAMINATION TYPE: XR chest 1V portable DATE OF EXAM: 02/02/2021 COMPARISON: 02/01/2021 HISTORY: post operative. TECHNIQUE: Single frontal view of the chest is obtained. FINDINGS: There is a small left pleural effusion, or pneumothorax seen. The cardiac silhouette size is within normal limits with a pacer lead, unchanged. The osseous structures are intact. IMPRESSION: Small left pleural effusion.
[2021-02-02 11:19] LABS: Glucose,Whole Blood 166 mg/dL (75-99)
--- NOTE | 2021-02-02 12:01 | P.PN ---
Subjective Progress Note Date: 02/02/21 Principal diagnosis: Severe aortic stenosis, status post aVR, postoperative day #1. This is an 80-year-old white male with history of severe aortic stenosis, associated with severe symptoms of shortness of breath. Patient is also known to have history of coronary artery disease, previous PCI, history of hypertension, diabetes type 2, possible liver cirrhosis, patient was seen and discussed at the valve clinic with a multidisciplinary approach including cardiology and cardiothoracic surgery, and the patient was advised to undergo T aVR. Today the patient underwent percutaneous aortic valve implantation using a 29 mm corevalve evolut-pro plus. Patient had a transesophageal echocardiography during the procedure, he had ultrasound-guided access and repair of left femoral artery access, he had placement of temporary pacemaker wire, he had aortic valve angiography, postoperatively patient was admitted to the ICU, and I was asked to see him on consultation. Patient came back to the ICU extubated, on nasal cannula, in no distress, he is on 2 L nasal cannula with O2 sat showed 97%, basically asymptomatic Reevaluated today on 02/02/2021, patient is sitting in bedside chair, awake, alert, oriented 3, in no distress whatsoever. Has been hemodynamically stable, chest x-ray today is reassuring. Outside telemetry shows sinus tachycardia with right bundle branch block, rate of 105. Both groins are clean and dry. Labs are unremarkable. Including relatively normal CBC. And normal renal profile. Chest x-ray was reviewed and it is reassuring. Objective - Vital Signs Vital signs: Vital Signs Temp 97.5 F L 02/02/21 04:00 Pulse 86 02/02/21 09:05 Resp 29 H 02/02/21 09:05 BP 150/103 02/02/21 09:05 Pulse Ox 95 02/02/21 07:00 Intake & Output 02/01/21 02/02/21 02/02/21 18:59 06:59 18:59 Intake Total 1400 50 Output Total 750 800 250 Balance 650 -750 -250 Weight 94.7 kg 93 kg Intake: IV 1050 0 Lactated Ringers 1,000 ml 250 0 @ 50 mls/hr IV .Q20H [facility] Rx#:[id number] Intake, IV Titration 350 50 Amount Lactated Ringers 1,000 ml 50 @ 50 mls/hr IV .Q20H [facility] Rx#:[id number] Magnesium Sulfate-D5w Pmx 200 1 gm In Dextrose/Water 1 100ml.bag @ 100 mls/hr IVPB Q1H [facility] Rx#: [id number] ceFAZolin 2 gm In Sodium 100 50 Chloride 0.9% 50 ml @ 100 mls/hr IVPB Q8HR [facility] Rx# :[id number] Output: Urine 750 800 250 Uretheral ([place]) 250 Other: Voiding Method Urinal Urinal Urinal ABP, PAP, CO, CI - Last Documented Arterial Blood Pressure 166/53 - Exam Physical Exam: Revealed 80-year-old white male in no distress. On room air. Head: Atraumatic, normocephalic. HEENT:[Neck is supple.] [No neck masses.] [No thyromegaly.] [No JVD.] Chest: Symmetrical chest expansion. [Clear throughout, no crackles, no rhonchi, no wheezes.] Cardiac Exam: [Normal S1 and S2, no S3 gallop, 2/6 systolic murmur thought the precordium. Abdomen: [Soft, nontender, no megaly, no rebound, no guarding, normal bowel sounds.] Extremities: [No clubbing, no edema, no cyanosis.] Pulses bilaterally. Neurological Exam: [No focal neurologic deficit.] Alert oriented 3 no gross focal deficits. Psychiatric: Normal mood affect and normal mental status examination. - Labs CBC & Chem 7: 02/02/21 03:41 02/02/21 03:41 Labs: Abnormal Lab Results - Last 24 Hours (Table) 01/27/21 02/01/21 02/01/21 Range/Units 09:35 17:03 21:48 Plt Count (150-450) k/uL Neutrophils # (1.3-7.7) k/uL Lymphocytes # (1.0-4.8) k/uL Glucose (74-99) mg/dL POC Glucose (mg/dL) 136 H 173 H (75-99) mg/dL Total Protein (6.3-8.2) g/dL Albumin (3.5-5.0) g/dL Crossmatch See Detail 02/02/21 02/02/21 02/02/21 Range/Units 03:41 03:41 06:59 Plt Count 140 L (150-450) k/uL Neutrophils # 8.0 H (1.3-7.7) k/uL Lymphocytes # 0.8 L (1.0-4.8) k/uL Glucose 129 H (74-99) mg/dL POC Glucose (mg/dL) 130 H (75-99) mg/dL Total Protein 5.8 L (6.3-8.2) g/dL Albumin 3.3 L (3.5-5.0) g/dL Crossmatch 02/02/21 Range/Units 11:17 Plt Count (150-450) k/uL Neutrophils # (1.3-7.7) k/uL Lymphocytes # (1.0-4.8) k/uL Glucose (74-99) mg/dL POC Glucose (mg/dL) 166 H (75-99) mg/dL Total Protein (6.3-8.2) g/dL Albumin (3.5-5.0) g/dL Crossmatch Assessment and Plan Assessment: Impression: Status post percutaneous aortic valve implantation postoperative day #1 Placement of temporary pacemaker wire postoperative day #1 History of aortic valve stenosis. History of coronary artery disease and previous stenting of LAD and circumflex Benign essential hypertension. Type 2 diabetes. Peripheral vessel occlusive disease. History of carotid artery endarterectomy. Ex-smoker. Chronic dyspnea on exertion. Secondary to severe aortic valve stenosis. Recommendation: Continue present supportive care measures. Patient is being considered for discharge planning today, cleared from our perspective for discharge if cleared by cardiothoracic surgery and cardiology. Time with Patient: Less than 30
--- NOTE | 2021-02-02 13:00 | ECHOF ---
Referral Reason:post tavr MEASUREMENTS -------- HEIGHT: 182.9 cm WEIGHT: 94.3 kg BP: IVSd: 1.4 cm (0.6 - 1.1) LVIDd: 3.7 cm (3.9 - 5.3) LVPWd: 1.4 cm (0.6 - 1.1) EDV(Teich): 58 ml IVSs: 1.9 cm LVIDs: 3.1 cm LVPWs: 1.4 cm %IVS Thck: 39 % ESV(Teich): 39 ml EF(Teich): 32 % %FS: 15 % SV(Teich): 18 ml LALs A4C: 4.8 cm LAAs A4C: 15.6 cm LAESV A-L A4C: 43 ml LAESV MOD A4C: 39 ml MV E Ramiro: 0.38 m/s MV DecT: 311 ms MV Dec [place]: 1.2 m/s MV A Ramiro: 0.98 m/s MV E/A Ratio: 0.39 MV PHT: 90 ms LVOT Vmax: 1.27 m/s LVOT maxP.49 mmHg LVOT Vmax: 1.39 m/s LVOT Vmean: 0.92 m/s LVOT maxP.77 mmHg LVOT meanP.74 mmHg LVOT Env.Ti: 208 ms LVOT VTI: 19.2 cm AV Vmax: 1.62 m/s AV maxP.53 mmHg AV Vmax: 1.85 m/s AV Vmean: 1.20 m/s AV maxP.64 mmHg AV meanP.80 mmHg AV Env.Ti: 221 ms AV VTI: 26.6 cm FINDINGS -------- Sinus rhythm. Pt is post TAVR 02/01/21: Follow up for AOV placement. Trace amount of aortic regurgitation. Peak/mean gradient across the Aortic Valve is 13.64mmHg / 6. 80mmHg. TAVR done There is no pericardial effusion. CONCLUSIONS -------- 1. Pt is post TAVR 02/01/21: Follow up for AOV placement. 2. Trace amount of aortic regurgitation. 3. Peak/mean gradient across the Aortic Valve is 13.64mmHg / 6.80mmHg. 4. TAVR done 5. There is no pericardial effusion. [employer]: Tari Arevalo RDCS
[2021-02-02] MEDS: hydrALAZINE HCL 20 MG/ML 1 ML VIAL IVP PRN (16:43)
[2021-02-02 16:54] LABS: Glucose,Whole Blood 135 mg/dL (75-99)
[2021-02-02] MEDS: ATORVASTATIN 80 MG TAB PO SCH (19:51)
[2021-02-02 20:25] LABS: Glucose,Whole Blood 132 mg/dL (75-99)
[2021-02-02] MEDS ORDERED: SENNOSIDES-DOCUSATE SODIUM 1 EACH TAB PO SCH (21:00)
--- NOTE | 2021-02-02 22:01 | PN ---
PROGRESS NOTE HISTORY OF PRESENT ILLNESS: 80-year-old white male who is status post ever procedures in ICU. He is doing well. He is on heparin subcu drip. He is on Plavix, Lipitor aspirin, DuoNeb, Lopressor, Zofran, Protonix. Doing well at this time. He is having no chest pain, shortness of breath. Vital signs stable, afebrile. 14 point review of systems negative except for some vomiting when he tried to eat this afternoon. Vital signs stable. Afebrile. Pulse is near 100. Blood pressure 120s over 80s. CARDIOVASCULAR: S1, S2. Lungs clear. GI soft. Hematology negative Homans. ASSESSMENT: 1. Status post TAVR for aortic stenosis. 2. Hypertension. 3. Dyslipidemia. 4. Gastroesophageal reflux disease. 5. Benign prostatic hypertrophy. 6. Prior strokes. Continue current treatments. Home medications have been reordered. Prognosis guarded. MMODL / IJN: [id number] /
[2021-02-03 00:22] VITALS: RESP 18
[2021-02-03 06:18] LABS: Glucose,Whole Blood 129 mg/dL (75-99)
[2021-02-03] MEDS: INSULIN ASPART (NovoLOG) 100 UNIT/ML VIAL SQ SCH ×2 (06:32→11:48)
[2021-02-03] MEDS: PANTOPRAZOLE 40 MG TABLET PO SCH (06:35)
--- NOTE | 2021-02-03 07:43 | P.GSCN ---
History of Present Illness Consult date: 02/03/21 History of present illness: Pleasant 81-year-old gentleman who were asked to see for urinary retention. On Saturday he underwent a percutaneous aortic valve placement. He had problems urinating postoperatively requiring 2 straight cath followed by an indwelling catheter. The patient does have a history of BPH. He has been on tamsulosin was for years. He has not seen a urologist to his recollection. He states that prior to the procedure he voided well. His nocturia 0-1 times. His flows good. There is no incontinence hematuria or infections. The patient has no major bowel issues. He does have a history of back surgery but is done well from that. He was not on his Flomax was placed back on that yesterday. Review of Systems All systems: negative Past Medical History Past Medical History: Coronary Artery Disease (CAD), CVA/TIA, Diabetes Mellitus, GERD/Reflux, Hearing Disorder / Deafness, Hyperlipidemia, Hypertension, Liver Disease, Myocardial Infarction (PA), Osteoarthritis (OA), Prostate Disorder Additional Past Medical History / Comment(s): 05/2018 acute renal failure-d/t diuretic. moderate-severe aortic stenosis, murmur, past hx dysphagia/prominent cricopharyngeal muscle/ presbyesophagus. 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 egd w/ bx. Past Anesthesia/Blood Transfusion Reactions: No Reported Reaction Date of Last Stent Placement:: 1999 Smoking Status: Former smoker - Past Family History Father Family Medical History: Cancer Additional Family Medical History / Comment(s): Father had bone cancer. Mother Family Medical History: Deep Vein Thrombosis (DVT) Additional Family Medical History / Comment(s): Mother had a CVA. Medications and Allergies Home Medications Medication Instructions Recorded Confirmed Type Tamsulosin [Flomax] 0.4 mg PO DAILY 04/16/14 02/01/21 History metFORMIN HCL [Glucophage] 500 mg PO BID 04/16/14 02/01/21 History Clopidogrel Bisulfate [Plavix] 75 mg PO DAILY 06/17/18 02/01/21 History Acetaminophen [Tylenol Arthritis] 650 - 1,300 mg PO Q4H PRN 09/03/19 02/01/21 History Furosemide [Lasix] 20 mg PO DAILY PRN 09/03/19 02/01/21 History Aspirin [Adult Low Dose Aspirin EC] 81 mg PO DAILY 10/13/19 02/01/21 History Metoprolol Tartrate [Lopressor] 25 mg PO BID 10/13/19 02/01/21 History Atorvastatin [Lipitor] 80 mg PO HS 09/05/20 02/01/21 History Magnesium 200 mg PO DAILY 01/26/21 02/01/21 History Allergies Allergy/AdvReac Type Severity Reaction Status Date / Time walnut Allergy Severe Anaphylaxis Verified 01/26/21 15:33 w/ raw walnuts Surgical - Exam Vital Signs Temp Pulse Resp BP Pulse Ox 99.2 F 70 18 165/79 98 02/01/21 06:36 02/01/21 06:36 02/01/21 06:36 02/01/21 06:36 02/01/21 06:36 - General well developed, well nourished, no distress - ENT no hearing loss - Neck no masses, trachea midline - Respiratory normal expansion, normal respiratory effort - Cardiovascular Rhythm: regular - Abdomen Abdomen: soft, non tender - Genitourinary Indwelling catheter - Neurologic normal sensation - Musculoskeletal normal posture - Psychiatric oriented to time, oriented to person, oriented to place, speech is normal, memory intact Results - Labs 02/02/21 03:41 02/02/21 03:41 Abnormal Lab Results - Last 24 Hours (Table) 02/02/21 02/02/21 02/02/21 Range/Units 11:17 16:53 20:14 POC Glucose (mg/dL) 166 H 135 H 132 H (75-99) mg/dL 02/03/21 Range/Units 06:16 POC Glucose (mg/dL) 129 H (75-99) mg/dL Assessment and Plan Assessment: Impression: Postoperative urinary retention. BPH with obstruction. Coronary artery disease. Recommendations: I will remove his catheter this morning for a voiding trial. If he is able to void then he can follow up with Dr. Stewart. He is unable to void the catheter should be replaced and I should see him back in the office late next week for a second voiding trial. He should remain on his tamsulosin.
[2021-02-03] MEDS: HEPARIN SODIUM,PORCINE/PF 5,000 UNIT/0.5 ML SYRINGE SQ SCH (07:52)
[2021-02-03] MEDS: MAGNESIUM OXIDE 400 MG TAB PO SCH (07:52)
[2021-02-03] MEDS: METOPROLOL TARTRATE 25 MG TAB PO SCH (07:52)
[2021-02-03] MEDS: CLOPIDOGREL 75 MG TAB PO SCH (07:52)
[2021-02-03] MEDS: ASPIRIN 81 MG PO SCH (07:52)
[2021-02-03] MEDS: TAMSULOSIN 0.4 MG CAP.ER.24H PO SCH (07:53)
[2021-02-03] MEDS ORDERED: LOSARTAN 25 MG TAB PO SCH (09:00)
[2021-02-03 09:27] LABS: HCT 42.4 % (39.0-53.0); HGB 14.5 gm/dL (13.0-17.5); MCH 29.3 pg (25.0-35.0); MCHC 34.2 g/dL (31.0-37.0); MCV 85.6 fL (80.0-100.0); Mean Platelet Volume 8.2; Platelet Count 137 k/uL (150-450); RBC 4.95 m/uL (4.30-5.90); RDW 14.4 % (11.5-15.5); WBC 9.5 k/uL (3.8-10.6)
[2021-02-03 09:36] LABS: ALT 12 U/L (4-49); AST 37 U/L (17-59); African American GFR (CKD) >90 (>60 ml/min/1.73 sqM); Albumin 3.9 g/dL (3.5-5.0); Alkaline Phosphatase 76 U/L (38-126); Anion Gap 9 mmol/L; Blood Urea Nitrogen 12 mg/dL (9-20); Calcium 9.5 mg/dL (8.4-10.2); Carbon Dioxide 26 mmol/L (22-30); Chloride 102 mmol/L (98-107); Glucose 205 mg/dL (74-99); Non-African American GFR(CKD) 79 (>60 ml/min/1.73 sqM); Potassium 4.1 mmol/L (3.5-5.1); Sodium 137 mmol/L (137-145); Total Bilirubin 1.1 mg/dL (0.2-1.3); Total Protein 6.6 g/dL (6.3-8.2)
--- NOTE | 2021-02-03 09:42 | XR ---
EXAMINATION TYPE: XR chest 1V portable DATE OF EXAM: 02/03/2021 CLINICAL HISTORY: Post Operative Cardiac Surgery. TECHNIQUE: Portable frontal view of the chest. COMPARISON: 02/02/2021 FINDINGS: Aortic valvular prosthesis. The cardiomediastinal silhouette is within normal limits for s ize. Pulmonary vasculature is normal. Mild left basilar haziness. No pleural effusion. No pneumothor ax seen. No acute displaced osseous fracture. IMPRESSION: Mild left basilar atelectasis.
[2021-02-03 11:19] VITALS: BP 181/78; PULSE 84; TEMP 98
[2021-02-03 11:45] LABS: Glucose,Whole Blood 121 mg/dL (75-99)
--- NOTE | 2021-02-03 13:20 | P.PN ---
Subjective Progress Note Date: 02/03/21 Principal diagnosis: Severe symptomatic aortic valve stenosis. Past medical history significant for coronary artery disease status post PCI, hypertension, hyperlipidemia, diabetes mellitus type 2, peripheral vascular disease, history of CVA, status post right carotid endarterectomy, benign prostatic hypertrophy, possible cirrhosis, and remote history of nicotine dependence. POD #1 Transcatheter aortic valve replacement with 29 mm core valve absolute Pro plus via left transfemoral approach, ultrasound guided access and repair of left femoral artery access site by Perclose device, pre- balloon aortic valvuloplasty with a 22 mm true balloon, placement of temporary pacemaker wire, aortic root angiography and intraoperative transesophageal echocardiogram performed by danyell echavarria. Postprocedure urinary retention requiring placement of Winston catheter, Winston catheter was discontinued this morning per Dr. Yi from urology. The patient was seen on the cardiac stepdown unit today 02/03/2021. Currently he is sitting up to the bedside chair, is awake, alert and oriented 3 and is in no acute apparent distress. Denies any complaints of pain or shortness of breath. He reports he has been up ambulating in the cardiac stepdown unit hallway and he feels that his breathing has much improved since the TAVR procedure. He was having some postprocedural complaints of urinary retention yesterday requiring a Winston catheter placement which is since been removed this morning after being seen by urology. He has voided 300 mL of edd-colored urine since the Winston catheter has been removed. He is to follow up with urology on an outpatient basis for further complaints of urinary retention. He is to continue on his Flomax as prescribed. He remains hemodynamically stable and is currently on no inotropic or pressor support. His right chest temporary pacemaker wire was removed yesterday without incident and his site is clean and dry. Objective - Vital Signs Vital signs: Vital Signs Temp 98.0 F 02/03/21 11:18 Pulse 84 02/03/21 11:18 Resp 18 02/03/21 11:18 BP 181/78 02/03/21 11:18 Pulse Ox 99 02/03/21 11:18 Intake & Output 02/02/21 02/03/21 02/03/21 18:59 06:59 18:59 Intake Total 200 10 Output Total 1600 1930 400 Balance -1600 -1730 -390 Weight 89.9 kg Intake: IV 10 Invasive Line 1 10 Oral 200 Output: Urine 1600 1930 400 Uretheral (Winston) 250 100 Other: Voiding Method Indwelling Catheter Indwelling Catheter # Voids 2 ABP, PAP, CO, CI - Last Documented Arterial Blood Pressure 166/53 - Exam CONSTITUTIONAL: Appears comfortable, cooperative, no acute distress. Sitting up to the bedside chair. RESPIRATORY: Lungs sounds essentially clear throughout, diminished to his bilateral bases. Respirations are symmetrical and nonlabored. Currently on room air with oxygen saturation 99%. Able to achieve 3000 mL on incentive spirometry. Strong cough. CARDIOVASCULAR: S1, S2 present. Regular rhythm and rate, remote telemetry showing sinus tachycardia with right bundle branch block heart rate 85. Palpable peripheral pulses bilaterally. No edema present. No calf pain or tenderness noted. SCDs present to his bilateral lower extremities. GASTROINTESTINAL: Abdomen soft, nontender, nondistended. Active bowel sounds present 4 quadrants. Tolerating diet. GENITOURINARY: Winston catheter removed, voiding clear edd urine with 300 mL output since Winston catheter has been removed. INTEGUMENTARY: Skin is warm and dry with evidence of good perfusion. Bilateral groins soft without redness. No redness or drainage present. NEUROLOGIC: Cranial nerves II through XII intact. No focal deficits. MUSKULOSKELETAL: Able to move all extremities, strength equal bilaterally, gait normal PSYCHIATRIC: Alert and oriented 3, appropriate affect, intact judgment. - Labs CBC & Chem 7: 02/03/21 08:16 02/03/21 08:16 Labs: Abnormal Lab Results - Last 24 Hours (Table) 02/02/21 02/02/21 02/03/21 Range/Units 16:53 20:14 06:16 Plt Count (150-450) k/uL Glucose (74-99) mg/dL POC Glucose (mg/dL) 135 H 132 H 129 H (75-99) mg/dL 02/03/21 02/03/21 02/03/21 Range/Units 08:16 08:16 11:43 Plt Count 137 L (150-450) k/uL Glucose 205 H (74-99) mg/dL POC Glucose (mg/dL) 121 H (75-99) mg/dL Assessment and Plan Assessment: 1. Severe symptomatic aortic valve stenosis, status post TAVR with a 29 mm Core Valve Evolut Pro-Plus 2. History of coronary artery disease with previous PCI 3. Hypertension 4. Hyperlipidemia 5. Diabetes mellitus type 2 6. History of CVA, status post right carotid endarterectomy 7. Benign prostatic hypertrophy 8. Possible cirrhosis, history of hepatitis 9. GERD 10. Remote history of nicotine dependence 11. Postprocedural urinary retention requiring placement of Winston catheter, resolved Plan: 1. Continue to maximize medical therapy with low-dose aspirin, statin, beta kelsea and Plavix. We will increase beta kelsea as tolerated. 2. Continue home dose Flomax for history of BPH and urinary retention. Urology consult noted and appreciated. The patient will follow up on an outpatient basis with urology as needed for urinary retention. 3. Out of bed for all meals, increase activity as tolerated, ambulate as tole rated. 4. A 2-D echocardiogram will be obtained yesterday 02/02/2021 which demonstrated trace amount of aortic valve regurgitation, a peak/mean gradient across aortic valve to be 13.64 mmHg/6.80 mmHg and no pericardial effusion. 5. A follow-up appointment will be made with the local city driver and in the valve clinic for 1 month post TAVR, as well as in 1 week with cardiology for groin check. 6. The patient will be discharged home today. 7. Losartan 25 mg by mouth daily was initiated for hypertension. 8. More recommendations to follow based on patient's clinical course. Time with Patient: Greater than 30
--- NOTE | 2021-02-03 14:22 | P.DS ---
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 Do you want consulting provider notified?: Yes Consult Physician Routine Consulting Provider: Edil Humphries Consult Reason/Comments: tavr Do you want consulting provider notified?: Already Contacted Consult Physician Routine Consulting Provider: Blair Stewart Consult Reason/Comments: post tavr; known to you Do you want consulting provider notified?: Yes 02/02/21 08:28 Consult Physician Routine Consulting Provider: Maurilio iY Consult Reason/Comments: urine retention Do you want consulting provider notified?: Yes Primary care physician: Blair Stewart Plan - Discharge Summary Discharge Rx Participant: No New Discharge Prescriptions: New Losartan [Cozaar] 25 mg PO DAILY #30 tab Pantoprazole [Protonix] 40 mg PO AC-BRKFST #30 tablet.dr Continue metFORMIN HCL [Glucophage] 500 mg PO BID Tamsulosin [Flomax] 0.4 mg PO DAILY Clopidogrel Bisulfate [Plavix] 75 mg PO DAILY Furosemide [Lasix] 20 mg PO DAILY PRN PRN Reason: Edema Acetaminophen [Tylenol Arthritis] 650 - 1,300 mg PO Q4H PRN PRN Reason: Pain Aspirin [Adult Low Dose Aspirin EC] 81 mg PO DAILY Metoprolol Tartrate [Lopressor] 25 mg PO BID Atorvastatin [Lipitor] 80 mg PO HS Magnesium 200 mg PO DAILY Discharge Medication List Tamsulosin [Flomax] 0.4 mg PO DAILY 04/16/14 [History] metFORMIN HCL [Glucophage] 500 mg PO BID 04/16/14 [History] Clopidogrel Bisulfate [Plavix] 75 mg PO DAILY 06/17/18 [History] Acetaminophen [Tylenol Arthritis] 650 - 1,300 mg PO Q4H PRN 09/03/19 [History] Furosemide [Lasix] 20 mg PO DAILY PRN 09/03/19 [History] Aspirin [Adult Low Dose Aspirin EC] 81 mg PO DAILY 10/13/19 [History] Metoprolol Tartrate [Lopressor] 25 mg PO BID 10/13/19 [History] Atorvastatin [Lipitor] 80 mg PO HS 09/05/20 [History] Magnesium 200 mg PO DAILY 01/26/21 [History] Losartan [Cozaar] 25 mg PO DAILY #30 tab 02/03/21 [Rx] Pantoprazole [Protonix] 40 mg PO DARLINE-BRKFST #30 tablet. 02/03/21 [Rx] Follow up Appointment(s)/Referral(s): Nicky Wiley MD [STAFF PHYSICIAN] - 02/08/21 9:30 am (Follow-up with Dr. Wiley's office on 03/13/2021 at 7:15 AM to undergo an ultrasound of her heart (a 2-D echocardiogram).) Blair Stewart MD [Primary Care Provider] - As Needed Jose M Salvador NPC [Nurse Practitioner] - 03/13/21 9:00 am (Please follow up in the valve clinic located at [address] [place] [address], [address], [facility] after your ultrasound of your heart (2-D echocardiogram) has been completed.) Activity/Diet/Wound Care/Special Instructions: DISCHARGE INSTRUCTIONS: 1. No driving for 1 week, or until physician gives their ok. 2. No lifting, pushing, or pulling more than 5-10 pounds for 1 week. 3. Hold both groins when you cough or sneeze for the next 2 weeks. Bruising is common, but report increased swelling, pain or fever >101F. 4. Shower daily. No pool, hot tub, or bathtub for 1 week. 5. No powders, lotions, ointments on incisions. 6. No straining, including for bowel movements. Use stool softner if ne cessary. 7. Stairs are not an issue. Go slowly, using handrail and take 1 step at a time. Ambulate several times daily. 8. Continue pain control per as needed orders. 9. Take only the medications listed on your discharge form. 10. Eat low salt (limited to 2 grams or 2000 milligrams) daily, avoid adding salt, avoid canned/processed foods. 11. Take your weight daily in the morning and record, bring with you to your follow up appointments. 12. Keep all follow up appointments. You will need a valve clinic appointment at 30 days and 1 year post procedure for follow up. 13. You have been referred to and are expected to begin Cardiac Rehab in approximately 4 weeks. 14. You will need antibiotics prior to any dental work, including cleanings, and any surgeries to prevent Endocarditis (bacterial infection in your heart) For any questions or concerns please call your valve coordinators: Yahaira @ or Braxton @ Discharge Disposition: HOME SELF-CARE
--- NOTE | 2021-02-03 15:03 | PN ---
PROGRESS NOTE DATE OF SERVICE: 02/03/2021 81-year-old white male was admitted for aortic stenosis surgery. He had status post TAVR. He had some bleeding from a UA for which his discharge was held up yesterday. Hemoglobin 14.5, possibly due to Winston catheter irritation. His TAVR went well. He is saturating high 90s on room air. Pulse is near 100. He is in sinus rhythm. Sitting up in bed in his chair. Giving appropriate answers. Cardiovascular S1, S2. Abdomen is soft. : Winston is normal. Hemoglobin is normal. IMPRESSION: 1. Postoperative urinary retention. 2. Benign prostatic hypertrophy with obstruction. 3. Coronary artery disease. We will remove his Winston, do a voiding trial. If he is unable to void, the catheter should be replaced and should see him back in the office. Continue with tamsulosin. Hemoglobin stable status post possible Winston catheter hematoma. Prognosis is good. MMODL / IJN: [id number] /
--- NOTE | 2021-02-13 10:19 | CDI ---
Documentation Clarification Form Date: 02/13/2021 09:45:56 AM From: Venus Quiroga RN CCDS Admit Date: 02/01/2021 05:54:00 AM Patient Name: Elliot Barroso Visit Number: [id number] Discharge Date: 02/03/2021 03:26:00 PM ATTENTION: The Clinical Documentation Specialists (CDI) and [facility] Coding Staff appreciate your assistance in clarifying documentation. Please respond to the clarification below the line at the bottom and electronically sign. The CDI & [facility] Coding staff will review the response and follow-up if needed. Please note: Queries are made part of the Legal Health Record. If you have any questions, please contact the author of this message via ITS. Dr. Edil Humphries Post-operative Urinary Retention is documented Urology Consult 02/03 and patient had a Transcatheter aortic valve replacement, 02/01. Additional clarification is requested regarding the relationship, if any, that exists between the diagnosis and the procedure. Patients Admitting Diagnosis: Senile calcific aortic stenosis Post-Operative Diagnosis: Senile calcific aortic stenosis Procedure performed: Transcatheter aortic valve replacement with 29mm core valve evolute pro plus via left transfemoral approach. History/Risk Factors: 80-year-old male presents for elective valve replacement. Medical History: BPH, DM and bowel obstruction. Home medication Tamsulosin 0.4mg Daily. Medicine consult 02/03. Clinical Indicators: 100ml out with 665ml post residual. Straight cathed at 0200 with 700ml out. Nursing Note 02/02. Postprocedural urinary retention requiring placement of Winston catheter, resolved. DCS 02/03 Continue home dose Flomax for history of BPH and urinary retention. 02/03 Cardiothoracic Surgery note 02/03. Treatment: Consults: Urology consult 02/03: Postoperative urinary retention. BPH with obstruction. CAD. Treatment: Remove catheter for voiding trial. If unable to void replace catheter and see back in office late the following week. Should remain on Tamsulosin. What relationship, if any, exists between the diagnosis of Urinary Retention and the procedure: [ ] Urinary retention is a complication of surgical procedure [ ] Urinary retention is an expected outcome of the surgical procedure [ x ] Urinary retention is related to patients co-morbid condition of BPH & not a complication of the procedure [ ] Other please specify ____ [ ] Unable to determine (Template Last Revised: September 2020) MTDD
== END 2021-02-03 15:26 | disposition home or self-care (01) | DRG 267 ==
LOC: 2ORMAIN 05:54 → 2SICU 09:56 → 3SCARD 02-02 18:16
PROVIDERS: ADMIT Internal Medicine; ATTEND Internal Medicine
PROC: B3101ZZ Fluoroscopy of Thoracic Aorta using Low Osmolar Contrast (ICD-10-PCS; 2021-02-01)
PROC: 04QL0ZZ Repair Left Femoral Artery, Open Approach (ICD-10-PCS; 2021-02-01)
PROC: B24BZZ4 Ultrasonography of Heart with Aorta, Transesophageal (ICD-10-PCS; 2021-02-01)
PROC: 02RF38Z Replacement of Aortic Valve with Zooplastic Tissue, Percutaneous Approach (ICD-10-PCS; principal; 2021-02-01 08:00)
DX: I35.2 Nonrheumatic aortic (valve) stenosis with insufficiency (principal); N13.8 Other obstructive and reflux uropathy; E11.51 Type 2 diabetes mellitus with diabetic peripheral angiopathy without gangrene; I11.9 Hypertensive heart disease without heart failure; Z00.6 Encounter for examination for normal comparison and control in clinical research program; K74.60 Unspecified cirrhosis of liver; N40.1 Benign prostatic hyperplasia with lower urinary tract symptoms; R33.8 Other retention of urine; I25.5 Ischemic cardiomyopathy; E78.2 Mixed hyperlipidemia; I45.10 Unspecified right bundle-branch block; I25.10 Atherosclerotic heart disease of native coronary artery without angina pectoris; I67.9 Cerebrovascular disease, unspecified; H91.90 Unspecified hearing loss, unspecified ear; K21.9 Gastro-esophageal reflux disease without esophagitis; I25.2 Old myocardial infarction; K44.9 Diaphragmatic hernia without obstruction or gangrene; M19.90 Unspecified osteoarthritis, unspecified site; R13.10 Dysphagia, unspecified; K22.8 Other specified diseases of esophagus; G56.03 Carpal tunnel syndrome, bilateral upper limbs; Z79.84 Long term (current) use of oral hypoglycemic drugs; Z79.82 Long term (current) use of aspirin; Z79.02 Long term (current) use of antithrombotics/antiplatelets; Z79.899 Other long term (current) drug therapy; Z95.5 Presence of coronary angioplasty implant and graft; Z86.79 Personal history of other diseases of the circulatory system; Z87.891 Personal history of nicotine dependence; Z98.42 Cataract extraction status, left eye; Z98.41 Cataract extraction status, right eye; Z96.1 Presence of intraocular lens; Z90.49 Acquired absence of other specified parts of digestive tract; Z87.19 Personal history of other diseases of the digestive system; Z87.81 Personal history of (healed) traumatic fracture; Z86.73 Personal history of transient ischemic attack (TIA), and cerebral infarction without residual deficits; Z87.39 Personal history of other diseases of the musculoskeletal system and connective tissue; Z90.89 Acquired absence of other organs; Z86.19 Personal history of other infectious and parasitic diseases; Z98.890 Other specified postprocedural states; Z91.018 Allergy to other foods; Z80.8 Family history of malignant neoplasm of other organs or systems; Z83.2 Family history of diseases of the blood and blood-forming organs and certain disorders involving the immune mechanism; Z82.3 Family history of stroke
CPT/HCPCS: 33361; 71045; 80053; 82330; 83735; 85025; 85027; 85520; 85610; 85730; 86850; 86891; 86900; 86901; 86920; 93306; 93312; 93320; 93325

== ENCOUNTER → 2021-02-06 | Outpatient (CLI) | payer MEDICARE, OTHER ==
[2021-02-06 16:06] LABS: African American GFR (CKD) 72.6 (60.0-200.0); Albumin 3.8 g/dL (3.80-4.90); Albumin/Globulin Ratio 1.73 (1.60-3.17); Anion Gap 9.2 mmol/L (4.00-12.00); BUN/Creat Ratio 15.45 Ratio (12.00-20.00); Calcium 8.7 mg/dL (8.7-10.3); Carbon Dioxide 26.8 mmol/L (21.6-31.8); Chol/HDL Ratio 3.25; Globulin 2.2 g/dL (1.6-3.3); Non-African American GFR(CKD) 62.6 (60.0-200.0); Potassium 4.3 mmol/L (3.5-5.5); Total Bilirubin 0.9 mg/dL (0.2-1.2)
== END | disposition home or self-care (01) ==
LOC: LABWHC1 09:31
PROVIDERS: ATTEND Internal Medicine Interventional Cardiology
DX: E78.2 Mixed hyperlipidemia (principal)
CPT/HCPCS: 36415; 80053; 80061

== ENCOUNTER → 2021-03-13 | Outpatient (CLI) | payer MEDICARE, OTHER ==
[2021-03-13 14:37] LABS: Basophils # (A) 0.06 X 10*3/uL (0.00-0.10); Basophils % (A) 0.7 %; Eosinophils # (A) 0.67 X 10*3/uL (0.04-0.35); Eosinophils % (A) 7.5 %; HCT 42.5 % (39.6-50.0); HGB 13.1 g/dL (13.0-17.0); Lymphocytes # (A) 1.48 X 10*3/uL (0.90-5.00); Lymphocytes % (A) 16.6 %; MCH 26.8 pg (27.0-32.0); MCHC 30.8 g/dL (32.0-37.0); MCV 86.9 fL (80.0-97.0); Mean Platelet Volume 10.6 fL (9.5-12.2); Monocytes % (A) 10.1 %; Neutrophils # (A) 5.78 X 10*3/uL (1.80-7.70); Neutrophils % (A) 64.8 %; Platelet Count 185 X 10*3/uL (140-440); RBC 4.89 X 10*6/uL (4.40-5.60); RDW 14.7 % (11.5-14.5); WBC 8.92 X 10*3/uL (4.50-10.00)
[2021-03-13 17:00] LABS: African American GFR (CKD) 65.3 (60.0-200.0); Anion Gap 11.4 mmol/L (4.00-12.00); BUN/Creat Ratio 11.67 Ratio (12.00-20.00); Calcium 9.9 mg/dL (8.7-10.3); Carbon Dioxide 26.6 mmol/L (21.6-31.8); Non-African American GFR(CKD) 56.4 (60.0-200.0); Potassium 4.7 mmol/L (3.5-5.5)
== END | disposition home or self-care (01) ==
LOC: LABWHC1 09:27
PROVIDERS: ATTEND Thoracic Surgery (Cardiothoracic Vascular Surgery)
DX: I35.1 Nonrheumatic aortic (valve) insufficiency (principal)
CPT/HCPCS: 36415; 80048; 85025

== ENCOUNTER → 2021-05-17 | Outpatient (CLI) | payer MEDICARE, OTHER ==
[2021-05-17 19:01] LABS: Chol/HDL Ratio 2.84 Ratio; HDL Cholesterol 38.7 mg/dL (40.00-60.00); LDL Cholesterol,Calculated 55.9 mg/dL (0.0-131.0); Triglycerides 77.2 mg/dL (0.00-149.00); VLDL Calculation 15.44 mg/dL (5.00-40.00)
== END | disposition home or self-care (01) ==
LOC: LABWHC1 08:37
PROVIDERS: ATTEND Internal Medicine Interventional Cardiology
DX: E78.2 Mixed hyperlipidemia (principal)
CPT/HCPCS: 36415; 80061; 84450; 84460

== ENCOUNTER → 2021-11-21 | Outpatient (CLI) | payer MEDICARE, OTHER ==
--- NOTE | 2021-11-23 07:19 | US ---
EXAMINATION TYPE: US arterial LE single level DATE OF EXAM: 11/21/2021 1:39 PM CLINICAL HISTORY: I73.9 PAD. History of hyperlipidemia, hypertension, diabetes, stroke, MT, and prior vascular surgery. Cold feet and numbness. Edema bilateral legs. Doppler Waveforms: Right: Biphasic Left: Multiphasic Pulse Volume Recording: Flattening Ankle-Brachial Indices: Right: 1.03 Left: 1.12 Toe Brachial Indices: Right: 0.54 Left: 0.68 IMPRESSION: Diminished right TBI consistent with mild peripheral arterial disease in the right foot.
== END | disposition home or self-care (01) ==
LOC: RADUSWWP 12:53
PROVIDERS: ATTEND Family Medicine
DX: R60.0 Localized edema (principal); R20.0 Anesthesia of skin; Z95.5 Presence of coronary angioplasty implant and graft; Z98.62 Peripheral vascular angioplasty status
CPT/HCPCS: 93922

== ENCOUNTER → 2022-04-12 | Outpatient (CLI) | payer MEDICARE, OTHER ==
[2022-04-12 14:25] LABS: Basophils # (A) 0.05 X 10*3/uL (0.00-0.10); Basophils % (A) 0.7 %; Eosinophils # (A) 0.45 X 10*3/uL (0.04-0.35); Eosinophils % (A) 6.1 %; HCT 45.4 % (39.6-50.0); HGB 14.7 g/dL (13.0-17.0); Immature Grans, Automated 0.3 %; Lymphocytes # (A) 1.29 X 10*3/uL (0.90-5.00); Lymphocytes % (A) 17.5 %; MCH 29.6 pg (27.0-32.0); MCHC 32.4 g/dL (32.0-37.0); MCV 91.5 fL (80.0-97.0); Mean Platelet Volume 10.4 fL (9.5-12.2); Monocytes # (A) 0.55 X 10*3/uL (0.20-1.00); Monocytes % (A) 7.5 %; NRBC Per 100 WBC 0 /100 WBCS (0.0-0.0); Neutrophils % (A) 67.9 %; Platelet Count 158 X 10*3/uL (140-440); RBC 4.96 X 10*6/uL (4.40-5.60); RDW 14.3 % (11.5-14.5); WBC 7.36 X 10*3/uL (4.50-10.00)
[2022-04-12 14:35] LABS: Anion Gap 9.4 mmol/L (10.00-18.00); BUN/Creat Ratio 13.09 Ratio (12.00-20.00); Blood Urea Nitrogen 16.1 mg/dL (9.0-27.0); Calcium 9.3 mg/dL (8.7-10.3); Carbon Dioxide 26.9 mmol/L (20.0-27.5); Non-African American GFR(CKD) 54.3 (60.0-200.0); Potassium 4.4 mmol/L (3.5-5.5)
== END | disposition home or self-care (01) ==
LOC: LABWHC1 09:52
PROVIDERS: ATTEND Thoracic Surgery (Cardiothoracic Vascular Surgery)
DX: I35.1 Nonrheumatic aortic (valve) insufficiency (principal)
CPT/HCPCS: 36415; 80048; 85025

== ENCOUNTER → 2022-04-25 | Outpatient (CLI) | payer MEDICARE, OTHER ==
[2022-04-25 14:48] LABS: ALT 20 U/L (10-49); AST 24 U/L (14-35); African American GFR (CKD) 63.6 (60.0-200.0); Albumin 4.3 g/dL (3.8-4.9); Albumin/Globulin Ratio 1.53 (1.60-3.17); Alkaline Phosphatase 63 U/L (41-126); BUN/Creat Ratio 13.61 Ratio (12.00-20.00); Blood Urea Nitrogen 16.6 mg/dL (9.0-27.0); Calcium 9.8 mg/dL (8.7-10.3); Chloride 104 mmol/L (96-109); Chol/HDL Ratio 3.19 Ratio; Globulin 2.8 g/dL (1.6-3.3); Glucose 135 mg/dL (70-110); Non-African American GFR(CKD) 54.9 (60.0-200.0); Potassium 4.8 mmol/L (3.5-5.5); Sodium 141 mmol/L (135-145); Total Protein 7.1 g/dL (6.2-8.2); VLDL Calculation 17.96 mg/dL (5.00-40.00)
== END | disposition home or self-care (01) ==
LOC: LABWHC1 08:27
PROVIDERS: ATTEND Internal Medicine Interventional Cardiology
DX: I10 Essential (primary) hypertension (principal); E78.2 Mixed hyperlipidemia
CPT/HCPCS: 36415; 80053; 80061

== ENCOUNTER 2022-11-12 09:27 | Emergency (ER) | payer MEDICARE, OTHER ==
[2022-11-12 09:37] VITALS: RESP 18; TEMP 97.5
--- NOTE | 2022-11-12 11:08 | ED ---
Lower Extremity Injury HPI - General Chief Complaint: Extremity Injury, Lower Stated Complaint: Lump on lower left leg Time Seen by Provider: 11/12/22 09:43 Source: patient, family, RN notes reviewed Mode of arrival: wheelchair Limitations: no limitations - History of Present Illness Initial Comments: 82-year-old male presents emergency Department with chief complaint of left leg injury. Patient states he is seeing a small stool and a collapsed crushing on his left leg. He states there is an abrasion his tetanus is up-to-date. Patient states he developed an area swelling and tenderness over his calf. He states he is able to ambulate but states sore. No other injuries noted from the fall. - Related Data Home Medications Medication Instructions Recorded Confirmed Tamsulosin [Flomax] 0.4 mg PO DAILY 04/16/14 02/01/21 metFORMIN HCL [Glucophage] 500 mg PO BID 04/16/14 02/01/21 Clopidogrel Bisulfate [Plavix] 75 mg PO DAILY 06/17/18 02/01/21 Acetaminophen [Tylenol Arthritis] 650 - 1,300 mg PO Q4H PRN 09/03/19 02/01/21 Furosemide [Lasix] 20 mg PO DAILY PRN 09/03/19 02/01/21 Aspirin [Adult Low Dose Aspirin EC] 81 mg PO DAILY 10/13/19 02/01/21 Metoprolol Tartrate [Lopressor] 25 mg PO BID 10/13/19 02/01/21 Atorvastatin [Lipitor] 80 mg PO HS 09/05/20 02/01/21 Magnesium 200 mg PO DAILY 01/26/21 02/01/21 Previous Rx's Medication Instructions Recorded Losartan [Cozaar] 25 mg PO DAILY #30 tab 02/03/21 Pantoprazole [Protonix] 40 mg PO AC-[id number] #30 tablet. 02/03/21 Allergies Allergy/AdvReac Type Severity Reaction Status Date / Time walnut Allergy Severe Anaphylaxis Verified 11/12/22 09:37 w/ raw walnuts Review of Systems ROS Statement: Those systems with pertinent positive or pertinent negative responses have been documented in the HPI. ROS Other: All systems not noted in ROS Statement are negative. Past Medical History Past Medical History: Coronary Artery Disease (CAD), CVA/TIA, Diabetes Mellitus, GERD/Reflux, Hearing Disorder / Deafness, Hyperlipidemia, Hypertension, Liver Disease, Myocardial Infarction (LA), Osteoarthritis (OA), Prostate Disorder Additional Past Medical History / Comment(s): 05/2018 acute renal failure-pre renal d/t diuretic. moderate-severe aortic stenosis, murmur, past hx dysphagia/prominent cricopharyngeal muscle/ presbyesophagus. 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 egd w/ bx. Past Anesthesia/Blood Transfusion Reactions: No Reported Reaction Date of Last Stent Placement:: 1999 Past Psychological History: No Psychological Hx Reported Smoking Status: Former smoker - Past Family History Father Family Medical History: Cancer Additional Family Medical History / Comment(s): Father had bone cancer. Mother Family Medical History: Deep Vein Thrombosis (DVT) Additional Family Medical History / Comment(s): Mother had a CVA. General Exam Limitations: no limitations General appearance: alert, in no apparent distress Head exam: Present: atraumatic, normocephalic, normal inspection Respiratory exam: Present: normal lung sounds bilaterally. Absent: respiratory distress, wheezes, rales, rhonchi, stridor Cardiovascular Exam: Present: regular rate, normal rhythm, normal heart sounds. Absent: systolic murmur, diastolic murmur, rubs, gallop, clicks Extremities exam: Present: other (Left calf there is 3 cm hematoma no tenderness pulses equal bilaterally there is abrasion of the lower leg just proximal to the malleolus) Course Vital Signs 11/12/22 09:34 Temperature 97.5 F L Pulse Rate 86 Respiratory 18 Rate Blood Pressure 144/97 O2 Sat by Pulse 98 Oximetry Medical Decision Making - Medical Decision Making Was pt. sent in by a medical professional or institution (, PA, RN QUALITY, urgent care, hospital, or shelter...) When possible be specific @ -No Did you speak to anyone other than the patient for history (EMS, parent, family, police, friend...)? What history was obtained from this source @ -No Did you review nursing and triage notes (agree or disagree)? Why? @ -I reviewed and agree with nursing and triage notes Were old charts reviewed (outside hosp., previous admission, EMS record, old EKG, old radiological studies, urgent care reports/EKG's, shelter records)? Report findings @ -No old charts were reviewed Differential Diagnosis (chest pain, altered mental status, abdominal pain women, abdominal pain men, vaginal bleeding, weakness, fever, dyspnea, syncope, headache, dizziness, GI bleed, back pain, seizure, CVA, palpatations, mental health, musculoskeletal)? @ -Calf Strain, Hematoma, tibial fracture, EKG interpreted by me (3pts min.). @ -None X-rays interpreted by me (1pt min.). @ -X-ray tib-fib are negative for acute abnormality. CT interpreted by me (1pt min.). @ -None done U/S interpreted by me (1pt. min.). @ -None done What testing was considered but not performed or refused? (CT, X-rays, U/S, labs)? Why? @ -None What meds were considered but not given or refused? Why? @ -None Did you discuss the management of the patient with other professionals (professionals i.e. , PA, RN QUALITY, lab, RT, psych nurse, social media content specialist, chef & owner, teacher, chief technical officer, rifle case repairer)? Give summary @ -No Was smoking cessation discussed for >3mins.? @ -No Was critical care preformed (if so, how long)? @ -No Were there social determinants of health that impacted care today? How? (Homelessness, low income, unemployed, alcoholism, drug addiction, transpor tation, low edu. Level, literacy, decrease access to med. care, fdc, rehab)? @ -No Was there de-escalation of care discussed even if they declined (Discuss DNR or withdrawal of care, Hospice)? DNR status @ -No What co-morbidities impacted this encounter? (DM, HTN, Smoking, COPD, CAD, Cancer, CVA, ARF, Chemo, Hep., AIDS, mental health diagnosis, sleep apnea, morbid obesity)? @ -None Was patient admitted / discharged? Hospital course, mention meds given and route, prescriptions, significant lab abnormalities, going to OR and other pertinent info. @ -Discharge x-rays were negative patient has leg hematoma patient discharged with supportive treatment including ice, elevation, wrapping. Return parameters were discussed. Undiagnosed new problem with uncertain prognosis? @ -No Drug Therapy requiring intensive monitoring for toxicity (Heparin, Nitro, Insulin, Cardizem)? @ -No Were any procedures done? @ -No Diagnosis/symptom? @ -Left calf hematoma Acute, or Chronic, or Acute on Chronic? @ -Acute Uncomplicated (without systemic symptoms) or Complicated (systemic symptoms)? @ -Uncomplicated Side effects of treatment? @ -No Exacerbation, Progression, or Severe Exacerbation? @ -No Poses a threat to life or bodily function? How? (Chest pain, USA, LA, pneumonia, PE, COPD, DKA, ARF, appy, cholecystitis, CVA, Diverticulitis, Homicidal, Suicidal, threat to staff... and all critical care pts) @ -No Disposition Clinical Impression: Hematoma of left lower leg Disposition: HOME SELF-CARE Condition: Stable Instructions (If sedation given, give patient instructions): Hematoma (ED) Additional Instructions: Please return to the Emergency Department if symptoms worsen or any other concerns. Is patient prescribed a controlled substance at d/c from ED?: No Referrals: Blair Stewart MD [Primary Care Provider] - 1-2 days Time of Disposition: 11:23
--- NOTE | 2022-11-12 11:13 | XR ---
EXAM: XR tibia fibula LT DATE OF EXAM: 11/12/2022 10:57 AM COMPARISON STUDIES: Left knee x-ray May 03, 2020 PATIENT HISTORY: Pain after fall injury. Technique: 2 views of the left leg are acquired. FINDINGS: No acute fracture or dislocation in the left tibia or fibula. Moderate to severe narrowing medial tibiofemoral and patellofemoral compartments are redemonstrated. Persistent periosteal reacti on along the proximal fibular diaphysis similar to prior. Ankle mortise symmetry is preserved. Mild t o moderate diffuse subcutaneous edema and soft tissue swelling with more focal swelling mid shaft lev el of the tibia medially and posteriorly noted. Impression: No acute fracture or dislocation in the left tibia or fibula.
[2022-11-12 11:31] VITALS: BP 138/79; PULSE 79
== END 2022-11-12 11:31 | disposition home or self-care (01) ==
LOC: EC 09:27
DX: S80.12XA Contusion of left lower leg, initial encounter (principal); I10 Essential (primary) hypertension; I25.10 Atherosclerotic heart disease of native coronary artery without angina pectoris; I25.2 Old myocardial infarction; E11.9 Type 2 diabetes mellitus without complications; E78.5 Hyperlipidemia, unspecified; Z79.899 Other long term (current) drug therapy; Z87.891 Personal history of nicotine dependence; Z91.018 Allergy to other foods; X58.XXXA Exposure to other specified factors, initial encounter
CPT/HCPCS: 99283

== ENCOUNTER 2023-02-01 11:35 | Emergency (ER) | payer MEDICARE, OTHER ==
--- NOTE | 2023-02-01 11:59 | ED ---
Extremity Problem HPI - General Chief complaint: Extremity Injury, Lower Stated complaint: poss DVT bilateral lower extremities Time Seen by Provider: 02/01/23 11:36 Source: patient, RN notes reviewed Mode of arrival: ambulatory Limitations: no limitations - History of Present Illness Initial comments: This is a 82-year-old male who presents to the emergency department for swelling to the bilateral lower extremities. States that he started to develop swelling to the right lower extremity a couple weeks ago and swelling to the left lower extremity a couple of days ago. The left lower extremity is much more painful than the right. He did fall about a month ago and injured the left leg at that time. X-rays were obtained which were found to be normal. He healed well and did not have problems with this leg until a couple of days ago when the swelling started. He was sent in by his PCPs office for further evaluation of possible DVTs. Denies any chest pain or shortness of breath. Denies any fevers, chills, sore throat, cough, dyspnea, chest pain, palpitations, abdominal pain, nausea, vomiting, diarrhea, back pain, or headaches. MD Complaint: extremity pain, extremity swelling Location: bilateral lower extremity - Related Data Home Medications Medication Instructions Recorded Confirmed Tamsulosin [Flomax] 0.4 mg PO DAILY 04/16/14 02/01/21 metFORMIN HCL [Glucophage] 500 mg PO BID 04/16/14 02/01/21 Clopidogrel Bisulfate [Plavix] 75 mg PO DAILY 06/17/18 02/01/21 Acetaminophen [Tylenol Arthritis] 650 - 1,300 mg PO Q4H PRN 09/03/19 02/01/21 Furosemide [Lasix] 20 mg PO DAILY PRN 09/03/19 02/01/21 Aspirin [Adult Low Dose Aspirin EC] 81 mg PO DAILY 10/13/19 02/01/21 Metoprolol Tartrate [Lopressor] 25 mg PO BID 10/13/19 02/01/21 Atorvastatin [Lipitor] 80 mg PO HS 09/05/20 02/01/21 Magnesium 200 mg PO DAILY 01/26/21 02/01/21 Previous Rx's Medication Instructions Recorded Losartan [Cozaar] 25 mg PO DAILY #30 tab 02/03/21 Pantoprazole [Protonix] 40 mg PO JOHN #30 tablet. 02/03/21 Allergies Allergy/AdvReac Type Severity Reaction Status Date / Time walnut Allergy Severe Anaphylaxis Verified 02/01/23 11:46 w/ raw walnuts Review of Systems ROS Statement: Those systems with pertinent positive or pertinent negative responses have been documented in the HPI. ROS Other: All systems not noted in ROS Statement are negative. Past Medical History Past Medical History: Coronary Artery Disease (CAD), CVA/TIA, Diabetes Mellitus, GERD/Reflux, Hearing Disorder / Deafness, Hyperlipidemia, Hypertension, Liver Disease, Myocardial Infarction (DE), Osteoarthritis (OA), Prostate Disorder Additional Past Medical History / Comment(s): 05/2018 acute renal failure-pre renal d/t diuretic. moderate-severe aortic stenosis, murmur, past hx dysphagia/prominent cricopharyngeal muscle/ presbyesophagus. 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 egd w/ bx. Past Anesthesia/Blood Transfusion Reactions: No Reported Reaction Date of Last Stent Placement:: 1999 Past Psychological History: No Psychological Hx Reported Smoking Status: Former smoker Past Alcohol Use History: None Reported Past Drug Use History: None Reported - Past Family History Father Family Medical History: Cancer Additional Family Medical History / Comment(s): Father had bone cancer. Mother Family Medical History: Deep Vein Thrombosis (DVT) Additional Family Medical History / Comment(s): Mother had a CVA. General Exam Limitations: no limitations General appearance: alert, in no apparent distress Head exam: Present: atraumatic, normocephalic, normal inspection Respiratory exam: Present: normal lung sounds bilaterally. Absent: respiratory distress, wheezes, rales, rhonchi, stridor Cardiovascular Exam: Present: regular rate, normal rhythm, normal heart sounds. Absent: systolic murmur, diastolic murmur, rubs, gallop, clicks Extremities exam: Present: calf tenderness (Bilateral), other (2-3+ pitting edema to the bilateral lower extremities. Mild erythema to the bottom half of the left lower extremity. 2+ DP and PT pulses bilaterally. Capillary refill less than 1 second bilaterally.) Neurological exam: Present: alert, oriented X3, CN II-XII intact Psychiatric exam: Present: normal affect, normal mood Skin exam: Present: warm, dry, intact, normal color. Absent: rash Course Vital Signs 02/01/23 02/01/23 02/01/23 11:37 12:46 14:10 Temperature 98.5 F 98.1 F 98.1 F Pulse Rate 70 61 61 Respiratory 18 16 16 Rate Blood Pressure 171/72 124/90 110/62 O2 Sat by Pulse 98 97 96 Oximetry Medical Decision Making - Medical Decision Making This is an 82-year-old male who presents to the emergency department for bilateral leg pain and swelling. Was pt. sent in by a medical professional or institution? @ -No Did you speak to anyone other than the patient for history? @ -No Did you review nursing and triage notes? @ -Yes, and I agree, it is accurate with regards to the patient's symptoms. Were old charts reviewed? @ -No Differential Diagnosis? @ -Differential Leg Swelling: Cellullitis, Gout, DVT, PVD, arterial insufficiency, congestive heart failure, compartment syndrome, venous stasis changes, thrombophlebitis, contact dermatitis, necrotizing fasciitis, septic arthritis, this is not meant to be an all-inclusive list. EKG interpreted by me (3pts min.)? @ -Not obtained X-rays interpreted by me (1pt min.)? @ -Not obtained CT interpreted by me (1pt min.)? @ -Not obtained U/S interpreted by me (1pt. min.)? @ -Duplex ultrasound of the bilateral lower extremities obtained. My interpretation identifies no evidence of a DVT. What testing was considered but not performed? (CT, X-rays, U/S, labs)? Why? @ -None What meds were considered but not given? Why? @ -None Did you discuss the management of the patient with other professionals? @ -No Did you reconcile home meds? @ -No Was smoking cessation discussed for >3mins.? @ -No Was critical care preformed (if so, how long)? @ -No Were there social determinants of health that impacted care today? How? (Homelessness, low income, unemployed, alcoholism, drug addiction, transportation, low edu. Level, literacy, decrease access to med. care, care home, rehab)? @ -No Was there de-escalation of care discussed even if they declined? (Discuss DNR or withdrawal of care, Hospice)? @ -No What co-morbidities impacted this encounter? (DM, HTN, Smoking, COPD, CAD, Cance r, CVA, Hep., AIDS, mental health diagnosis, sleep apnea, morbid obesity)? @ -CAD, DM, HTN, HLD Was patient admitted / discharged? @ -Discharged. Lab work obtained and found to be nonactionable, including a negative BNP for signs of CHF. Duplex ultrasound of the bilateral lower extremities reveals no evidence of a DVT. Findings may be related to a dependent edema. Patient has Lasix at home, but is not currently taking it. Advised he can try resuming this as well as keeping his legs elevated and wrapped see if this offers improvement to the swelling. He will otherwise have close follow-up with his primary care provider. Undiagnosed new problem with uncertain prognosis? @ -None Drug Therapy requiring intensive monitoring for toxicity (Heparin, Nitro, Insulin, Cardizem)? @ -None Were any procedures done? @ -None Diagnosis/symptom? @ -Bilateral LE edema Acute, or Chronic, or Acute on Chronic? @ -Acute Uncomplicated (without systemic symptoms) or Complicated (systemic symptoms)? @ -Uncomplicated Side effects of treatment? @ -None Exacerbation, Progression, or Severe Exacerbation] @ -Not applicable Poses a threat to life or bodily function? @ -No Return precautions reviewed in depth, the patient is instructed to return to the emergency department with any new, worsening, or concerning symptoms. Patient verbalized understanding. This case was discussed in detail with the attending ED physician, Dr. Rodas. Presentation, findings, and treatment plan discussed in detail as well. - Lab Data Result diagrams: 02/01/23 12:01 02/01/23 12:01 Lab Results 02/01/23 02/01/23 02/01/23 Range/Units 12:01 12:01 13:03 WBC 7.8 (3.8-10.6) k/uL RBC 5.14 (4.30-5.90) m/uL Hgb 15.2 (13.0-17.5) gm/dL Hct 44.9 (39.0-53.0) % MCV 87.3 (80.0-100.0) fL MCH 29.6 (25.0-35.0) pg MCHC 33.9 (31.0-37.0) g/dL RDW 14.2 (11.5-15.5) % Plt Count 160 (150-450) k/uL MPV 8.4 Neutrophils % 66 % Lymphocytes % 18 % Monocytes % 8 % Eosinophils % 5 % Basophils % 0 % Neutrophils # 5.2 (1.3-7.7) k/uL Lymphocytes # 1.4 (1.0-4.8) k/uL Monocytes # 0.6 (0-1.0) k/uL Eosinophils # 0.4 (0-0.7) k/uL Basophils # 0.0 (0-0.2) k/uL Sodium 140 (137-145) mmol/L Potassium 4.5 (3.5-5.1) mmol/L Chloride 104 (98-107) mmol/L Carbon Dioxide 26 (22-30) mmol/L Anion Gap 10 mmol/L BUN 17 (9-20) mg/dL Creatinine 1.18 (0.66-1.25) mg/dL Est GFR (CKD-EPI)AfAm 66 (>60 ml/min/1.73 sqM) Est GFR (CKD-EPI)NonAf 57 (>60 ml/min/1.73 sqM) Glucose 105 H (74-99) mg/dL Plasma Lactic Acid Otoniel 1.0 (0.7-2.0) mmol/L Calcium 9.6 (8.4-10.2) mg/dL Total Bilirubin 0.8 (0.2-1.3) mg/dL AST 25 (17-59) U/L ALT 23 (4-49) U/L Alkaline Phosphatase 76 (38-126) U/L C-Reactive Protein <0.5 (<1.0) mg/dL NT-Pro-B Natriuret Pep 214 pg/mL Total Protein 6.7 (6.3-8.2) g/dL Albumin 4.0 (3.5-5.0) g/dL - Radiology Data Radiology results: report reviewed, image reviewed Disposition Clinical Impression: Bilateral lower extremity edema Disposition: HOME SELF-CARE Instructions (If sedation given, give patient instructions): Leg Edema (ED) Additional Instructions: Return to the emergency department with any new, worsening, or concerning symptoms. Start taking your Lasix again. Also try to keep your legs elevated. You can also wear compression stockings. Follow up with your primary care provider in 1-2 days. Is patient prescribed a controlled substance at d/c from ED?: No Referrals: Blair Stewart MD [Primary Care Provider] - 1-2 days
--- NOTE | 2023-02-01 12:48 | US ---
EXAMINATION TYPE: US venous doppler duplex LE DATE OF EXAM: 02/01/2023 12:38 PM COMPARISON: US [facility] 2020 CLINICAL INDICATION: Male, 82 years old with history of Leg pain and swelling; Pain and swelling. No hx of DVT. Patient takes baby aspirin. SIDE PERFORMED: Bilateral TECHNIQUE: The lower extremity deep venous system is examined utilizing real time linear array sonog esdras with graded compression, doppler sonography and color-flow sonography. VESSELS IMAGED: Common Femoral Vein Deep Femoral Vein Greater Saphenous Vein * Femoral Vein Popliteal Vein Small Saphenous Vein * Proximal Calf Veins (* superficial vessels) *Calf edema seen bilaterally. Right Leg: No evidence of DVT. Left Leg: No evidence of DVT. IMPRESSION: 1. Bilateral lower extremity ultrasound negative for deep venous fibrosis. 2. Some fissural edema of the left calf may be present during this exam.
[2023-02-01 13:07] LABS: ALT 23 U/L (4-49); AST 25 U/L (17-59); African American GFR (CKD) 66 (>60 ml/min/1.73 sqM); Alkaline Phosphatase 76 U/L (38-126); Anion Gap 10 mmol/L; Blood Urea Nitrogen 17 mg/dL (9-20); C Reactive Protein <0.5 mg/dL (<1.0); Calcium 9.6 mg/dL (8.4-10.2); Carbon Dioxide 26 mmol/L (22-30); Chloride 104 mmol/L (98-107); Glucose 105 mg/dL (74-99); Non-African American GFR(CKD) 57 (>60 ml/min/1.73 sqM); Potassium 4.5 mmol/L (3.5-5.1); Sodium 140 mmol/L (137-145); Total Bilirubin 0.8 mg/dL (0.2-1.3); Total Protein 6.7 g/dL (6.3-8.2)
[2023-02-01 13:09] VITALS: PULSE 61; RESP 16; TEMP 98.1
[2023-02-01 13:13] LABS: NT-Pro-B-Type Natriuretic Pept 214 pg/mL
[2023-02-01 13:18] LABS: Basophils % (A) 0 %; Eosinophils # (A) 0.4 k/uL (0-0.7); Eosinophils % (A) 5 %; HCT 44.9 % (39.0-53.0); HGB 15.2 gm/dL (13.0-17.5); Lymphocytes # (A) 1.4 k/uL (1.0-4.8); Lymphocytes % (A) 18 %; MCH 29.6 pg (25.0-35.0); MCHC 33.9 g/dL (31.0-37.0); MCV 87.3 fL (80.0-100.0); Mean Platelet Volume 8.4; Monocytes # (A) 0.6 k/uL (0-1.0); Monocytes % (A) 8 %; Neutrophils # (A) 5.2 k/uL (1.3-7.7); Neutrophils % (A) 66 %; Platelet Count 160 k/uL (150-450); RBC 5.14 m/uL (4.30-5.90); RDW 14.2 % (11.5-15.5); WBC 7.8 k/uL (3.8-10.6)
[2023-02-01 14:12] VITALS: BP 110/62
== END 2023-02-01 14:12 | disposition home or self-care (01) ==
LOC: EC 11:35
DX: R60.0 Localized edema (principal); E11.9 Type 2 diabetes mellitus without complications; I10 Essential (primary) hypertension; I25.2 Old myocardial infarction; E78.5 Hyperlipidemia, unspecified; M19.90 Unspecified osteoarthritis, unspecified site; I25.10 Atherosclerotic heart disease of native coronary artery without angina pectoris; Z79.899 Other long term (current) drug therapy; Z87.891 Personal history of nicotine dependence; Z79.82 Long term (current) use of aspirin; Z79.84 Long term (current) use of oral hypoglycemic drugs; Z91.018 Allergy to other foods; Z86.73 Personal history of transient ischemic attack (TIA), and cerebral infarction without residual deficits
CPT/HCPCS: 36415; 80053; 83605; 83880; 85025; 86140; 93970; 99284

== ENCOUNTER 2023-11-12 10:49 | Emergency (ER) | payer MEDICARE, OTHER ==
--- NOTE | 2023-11-12 11:15 | ED ---
Skin/Abscess/FB HPI - General Stated complaint: Shingles +(sent by pcp) Time Seen by Provider: 11/12/23 11:05 Source: patient, RN notes reviewed - History of Present Illness Initial comments: This is an 83-year-old male who presents to the emergency department chief complaint of a rash. Patient states that he went to his primary care provider this morning, Dr. Blair Stewart, who diagnosed the patient with shingles and recommend he visit the emergency department for IV administration of steroids and antiviral medication. Patient states that he noticed the rash started on his back about a week ago endorses fatigue and burning. He denies known fevers at home, nausea, vomiting, abdominal pain, dyspnea, chest pain or palpitations. States that he was taking Tylenol and Motrin at home. Denies Shingrix vaccine within the past year. - Related Data Home Medications Medication Instructions Recorded Confirmed Tamsulosin [Flomax] 0.4 mg PO DAILY 04/16/14 11/12/23 metFORMIN HCL [Glucophage] 500 mg PO BID 04/16/14 11/12/23 Metoprolol Tartrate [Lopressor] 25 mg PO BID 10/13/19 11/12/23 Atorvastatin [Lipitor] 80 mg PO HS 09/05/20 11/12/23 Omeprazole [PriLOSEC] 40 mg PO HS 11/12/23 11/12/23 Previous Rx's Medication Instructions Recorded Capsaicin Cream [Trixaicin Cream] 1 applic TOPICAL QID #60 gm 11/12/23 Gabapentin [Neurontin] 300 mg PO BID 3 Days #6 cap 11/12/23 predniSONE 50 mg PO DAILY #5 tab 11/12/23 valACYclovir HCL [Valtrex] 1,000 mg PO TID #30 tablet 11/12/23 Allergies Allergy/AdvReac Type Severity Reaction Status Date / Time walnut Allergy Severe Anaphylaxis Verified 11/12/23 17:55 w/ raw walnuts Review of Systems ROS Statement: Those systems with pertinent positive or pertinent negative responses have been documented in the HPI. ROS Other: All systems not noted in ROS Statement are negative. Past Medical History Past Medical History: Coronary Artery Disease (CAD), CVA/TIA, Diabetes Mellitus, GERD/Reflux, Hearing Disorder / Deafness, Hyperlipidemia, Hypertension, Liver Disease, Myocardial Infarction (LA), Osteoarthritis (OA), Prostate Disorder Additional Past Medical History / Comment(s): 05/2018 acute renal failure-pre renal d/t diuretic. moderate-severe aortic stenosis, murmur, past hx dysphagia/prominent cricopharyngeal muscle/ presbyesophagus. 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 egd w/ bx. Past Anesthesia/Blood Transfusion Reactions: No Reported Reaction Date of Last Stent Placement:: 1999 Past Psychological History: No Psychological Hx Reported Smoking Status: Former smoker Past Alcohol Use History: None Reported Past Drug Use History: None Reported - Past Family History Father Family Medical History: Cancer Additional Family Medical History / Comment(s): Father had bone cancer. Mother Family Medical History: Deep Vein Thrombosis (DVT) Additional Family Medical History / Comment(s): Mother had a CVA. General Exam - General Exam Comments Initial Comments: Visual Physical Exam Vital signs reviewed General: Well-appearing, nontoxic, no acute distress. Head: Normocephalic, atraumatic Eyes: PERRLA, EOMI ENT: Airway patent Chest: Nonlabored breathing Skin: No visual rash, normal skin tone Neuro: Alert and oriented 3 Musculoskeletal: No gross abnormalities General appearance: alert, in no apparent distress Head exam: Present: atraumatic, normocephalic, normal inspection Eye exam: Present: normal appearance, PERRL, EOMI. Absent: scleral icterus, conjunctival injection, periorbital swelling ENT exam: Present: normal exam, mucous membranes moist Neck exam: Present: normal inspection. Absent: tenderness, meningismus, lymphadenopathy Respiratory exam: Present: normal lung sounds bilaterally. Absent: respiratory distress, wheezes, rales, rhonchi, stridor Cardiovascular Exam: Present: regular rate, normal rhythm, normal heart sounds. Absent: systolic murmur, diastolic murmur, rubs, gallop, clicks GI/Abdominal exam: Present: soft, normal bowel sounds. Absent: distended, tenderness, guarding, rebound, rigid Extremities exam: Present: normal inspection, full ROM, normal capillary refill. Absent: tenderness, pedal edema, joint swelling, calf tenderness Back exam: Present: normal inspection, rash noted (Circular macular rash noted over the right mid anterior chest that wraps into the patient's back, there are areas of scabbing noted) Neurological exam: Present: alert, oriented X3, CN II-XII intact Psychiatric exam: Present: normal affect, normal mood Skin exam: Present: warm, dry, intact, normal color, rash (anterior chest wall vesicular macular rash spread into the back), urticaria, vesicles Course Vital Signs 11/12/23 11:27 Temperature 99.8 F H Pulse Rate 95 Respiratory 18 Rate Blood Pressure 158/78 O2 Sat by Pulse 97 Oximetry Medical Decision Making - Medical Decision Making Was pt. sent in by a medical professional or institution (, PA, ORGAN ASSEMBLER, urgent care, hospital, or care home...) When possible be specific @ -No Did you speak to anyone other than the patient for history (EMS, parent, family, police, friend...)? What history was obtained from this source @ -No Did you review nursing and triage notes (agree or disagree)? Why? @ -I reviewed and agree with nursing and triage notes Were old charts reviewed (outside hosp., previous admission, EMS record, old EKG, old radiological studies, urgent care reports/EKG's, care home records)? Report findings @ -No old charts were reviewed Differential Diagnosis (chest pain, altered mental status, abdominal pain women, abdominal pain men, vaginal bleeding, weakness, fever, dyspnea, syncope, headache, dizziness, GI bleed, back pain, seizure, CVA, palpatations, mental health, musculoskeletal)? @ -Shingles, tissue skin infection, rash EKG interpreted by me (3pts min.). @ -None X-rays interpreted by me (1pt min.). @ -chest x-ray no acute cardiopulmonary process noted. CT interpreted by me (1pt min.). @ -None done U/S interpreted by me (1pt. min.). @ -None done What testing was considered but not performed or refused? (CT, X-rays, U/S, labs)? Why? @ -None What meds were considered but not given or refused? Why? @ -None Did you discuss the management of the patient with other professionals (may miranda i.e. , PA, ORGAN ASSEMBLER, lab, RT, psych nurse, psychotherapist social worker, movers, teacher, access control officer, employment evaluator/case manager)? Give summary @ -I spoke with Dr. Gotti, the patient's PCP, who is in agreement with dis charge for the patient. Patient will be discharged home on oral Valtrex, prednisone, as needed capsaicin cream and Neurontin. Physician recommends outpatient follow-up in the morning. Was smoking cessation discussed for >3mins.? @ -No Was critical care preformed (if so, how long)? @ -No Were there social determinants of health that impacted care today? How? (Homelessness, low income, unemployed, alcoholism, drug addiction, transportation, low edu. Level, literacy, decrease access to med. care, halfway, rehab)? @ -No Was there de-escalation of care discussed even if they declined (Discuss DNR or withdrawal of care, Hospice)? DNR status @ -No What co-morbidities impacted this encounter? (DM, HTN, Smoking, COPD, CAD, Cancer, CVA, ARF, Chemo, Hep., AIDS, mental health diagnosis, sleep apnea, mo rbid obesity)? @ -None Was patient admitted / discharged? Hospital course, mention meds given and ro [place], prescriptions, significant lab abnormalities, going to OR and other pertinent info. @ -This is an 83-year-old male presents emergency department chief complaint of a rash. On physical examination patient noted to have vesicular macular rash over the anterior right chest that spreads into the posterior back that is tender and warm to the touch. This rash is consistent with shingles due to not crossing dermatomes. There are noted areas of scabbing. Patient's laboratory results unremarkable for acute signs of infection, CMP no signs of kidney dysfunction, liver dysfunction or electrolyte abnormalities. Patient's chest x- ray no acute process noted. Patient was provided with IV push of Solu-Medrol. Patient will be discharged home on steroids, antivirals, Neurontin, and as needed capsaicin cream. Patient will follow-up from morning with his primary care provider. Discussed with Dr. Stubbs Undiagnosed new problem with uncertain prognosis? @ -No Drug Therapy requiring intensive monitoring for toxicity (Heparin, Nitro, Insulin, Cardizem)? @ -No Were any procedures done? @ -No Diagnosis/symptom? @ -shingles Acute, or Chronic, or Acute on Chronic? @ -acute Uncomplicated (without systemic symptoms) or Complicated (systemic symptoms)? @ -uncomplicated Side effects of treatment? @ -No Exacerbation, Progression, or Severe Exacerbation? @ -No Poses a threat to life or bodily function? How? (Chest pain, USA, LA, pneumonia, PE, COPD, DKA, ARF, appy, cholecystitis, CVA, Diverticulitis, Homicidal, Suicidal, threat to staff... and all critical care pts) @ -No - Lab Data Result diagrams: 11/12/23 11:56 11/12/23 11:56 Lab Results 11/12/23 11/12/23 Range/Units 11:56 11:56 WBC 6.4 (3.8-10.6) k/uL RBC 5.16 (4.30-5.90) m/uL Hgb 15.4 (13.0-17.5) gm/dL Hct 46.7 (39.0-53.0) % MCV 90.5 (80.0-100.0) fL MCH 29.8 (25.0-35.0) pg MCHC 33.0 (31.0-37.0) g/dL RDW 13.8 (11.5-15.5) % Plt Count 135 L (150-450) k/uL MPV 8.1 Neutrophils % 73 % Lymphocytes % 10 % Monocytes % 12 % Eosinophils % 2 % Basophils % 1 % Neutrophils # 4.7 (1.3-7.7) k/uL Lymphocytes # 0.6 L (1.0-4.8) k/uL Monocytes # 0.7 (0-1.0) k/uL Eosinophils # 0.1 (0-0.7) k/uL Basophils # 0.1 (0-0.2) k/uL Sodium 136 L (137-145) mmol/L Potassium 4.6 (3.5-5.1) mmol/L Chloride 105 (98-107) mmol/L Carbon Dioxide 22 (22-30) mmol/L Anion Gap 9 mmol/L BUN 18 (9-20) mg/dL Creatinine 0.98 (0.66-1.25) mg/dL Est GFR (CKD-EPI)AfAm 83 (>60 ml/min/1.73 sqM) Est GFR (CKD-EPI)NonAf 72 (>60 ml/min/1.73 sqM) Glucose 142 H (74-99) mg/dL Calcium 9.5 (8.4-10.2) mg/dL Total Bilirubin 1.1 (0.2-1.3) mg/dL AST 33 (17-59) U/L ALT 27 (4-49) U/L Alkaline Phosphatase 59 (38-126) U/L Total Protein 6.8 (6.3-8.2) g/dL Albumin 4.1 (3.5-5.0) g/dL Disposition Clinical Impression: Shingles Narrative: Please return to the Emergency Department if symptoms worsen or any other concerns. Complete full course of steroids and Valtrex as prescribed. Use Neurontin as needed for nerve pain. Continue use of capsaicin cream on affected area. Follow-up with your primary care provider tomorrow for further evaluation. Disposition: HOME SELF-CARE Condition: Good Instructions (If sedation given, give patient instructions): Shingles (ED) Prescriptions: Gabapentin [Neurontin] 300 mg PO BID 3 Days #6 cap predniSONE 50 mg PO DAILY #5 tab Capsaicin Cream [Trixaicin Cream] 1 applic TOPICAL QID #60 gm valACYclovir HCL [Valtrex] 1,000 mg PO TID #30 tablet Is patient prescribed a controlled substance at d/c from ED?: Yes When asked, does pt state using other controlled substances?: No If prescribed controlled substance>3 days was MAPS reviewed?: Prescribed <3 Days Referrals: Blair Stewart MD [Primary Care Provider] - 1-2 days Time of Disposition: 18:25
[2023-11-12 12:00] VITALS: RESP 18
[2023-11-12 12:01] LABS: Basophils # (A) 0.1 k/uL (0-0.2); Basophils % (A) 1 %; Eosinophils # (A) 0.1 k/uL (0-0.7); Eosinophils % (A) 2 %; HCT 46.7 % (39.0-53.0); HGB 15.4 gm/dL (13.0-17.5); Lymphocytes # (A) 0.6 k/uL (1.0-4.8); Lymphocytes % (A) 10 %; MCH 29.8 pg (25.0-35.0); MCV 90.5 fL (80.0-100.0); Mean Platelet Volume 8.1; Monocytes # (A) 0.7 k/uL (0-1.0); Monocytes % (A) 12 %; Neutrophils # (A) 4.7 k/uL (1.3-7.7); Neutrophils % (A) 73 %; Platelet Count 135 k/uL (150-450); RBC 5.16 m/uL (4.30-5.90); RDW 13.8 % (11.5-15.5); WBC 6.4 k/uL (3.8-10.6)
[2023-11-12 12:11] LABS: ALT 27 U/L (4-49); AST 33 U/L (17-59); African American GFR (CKD) 83 (>60 ml/min/1.73 sqM); Albumin 4.1 g/dL (3.5-5.0); Alkaline Phosphatase 59 U/L (38-126); Anion Gap 9 mmol/L; Blood Urea Nitrogen 18 mg/dL (9-20); Calcium 9.5 mg/dL (8.4-10.2); Carbon Dioxide 22 mmol/L (22-30); Chloride 105 mmol/L (98-107); Glucose 142 mg/dL (74-99); Non-African American GFR(CKD) 72 (>60 ml/min/1.73 sqM); Sodium 136 mmol/L (137-145); Total Bilirubin 1.1 mg/dL (0.2-1.3); Total Protein 6.8 g/dL (6.3-8.2)
[2023-11-12 12:21] LABS: Potassium 4.6 mmol/L (3.5-5.1)
[2023-11-12] MEDS: ACETAMINOPHEN TAB 500 MG TAB PO STA (15:50)
[2023-11-12] MEDS: IBUPROFEN 800 MG TAB PO STA (15:51)
[2023-11-12] MEDS: methylPREDNISolone SOD SUCCI 125 MG/2 ML VIAL IV STA (17:00)
[2023-11-12 19:08] VITALS: BP 132/77; PULSE 92; TEMP 98.1
== END 2023-11-12 18:42 | disposition home or self-care (01) ==
LOC: EC 10:49
DX: B02.9 Zoster without complications (principal); Z87.891 Personal history of nicotine dependence; Z88.8 Allergy status to other drugs, medicaments and biological substances
CPT/HCPCS: 36415; 80053; 85025; 71046; 99284; 96374; J2919

== ENCOUNTER 2025-01-06 08:28 | Day surgery (SDC) | payer MEDICARE, OTHER ==
[2025-01-05 10:59] VITALS: BMI 26.9
--- NOTE | 2025-01-06 08:43 | P.GSHP ---
History of Present Illness H&P Date: 01/06/25 CHIEF COMPLAINT: Dysphagia and colon screen HISTORY OF PRESENT ILLNESS: The patient is a 84-year-old male who presents with dysphagia, gastroesophageal reflux disease and need for colon screen. Upper and lower endoscopy were offered for further evaluation and management. PAST MEDICAL HISTORY: Please see list. PAST SURGICAL HISTORY: Please see list. MEDICATIONS: Please see list. ALLERGIES: Please see list. SOCIAL HISTORY: No illicit drug use FAMILY HISTORY: No reports of Crohn disease or ulcerative colitis. REVIEW OF ORGAN SYSTEMS: CONSTITUTIONAL: No reports of fevers or chills. GI: Denies any blood in stools or constipation. PHYSICAL EXAM: VITAL SIGNS: Stable GENERAL: Well-developed pleasant in no acute distress. HEENT: No scleral icterus. Extraocular movements grossly intact. Moist buccal mucosa. NECK: Supple without lymphadenopathy. CHEST: Unlabored respirations. Equal bilateral excursions. CARDIOVASCULAR: Regular rate and rhythm. Distal 2+ pulses. ABDOMEN: Soft, nondistended. MUSCULOSKELETAL: No clubbing, cyanosis, or edema. ASSESSMENT: 1. Dysphagia and gastroesophageal reflux disease 2. Colon screen. PLAN: 1. Recommend proceeding with an upper and lower endoscopy Past Medical History Past Medical History: Coronary Artery Disease (CAD), CVA/TIA, Diabetes Mellitus, GERD/Reflux, Hearing Disorder / Deafness, Hyperlipidemia, Hypertension, Liver Disease, Myocardial Infarction ([place]), Osteoarthritis (OA) Additional Past Medical History / Comment(s): 05/2018 acute renal failure-pre renal d/t diuretic. moderate-severe aortic stenosis, murmur, past hx dysphagia/prominent cricopharyngeal muscle/ presbyesophagus. 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 egd w/ bx.,TAVR 2020 Past Anesthesia/Blood Transfusion Reactions: No Reported Reaction Additional Past Anesthesia/Blood Transfusion Reaction / Comment(s): no hx blood transfusions Date of Last Stent Placement:: unk Smoking Status: Former smoker - Past Family History Father Family Medical History: Cancer Additional Family Medical History / Comment(s): Father had bone cancer. Mother Family Medical History: Deep Vein Thrombosis (DVT) Additional Family Medical History / Comment(s): Mother had a CVA. Medications and Allergies Home Medications Medication Instructions Recorded Confirmed Type Tamsulosin [Flomax] 0.4 mg PO QAM 04/16/14 01/05/25 History metFORMIN HCL [Glucophage] 500 mg PO BID 04/16/14 01/05/25 History Metoprolol Tartrate [Lopressor] 25 mg PO BID 10/13/19 01/05/25 History Atorvastatin [Lipitor] 80 mg PO HS 09/05/20 01/05/25 History Omeprazole [PriLOSEC] 40 mg PO HS 11/12/23 01/05/25 History Aspirin 81 mg PO DAILY 01/05/25 01/05/25 History Gabapentin [Neurontin] 600 mg PO TID 01/05/25 01/05/25 History Losartan Potassium 100 mg PO QAM 01/05/25 01/05/25 History Allergies Allergy/AdvReac Type Severity Reaction Status Date / Time walnut Allergy Severe Anaphylaxis Verified 01/05/25 09:53 w/ raw walnuts
[2025-01-06] MEDS: IV FLUID CONTINUATION 1,000 ML IV ONE (08:48)
[2025-01-06] MEDS: LACTATED RINGERS 1,000 ML IV SCH (08:59)
[2025-01-06 09:02] VITALS: TEMP 97.3
[2025-01-06 09:12] LABS: Glucose,Whole Blood 122 mg/dL (70-110)
[2025-01-06] MEDS ORDERED: PROPOFOL 10 MG/ML 20 ML VIAL IV ONE (09:47)
--- NOTE | 2025-01-06 10:34 | P.PCN ---
Date of Procedure: 01/06/25 Description of Procedure: PREOPERATIVE DIAGNOSIS: Gastroesophageal reflux disease. Dysphagia POSTOPERATIVE DIAGNOSIS: Gastroesophageal reflux disease. Gastritis. Duodenal adenoma OPERATION: Esophagogastroduodenoscopy with cold forceps biopsies along esophagus, antrum and duodenum SURGEON: Miranda Fierro MD ANESTHESIA: MAC. INDICATIONS: The patient is a 84-year-old female who presents with dysphagia and reflux disease. Benefits and risks of the procedure were described. Informed consent was obtained. DESCRIPTION: The patient was brought into the endoscopy suite and laid in the left lateral decubitus position. An Olympus gastroscope was passed along the posterior oropharynx down to the distal esophagus where the squamocolumnar junction was encountered at 40 cm from the incisors. The stomach was entered and no bile reflux was found. Additional findings are listed below. Biopsies with cold forceps were obtained of the antrum. The first through third portion of the duodenum was examined. Retroflexion of the scope confirmed Hill grade 1 lower esophageal valve. The squamocolumnar junction demonstrated LA grade A erosive esophagitis. The stomach was desufflated. The patient tolerated the procedure well. FINDINGS: Squamocolumnar junction 40 cm from the incisors. Diaphragmatic hiatus at 40 cm. Hill grade 1 lower esophageal valve. LA grade A erosive esophagitis. Biopsies obtained of the duodenum. Chronic gastritis with biopsies obtained. Duodenal polyp, 4 mm first portion of duodenum, biopsied RECOMMENDATIONS: Upper endoscopy as needed.
--- NOTE | 2025-01-06 11:08 | P.PCN ---
Date of Procedure: 01/06/25 Description of Procedure: PREOPERATIVE DIAGNOSIS: Personal history of colon polyps Colonoscopy screening POSTOPERATIVE DIAGNOSIS: Tubular adenoma cecum Sigmoid diverticulosis Internal hemorrhoids, grade 2 OPERATION: Colonoscopy to the ileocecal valve and appendiceal orifice, cecum Colonoscopy with cold forceps biopsy SURGEON: Miranda Fierro MD. ANESTHESIA: MAC. INDICATIONS: The patient is an 84-year-old male who presents personal history of colon polyps. Last colonoscopy 5 years. Benefits and risks were described and informed consent was obtained. DESCRIPTION OF PROCEDURE: The patient had undergone Suprep. The patient had been brought into the operating room and laid in the left lateral decubitus position. After adequate intravenous sedation, the rectum was examined with 2% lidocaine jelly. The prostate was unremarkable. External hemorrhoids were encountered. The rectal tone was within normal limits. No lesions were palpated in the rectal vault. An Olympus colonoscope was advanced until the cecum, ileocecal valve and appendiceal orifice were clearly viewed. The prep was excellent. Sigmoid diverticulosis was encountered. Colonic polyps were found and removed. No evidence of focal colitis was found. Retroflexion of the scope demonstrated grade 2 internal hemorrhoids without active bleeding or inflammation. The colon was desufflated. The patient had tolerated the procedure well. Withdrawal time was over 6 minutes. FINDINGS: Aronchick preparation quality scale 1 (1-5) Internal hemorrhoids, grade 2 External hemorrhoids, grade 2. No arteriovenous malformations. Sigmoid diverticulosis Removal of 2 polyps: - Cold forceps biopsy at ileocecal valve/cecum x 2, 3 to 4 mm adenoma No focal colitis. RECOMMENDATIONS: Repeat colonoscopy in 3 years, 2027 Plan - Discharge Summary Discharge Rx Participant: No New Discharge Prescriptions: Continue metFORMIN HCL [Glucophage] 500 mg PO BID Tamsulosin [Flomax] 0.4 mg PO QAM Metoprolol Tartrate [Lopressor] 25 mg PO BID Atorvastatin [Lipitor] 80 mg PO HS Omeprazole [PriLOSEC] 40 mg PO HS Gabapentin [Neurontin] 600 mg PO TID Losartan Potassium 100 mg PO QAM Aspirin 81 mg PO DAILY Discharge Medication List Tamsulosin [Flomax] 0.4 mg PO QAM 04/16/14 [History] metFORMIN HCL [Glucophage] 500 mg PO BID 04/16/14 [History] Metoprolol Tartrate [Lopressor] 25 mg PO BID 10/13/19 [History] Atorvastatin [Lipitor] 80 mg PO HS 09/05/20 [History] Omeprazole [PriLOSEC] 40 mg PO HS 11/12/23 [History] Aspirin 81 mg PO DAILY 01/05/25 [History] Gabapentin [Neurontin] 600 mg PO TID 01/05/25 [History] Losartan Potassium 100 mg PO QAM 01/05/25 [History] Follow up Appointment(s)/Referral(s): Miranda Fierro MD [STAFF PHYSICIAN] - As Needed Patient Instructions/Handouts: *Surgery [facility] - (Anesthesia) Discharge Instructions Outpatient Surgery, Gastritis (ED), Diverticulosis (DC), Diet for Stomach Ulcers and Gastritis (ED), Diverticulosis Diet (GEN) Activity/Diet/Wound Care/Special Instructions: Repeat colonoscopy 3 years, 2027 Discharge Disposition: HOME SELF-CARE
[2025-01-06 11:28] VITALS: BP 104/56; PULSE 55; RESP 16
== END 2025-01-06 11:37 | disposition home or self-care (01) ==
LOC: ORWHC2ENDO 08:28
PROVIDERS: ATTEND Surgery Plastic and Reconstructive Surgery
DX: Z12.11 Encounter for screening for malignant neoplasm of colon (principal); K29.50 Unspecified chronic gastritis without bleeding; D12.0 Benign neoplasm of cecum; D13.2 Benign neoplasm of duodenum; K21.00 Gastro-esophageal reflux disease with esophagitis, without bleeding; K44.9 Diaphragmatic hernia without obstruction or gangrene; K57.30 Diverticulosis of large intestine without perforation or abscess without bleeding; K64.1 Second degree hemorrhoids; I25.10 Atherosclerotic heart disease of native coronary artery without angina pectoris; I25.2 Old myocardial infarction; E11.9 Type 2 diabetes mellitus without complications; E78.5 Hyperlipidemia, unspecified; I10 Essential (primary) hypertension; H91.90 Unspecified hearing loss, unspecified ear; M19.90 Unspecified osteoarthritis, unspecified site; N40.0 Benign prostatic hyperplasia without lower urinary tract symptoms; Z86.73 Personal history of transient ischemic attack (TIA), and cerebral infarction without residual deficits; Z90.49 Acquired absence of other specified parts of digestive tract; Z90.89 Acquired absence of other organs; Z95.5 Presence of coronary angioplasty implant and graft; Z87.891 Personal history of nicotine dependence; Z82.3 Family history of stroke; Z79.84 Long term (current) use of oral hypoglycemic drugs; Z79.02 Long term (current) use of antithrombotics/antiplatelets; Z79.82 Long term (current) use of aspirin; Z79.899 Other long term (current) drug therapy
CPT/HCPCS: 88305; 45380; 43239; J2704